=== PATIENT | female | born 1980 | race Caucasian/White ===

== ENCOUNTER → 2017-01-01 | Emergency (ER) | payer MEDICAID ==
[~2017-01-01] VITALS: Ht 172.7 cm; Wt 114.8 kg
[~2017-01-01] MED LIST: AC325T PO; AGM875T PO; ALBU8.5H2 IH; AMOX500C2 PO; AMOX875T2; AZIT250T PO; AZTH250C PO; BENZ100C18 PO; BENZ200C25 PO; CEFD300C3 PO; CEPH500C PO; CETI10TA76 PO; CIPR-225 PO; CIPR500T78 PO; CLON0.123; CLON0.5T3; CLON0.5T60 PO; CLON1TAB36 PO; CLON2TAB3 PO; CPR500T PO; CTLP20T PO; CYCL10TA9 PO; CYMBALTA; DCS100C PO; DICL75TA2; DICY20TA57 PO; DIVA125T2; DOXY100C2 PO; DOXY100T61 PO; DULO60CA6; DULO60CA6 PO; ERYT1OIN6 OP; ESZO3TAB30 PO; FAMO-119 PO; FAMO40TA6 PO; FANAPT; FLT05NA16 NSEACH; GABA300C; GABA300C PO; GBPN300C PO; GENT3.5O18 OS; GFCD10B PO; GUAI1TAB PO; HC A30CR RC; HYDR-1231 PO; HYDR-2856 PO; HYDR-34 PO; HYDR-3729 PO; HYDR-3812 PO; HYDR-3816 PO; HYDR1TAB PO; HYDR473S17 PO; HYOS0.1283 SL; HYOSCYAMINE 0.125 MG (LEVSIN) TAB SL ONE; IBP200T PO; IBUP-15 PO; IBUP-30 PO; ILOP6TAB PO; ILOP6TAB2 PO; IOHEXOL 350 MG/ML 100 ML (OMNIPAQUE 350) VIAL IV ONE; LACT1CAP62 PO; LACTATED RINGERS 1,000 ML IV ONE; LEVO500T69 PO; LORA1TAB; LORA1TAB PO; LOXA10CA; LOXA10CA PO; LURA120T PO; MECL-124 PO; MECL25TA3 PO; MECL25TA56 PO; METH-53 PO; METOCLOPRAMIDE INJ 10 MG/2 ML (REGLAN) IVP ONE; METR500T PO; NAPR-243 PO; NAPR-684 PO; NAPR250T34 PO; NF-OLOP5ML OP; NITR-65 PO; NITR100C3 PO; NS 100 ML (IVPB) BAG IV ONE; ONDA-42 SL; ONDA4TAB11 PO; ONDA4TAB8 PO; ONDA8TAB13 PO; ONDANSETRON 4 MG/2 ML (SDV) Z0FRAN IVP ONE; ONDANSETRON 4 MG/2 ML (SDV) Z0FRAN ONE; ONDN4T PO; PENI250T4 PO; PRD20T PO; PRD50T PO; PRM25T PO; PROMETHAZINE; PROP40TA5; PROP40TA5 PO; RANITIDINE; RIZA5TAB13 PO; SUCR1ORA PO; TRAM-21 PO; TRAM100T PO; TRAM50TA2 PO; TRAZ150T42; TRM50T PO; TRZ100T; TRZ100T PO; VORT10TA PO; ZIPR60CA6; ZLP10T; ZPR80C; diphenhydrAMINE 50 MG/ML INJ (BENADRYL) IVP ONE
[2017-01-01] MEDS: LACTATED RINGERS 1,000 ML IV ONE ×2 (05:40→05:42)
[2017-01-01 05:44] LABS: BASOPHILS % (AUTO) 0 % (0-10); EOSINOPHILS # (AUTO) 0.6 10^3/uL (0.0-0.3); EOSINOPHILS % (AUTO) 7 % (0-10); LYMPHOCYTES # (AUTO) 2.6 X 10^3 (1.0-4.0); LYMPHOCYTES % (AUTO) 28 % (12-44); MEAN CORPUSCULAR HEMOGLOBIN 28 PG (25-34); MEAN CORPUSCULAR HGB CONC 34 G/DL (32-36); MEAN CORPUSCULAR VOLUME 82 FL (80-99); MEAN PLATELET VOLUME 9.9 FL (7.4-10.4); MONOCYTES # (AUTO) 0.8 X 10^3 (0.0-1.0); MONOCYTES % (AUTO) 9 % (0-12); NEUTROPHILS % (AUTO) 56 % (42-75); PLATELET COUNT 245 10^3/uL (130-400); RED BLOOD COUNT 4.99 10^6/uL (4.35-5.85); RED CELL DISTRIBUTION WIDTH 13.8 % (10.0-14.5); WHITE BLOOD COUNT 9.1 10^3/uL (4.3-11.0)
--- NOTE | 2017-01-01 05:55 | ED GI ---
General Chief Complaint: Abdominal/GI Problems Stated Complaint: VOMITING,DIARRHEA Nursing Triage Note: PT CO OF N/V/DIARRHEA SINCE FRIDAY, PT WAS SEEN AT [facility] YESTERDAY AND HAS GOTTEN A SCRIPT FOR ZOFRAN. CONT TO HAVE CRAMPING Sepsis Screen: No Definite Risk Source of Information: Patient (GLENDA JIMENEZ DO) History of Present Illness Time Seen By Provider: 05:35 Initial Comments C/O NAUSEA/VOMITING/DIARRHEA AND ABDOMINAL CRAMPING SINCE Friday12/29/16 HAS VOMITED X 3, PLUS DRY HEAVES SINCE MIDNIGHT HAS HAD DIARRHEA X 4-5 SINCE MIDNIGHT--STOOL IS WATERY, NO BLACK /BLOODY/TARRY STOOLS ABDOMINAL CRAMPING IS IN EPIGASTRIC AREA AND COMES AND GOES NO FEVER, BUT HAS HAD SWEATS AND CHILLS VOIDED AT 1999 LAST PM DRANK GATORADE AT 2029 LAST PM NO KNOWN SICK CONTACTS OR SUSPICIOUS FOODS PT HAS HAD NON-SPECIFIC "GI ISSUES" IN PAST, WITHOUT DEFINITE DX--HAS HAD MULTIPLE EGD'S AND COLONOSCOPIES WENT TO [facility] YESTERDAY AND WAS DX WITH "STOMACH FLU" PER PT, AND GIVEN RX FOR ZOFRAN 4 MG--NO IMPROVEMENT, CAN'T KEEP IT DOWN. PCP: DR. JENNIFER CASTILLO (GLENDA JIMENEZ DO) Allergies and Home Medications Allergies Coded Allergies: metformin (Verified Allergy, Intermediate, N/V, 11/21/15) strawberry (Verified Allergy, Mild, 11/28/15) codeine (Verified Allergy, Unknown, 12/24/05) morphine (Verified Allergy, Unknown, 01/12/14) ketorolac tromethamine (Verified Adverse Reaction, Unknown, VOMITING, 01/12) Home Medications Cetirizine HCl 10 Mg Tab.chew, 10 MG PO DAILY, (Reported) Hyoscyamine Sulfate 0.125 Mg Tab.subl, 0.125 MG SL Q4H PRN for ABDOMINAL PAIN, # 10 Prescribed by: REILLY PORTER on 01/01/17 0736 Ibuprofen 200 Mg Tablet, 800 MG PO BID, (Reported) Lactobacillus Acidophilus 1 Each Capsule, 1 EACH PO TID, #30 With meals Prescribed by: MADELINE OAKES on 04/01/16 1735 Lorazepam 1 Mg Tablet, 2 MG PO TID, (Reported) LAST FILLED #90 08-03-15 Loxapine Succinate 10 Mg Capsule, 10 MG PO DAILY, (Reported) Ondansetron HCl 4 Mg Tab, 4 MG PO TID PRN for NAUSEA/VOMITING-1ST LINE, ( Reported) [Fanapt] , (Reported) Review of Systems Constitutional: see HPI, chills, diaphoresis EENTM: No Symptoms Reported Respiratory: No Symptoms Reported Cardiovascular: No Symptoms Reported Gastrointestinal: See HPI, Abdominal Pain, Diarrhea, Nausea, Poor Appetite, Poor Fluid Intake, Vomiting Genitourinary: No Symptoms Reported Musculoskeletal: no symptoms reported Skin: no symptoms reported Psychiatric/Neurological: No Symptoms Reported Endocrine: No Symptoms Reported Hematologic/Lymphatic: No Symptoms Reported (GLENDA JIMENEZ DO) Past Twkjjdg-Syvful-Iabaty Hx Patient Social History Alcohol Use: Denies Use Recreational Drug Use: No Smoking Status: Current Everyday Smoker (1 PPD) Type Used: Cigarettes Recent Foreign Travel: No Contact w/Someone Who Travel: No Recent Infectious Disease Expo: No Recent Hopitalizations: No (GLENDA JIMENEZ DO) Immunizations Up To Date Tetanus Booster (TDap): Less than 5yrs Date of Pneumonia Vaccine: May 16, 2011 Date of Influenza Vaccine: Jun 27, 2015 (GLENDA JIMENEZ DO) Seasonal Allergies Seasonal Allergies: Yes (GLENDA JIMENEZ DO) Surgeries HX Surgeries: Yes (DENTAL , RT CARPAL TUNNEL, 3 D&C, R KNEE SCOPE; HYST/BSO; MULTIPLE EGD'S AND COLONOSCOPIES) Surgeries: Adenoidectomy, Appendectomy, Gallbladder, Hysterectomy, Oophorectomy , Orthopedic, Tonsillectomy, Tubal Ligation (DAVON JIMENEZA Fausto WINTER) Respiratory Hx Respiratory Disorders: Yes Respiratory Disorders: Chronic Bronchitis (DAVON IJMENEZA Fausto WINTER) Cardiovascular Hx Cardiac Disorders: No (DAVON JIMENEZA Fausto WINTER) Neurological Hx Neurological Disorders: Yes Neurological Disorders: Headaches /Migraines, Neuropathy (DAVON JIMENEZA Fausto WINTER) Reproductive System Sexually Transmitted Disease: No HIV/AIDS: No 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 (GLENDA JIMENEZ DO) Genitourinary Hx Genitourinary Disorders: Yes Genitourinary Disorders: UTI-Chronic (DAVON JIMENEZA Fausto DO) Gastrointestinal Hx Gastrointestinal Disorders: Yes Gastrointestinal Disorders: Gastroesophageal Reflux, Chronic Diarrhea, Gall Bladder Disease, Irritable Bowel (BARBARA,GLENDA K DO) Musculoskeletal Hx Musculoskeletal Disorders: Yes (OSTEOARTHRITIS, INFLAMATORY JOINT DISEASE, FIBROMYALGIA) Musculoskeletal Disorders: Arthritis, Fibromyalgia, Chronic Back Pain (BARBARA,GLENDA K DO) Endocrine Hx Endocrine Disorders: No (PT WAS DX WITH "INSULIN RESISTANCE" AND POSSIBLE NIDDM BY THE [facility], BUT PT DENIES THAT SHE HAS EITHER OF THESE PROBLEMS AND REPORTS THAT SHE HAS NOT BEEN DX WITH THESE PROBLEMS BY HER CURRENT DR. --DR. JENNIFER CASTILLO. ) (BARBARAGLENDA K DO) HEENT HX ENT Disorders: No Loss of Vision: Denies Hearing Impairment: Denies (BARBARA,GLENDA K DO) Cancer Hx Cancer: No (BARBARA,GLENDA K DO) Psychosocial Hx Psychiatric Problems: Yes (BORDERLINE PERSONALITY D/O,RAPID CYCLING MANIC DEPRESSIVE,OD'S,MOOD D/O--EXTENSIVE PSYCH ISSUES) Behavioral Health Disorders: Sleep Difficulties, Anxiety, PTSD, Bipolar, Personality Disorder, Depression (BARBARA,GLENDA K DO) Integumentary HX Skin/Integumentary Disorder: No (bumps on both arms) (BARBARAGLENDA K DO) Blood Transfusions Hx Blood Disorders: No Adverse Reaction to a Blood Tr: No (BARBARA,GLENDA K DO) Family Medical History Significant Family History: GI Disease Family Medial History: Alcoholism 19 FATHER Arthritis 19 FATHER 19 MOTHER Cardiovascular disease grandmother Cataracts G8 BROTHER grandmother Completed stroke grandmother Congenital disease Congenital heart disease grandmother Deafness or hearing loss 19 MOTHER G8 BROTHER Diabetes mellitus 19 MOTHER Gastroenteritis grandmother Glaucoma grandmother Headache disorder 19 MOTHER grandmother Hypercholesterolemia 19 MOTHER grandmother Hypertension 19 MOTHER grandmother Myocardial infarction 19 MOTHER Parkinson's disease grandmother Respiratory disorder 19 FATHER (BARBARA,GLENDA K DO) Family Medial History: Alcoholism 19 FATHER Arthritis 19 FATHER 19 MOTHER Cardiovascular disease grandmother Cataracts G8 BROTHER grandmother Completed stroke grandmother Congenital disease Congenital heart disease grandmother Deafness or hearing loss 19 MOTHER G8 BROTHER Diabetes mellitus 19 MOTHER Gastroenteritis grandmother Glaucoma grandmother Headache disorder 19 MOTHER grandmother Hypercholesterolemia 19 MOTHER grandmother Hypertension 19 MOTHER grandmother Myocardial infarction 19 MOTHER Parkinson's disease grandmother Respiratory disorder 19 FATHER (REILLY PORTER MD) Physical Exam Vital Signs VS - Last 72 Hours, by Label 01/01/17 01/01/17 05:05 08:18 Temp 97.9 97.9 Pulse 82 80 Resp 18 18 B/P (MAP) 114/72 Pulse Ox 98 (REILLY PORTER MD) Vital Signs Capillary Refill : Less Than 3 Seconds (GLENDA JIMENEZ DO) General Appearance: WD/WN, no apparent distress, obese, other (MALODOROUS, DIRTY; SITTING BHUTANESE-STYLE, ROCKING BACK AND FORTH) HEENT: PERRL/EOMI Neck: normal inspection Respiratory: normal breath sounds, no respiratory distress, no accessory muscle use Cardiovascular: regular rate, rhythm, no murmur Gastrointestinal: normal bowel sounds, soft, no organomegaly, no pulsatile mass , No distended, No guarding, No rebound, tenderness (LLQ MILD TENDERNESS. ), No hernia, No mass Extremities: normal inspection Back: no CVA tenderness Neurologic/Psychiatric: clinical educator II-XII nml as tested, no motor/sensory deficits, alert, oriented x 3 Skin: normal color, warm/dry, tattoos/piercings (MULTIPLE TATTOOS) (GLENDA JIMENEZ DO) Progress/Results/Core Measures Results/Orders Lab Results Laboratory Tests Test 01/01/17 05:15 01/01/17 06:38 Range/Units White Blood Count 9.1 4.3-11.0 10^3/uL Red Blood Count 4.99 4.35-5.85 10^6/uL Hemoglobin 13.7 11.5-16.0 G/DL Hematocrit 41 35-52 % Mean Corpuscular Volume 82 80-99 FL Mean Corpuscular Hemoglobin 28 25-34 PG Mean Corpuscular Hemoglobin Concent 34 32-36 G/DL Red Cell Distribution Width 13.8 10.0-14.5 % Platelet Count 245 130-400 10^3/uL Mean Platelet Volume 9.9 7.4-10.4 FL Neutrophils (%) (Auto) 56 42-75 % Lymphocytes (%) (Auto) 28 12-44 % Monocytes (%) (Auto) 9 0-12 % Eosinophils (%) (Auto) 7 0-10 % Basophils (%) (Auto) 0 0-10 % Neutrophils # (Auto) 5.0 1.8-7.8 X 10^3 Lymphocytes # (Auto) 2.6 1.0-4.0 X 10^3 Monocytes # (Auto) 0.8 0.0-1.0 X 10^3 Eosinophils # (Auto) 0.6 H 0.0-0.3 10^3/uL Basophils # (Auto) 0.0 0.0-0.1 10^3/uL Sodium Level 139 135-145 MMOL/L Potassium Level 4.4 3.6-5.0 MMOL/L Chloride Level 107 98-107 MMOL/L Carbon Dioxide Level 21 21-32 MMOL/L Anion Gap 11 5-14 MMOL/L Blood Urea Nitrogen 9 7-18 MG/DL Creatinine 0.79 0.60-1.30 MG/DL Estimat Glomerular Filtration Rate > 60 BUN/Creatinine Ratio 11 Glucose Level 106 H 70-105 MG/DL Calcium Level 9.2 8.5-10.1 MG/DL Total Bilirubin 0.4 0.1-1.0 MG/DL Aspartate Amino Transf (AST/SGOT) 21 5-34 U/L Alanine Aminotransferase (ALT/SGPT) 23 0-55 U/L Alkaline Phosphatase 69 40-136 U/L Total Protein 6.9 6.4-8.2 G/DL Albumin 4.1 3.2-4.5 G/DL Amylase Level 26 25-125 U/L Lipase 13 8-78 U/L Urine Color YELLOW Urine Clarity CLEAR Urine pH 7 5-9 Urine Specific [place] 1.010 L 1.016-1.022 Urine Protein NEGATIVE NEGATIVE Urine Glucose (UA) NEGATIVE NEGATIVE Urine Ketones NEGATIVE NEGATIVE Urine Nitrite NEGATIVE NEGATIVE Urine Bilirubin NEGATIVE NEGATIVE Urine Urobilinogen NORMAL NORMAL MG/DL Urine Leukocyte Esterase 1+ H NEGATIVE Urine RBC (Auto) 1+ H NEGATIVE Urine RBC RARE /HPF Urine WBC 0-2 /HPF Urine Squamous Epithelial Cells 5-10 /HPF Urine Crystals NONE /LPF Urine Bacteria TRACE /HPF Urine Casts NONE /LPF Urine Mucus SMALL H /LPF Urine Culture Indicated NO Urine Opiates Screen NEGATIVE NEGATIVE Urine Oxycodone Screen NEGATIVE NEGATIVE Urine Methadone Screen NEGATIVE NEGATIVE Urine Propoxyphene Screen NEGATIVE NEGATIVE Urine Barbiturates Screen NEGATIVE NEGATIVE Ur Tricyclic Antidepressants Screen NEGATIVE NEGATIVE Urine Phencyclidine Screen NEGATIVE NEGATIVE Urine Amphetamines Screen NEGATIVE NEGATIVE Urine Methamphetamines Screen NEGATIVE NEGATIVE Urine Benzodiazepines Screen POSITIVE H NEGATIVE Urine Cocaine Screen NEGATIVE NEGATIVE Urine Cannabinoids Screen NEGATIVE NEGATIVE (REILLY PORTER MD) My Orders Orders - REILLY PORTER MD Hyoscyamine Sl Tablet (Levsin Sl Tablet) (01/01/17 07:15) (REILLY PORTER MD) Medications Given in ED (REILLY PORTER MD) Vital Signs/I&O Vital Sign - Last 12Hours 01/01/17 01/01/17 05:05 08:18 Temp 97.9 97.9 Pulse 82 80 Resp 18 18 B/P (MAP) 114/72 Pulse Ox 98 (REILLY PORTER MD) Blood Pressure Mean: 86 Progress Note : Progress Note 0600--CARE TURNED OVER TO DR. PORTRE, ALL STUDIES PENDING (GLENDA JIMENEZ DO) Progress Note : Progress Note 0645: CT results noted with no acute abnormality. IV fluids infusing. 0700: Patient requested and was given ice chips. She is tolerating that but she is complaining of some abdominal cramping. Less than 0.125 mg by mouth given. Anticipate discharge home when fluids complete. Repeat exam unchanged from previous documented. Improved after fluids and Levsin. Discharged home with return precautions. Patient verbalized understanding of instructions and agreement with plan. (REILLY PORTER MD) Departure Impression Impression: Primary Impression: Upper abdominal pain Additional Impression: Nausea and vomiting Qualified Codes: R11.14 - Bilious vomiting Disposition: 01 HOME, SELF-CARE Condition: Stable Departure-Patient Inst. Referrals: JENNIFER CASTILLO MD (PCP/Family) Primary Care Physician Patient Instructions: Acute Abdomen (Belly Pain), Adult (DC), Nausea and Vomiting, Adult (DC) Add. Discharge Instructions: All discharge instructions reviewed with patient and/or family. Voiced understanding. Clear liquid diet for 24 hours and then advance as tolerated. Follow-up with your DrAlyce in one to 2 days for recheck. Return for worse pain, fever, vomiting, weakness, breathing problems or other concerns as needed. Scripts Hyoscyamine Sulfate (Levsin-Sl) 0.125 Mg Tab.subl 0.125 MG SL Q4H Y for ABDOMINAL PAIN, #10 TAB Prov: REILLY PORTER MD 01/01/17 GLENDA JIMENEZ DO Jan 01, 2017 05:55 REILLY PORTER MD Jan 01, 2017 07:05
[2017-01-01 05:59] LABS: ALBUMIN 4.1 G/DL (3.2-4.5); AMYLASE 26 U/L (25-125); ANION GAP 11 MMOL/L (5-14); BILIRUBIN,TOTAL 0.4 MG/DL (0.1-1.0); BLOOD UREA NITROGEN 9 MG/DL (7-18); CALCIUM 9.2 MG/DL (8.5-10.1); CARBON DIOXIDE 21 MMOL/L (21-32); CHLORIDE 107 MMOL/L (98-107); GLUCOSE 106 MG/DL (70-105); LIPASE 13 U/L (8-78); POTASSIUM 4.4 MMOL/L (3.6-5.0); SODIUM 139 MMOL/L (135-145); TOTAL PROTEIN 6.9 G/DL (6.4-8.2)
[2017-01-01 06:17] LABS: ALANINE AMINOTRANSFERASE 23 U/L (0-55); ASPARTATE AMINO TRANSFERASE 21 U/L (5-34); BUN/CREATININE RATIO 11; CREATININE SERUM 0.79 MG/DL (0.60-1.30); GFR ESTIMATED > 60
[2017-01-01 06:46] LABS: BILIRUBIN,URINE NEGATIVE (NEGATIVE); KETONES,URINE NEGATIVE (NEGATIVE); LEUKOCYTE ESTERASE ,URINE 1+ (NEGATIVE); NITRITE,URINE NEGATIVE (NEGATIVE); PH,URINE 7 (5-9); PROTEIN,URINE NEGATIVE (NEGATIVE); UROBILINOGEN,URINE NORMAL (NORMAL)
[2017-01-01 06:52] LABS: WBC,URINE 0-2 /HPF
[2017-01-01 08:18] VITALS: BP 110/67
--- NOTE | 2017-01-01 08:34 | Diagnostic Imaging Report ---
PROCEDURE: CT abdomen and pelvis with contrast. TECHNIQUE: Multiple contiguous axial images were obtained through the abdomen and pelvis after administration of intravenous contrast. INDICATION: Nausea and vomiting. CONTRAST: 100 mL of Omnipaque 350 was administered intravenously. FINDINGS: The lung bases appear clear. The liver, spleen, pancreas, and adrenal glands appear unremarkable. Cholecystectomy clips are seen. The kidneys have symmetric enhancement and contrast excretion. There is no hydronephrosis. The abdominal aorta is normal in caliber. No periaortic significantly enlarged lymph nodes are seen. There is a tiny fat-containing umbilical hernia. There is no bowel obstruction. No pneumoperitoneum. No free fluid or fluid collection in the abdomen or pelvis. There is suggestion of prior hysterectomy. The osseous structures appear grossly unremarkable. IMPRESSION: Tiny fat-containing umbilical hernia. No acute process. Dictated by: Dictated on workstation # [id number]
== END | disposition home or self-care (01) ==
LOC: EDUNIT# 04:58 → ER 05:01
DX: R10.10 Upper abdominal pain, unspecified (principal); R11.2 Nausea with vomiting, unspecified; F17.210 Nicotine dependence, cigarettes, uncomplicated
CPT/HCPCS: 36415; 74177; 80053; 80306; 81000; 82150; 83690; 85025; 96361; 96374; 96375

== ENCOUNTER → 2017-02-05 | Outpatient (CLI) | payer MEDICAID ==
[~2017-02-05] MED LIST changes: -HYOSCYAMINE 0.125 MG (LEVSIN) TAB SL ONE; -IOHEXOL 350 MG/ML 100 ML (OMNIPAQUE 350) VIAL IV ONE; -LACTATED RINGERS 1,000 ML IV ONE; -METOCLOPRAMIDE INJ 10 MG/2 ML (REGLAN) IVP ONE; -NS 100 ML (IVPB) BAG IV ONE; -ONDANSETRON 4 MG/2 ML (SDV) Z0FRAN IVP ONE; -ONDANSETRON 4 MG/2 ML (SDV) Z0FRAN ONE; -diphenhydrAMINE 50 MG/ML INJ (BENADRYL) IVP ONE
--- NOTE | 2017-02-05 18:17 | Diagnostic Imaging Report ---
EXAMINATION: Bilateral breast digital diagnostic mammogram with CAD. The current study was also evaluated with a Computer Aided Detection (CAD) system. INDICATION: Right breast pain. COMPARISON: No prior studies are available for comparison. FINDINGS: Scattered fibroglandular densities are seen with no suspicious mass, architectural distortion or calcifications. Minimally prominent lymph nodes in the axilla are seen in a symmetric fashion. IMPRESSION: No mammographic evidence of malignancy. Ultrasound evaluation pending. ACR BI-RADS Category 0: Incomplete. (Needs additional imaging evaluation). Result letter will be mailed to the patient. Note: At least 10% of breast cancer is not imaged by mammography. Dictated by: Dictated on workstation # [id number]
--- NOTE | 2017-02-05 18:19 | Diagnostic Imaging Report ---
Right breast ultrasound. INDICATION: Right breast pain. FINDINGS: Area of pain in the upper-outer aspect was scanned. At the 8 o'clock zone, 12 cm from the nipple there is a nodule measuring 0.7 x 0.8 x 0.7 cm with suggestion of a central hyperechoic fatty hilum. It is most likely an intramammary lymph node. The rounded rather than typical oval or kidney shape is somewhat atypical although otherwise circumscribed margins with uniform thickness of the cortex seen in favor of benign etiology. IMPRESSION: Likely benign intramammary lymph node measuring 0.8 cm at the 8 o'clock zone 12 cm from the nipple is seen. Breast ultrasound follow-up in six months is recommended to ensure stability or resolution. ACR BI-RADS Category 3: Probably benign findings. Dictated by: Dictated on workstation # [id number]
== END ==
LOC: RAD 14:08
PROVIDERS: ATTEND Nurse Practitioner Family
DX: N64.4 Mastodynia (principal)
CPT/HCPCS: 77066

== ENCOUNTER → 2017-05-09 | Outpatient (CLI) | payer MEDICAID ==
[~2017-05-09] MED LIST changes: +PANT40TA2 PO; +SUCR1ORA5 PO
== END ==
LOC: PREOP 05:50
PROVIDERS: ATTEND Surgery
DX: Z01.818 Encounter for other preprocedural examination (principal); R11.2 Nausea with vomiting, unspecified; R07.9 Chest pain, unspecified

== ENCOUNTER 2017-05-13 09:36 | Day surgery (SDC) | payer MEDICAID ==
[~2017-05-13 09:36] MED LIST changes: -PANT40TA2 PO; -SUCR1ORA5 PO
--- OUTSIDE RECORDS SUMMARY | 2017-05-13 09:41 | XMS REPORT ---
Author Author DERREK JACE Organization [facility] Address [address] [place] [address] Care Team Providers Care Mechanist Name Role Phone ANGLINJACE Ingram Unavailable PROBLEMS Type Condition ICD9-CM Code QPE12-XL Code Onset Dates Condition Status SNOMED Code Problem BMI 34.0-34.9,adult Z68.34 Active 434760420 Problem Fibrocystic breast, left N60.12 Active 00712945 Problem History of migraine Z86.69 Active 823766399 Problem Schizoaffective disorder, bipolar type F25.0 Active 93851759 Problem Irritable bowel syndrome with diarrhea K58.0 Active 057483507 Problem Vaginal lesion N89.8 Active 824970582 Problem Fibrocystic breast, right N60.11 Active 29662396 Problem Other fatigue R53.83 Active 97698484 Problem Hypercholesteremia E78.0 Active 30904239 Problem Joint pain M25.50 Active 19580728 Problem Anxiety associated with depression F41.8 Active 951520794 Problem Hip pain M25.559 Active 26215849 Problem Hot flashes N95.1 Active 263590716 Problem Chronic pain G89.29 Active 21483334 Problem Vaginal dryness N89.8 Active 54469777 ALLERGIES Unknown Allergies SOCIAL HISTORY No smoking Hx information available PLAN OF CARE VITAL SIGNS MEDICATIONS Unknown Medications RESULTS No Results PROCEDURES No Known procedures IMMUNIZATIONS No Known Immunizations
[2017-05-13] MEDS ORDERED: LACTATED RINGERS 1,000 ML IV ONE (09:44)
[2017-05-13 09:45] VITALS: BP 115/88
[2017-05-13] MEDS ORDERED: LACTATED RINGERS 1,000 ML IV SCH (10:00)
[2017-05-13] MEDS ORDERED: HURRICAINE EXT TUBE (BENZOCAINE) XX ONE (10:00)
[2017-05-13] MEDS ORDERED: PROPOFOL INJECTION 50 ML IV ONE (10:06)
[2017-05-13] MEDS ORDERED: MIDAZOLAM 2 MG/2 ML (VERSED) VIAL ONE (10:06)
--- NOTE | 2017-05-13 10:14 | Progress Note-Pre Operative ---
Pre-Operative Progress Note H&P Reviewed The H&P was reviewed, patient examined and no changes noted. Date Seen by Provider: May 13, 2017 Time Seen by Provider: 10:14 Date H&P Reviewed: May 13, 2017 Time H&P Reviewed: 10:14 Pre-Operative Diagnosis: epigastric abdominal pain, n/v OLIMPIA GREGORY DO May 13, 2017 10:14
[2017-05-13] MEDS ORDERED: HURRICAINE EXT TUBE (BENZOCAINE) ONE (10:16)
[2017-05-13] MEDS ORDERED: SUCR1ORA5 PO (10:30)
[2017-05-13] MEDS ORDERED: PANT40TA2 PO (10:30)
--- NOTE | 2017-05-13 10:32 | Discharge Inst-Simple/Standard ---
Discharge Inst-Standard Discharge Medications New, Converted or Re-Newed RX: RX on Chart Patient Instructions/Follow Up Plan of Care/Instructions/FU: 3 weeks Anna Activity as Tolerated: Yes Discharge Diet: Regular Diet OLIMPIA GREGORY DO May 13, 2017 10:32
--- NOTE | 2017-05-13 10:33 | Progress Note-Post Operative ---
Post-Operative Progess Note Surgeon (s)/Director Biostatistics (s) Surgeon OLIMPIA GREGORY DO Director Biostatistics: na Pre-Operative Diagnosis epigastric abdominal pain, n/v Post-Operative Diagnosis slight gastritis, reflux esophagitis Procedure & Operative Findings Date of Procedure 05/13/17 Procedure Performed/Findings egd c biopsies Anesthesia Type per district engineer Estimated Blood Loss Estimated blood loss (mL): scant Specimens/Packing Specimens Removed antrum ge junction OLIMPIA GREGORY DO May 13, 2017 10:33
[2017-05-13 10:50] VITALS: BP 118/71
[2017-05-13 11:20] VITALS: BP 112/71
[2017-05-13 11:30] VITALS: BP 112/71
--- NOTE | 2017-05-13 12:35 | OPERATIVE REPORT ---
DATE OF SERVICE: 05/13/2017 PREOPERATIVE DIAGNOSIS: Epigastric abdominal pain, nausea and vomiting. POSTOPERATIVE DIAGNOSIS: Slight gastritis, reflux esophagitis. PROCEDURE: EGD with biopsies. ANESTHESIA: Per ASSISTANT SOFTBALL COACH. ESTIMATED BLOOD LOSS: Scant. SURGEON: Olimpia Castillo DO. INDICATIONS: The patient is a 36-year-old female who has been having epigastric abdominal pain, nausea and vomiting for quite some time. She had not had any relief. She was recommended to have EGD for further evaluation. She understands risks and benefits of procedure and wished to proceed with procedure. Consent was signed in the chart. PROCEDURE: The patient was taken to the endoscopy suite, placed in left lateral recumbent position. Timeout was performed. Scope was inserted in mouth, down the esophagus, stomach and into the duodenum without difficulty. There were some polyps, mass or ulcerations within the duodenum. The scope was then slowly retracted back into the stomach where some slight areas of inflammation and some small punctate possibly erosions were present. Biopsy of the antrum was obtained. The scope was retroflexed noting no other pathology. Scope was returned to its normal position, slowly withdrawn to the distal esophagus. Some slight erythematous changes consistent with some reflux esophagitis present. Biopsy of the GE junction was obtained. Scope was slowly retracted back noting no other pathology until completely removed. The patient tolerated the procedure well without any complications. She was taken to the recovery room in stable condition. RECOMMENDATIONS: The patient will be started on Protonix 40 mg daily and Carafate 1 gram four times a day. We will have her follow up in three weeks to discuss pathology results and see how her symptoms are doing at this time. Would also avoid any nonsteroidal inflammatory drugs or any other drugs that would irritate the stomach. Job ID: [id number] DocumentID: [id number] Dictated Date: 05/13/2017 10:36:33 Cottonseed Meat Presser Date: 05/13/2017 12:34:29 Dictated By: OLIMPIA CASTILLO DO
== END 2017-05-13 11:30 | disposition home or self-care (01) ==
LOC: ENDO 09:36
PROVIDERS: ATTEND Surgery
DX: K21.0 Gastro-esophageal reflux disease with esophagitis (principal); K29.70 Gastritis, unspecified, without bleeding; F41.9 Anxiety disorder, unspecified; F31.9 Bipolar disorder, unspecified; K58.9 Irritable bowel syndrome, unspecified; F17.210 Nicotine dependence, cigarettes, uncomplicated; Z79.899 Other long term (current) drug therapy

== ENCOUNTER → 2017-08-06 | Outpatient (CLI) | payer MEDICAID ==
[~2017-08-06] MED LIST changes: +BARIUM SUSPENSION 105% (LIQUID POLIBAR PLUS) 240 ML/DOSE PO ONE; +BARIUM SUSPENSION 60% (LIQUID EZ PAQUE) 240 ML DOSE PO ONE; +PANT40TA2 PO; +SUCR1ORA5 PO
--- NOTE | 2017-08-06 11:56 | Diagnostic Imaging Report ---
EXAMINATION: Upper GI study, double contrast. Sales And Service Officer image of the abdomen was performed. After the oral administration of gas forming granules, the patient drank thick and thin barium with visualization under fluoroscopy, with spot images taken over the esophagus, stomach and duodenum and followed by overhead images in the chest and abdomen. INDICATION: Nausea and vomiting. FLUOROSCOPY TIME: One minutes and 37 seconds. FINDINGS: Sales And Service Officer image demonstrate no significant abnormality. The esophagus demonstrates normal caliber with no strictures. The mucosal pattern demonstrates no filling defects, diverticulum or ulceration. There is normal relaxation of the distal sphincter. There is no hiatal hernia. The stomach demonstrates normal distensibility with normal appearance of the mucosal folds. There are no ulcers or evidence of mass. The duodenal bulb and sweep appear normal. IMPRESSION: Unremarkable double-contrast upper GI study. Dictated by: Dictated on workstation # [id number]
== END ==
LOC: RAD 07:54
PROVIDERS: ATTEND Surgery
DX: R11.2 Nausea with vomiting, unspecified (principal)
CPT/HCPCS: 74241

== ENCOUNTER 2018-07-11 15:09 | Emergency (ER) | payer SELFPAY ==
[~2018-07-11] VITALS: Ht 172.7 cm; Wt 117.9 kg
[~2018-07-11 15:09] MED LIST changes: +ACHD5005 PO; -BARIUM SUSPENSION 105% (LIQUID POLIBAR PLUS) 240 ML/DOSE PO ONE; -BARIUM SUSPENSION 60% (LIQUID EZ PAQUE) 240 ML DOSE PO ONE; -HYDR-3812 PO; -IBUP-15 PO; +IBUP-16 PO
--- OUTSIDE RECORDS SUMMARY | 2018-07-11 15:15 | XMS REPORT ---
Author Author MICHAEL IZAGUIRRE Organization [facility] Address [address] [place] [address] Care Team Providers Care Print Operator Name Role Phone MICHAEL IZAGUIRRE Unavailable PROBLEMS Type Condition ICD9-CM Code ZAP84-DW Code Onset Dates Condition Status SNOMED Code Problem Joint pain M25.50 Active 43883007 Problem Fibrocystic breast, left N60.12 Active 05714467 Problem History of migraine Z86.69 Active 797812871 Problem Anxiety associated with depression F41.8 Active 922208159 Problem Chronic pain G89.29 Active 51354432 Problem Obesity (BMI 30-39.9) E66.9 Active 965235847 Problem Hyperinsulinemia E16.1 Active 77469133 Problem Hypercholesteremia E78.0 Active 70423439 Problem Fibrocystic breast, right N60.11 Active 72944430 Problem Schizoaffective disorder, bipolar type F25.0 Active 59971587 Problem Irritable bowel syndrome with diarrhea K58.0 Active 579719542 ALLERGIES Substance Reaction Event Type Date Status MetFORMIN HCl ER nausea Drug Allergy Jun, Active Ketorolac Tromethamine nausea Drug Allergy Jun, Active Codeine Sulfate swelling, localized Drug Allergy Jun, Active Morphine rash Drug Allergy Jun, Active Viibryd 10 Mg Tablet "don't remember" Non Drug Allergy Jun, Active Strawberries Unknown Non Drug Allergy Jun, Active ENCOUNTERS Encounter Location Date Diagnosis [facility] [address] [facility] [id number] [address] Jun, Viral upper respiratory tract infection J06.9 ; Diarrhea, unspecified R19.7 ; Vomiting, unspecified R11.10 and Fever, unspecified fever cause R50.9 [facility] [address] [facility] [id number], [place] [address] May, Dizziness R42 and Stomach cramps, generalized R10.84 [facility] [address] [address] Mar, BMI 40.0-44.9, adult Z68.41 and Left wrist pain M25.532 [facility] [address] [address] January, Strain of neck muscle, initial encounter S16.1XXA and BMI 40.0-44.9, adult Z68.41 [facility] [address] [address] Nov, Acute otitis externa of left ear, unspecified type H60.502 [facility] [place] [address] [address] Oct, Intolerance of drug Z78.9 [facility] [address] [address] Oct, Acute non-recurrent maxillary sinusitis J01.00 [facility] [place] [address] [address] Jul, Bronchitis J40 [place] [address] [address] Jul, [facility] [place] [address] [address] Jul, Bronchitis J40 [place] [address] [address] Jun, Fibrocystic breast, right N60.11 [place] [address] [address] Jun, [place] [address] [address] Jun, Hyperinsulinemia E16.1 ; Obesity (BMI 30-39.9) E66.9 and Hypercholesteremia E78.0 [place] [id number] [place] [address] 02 Jun, 2017 Hyperinsulinemia E16.1 ; Visit for TB skin test Z11.1 ; Obesity (BMI 30-39.9) E66.9 ; Hypercholesteremia E78.0 ; Anxiety associated with depression F41.8 and Encounter for PPD test Z11.[address] [address] 18 Mar, 2017 Fibrocystic breast, right N60.11 [facility] [address] [address] Mar, Right hip pain M25.551 and Strain of muscle of right hip, initial encounter S76.011A [facility] [address] [address] Feb, Allergic contact dermatitis due to plants, except food L23.[address] [address] January, Breast pain in female N64.4 [facility] [address] [address] January, Breast pain in female N64.4 [facility] [place] [id number] [place] [address] Nov, Acute bacterial conjunctivitis of left eye H10.[address] [address] Oct, Joint pain M25.[address] [address] 16 Oct, 2016 Joint pain M25.50 and Chronic pain G89.29 [place] [id number] [place] [address]- [address] 02 Oct, 2016 Encounter for well woman exam with routine gynecological exam Z01.419 ; Encounter for screening breast examination Z12.39 and Screen for STD (sexually transmitted disease) Z11.3 [place] [address] [place] [id number] [place] [address] 2973 Sep, [place] [address] [address] Aug, Chronic pain G89.29 and Joint pain M25.50 [facility] [place] [address] [address] 09 May, 2016 Acute maxillary sinusitis, recurrence not specified J01.00 [place] [address] [address] 06 May, 2016 Schizoaffective disorder, bipolar type F25.0 and Generalized anxiety disorder F41.1 [place] [address] [address] Apr, Schizoaffective disorder F25.9 ; Bipolar 1 disorder F31.9 and Anxiety associated with depression F41.8 [place] [address] [address] Apr, Arthralgia of left temporomandibular joint M26.62 [place] [address] [place] [id number] [place] [address]67[address] 78[address] Apr, Chronic pain G89.29 [facility] [place] [address] [address] [place] [id number] [place] [address] Apr, Left-sided face pain R51 and Acute non-recurrent sinusitis , unspecified location J01.90 [place] [address] [place] [id number] [place] [address] Mar, Epigastric pain R10.13 ; Nausea R11.0 and Diarrhea, unspecified type R19.7 [place] [address] [place] [id number] [place] [address] 30321- 8066 20 Feb, 2016 Bipolar 1 disorder F31.9 [facility] [place] [address] [address] 14 Feb, 2016 Insect bite, initial encounter W57.XXXA and Encounter for immunization Z23 [facility] [address] [address] 13 Feb, 2016 Schizoaffective disorder F25.9 [place] [address] [address] Feb, Schizoaffective disorder F25.9 [facility] [address] [address] January, Viral syndrome B34.9 ; Diarrhea, unspecified R19.7 and Vomiting, unspecified R11.10 [facility] [address] [address] Dec, Left otitis media H66.92 and TMJ (temporomandibular joint disorder) M26.60 [facility] [address] [id number] Dec, Dental examination Z01.20 [place] [address] [address] Nov, Acute sinusitis J01.90 [facility] [address] [place] [id number] [place] [address] Nov, Environmental allergies Z91.09 [place] [address] [place] [id number] [place] [address]- 0984 Nov, [place] [address] [address] Nov, HSV (herpes simplex virus) infection B00.9 [place] [address] [address] Oct, Schizoaffective disorder, unspecified F25.9 [place] [address] [place] [id number] [place] [address] Oct, [place] [address] [place] [address] Oct, Insulin resistance E88.81 [place] [address] [place] [id number] [place] [address] 0[address]31- 0177 Oct, [place] [address] [place] [id number] [place] [address] 05947- 3976 Oct, Vaginal lesion N89.8 [place] [address] [place] [id number] [place] [address]- 5070 Oct, Vaginal lesion N89.8 [place] [address] [place] [id number] [place] [address] 28243- 2166 Oct, Well woman exam Z01.419 ; History of hysterectomy Z90.710 ; Hot flashes N95.1 ; Vaginal lesion N89.8 ; Hypercholesteremia E78.0 ; History of abnormal cervical Pap smear Z87.898 ; Papanicolaou smear Z12.4 ; History of endometriosis Z87.42 ; Family history of diabetes mellitus Z83.3 ; Other fatigue R53.83 ; Vaginal dryness N89.8 ; History of migraine Z86.69 ; Anxiety F41.9 ; Depression, unspecified depression type F32.9 ; Family history of breast cancer Z80.3 ; BMI 34.0-34.9,adult Z68.34 ; Routine screening for STI ( sexually transmitted infection) Z11.3 ; Fibrocystic breast, right N60.11 ; Fibrocystic breast, left N60.12 and Irritable bowel syndrome with constipation and diarrhea K58.0 [place] [address] [place] [address] 00[address] Oct, [place] [address] [place] [address]35- 7[address] Oct, General medical exam Z00.00 ; Joint pain M25.50 ; Family history of breast cancer Z80.3 ; Family history of heart disease Z82.49 and STD exposure Z20.2 [place] [address] [place] [id number] [place] [address] 57407[address] 8952 Oct, General medical exam Z00.00 ; Joint pain M25.50 ; Bipolar 1 disorder F31.9 ; Schizoaffective disorder F25.9 ; Chronic pain G89.29 ; Hip pain M25.559 ; Anxiety associated with depression F41.8 ; Family history of breast cancer Z80.3 ; Family history of heart disease Z82.49 ; Family history of diabetes mellitus Z83.3 and STD exposure Z20.2 [place] [address] [address] Oct, [place] [address] 00532- 1083 Sep, Schizoaffective disorder, unspecified type F25.9 [place] [address] [address]- 5[address] Aug, Schizoaffective disorder, unspecified F25.9 [place] [address] [address] 1048 Jul, Schizoaffective disorder, unspecified F25.9 [place] [address] [address]- 74[address] Jul, [place] [address] 01888- 0449 Jul, Routine adult health maintenance Z00.00 ; Hip pain M25.559 and Right knee pain M25.561 [place] [address] [address]- 2[address] Jul, Encounter for immunization Z23 [facility] [address] [id number] Jun, Visit for dental examination Z01.20 [place] [address] 78087- 6[address] 16 Jun, 2015 Bipolar disorder, unspecified F31.9 [place] [address] [address]646- 6324 24 May, 2015 Schizo-affective psychosis 295.70 [facility] [address] [address] 14 May, 2015 Schizo-affective psychosis 295.70 ; Bipolar I disorder, most recent episode (or current) manic, moderate 296.42 and Generalized anxiety disorder 300.02 [facility] [address] [place] [id number] [place] [address] 54680- 7604 May, Generalized anxiety disorder 300.02 [facility] [address] [place] [id number] [place] [address] 19461- 1933 Apr, Schizo-affective psychosis 295.70 [facility] [address] [place] [id number] [place] [address] 72026- 8593 Apr, Bipolar affective disorder 296.80 and Posttraumatic stress disorder 309.81 [place] [address] [place] [id number] [place] [address] 52747- 6027 Mar, [facility] [address] [place] [id number] [place] [address] 04912- 3997 Feb, Bipolar affective disorder 296.80 [facility] [address] [place] [id number] [place] [address] 43130- 4479 Feb, [place] [address] [place] [id number] [place] [address] 50594- 4405 Feb, [facility] [address] [place] [id number] [place] [address] 85169- 5422 Feb, Arthralgia 719.40 ; Elevated C-reactive protein (CRP) 790.95 ; Polydipsia 783.5 and Fatigue 780.79 [facility] [address] [place] [id number] [place] [address] 20889- 8804 January, [place] [address] 6[address]- 6858 January, Abnormal C-reactive protein 790.99 [facility] [address] [place] [id number] [place] [address] 35779- 9912 January, Abnormal C-reactive protein 790.99 [facility] [address] [place] [id number] [place] [address] 66318- 8493 January, Schizoaffective disorder, unspecified 295.70 [facility] [address] [place] [id number] [place] [address] 60032- 2714 January, Hip dysplasia 755.63 [facility] [address] [place] [id number] [place] [address] 97498- 7497 Dec, [facility] [address] [place] [id number] [place] [address] 59774- 7413 Dec, [facility] [address] [place] [id number] [place] [address] 96963- 6460 Nov, [facility] [address] [place] [id number] [place] [address] 86221- 3943 Nov, [facility] [address] [place] [id number] [place] [address] 94285- 3297 Oct, [facility] [address] [place] [id number] [place] [address] 02435- 1371 Oct, [facility] [address] [place] [id number] [place] [address] 61956- 0029 Oct, [facility] [address] [place] [id number] [place] [address] 27830- 4187 Oct, [facility] [address] [place] [id number] [place] [address] 27937- 1887 Oct, [facility] [address] [place] [id number] [place] [address] 97988- 2007 Oct, [facility] [address] [place] [id number] [place] [address] 27722- 7468 Oct, [facility] [address] [place] [id number] [place] [address] 08797- 6236 Oct, [facility] [address] [place] [id number] [place] [address] 35082- 6193 Sep, [facility] [place] [facility] [address] [id number] [place] [address]- 6308 Sep, [facility] [place] [facility] [address] [id number] [place] [address]- 0298 Sep, [facility] [place] [facility] [address] [id number] [place] [address]- 5029 Sep, [facility] [place] [facility] [address] [id number] [place] [address]- 9499 Sep, [facility] [place] [facility] [address] [id number] [place] [address]- 7526 Aug, [facility] [place] [facility] [address] [id number] [place] [address]- 3184 Aug, [facility] [place] [facility] [address] [id number] [place] [address]- 0217 Aug, [facility] [place] [facility] [address] [id number] [place] [address]- 2802 Aug, [facility] [place] [facility] [address] [id number] [place] [address]- 4330 Aug, [facility] [place] [facility] [address] [id number] [place] [address]- 3492 Aug, [facility] [place] [facility] [address] [id number] [place] [address]- 8626 Aug, [facility] [place] [facility] [address] [id number] [place] [address]- 5053 Aug, [facility] [place] [facility] [address] [id number] [place] [address]- 7958 Aug, [facility] [place] [facility] [address] [id number] [place] [address]- 3558 Aug, [facility] [place] [facility] [address] [id number] [place] [address]- 8703 Jul, [facility] [place] [facility] [address] [id number] [place] [address]- 4189 Jul, [facility] [place] [facility] [address] [id number] [place] [address]- 9659 Jul, [facility] [place] [facility] [address] [id number] [place] [address]- 8679 Jul, [facility] [place] [facility] [address] [id number] [place] [address]- 6609 Jul, [facility] [place] [facility] [address] [id number] [place] [address]- 0492 Jul, [facility] [place] [facility] [address] [id number] [place] [address]- 6123 Jul, [facility] [place] [facility] [address] [id number] [place] [address]- 3438 Jul, [facility] [place] [facility] [address] [id number] [place] [address]- 2684 Jul, [facility] [place] [facility] [address] [id number] [place] [address]- 3140 Jul, [facility] [place] [facility] [address] [id number] [place] [address]- 5798 Jul, [facility] [place] [facility] [address] [id number] [place] [address]- 3372 Jul, [facility] [place] [facility] [address] [id number] [place] [address]- 3273 Jul, [facility] [place] [facility] [address] [id number] [place] [address]- 2477 Jul, [facility] [place] [facility] [address] [id number] [place] [address]- 8781 Jul, [facility] [place] [facility] [address] [id number] [place] [address]- 6750 Jul, [facility] [place] [facility] [address] [id number] [place] [address]- 1007 Jul, [facility] [place] [facility] [address] [id number] [place] [address]- 4023 Jul, [facility] [place] [facility] [address] [id number] [place] [address]- 8993 Jul, [facility] [place] [facility] [address] [id number] [place] [address]- 3407 Jul, [facility] [place] [facility] [address] [id number] [place] [address]- 1108 Jul, [facility] [place] [facility] [address] [id number] [place] [address]- 9281 Jul, [facility] [place] [facility] [address] [id number] [place] [address]- 0157 Jun, [facility] [place] [facility] [address] [id number] [place] [address]- 8018 Jun, [facility] [place] [facility] [address] [id number] [place] [address]- 3428 18 May, 2014 [facility] [place] [facility] [address] [id number] [place] [address]- 3026 18 May, 2014 [facility] [place] [facility] [address] [id number] [place] [address]- 8066 18 May, 2014 [facility] [place] [facility] [address] [id number], [place] [address]- 4635 18 May, 2014 [facility] [place] [facility] [address] [id number], [place] [address]- 6939 17 May, 2014 [facility] [place] [facility] [address] [id number] [place] [address]- 7620 17 May, 2014 [facility] [place] [facility] [address] [id number] [place] [address]- 9943 09 May, 2013 [facility] [place] [facility] [address] [id number], [place] [address]- 6326 09 May, 2013 [facility] [place] [facility] [address] [id number], [place] [address]- 4800 05 May, 2013 [facility] [place] [facility] [address] [id number] [place] [address]- 0917 May, 2013 [facility] [place] [facility] [address] [id number] [place] [address]- 2285 May, [facility] [place] [facility] [address] [id number] [place] [address]- 9931 May, [facility] [place] [facility] [address] [id number] [place] [address]- 3841 May, [facility] [place] [facility] [address] [id number] [place] [address]- 1117 Apr, [facility] [place] [facility] [address] [id number] [place] [address]- 3297 Apr, [facility] [place] [facility] [address] [id number] [place] [address]- 2277 Apr, [facility] [place] [facility] [address] [id number] [place] [address]- 8974 Apr, [facility] [place] [facility] [address] [id number] [place] [address]- 8687 Apr, [facility] [place] [facility] [address] [id number] [place] [address]- 9232 Apr, [facility] [place] [facility] [address] [id number] [place] [address]- 8854 Mar, [facility] [place] [facility] [address] [id number], [place] [address]- 8494 Feb, [facility] [place] [facility] [address] [id number] [place] [address]- 8179 Feb, [facility] [place] [facility] [address] [id number] [place] [address]- 6809 January, [facility] [place] [facility] [address] [id number] [place] [address]- 6397 January, [facility] [place] [facility] [address] [id number] [place] [address]- 1415 January, [facility] [place] [facility] [address] [id number] [place] [address]- 7107 January, [facility] [place] [facility] [address] [id number] [place] [address]- 4064 Dec, [facility] [place] [facility] [address] [id number] [place] [address]- 9820 Dec, [facility] [place] [facility] [address] [id number] [place] [address]- 7619 Nov, [facility] [place] [facility] [address] [id number] [place] [address]- 9628 Nov, [facility] [place] [facility] [address] [id number] [place] [address]- 1686 Nov, [facility] [place] [facility] [address] [id number] [place] [address]- 2042 Nov, [facility] [place] [facility] [address] [id number] [place] [address]- 5538 Nov, [facility] [place] [facility] [address] [id number] [place] [address] Nov, [facility] [place] [facility] [address] [id number] [place] [address] Oct, [facility] [place] [facility] [address] [id number] [place] [address] Oct, [facility] [place] [facility] [address] [id number] [place] [address] Oct, [facility] [place] [facility] [address] [id number] [place] [address] Oct, [facility] [place] [facility] [address] [id number] [place] [address] 03 Oct, 2013 [facility] [place] [facility] [address] [id number] [place] [address] Sep, [facility] [place] [facility] [address] [id number] [place] [address] Sep, [facility] [place] [facility] [address] [id number] [place] [address] Sep, [facility] [place] [facility] [address] [id number] [place] [address] Sep, [facility] [place] [facility] [address] [id number] [place] [address] Sep, [facility] [place] [facility] [address] [id number] [place] [address] Sep, [facility] [place] [facility] [address] [id number] [place] [address] Sep, [facility] [place] [facility] [address] [id number] [place] [address] Aug, [facility] [place] [facility] [address] [id number] [place] [address] Aug, [facility] [place] [facility] [address] [id number] [place] [address] Aug, [facility] [place] [facility] [address] [id number] [place] [address] Aug, [facility] [place] [facility] [address] [id number], [place] [address] Jul, [facility] [place] [facility] [address] [id number] [place] [address] Jul, [facility] [place] [facility] [address] [id number] [place] [address] Jul, [facility] [place] [facility] [address] [id number] [place] [address] Jul, [facility] [place] [facility] [address] [id number] [place] [address] Jul, [facility] [place] [facility] [address] [id number] [place] [address] Jul, [facility] [address] [id number] [place] [address] Jun, [facility] [place] [facility] [address] [id number] [place] [address] Jun, [facility] [address] [id number] [place] [address] Jun, [facility] [place] [facility] [address] [id number] [place] [address] Jun, [facility] [address] [id number] [place] [address] Jun, [facility] [place] [facility] [address] [id number] [place] [address] Jun, [facility] [place] [facility] [address] [id number] [place] [address] Jun, [facility] [address] [id number] [place] [address] May, [facility] [place] [facility] [address] [id number] [place] [address] May, [facility] [address] [id number] [place] [address] May, [facility] [place] [facility] [address] [id number] [place] [address] May, [facility] [place] [facility] [address] [id number] [place] [address] Apr, [facility] [place] [facility] [address] [id number] [place] [address] Apr, [facility] [place] [facility] [address] [id number] [place] [address] Feb, [facility] [place] [facility] [address] [id number] [place] [address] January, [facility] [address] [id number] [place] [address] January, [facility] [address] [address] [id number] [place] [address] January, [facility] [address] [id number] [place] [address] January, [facility] [address] [id number] [place] [address] January, [facility] [address] [id number] [place] [address] January, [facility] [address] [id number] [place] [address] Dec, [facility] [address] [id number] [place] [address] Dec, [facility] [address] [id number] [place] [address] Dec, [facility] [address] [id number] [place] [address] Nov, [facility] [address] [id number] [place] [address] Nov, [facility] [address] [id number] [place] [address] Oct, [facility] [place] [facility] [address] [id number] [place] [address] Sep, [facility] [place] [facility] [address] [id number] [place] [address] Sep, [facility] [place] [facility] [address] [id number] [place] [address] Sep, [facility] [place] [facility] [address] [id number] [place] [address] Sep, [facility] [place] [facility] [address] [id number] [place] [address] 30 Jul, 2012 [facility] [place] [facility] [address] [id number] [place] [address] 30 Jul, 2012 [facility] [place] [facility] [address] [id number] [place] [address] 20 Jul, 2012 [facility] [place] [facility] [address] [id number] [place] [address] 20 Jul, 2012 [facility] [place] [facility] [address] [id number] [place] [address] 16 Jul, 2012 [facility] [place] [facility] [address] [id number] [place] [address] 16 Jul, 2012 [facility] [place] [facility] [address] [id number] [place] [address] 16 Jul, 2012 [facility] [place] [facility] [address] [id number] [place] [address] 16 Jul, 2012 [facility] [place] [facility] [address] [id number] [place] [address] Jul, [facility] [place] [facility] [address] [id number] [place] [address] Jul, [facility] [place] [facility] [address] [facility] [id number] [place] [address] 25 Feb, 2012 [facility] [place] [facility] [address] [id number] [place] [address] 19 Nov, 2011 [facility] [place] [facility] [address] [id number] [place] [address] 13 Nov, 2011 [facility] [place] [facility] [address] [id number] [place] [address] 12 Nov, 2011 [facility] [place] [facility] [address] [id number] [place] [address] 08 Nov, 2011 [facility] [place] [facility] [address] [id number] [place] [address] 07 Nov, 2011 [facility] [place] [facility] [address] [place] [address] Nov, [facility] [address] [place] [address] Nov, [facility] [address], [place] [address] Apr, [facility] [id number] [place] [address] Jul, [facility] [address], [place] [address] Jul, [facility] [id number] [place] [address] Jul, [facility] [address], [place] [address] Jun, [facility] [id number] [address] May, [facility] [address], [place] [address] Feb, [facility] [address], [place] [address] Jun, IMMUNIZATIONS Vaccine Route Administration Date Status PHENERGAN 50MG/ML IM Intramuscular Jul 05, 2018 Administered SOCIAL HISTORY Never Assessed REASON FOR VISIT cough/congestion and fevers highest of 103.9 started Thurs JStrasserRN PLAN OF CARE Activity Details Follow Up as needed or reg fu with pcp Reason: VITAL SIGNS Height 69 in 2018-07-05 Weight 268.8 lbs 2018-07-05 Temperature 97.6 degrees Fahrenheit 2018-07-05 Heart Rate 82 bpm 2018-07-05 Respiratory Rate 22 2018-07-05 Oximetry 98 % 2018-07-05 BMI 39.69 kg/m2 2018-07-05 Blood pressure systolic 104 mmHg 2018-07-05 Blood pressure diastolic 62 mmHg 2018-07-05 MEDICATIONS Medication Instructions Dosage Frequency Start Date End Date Duration Status Promethazine HCl 25 MG Orally 4 times a day 1 tablet as needed 6h Jun, Jun, 5 days Active Emilia-Lena Plus Cold/Cough Active RESULTS Name Result Date Reference Range INFLUENZA A & B (IN HOUSE) 2018-07-05 INFLUENZA A negative INFLUENZA B negative Control + Lot # [id number] Exp date 2020-09-28 PROCEDURES Procedure Date Ordered Result Body Site INFLUENZA ASSAY W/OPTIC Jul 05, 2018 PHENERGAN 50MG/ML Jul 05, 2018 THER/PROPH/DIAG INJ, SC/IM Jul 05, 2018 INSTRUCTIONS MEDICATIONS ADMINISTERED No Known Medications MEDICAL (GENERAL) HISTORY Type Description Date Medical History post cholecystectomy Medical History depression Medical History PTSD Medical History Schizoaffective disorder, unspecified Medical History Bipolar I disorder, most recent episode (or current) depressed , moderate Medical History Family history of malignant neoplasm of breast Medical History Nondependent tobacco use disorder Medical History Sacroiliitis, not elsewhere classified Medical History Sciatica Medical History Generalized anxiety disorder Surgical History tonsilectomy and adenoids Surgical History appendectomy Surgical History dilation and curettage Surgical History hysterectomy -partial 2003 and then a year later removed ovaries 2006 Surgical History oophorectomy Surgical History neuroplasty with transposition of median nerve at carpal tunnel 2005 Surgical History EGD and biposy - normal 2016 Hospitalization History viral meningitis days 09/2015
--- OUTSIDE RECORDS SUMMARY | 2018-07-11 15:15 | XMS REPORT ---
Author Author FARZAD RIVAS [facility] Address [address] [place] [address] Phone Unavailable Care Team Providers Care Institutional Cook Name Role Phone FARZAD RIVAS Unavailable Unavailable PROBLEMS Type Condition ICD9-CM Code [id number] Code Onset Dates Condition Status SNOMED Code Problem Joint pain M25.50 Active 17854054 Problem Fibrocystic breast, left N60.12 Active 11352032 Problem History of migraine Z86.69 Active 093949686 Problem Anxiety associated with depression F41.8 Active 488979316 Problem Chronic pain G89.29 Active 29898239 Problem Obesity (BMI 30-39.9) E66.9 Active 386725369 Problem Hyperinsulinemia E16.1 Active 67398753 Problem Hypercholesteremia E78.0 Active 12561672 Problem Fibrocystic breast, right N60.11 Active 26254669 Problem Schizoaffective disorder, bipolar type F25.0 Active 65194050 Problem Irritable bowel syndrome with diarrhea K58.0 Active 233477119 ALLERGIES Substance Reaction Event Type Date Status MetFORMIN HCl ER nausea Drug Allergy May, Active Ketorolac Tromethamine nausea Drug Allergy May, Active Codeine Sulfate swelling, localized Drug Allergy May, Active Morphine rash Drug Allergy May, Active Strawberries Unknown Non Drug Allergy May, Active Viibryd 10 Mg Tablet "don't remember" Non Drug Allergy May, Active ENCOUNTERS Encounter Location Date Diagnosis [facility] [address] [id number], [place] [address] May, Dizziness R42 and Stomach cramps, generalized R10.84 [facility] [address] [id number], [place] [address] Mar, BMI 40.0-44.9, adult Z68.41 and Left wrist pain M25.532 [facility] [id number] [place] [address] January, Strain of neck muscle, initial encounter S16.1XXA and BMI 40.0-44.9, adult Z68.41 [facility] [address] [address] Nov, Acute otitis externa of left ear, unspecified type H60.502 [facility] [place] [address] [address] Oct, Intolerance of drug Z78.9 [facility] [address] [address] Oct, Acute non-recurrent maxillary sinusitis J01.00 [facility] [place] [address] [address] Jul, Bronchitis J40 [place] [address] [address] Jul, [facility] [place] [address] [address] Jul, Bronchitis J40 [place] [address] [address] Jun, Fibrocystic breast, right N60.11 [place] [address] [address] Jun, [place] [address] [address] Jun, Hyperinsulinemia E16.1 ; Obesity (BMI 30-39.9) E66.9 and Hypercholesteremia E78.0 [place] [address] [address] 02 Jun, 2017 Hyperinsulinemia E16.1 ; Visit for TB skin test Z11.1 ; Obesity (BMI 30-39.9) E66.9 ; Hypercholesteremia E78.0 ; Anxiety associated with depression F41.8 and Encounter for PPD test Z11.1 [place] [id number] [place] [address] 68616- 3895 18 Mar, 2017 Fibrocystic breast, right N60.11 [facility] [place] [id number] [place] [address] Mar, Right hip pain M25.551 and Strain of muscle of right hip, initial encounter S76.011A [facility] [place] [address] [address] Feb, Allergic contact dermatitis due to plants, except food L23.7 [place] [address] [address] January, Breast pain in female N64.4 [facility] [place] [id number] [place] [address] January, Breast pain in female N64.4 [facility] [place] [id number] [place] [address] Nov, Acute bacterial conjunctivitis of left eye H10.32 [place] [id number] [place] [address] 22504- 4035 Oct, Joint pain M25.50 [place] [id number] [place] [address] 27576- 4048 Oct, Joint pain M25.50 and Chronic pain G89.29 [place] [id number] [place] [address]191- 2057 02 Oct, 2016 Encounter for well woman exam with routine gynecological exam Z01.419 ; Encounter for screening breast examination Z12.39 and Screen for STD (sexually transmitted disease) Z11.3 [place] [id number] [place] [address] 9[address]64- 2731 Sep, [place] [id number] [place] [address] 63569- 8908 Aug, Chronic pain G89.29 and Joint pain M25.50 [facility] [id number] [place] [address] 09 May, 2016 Acute maxillary sinusitis, recurrence not specified J01.00 [place] [address] 6[address]25- [address] 06 May, 2016 Schizoaffective disorder, bipolar type F25.0 and Generalized anxiety disorder F41.1 [place] [address] 9[address]31- [address] Apr, Schizoaffective disorder F25.9 ; Bipolar 1 disorder F31.9 and Anxiety associated with depression F41.8 [place] [address] 9[address]84- 0999 Apr, Arthralgia of left temporomandibular joint M26.62 [place] [address] 7[address]30- [address] Apr, Chronic pain G89.29 [facility] [place] [address] [address] Apr, Left-sided face pain R51 and Acute non-recurrent sinusitis , unspecified location J01.90 [place] [address] 08992- 8220 Mar, Epigastric pain R10.13 ; Nausea R11.0 and Diarrhea, unspecified type R19.7 [place] [id number] [place] [address] 75977- 5795 Feb, Bipolar 1 disorder F31.9 [facility] [address] [address] 14 Feb, 2016 Insect bite, initial encounter W57.XXXA and Encounter for immunization Z23 [place] [id number] [place] [address] 91544- 9843 13 Feb, 2016 Schizoaffective disorder F25.9 [place] [address] [place] [address] Feb, Schizoaffective disorder F25.9 [facility] [address] [address] January, Viral syndrome B34.9 ; Diarrhea, unspecified R19.7 and Vomiting, unspecified R11.10 [facility] [address] [address] Dec, Left otitis media H66.92 and TMJ (temporomandibular joint disorder) M26.60 [facility] [address] [id number] Dec, Dental examination Z01.20 [facility] [address] [address] Nov, Acute sinusitis J01.90 [facility] [address] [address] Nov, Environmental allergies Z91.09 [facility] [address] 89742- [address] Nov, [facility] [address] 93140- [address] Nov, HSV (herpes simplex virus) infection B00.9 [facility] [id number] [place] [address] 62101- 3746 Oct, Schizoaffective disorder, unspecified F25.9 [facility] [address] 9[address]59- 50[address] Oct, [facility] [address] 71982- 8669 Oct, Insulin resistance E88.81 [facility] [address] 31452- 7894 Oct, [facility] [address] 97[address] 49[address] Oct, Vaginal lesion N89.8 [place] [address] [place] [address] 94770- 5608 Oct, Vaginal lesion N89.8 [place] [address] [id number] [place] [address] 95409- 9435 Oct, Well woman exam Z01.419 ; History [...] bowel syndrome with constipation and diarrhea K58.0 [place] [id number] [place] [address] 14617- 7142 Oct, [place] [id number] [place] [address] 4[address] 9615 Oct, General medical exam Z00.00 ; Joint pain M25.50 ; Family history of breast cancer Z80.3 ; Family history of heart disease Z82.49 and STD exposure Z20.2 [place] [id number] [place] [address] 65290- 4553 02 Oct, 2015 General medical exam Z00.00 ; Joint pain M25.50 ; Bipolar 1 disorder F31.9 ; Schizoaffective disorder F25.9 ; Chronic pain G89.29 ; Hip pain M25.559 ; Anxiety associated with depression F41.8 ; Family history of breast cancer Z80.3 ; Family history of heart disease Z82.49 ; Family history of diabetes mellitus Z83.3 and STD exposure Z20.2 [place] [id number] [place] [address] 60642- 8601 Oct, [place] [id number] [place] [address] 94660- 3017 Sep, Schizoaffective disorder, unspecified type F25.9 [place] [address] 136209- 6742 Aug, Schizoaffective disorder, unspecified F25.9 [place] [id number] [place] [address] 91304- 6127 Jul, Schizoaffective disorder, unspecified F25.9 [place] [id number] [place] [address] 19480- 2356 Jul, [place] [address] 18827- 44[address] Jul, Routine adult health maintenance Z00.00 ; Hip pain M25.559 and Right knee pain M25.561 [place] [id number] [place] [address] 69614- 0975 Jul, Encounter for immunization Z23 [facility] [id number] [place] [id number] 21 Jun, 2015 Visit for dental examination Z01.20 [place] [id number] [place] [address] 46902- 6979 16 Jun, 2015 Bipolar disorder, unspecified F31.9 [place] [id number] [place] [address] 88350- 8602 24 May, 2015 Schizo-affective psychosis 295.70 [place] [id number] [place] [address] 97121- 6250 14 May, 2015 Schizo-affective psychosis 295.70 ; Bipolar I disorder, most recent episode (or current) manic, moderate 296.42 and Generalized anxiety disorder 300.02 [place] [address] [id number] [address] May, Generalized anxiety disorder 300.02 [facility] [id number] [place] [address] 793974- 5064 Apr, Schizo-affective psychosis 295.70 [facility] [address] [place] [address] 10672- 3250 Apr, Bipolar affective disorder 296.80 and Posttraumatic stress disorder 309.81 [place] [id number] [place] [address] 19325- 4837 Mar, [place] [id number] [place] [address] 04560- 9072 Feb, Bipolar affective disorder 296.80 [place] [id number] [place] [address] 26853- 7385 Feb, [place] [id number] [place] [address] 22995- 0573 Feb, [place] [id number] [place] [address] 60328- 7346 Feb, Arthralgia 719.40 ; Elevated C-reactive protein (CRP) 790.95 ; Polydipsia 783.5 and Fatigue 780.79 [place] [address] [place] [address] 76678- 9767 January, [place] [address] [place] [address] 96598- 6778 January, Abnormal C-reactive protein 790.99 [place] [address] [place] [address] 38114- 0265 January, Abnormal C-reactive protein 790.99 [place] [address] [place] [address] 77532- 8654 January, Schizoaffective disorder, unspecified 295.70 [place] [address] [place] [address] 70058- 3443 January, Hip dysplasia 755.63 [facility] [place] [facility] [address] [id number] [place] [address] 4142 Dec, [facility] [place] [facility] [address] [id number] [place] [address]- 2016 Dec, [facility] [place] [facility] [address] [id number] [place] [address]- 2805 Nov, [facility] [place] [facility] [address] [id number] [place] [address]- 4870 Nov, [facility] [place] [facility] [address] [id number] [place] [address]- 0232 Oct, [facility] [place] [facility] [address] [id number] [place] [address]- 5905 Oct, [facility] [place] [facility] [address] [id number] [place] [address]- 9908 Oct, [facility] [place] [facility] [address] [id number] [place] [address]- 7273 Oct, [facility] [place] [facility] [address] [id number] [place] [address]- 2979 Oct, [facility] [place] [facility] [address] [id number] [place] [address]- 4525 Oct, [facility] [place] [facility] [address] [facility] [id number] [place] [address]- 8245 Oct, [facility] [place] [facility] [address] [facility] [id number] [place] [address]- 4752 Oct, [facility] [place] [facility] [address] [id number] [place] [address]- 9289 Sep, [facility] [place] [facility] [address] [facility] [id number] [place] [address]- 1703 Sep, [facility] [place] [facility] [address] [facility] [id number] [place] [address]- 6761 Sep, [facility] [place] [facility] [address] [id number] [place] [address]- 4164 Sep, [facility] [place] [facility] [address] [id number] [place] [address]- 5367 Sep, [facility] [place] [facility] [address] [id number] [place] [address]- 0132 Aug, [facility] [place] [facility] [address] [id number] [place] [address] Aug, [facility] [place] [facility] [address] [id number] [place] [address]- 9037 Aug, [facility] [place] [facility] [address] [id number] [place] [address]- 8983 Aug, [facility] [place] [facility] [address] [id number] [place] [address]- 3103 Aug, [facility] [place] [facility] [address] [id number] [place] [address]- 5505 Aug, [facility] [place] [facility] [address] [id number] [place] [address]- 2482 Aug, [facility] [place] [facility] [address] [id number] [place] [address]- 1772 Aug, [facility] [place] [facility] [address] [id number] [place] [address]- 4066 Aug, [facility] [place] [facility] [address] [id number] [place] [address]- 3175 Aug, [facility] [place] [facility] [address] [id number] [place] [address]- 6446 Jul, [facility] [place] [facility] [address] [id number] [place] [address]- 3940 Jul, [facility] [place] [facility] [address] [id number] [place] [address]- 8178 Jul, [facility] [place] [facility] [address] [id number] [place] [address]- 7237 Jul, [facility] [place] [facility] [address] [id number] [place] [address]- 2481 Jul, [facility] [place] [facility] [address] [id number] [place] [address]- 9591 Jul, [facility] [place] [facility] [address] [id number] [place] [address]- 1755 Jul, [facility] [place] [facility] [address] [id number] [place] [address]- 1914 Jul, [facility] [place] [facility] [address] [id number] [place] [address]- 2677 Jul, [facility] [place] [facility] [address] [id number] [place] [address]- 8123 Jul, [facility] [place] [facility] [address] [id number] [place] [address]- 8034 Jul, [facility] [place] [facility] [address] [id number] [place] [address]- 9014 Jul, [facility] [place] [facility] [address] [id number] [place] [address]- 3500 Jul, [facility] [place] [facility] [address] [id number] [place] [address]- 4296 Jul, [facility] [place] [facility] [address] [id number] [address]- 6849 Jul, [facility] [place] [facility] [address] [id number] [address]- 6228 Jul, [facility] [place] [facility] [address] [id number] [place] [address]- 5600 Jul, [facility] [place] [facility] [address] [id number] [address]- 4999 Jul, [facility] [place] [facility] [address] [id number] [place] [address]- 1685 Jul, [facility] [place] [facility] [address] [id number] [place] [address]- 9689 06 Jul, 2013 [facility] [place] [facility] [address] [id number] [place] [address]- 0690 05 Jul, 2014 [facility] [place] [facility] [address] [id number] [place] [address]- 1957 05 Jul, 2013 [facility] [place] [facility] [address] [id number] [place] [address]- 6559 17 Jun, 2014 [facility] [place] [facility] [address] [id number] [place] [address]- 3054 17 Jun, 2014 [facility] [place] [facility] [address] [id number] [place] [address]- 9900 18 Sep, 2013 [facility] [place] [facility] [address] [id number] [place] [address]- 7233 18 Sep, 2013 [facility] [place] [facility] [address] [id number] [place] [address]- 6001 18 May, 2013 [facility] [place] [facility] [address] [id number] [place] [address]- 3054 18 Sep, 2013 [facility] [place] [facility] [address] [id number] [place] [address]- 4401 17 May, 2013 [facility] [place] [facility] [address] [id number] [place] [address]- 6392 17 Sep, 2013 [facility] [place] [facility] [address] [id number] [place] [address]- 6217 09 Sep, 2013 [facility] [place] [facility] [address] [id number] [place] [address]- 2549 09 Sep, 2013 [facility] [place] [facility] [address] [id number] [place] [address]- 4061 05 Sep, 2013 [facility] [place] [facility] [address] [id number] [place] [address]- 3282 04 Sep, 2013 [facility] [place] [facility] [address] [id number], [place] [address]- 2077 04 May, 2014 [facility] [place] [facility] [address] [id number] [place] [address]- 8261 May, [facility] [place] [facility] [address] [id number] [place] [address]- 8154 May, [facility] [place] [facility] [address] [id number] [place] [address]- 9340 Apr, [facility] [place] [facility] [address] [id number] [place] [address]- 8478 Apr, [facility] [place] [facility] [address] [id number] [place] [address]- 4544 Apr, [facility] [place] [facility] [address] [id number] [place] [address]- 3752 Apr, [facility] [place] [facility] [address] [id number] [place] [address]- 7681 Apr, [facility] [place] [facility] [address] [id number] [place] [address]- 7758 Apr, [facility] [place] [facility] [address] [id number] [place] [address]- 4295 Mar, [facility] [place] [facility] [address] [id number] [place] [address]- 6820 Feb, [facility] [place] [facility] [address] [id number] [place] [address]- 4831 Feb, [facility] [place] [facility] [address] [id number] [place] [address]- 3334 January, [facility] [place] [facility] [address] [id number] [place] [address]- 1228 January, [facility] [place] [facility] [address] [id number] [place] [address]- 4841 January, [facility] [place] [facility] [address] [id number] [place] [address]- 7098 January, [facility] [place] [facility] [address] [id number] [place] [address]- 4076 Dec, [facility] [place] [facility] [address] [id number] [place] [address]- 1532 Dec, [facility] [place] [facility] [address] [id number] [place] [address]- 9110 Nov, [facility] [place] [facility] [address] [id number] [place] [address]- 9552 Nov, [facility] [place] [facility] [address] [id number] [place] [address]- 2641 Nov, [facility] [place] [facility] [address] [id number] [place] [address]- 6666 Nov, [facility] [place] [facility] [address] [id number] [place] [address]- 7208 Nov, [facility] [place] [facility] [address] [id number] [place] [address]- 1644 Nov, [facility] [place] [facility] [address] [id number] [place] [address]- 4292 Oct, [facility] [place] [facility] [address] [id number] [place] [address]- 5819 Oct, [facility] [place] [facility] [address] [id number] [place] [address]- 9707 Oct, [facility] [place] [facility] [address] [id number] [place] [address]- 7486 Oct, [facility] [place] [facility] [address] [id number] [place] [address]- 0780 Oct, [facility] [place] [facility] [address] [id number] [place] [address]- 4033 Sep, [facility] [place] [facility] [address] [id number] [place] [address]- 4902 Sep, [facility] [place] [facility] [address] [id number] [place] [address]- 7485 Sep, [facility] [place] [facility] [address] [id number] [place] [address] 28 Sep, 2013 [facility] [place] [facility] [address] [id number] [place] [address] 17 Sep, 2013 [facility] [place] [facility] [address] [id number] [place] [address] Sep, [facility] [place] [facility] [address] [id number] [place] [address] Sep, [facility] [place] [facility] [address] [id number] [place] [address] Aug, [facility] [place] [facility] [address] [id number] [place] [address] Aug, [facility] [place] [facility] [address] [id number] [place] [address] Aug, [facility] [place] [facility] [address] [id number] [place] [address] Aug, [facility] [place] [facility] [address] [id number] [place] [address] Jul, [facility] [place] [facility] [address] [id number] [place] [address] Jul, [facility] [place] [facility] [address] [id number] [place] [address] Jul, [facility] [place] [facility] [address] [id number] [place] [address] Jul, [facility] [place] [facility] [address] [id number] [place] [address] Jul, [facility] [place] [facility] [address] [id number] [place] [address] 07 Jul, 2013 [facility] [place] [facility] [address] [id number] [place] [address] 17 Jun, 2013 [facility] [place] [facility] [address] [id number] [place] [address] Jun, [facility] [address] [id number] [place] [address] Jun, [facility] [place] [facility] [address] [id number] [place] [address] Jun, [facility] [place] [facility] [address] [id number] [place] [address] Jun, [facility] [place] [facility] [address] [id number] [place] [address] Jun, [facility] [place] [facility] [address] [id number] [place] [address] Jun, [facility] [place] [facility] [address] [id number] [place] [address] May, [facility] [place] [facility] [address] [id number] [place] [address] May, [facility] [place] [facility] [address] [id number] [place] [address] May, [facility] [place] [facility] [address] [id number] [place] [address] May, [facility] [place] [facility] [address] [id number] [place] [address] Apr, [facility] [place] [facility] [address] [id number], [place] [address] Apr, [facility] [place] [facility] [address] [id number], [place] [address] Feb, [facility] [place] [facility] [address] [id number] [place] [address] January, [facility] [place] [facility] [address] [id number], [place] [address] January, [facility] [place] [facility] [address] [id number] [place] [address] January, [facility] [place] [facility] [address] [id number] [place] [address] January, [facility] [address] [id number] [place] [address] January, [facility] [address] [id number] [place] [address] January, [facility] [address] [id number] [place] [address] Dec, [facility] [address] [id number] [place] [address] Dec, [facility] [address] [id number] [place] [address] Dec, [facility] [address] [id number] [place] [address] Nov, [facility] [address] [id number] [place] [address] Nov, [facility] [address] [id number] [place] [address] Oct, [facility] [address] [id number] [place] [address] Sep, [facility] [address] [id number] [place] [address] Sep, [facility] [address] [id number] [place] [address]- [address] Sep, [facility] [address] [id number] [place] [address] Sep, [facility] [place] [facility] [address] [id number] [place] [address] Jul, [facility] [place] [facility] [address] [id number] [place] [address] Jul, [facility] [address] [id number] [place] [address] Jul, [facility] [place] [facility] [address] [id number] [place] [address] Jul, [facility] [place] [facility] [address] [id number] [place] [address] 16 Jul, 2012 [facility] [place] [facility] [address] [id number] [place] [address] 16 Jul, 2012 [facility] [place] [facility] [address] [id number] [place] [address] Jul, [facility] [place] [facility] [address] [id number] [place] [address] 16 Jul, 2012 [facility] [place] [facility] [address] [id number] [place] [address] Jul, [facility] [place] [facility] [address] [id number] [place] [address] Jul, [facility] [place] [facility] [address] [id number] [place] [address] Feb, [facility] [place] [facility] [address] [id number] [place] [address] Nov, [facility] [place] [facility] [address] [id number] [place] [address] Nov, [facility] [place] [facility] [address] [id number] [place] [address] Nov, [facility] [place] [facility] [address] [id number] [place] [address] 08 Nov, 2011 [facility] [place] [facility] [address] [id number] [place] [address] 07 Nov, 2011 [facility] [place] [facility] [address] [id number] [place] [address] 02 Nov, 2011 [facility] [place] [facility] [address] [id number] [place] [address] Nov, [facility] [place] [facility] [address] [id number] [address] Apr, [facility] [address] [id number] [address] Jul, [facility] [id number] [address] Jul, [facility] [address] [id number] [address] Jul, [facility] [address] [id number] [address] Jun, [facility] [address] [id number] [address] May, [facility] [id number] [address] Feb, [facility] [address] [id number] [address] Jun, IMMUNIZATIONS No Known Immunizations SOCIAL HISTORY Never Assessed REASON FOR VISIT congestion, chills, nausea/vomiting and dizziness [facility] around 0930 [facility] CARE Activity Details Follow Up prn Reason: VITAL SIGNS Height 69 in 2018-05-19 Weight 270.6 lbs 2018-05-19 Temperature 97.4 degrees Fahrenheit 2018-05-19 Heart Rate 80 bpm 2018-05-19 Respiratory Rate 20 2018-05-19 BMI 39.96 kg/m2 2018-05-19 Blood pressure systolic 100 mmHg 2018-05-19 Blood pressure diastolic 70 mmHg 2018-05-19 MEDICATIONS Medication Instructions Dosage Frequency Start Date End Date Duration Status Acyclovir 400 MG Orally Twice a day 1 tablet 12h Not-Taking Albuterol Sulfate (2.5 MG/3ML) 0.083% Inhalation every 6 hrs as directed 6h Jul, Not-Taking Ibuprofen 800 MG Orally Three times a day 1 tablet with food or milk as needed 8h Not-Taking Meclizine HCl 25 MG Orally bid prn 1 tablet as needed May, 30 day(s) Active Ativan Not-Taking Celecoxib 200 mg Orally Once a day 1 capsule with food 24h Oct, 30 day(s) Not-Taking Tylenol Oral Once a day 1 tab 24h Not-Taking Pantoprazole Sodium 40 MG Orally Once a day 1 tablet 24h Not- Taking RESULTS No Results PROCEDURES No Known procedures INSTRUCTIONS MEDICATIONS ADMINISTERED No Known Medications MEDICAL [...]
--- OUTSIDE RECORDS SUMMARY | 2018-07-11 15:16 | XMS REPORT ---
Author Author JESSICA [facility]GRCIA [facility] Address [address] [place] [address] Care Team Providers Care Translator Deaf Name Role Phone JESSICA GARCIA Unavailable PROBLEMS Type Condition ICD9-CM Code JUH37-NW Code Onset Dates Condition Status SNOMED Code Problem Joint pain M25.50 Active 53390717 Problem Fibrocystic breast, left N60.12 Active 69051773 Problem History of migraine Z86.69 Active 712111451 Problem Anxiety associated with depression F41.8 Active 575185748 Problem Chronic pain G89.29 Active 80080126 Problem Obesity (BMI 30-39.9) E66.9 Active 659452513 Problem Hyperinsulinemia E16.1 Active 12498512 Problem Hypercholesteremia E78.0 Active 74663785 Problem Fibrocystic breast, right N60.11 Active 25115730 Problem Schizoaffective disorder, bipolar type F25.0 Active 00982194 Problem Irritable bowel syndrome with diarrhea K58.0 Active 513968582 ALLERGIES Substance Reaction Event Type Date Status MetFORMIN HCl ER nausea Drug Allergy Mar, Active Ketorolac Tromethamine nausea Drug Allergy Mar, Active Codeine Sulfate swelling, localized Drug Allergy Mar, Active Morphine rash Drug Allergy Mar, Active Strawberries Unknown Non Drug Allergy Mar, Active Viibryd 10 Mg Tablet "don't remember" Non Drug Allergy Mar, Active ENCOUNTERS Encounter Location Date Diagnosis [facility] [address] [facility] [id number] [address] Mar, BMI 40.0-44.9, adult Z68.41 and Left wrist pain M25.532 [facility] [address] [id number] [address] January, Strain of neck muscle, initial encounter S16.1XXA and BMI 40.0-44.9, adult Z68.41 [facility] [address] [address] Nov, Acute otitis externa of left ear, unspecified type H60.502 [facility] WALK IN [place] [address] [address] Oct, Intolerance of drug Z78.9 [facility] WALK IN [place] [address] [address] Oct, Acute non-recurrent maxillary sinusitis J01.00 [facility] WALK IN [place] [address] [address] Jul, Bronchitis J40 [place] [address] [address] Jul, [facility] W[facility] IN [place] [address] [address] Jul, Bronchitis J40 [place] [address] [address] Jun, Fibrocystic breast, right N60.11 [place] [address] [address] Jun, [place] [address] [address] Jun, Hyperinsulinemia E16.1 ; Obesity (BMI 30-39.9) E66.9 and Hypercholesteremia E78.0 [place] [address] [address] Jun, Hyperinsulinemia E16.1 ; Visit for TB skin test Z11.1 ; Obesity (BMI 30-39.9) E66.9 ; Hypercholesteremia E78.0 ; Anxiety associated with depression F41.8 and Encounter for PPD test Z11.1 [place] [address] [address] Mar, Fibrocystic breast, right N60.11 [facility] [address] [place] [id number] [place] [address] Mar, Right hip pain M25.551 and Strain of muscle of right hip, initial encounter S76.011A [facility] [place] [address] [address] [place] [id number] [place] [address] 15 Feb, 2017 Allergic contact dermatitis due to plants, except food L23.7 [place] [address] [address] [place] [id number] [place] [address] 76[address]- 9992 January, Breast pain in female N64.4 [facility] WALK IN [place] [id number] [place] [address] January, Breast pain in female N64.4 [facility]ALK IN [place] [id number] [place] [address] Nov, Acute bacterial conjunctivitis of left eye H10.32 [place] [address] [address] [place] [id number] [place] [address] 77861- 7338 27 Oct, 2016 Joint pain M25.[address] [address] 16 Oct, 2016 Joint pain M25.50 and Chronic pain G89.29 [place] [id number] [place] [address] 25648- 1656 02 Oct, 2016 Encounter for well woman exam with routine gynecological exam Z01.419 ; Encounter for screening breast examination Z12.39 and Screen for STD (sexually transmitted disease) Z11.3 [place] [address] [address] [place] [id number] [place] [address] 93625- 6584 Sep, [place] [address] [place] [id number] [place] [address] 14485- 7516 Aug, Chronic pain G89.29 and Joint pain M25.50 [facility] WALK IN [place] [id number] [place] [address] May, Acute maxillary sinusitis, recurrence not specified J01.00 [place] [address] [place] [id number] [place] [address] 93860- 5544 May, Schizoaffective disorder, bipolar type F25.0 and Generalized anxiety disorder F41.1 [place] [address] [place] [id number] [place] [address] 88751- 2037 Apr, Schizoaffective disorder F25.9 ; Bipolar 1 disorder F31.9 and Anxiety associated with depression F41.8 [place] [address] [address]245- 0149 Apr, Arthralgia of left temporomandibular joint M26.62 [place] [address] [address]- [address]77 Apr, Chronic pain G89.29 [facility] [address] [address] Apr, Left-sided face pain R51 and Acute non-recurrent sinusitis , unspecified location J01.90 [place] [address] [address]44- [address] Mar, Epigastric pain R10.13 ; Nausea R11.0 and Diarrhea, unspecified type R19.7 [place] [address] [place] [id number] [place] [address] 16457- 3434 Feb, Bipolar 1 disorder F31.9 [facility] [address] [address] 14 Feb, 2016 Insect bite, initial encounter W57.XXXA and Encounter for immunization Z23 [place] [address] 16433- 7049 13 Feb, 2016 Schizoaffective disorder F25.9 [place] [address] [place] [id number] [place] [address] 71985- 6693 06 Feb, 2016 Schizoaffective disorder F25.9 [facility] [address] [place] [id number] [place] [address]60 [address] January, Viral syndrome B34.9 ; Diarrhea, unspecified R19.7 and Vomiting, unspecified R11.10 [facility] IN [facility] [address] [place] [id number] [place] [address] Dec, Left otitis media H66.92 and TMJ (temporomandibular joint disorder) M26.60 [facility] [address] [place] [id number] [place] [address] [id number] Dec, Dental examination Z01.20 [facility] [address] [address] Nov, Acute sinusitis J01.90 [facility] [address] [address] Nov, Environmental allergies Z91.09 [place] [address] 01564- 4361 Nov, [facility] [address] 81877- 1628 Nov, HSV (herpes simplex virus) infection B00.9 [place] [address] 16993- 5512 Oct, Schizoaffective disorder, unspecified F25.9 [place] [address] 83954- 8671 Oct, [facility] [address] 31743- 7437 Oct, Insulin resistance E88.81 [facility] [address] 88596- 2548 Oct, [facility] [address] 41926- 4521 Oct, Vaginal lesion N89.8 [facility] [address] 94543- 5616 Oct, Vaginal lesion N89.8 [address] [place] [address] 13259- 1031 08 Oct, 2015 Well woman exam Z01.419 ; History of [...] bowel syndrome with constipation and diarrhea K58.0 [address] [place] [address] 06751- 1559 08 Oct, 2015 [place] [id number] [place] [address] 88921- 8025 03 Oct, 2015 General medical exam Z00.00 ; Joint pain M25.50 ; Family history of breast cancer Z80.3 ; Family history of heart disease Z82.49 and STD exposure Z20.2 [place] [id number] [place] [address] 42724- 9167 02 Oct, 2015 General medical exam Z00.00 ; Joint pain M25.50 ; Bipolar 1 disorder F31.9 ; Schizoaffective disorder F25.9 ; Chronic pain G89.29 ; Hip pain M25.559 ; Anxiety associated with depression F41.8 ; Family history of breast cancer Z80.3 ; Family history of heart disease Z82.49 ; Family history of diabetes mellitus Z83.3 and STD exposure Z20.2 [place] [id number] [place] [address] 73733- 5976 Oct, [facility] [address] [place] [address] 68515- 5045 Sep, Schizoaffective disorder, unspecified type F25.9 [facility] [address] [place] [id number] [place] [address] 21479- 8592 Aug, Schizoaffective disorder, unspecified F25.9 [place] [address] [place] [id number] [place] [address] 41405- 3131 Jul, Schizoaffective disorder, unspecified F25.9 [place] [address] [place] [id number] [place] [address] 68209- 3885 Jul, [place] [address] [place] [id number] [place] [address] 05605- 8065 Jul, Routine adult health maintenance Z00.00 ; Hip pain M25.559 and Right knee pain M25.561 [place] [address] [place] [id number] [place] [address] 54367- 2646 13 Jul, 2015 Encounter for immunization Z23 [facility] [address] [id number] 21 Jun, 2015 Visit for dental examination Z01.20 [place] [address] [place] [id number] [place] [address] 14609- 3218 16 Jun, 2015 Bipolar disorder, unspecified F31.9 [place] [address] [place] [id number] [place] [address] 03571- 0318 24 May, 2015 Schizo-affective psychosis 295.70 [place] [address] [place] [id number] [place] [address] 41134- 5556 14 May, 2015 Schizo-affective psychosis 295.70 ; Bipolar I disorder, most recent episode (or current) manic, moderate 296.42 and Generalized anxiety disorder 300.02 [place] [address] [place] [id number] [place] [address] 99219- 4154 14 May, 2015 Generalized anxiety disorder 300.02 [place] [address] [place] [id number] [place] [address] 35376- 5303 Apr, Schizo-affective psychosis 295.70 [facility] [address] [place] [id number] [place] [address] 06486- 0452 Apr, Bipolar affective disorder 296.80 and Posttraumatic stress disorder 309.81 [facility] [address] [place] [id number] [place] [address] 13213- 0228 Mar, [facility] [address] [place] [id number] [place] [address] 42734- 7044 Feb, Bipolar affective disorder 296.80 [facility] [address] [place] [id number] [place] [address] 20555- 1903 Feb, [facility] [address] [place] [id number] [place] [address] 52684- 6672 Feb, [facility] [address] [place] [id number] [place] [address] 08978- 3747 Feb, Arthralgia 719.40 ; Elevated C-reactive protein (CRP) 790.95 ; Polydipsia 783.5 and Fatigue 780.79 [place] [address] [place] [id number] [place] [address] 32045- 8413 January, [facility] [address] [place] [id number] [place] [address] 47352- 8269 January, Abnormal C-reactive protein 790.99 [facility] [address] [place] [id number] [place] [address] 43591- 9250 January, Abnormal C-reactive protein 790.99 [facility] [address] [place] [id number] [place] [address] 48818- 3436 January, Schizoaffective disorder, unspecified 295.70 [facility] [address] [place] [id number] [place] [address] 58464- 0626 January, Hip dysplasia 755.63 [facility] [address] [place] [id number] [place] [address] 29428- 5883 Dec, [facility] [place] [facility] [address] [id number] [place] [address]- 7906 Dec, [facility] [place] [facility] [address] [id number] [place] [address]- 7071 Nov, [facility] [place] [facility] [address] [id number] [place] [address]- 8721 Nov, [facility] [place] [facility] [address] [id number] [place] [address]- 0841 Oct, [facility] [place] [facility] [address] [id number] [place] [address]- 3662 Oct, [facility] [place] [facility] [address] [id number] [place] [address]- 0219 Oct, [facility] [place] [facility] [address] [id number] [place] [address]- 4015 Oct, [facility] [place] [facility] [address] [id number] [place] [address]- 8835 Oct, [facility] [place] [facility] [address] [id number] [place] [address]- 5493 Oct, [facility] [place] [facility] [address] [id number] [place] [address]- 0157 Oct, [facility] [place] [facility] [address] [id number] [place] [address]- 5856 Oct, [facility] [place] [facility] [address] [id number] [place] [address]- 5182 Sep, [facility] [place] [facility] [address] [id number] [place] [address]- 7428 Sep, [facility] [place] [facility] [address] [id number] [place] [address]- 3780 Sep, [facility] [place] [facility] [address] [id number] [place] [address]- 8965 Sep, [facility] [place] [facility] [address] [id number] [place] [address]- 2081 Sep, [facility] [address] [id number] [place] [address]- 0424 Aug, [facility] [place] [facility] [address] [id number] [place] 9623 Aug, [facility] [address] [id number] [place] [address]- 9254 Aug, [facility] [place] [facility] [address] [id number] [place] [address]- 7604 Aug, [facility] [address] [id number] [place] [address]990 Aug, [facility] [place] [facility] [address] [id number] [place] [address]- 0623 Aug, [facility] [place] [facility] [address] [id number] [place] [address]- 4689 Aug, [facility] [address] [id number] [place] [address]- 2822 Aug, [facility] [place] [facility] [address] [id number] [place] [address]- 1876 Aug, [facility] [address] [id number] [place] [address]- 6027 Aug, [facility] [place] [facility] [address] [id number] [place] [address]- 7798 Jul, [facility] [place] [facility] [address] [id number] [place] [address]- 5172 Jul, [facility] [place] [facility] [address] [id number] [place] [address]- 2496 Jul, [facility] [place] [facility] [address] [id number] [place] [address]- 8389 Jul, [facility] [place] [facility] [address] [id number] [place] [address]- 3514 Jul, [facility] [place] [facility] [address] [id number] [place] [address]- 7132 Jul, [facility] [place] [facility] [address] [id number] [place] [address]- 7339 Jul, [facility] [place] [facility] [address] [id number] [place] [address]- 6107 Jul, [facility] [place] [facility] [address] [id number] [place] [address]- 4694 Jul, [facility] [place] [facility] [address] [id number] [place] [address]- 5586 Jul, [facility] [place] [facility] [address] [id number] [place] [address]- 2463 Jul, [facility] [place] [facility] [address] [id number] [place] [address]- 6354 Jul, [facility] [place] [facility] [address] [id number] [place] [address]- 8185 Jul, [facility] [place] [facility] [address] [id number] [place] [address]- 7143 Jul, [facility] [place] [facility] [address] [id number] [place] [address]- 1745 Jul, [facility] [place] [facility] [address] [id number] [place] [address]- 5657 Jul, [facility] [place] [facility] [address] [id number] [address]- [address] Jul, [facility] [place] [facility] [address] [id number] [place] [address]- 1395 Jul, [facility] [place] [facility] [address] [id number] [place] [address]- 3926 Jul, [facility] [place] [facility] [address] [id number] [place] [address]- 2508 Jul, [facility] [place] [facility] [address] [id number] [place] [address]- 1168 05 Jul, 2013 [facility] [place] [facility] [address] [id number] [place] [address]- 2911 05 Nov, 2013 [facility] [place] [facility] [address] [id number] [place] [address]- 1250 17 Jun, 2013 [facility] [place] [facility] [address] [id number] [place] [address]- 8758 17 Oct, 2013 [facility] [place] [facility] [address] [id number] [place] [address]- 1482 18 Sep, 2013 [facility] [place] [facility] [address] [id number] [place] [address]- 0921 18 Sep, 2013 [facility] [place] [facility] [address] [id number] [place] [address]- 7931 18 Sep, 2013 [facility] [place] [facility] [address] [id number] [place] [address]- 4328 18 Sep, 2013 [facility] [place] [facility] [address] [id number] [place] [address]- 3629 17 Sep, 2013 [facility] [place] [facility] [address] [id number] [place] [address]- 7344 17 Sep, 2013 [facility] [place] [facility] [address] [id number] [place] [address]- 4211 09 Sep, 2013 [facility] [place] [facility] [address] [id number] [place] [address]- 5888 09 Sep, 2013 [facility] [place] [facility] [address] [id number] [place] [address]- 3385 05 Sep, 2013 [facility] [place] [facility] [address] [id number] [place] [address]- 8348 04 Sep, 2013 [facility] [place] [facility] [address] [id number] [place] [address]- 1523 04 Sep, 2013 [facility] [place] [facility] [address] [id number] [place] [address]- 4564 04 Sep, 2013 [facility] [place] [facility] [address] [id number] [place] [address]- 9073 May, [facility] [place] [facility] [address] [id number] [place] [address]- 0049 Apr, [facility] [place] [facility] [address] [id number] [place] [address]- 9253 Apr, [facility] [place] [facility] [address] [id number] [place] [address]- 0862 Apr, [facility] [place] [facility] [address] [id number] [place] [address]- 3557 Apr, [facility] [place] [facility] [address] [id number] [place] [address]- 6475 Apr, [facility] [place] [facility] [address] [id number] [place] [address]- 3781 Apr, [facility] [place] [facility] [address] [id number] [place] [address]- 4220 Mar, [facility] [place] [facility] [address] [id number] [place] [address]- 0556 Feb, [facility] [place] [facility] [address] [id number] [place] [address]- 4124 Feb, [facility] [place] [facility] [address] [id number] [place] [address]- 5641 January, [facility] [place] [facility] [address] [id number] [place] [address]- 7342 January, [facility] [place] [facility] [address] [id number] [place] [address]- 7127 January, [facility] [place] [facility] [address] [id number] [place] [address]- 9086 January, [facility] [place] [facility] [address] [id number] [place] [address]- 4575 Dec, [facility] [place] [facility] [address] [id number] [place] [address]- 2878 Dec, [facility] [place] [facility] [address] [id number] [place] [address]- 4976 Nov, [facility] [place] [facility] [address] [id number] [place] 8993 Nov, [facility] [place] [facility] [address] [id number] [place] [address]- 1829 Nov, [facility] [place] [facility] [address] [id number] [place] [address]- 3853 Nov, [facility] [place] [facility] [address] [id number] [place] [address]- 4897 Nov, [facility] [place] [facility] [address] [id number] [place] [address]- 7040 Nov, [facility] [place] [facility] [address] [id number] [place] [address]- 7463 Oct, [facility] [place] [facility] [address] [id number] [place] [address]- 3485 Oct, [facility] [place] [facility] [address] [id number] [place] [address]- 0770 Oct, [facility] [place] [facility] [address] [id number] [place] [address]- 7334 Oct, [facility] [place] [facility] [address] [id number] [place] [address]- 7105 Oct, [facility] [place] [facility] [address] [id number] [place] [address]- 7705 Sep, [facility] [place] [facility] [address] [id number] [place] [address]- 5981 Sep, [facility] [place] [facility] [address] [id number] [place] [address] Sep, [facility] [place] [facility] [address] [id number] [place] [address] Sep, [facility] [place] [facility] [address] [id number] [place] [address] 17 Sep, 2013 [facility] [address] [id number] [place] [address] Sep, [facility] [place] [facility] [address] [id number] [place] [address] Sep, [facility] [address] [id number] [place] [address] Aug, [facility] [place] [facility] [address] [id number] [place] [address] Aug, [facility] [address] [id number] [place] [address] Aug, [facility] [address] [id number] [place] [address] Aug, [facility] [address] [id number] [place] [address] Jul, [facility] [address] [id number] [place] [address] Jul, [facility] [address] [id number] [place] [address] Jul, [facility] [address] [id number] [place] [address] Jul, [facility] [place] [facility] [address] [id number] [place] [address] Jul, [facility] [place] [facility] [address] [id number] [place] [address] 07 Jul, 2013 [facility] [place] [facility] [address] [id number] [place] [address] Jun, [facility] [place] [facility] [address] [id number] [place] [address] Jun, [facility] [place] [facility] [address] [id number] [place] [address] Jun, [facility] [address] [id number] [place] [address] Jun, [facility] [place] [facility] [address] [id number] [place] [address] Jun, [facility] [place] [facility] [address] [id number] [place] [address] Jun, [facility] [place] [facility] [address] [id number] [place] [address] Jun, [facility] [place] [facility] [address] [id number] [place] [address] May, [facility] [place] [facility] [address] [id number] [place] [address] May, [facility] [place] [facility] [address] [id number] [place] [address] May, [facility] [place] [facility] [address] [id number] [place] [address] May, [facility] [place] [facility] [address] [id number] [place] [address]- [address] Apr, [facility] [place] [facility] [address] [id number] [place] [address] Apr, [facility] [place] [facility] [address] [id number] [place] [address] Feb, [facility] [place] [facility] [address] [id number] [address] January, [facility] [place] [facility] [address] [id number] [place] [address] January, [facility] [place] [facility] [address] [id number] [place] [address] January, [facility] [place] [facility] [address] [id number] [place] [address] January, [facility] [place] [facility] [address] [id number] [place] [address] January, [facility] [address] [id number] [place] [address] January, [facility] [address] [id number] [place] [address] Dec, [facility] [address] [id number] [place] [address] Dec, [facility] [place] [facility] [address] [id number] [place] [address] Dec, [facility] [address] [id number] [place] [address] Nov, [facility] [address] [id number] [place] [address] Nov, [facility] [address] [id number] [place] [address] Oct, [facility] [address] [id number] [place] [address] Sep, [facility] [address] [id number] [place] [address] Sep, [facility] [address] [id number] [place] [address] Sep, [facility] [address] [id number] [place] [address] Sep, [facility] [address] [id number] [place] [address] Jul, [facility] [place] [facility] [address] [id number] [place] [address] Jul, [facility] [place] [facility] [address] [id number] [place] [address] Jul, [facility] [address] [id number] [place] [address] Jul, [facility] [place] [facility] [address] [id number] [place] [address] 16 Jul, 2012 [facility] [place] [facility] [address] [id number] [place] [address] 16 Jul, 2012 [facility] [place] [facility] [address] [id number] [place] [address] 16 Jul, 2012 [facility] [place] [facility] [address] [id number] [place] [address] 16 Jul, 2012 [facility] [place] [facility] [address] [id number] [place] [address] Jul, [facility] [place] [facility] [address] [id number] [place] [address] Jul, [facility] [place] [facility] [address] [id number] [place] [address] Feb, [facility] [place] [facility] [address] [id number] [place] [address] Nov, [facility] [place] [facility] [address] [id number] [place] [address] Nov, [facility] [place] [facility] [address] [id number] [place] [address] Nov, [facility] [place] [facility] [address] [id number] [place] [address] 08 Nov, 2011 [facility] [place] [facility] [address] [id number] [place] [address] 07 Nov, 2011 [facility] [place] [facility] [address] [id number] [place] [address] Nov, [facility] [place] [facility] [address] [id number] [place] [address] 02 Nov, 2011 [facility] [place] [facility] [address] [id number] [place] [address] 15 Apr, 2011 [facility] [place] [facility] [address] [id number] [address] Jul, [facility] [address] [facility] [id number] [address] Jul, [facility] [address] [id number] [address] Jul, [facility] [address] [id number] [address] Jun, [facility] [id number] [address] May, [facility] [address] [id number] [address] Feb, [facility] [address] [id number] [address] [address] Jun, IMMUNIZATIONS No Known Immunizations SOCIAL HISTORY Never Assessed REASON FOR VISIT rt wrist and hand pain x 3 days/nki--MARYSOL Bailey PLAN OF CARE Activity Details Follow Up prn Reason: VITAL SIGNS Height 69 in 2018-03-20 Weight 275 lbs 2018-03-20 Temperature 97.2 degrees Fahrenheit 2018-03-20 Heart Rate 76 bpm 2018-03-20 Respiratory Rate 18 2018-03-20 BMI 40.61 kg/m2 2018-03-20 Blood pressure systolic 116 mmHg 2018-03-20 Blood pressure diastolic 74 mmHg 2018-03-20 MEDICATIONS Medication Instructions Dosage Frequency Start Date End Date Duration Status Tylenol Oral Once a day 1 tab 24h Not-Taking Celecoxib 200 mg Orally Once a day 1 capsule with food 24h Oct, 30 day(s) Not-Taking Albuterol Sulfate (2.5 MG/3ML) 0.083% Inhalation every 6 hrs as directed 6h Jul, Not-Taking Ibuprofen 800 MG Orally Three times a day 1 tablet with food or milk as needed 8h Active Pantoprazole Sodium 40 MG Orally Once a day 1 tablet 24h Not- Taking Ativan Not-Taking Acyclovir 400 MG Orally Twice a day 1 tablet 12h Not-Taking RESULTS Name Result Date Reference Range Xray : Wrist, Left 3 views (IN HOUSE) 2018-03-20 PROCEDURES Procedure Date Ordered Result Body Site X-RAY EXAM OF WRIST March 20, 2018 INSTRUCTIONS MEDICATIONS ADMINISTERED No Known Medications [...]
--- OUTSIDE RECORDS SUMMARY | 2018-07-11 15:16 | XMS REPORT ---
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 Three times a day 1 tablet as needed 8h January, January, 5 days Active Sucralfate 1 GM/10ML Orally Twice a day 10 ml 12h Not-Taking Tessalon Perles 100 mg Orally Three times a day 1 capsule as needed 8h Jul, Not-Taking Ibuprofen 800 MG Orally Three [...]
--- OUTSIDE RECORDS SUMMARY | 2018-07-11 15:17 | XMS REPORT ---
Author Author PINA NAZARIO Organization [facility] Address [address] [place] [address] Care Team Providers Care Hatchery Helper Name Role Phone ARAVINDEYALPINA Unavailable PROBLEMS Type Condition ICD9-CM Code UBK57-IG Code Onset Dates Condition Status SNOMED Code Problem Joint pain M25.50 Active 23607494 Problem Fibrocystic breast, left N60.12 Active 47039525 Problem History of migraine Z86.69 Active 269874524 Problem Anxiety associated with depression F41.8 Active 613683032 Problem Chronic pain G89.29 Active 53781712 Problem Obesity (BMI 30-39.9) E66.9 Active 466609849 Problem Hyperinsulinemia E16.1 Active 07120483 Problem Hypercholesteremia E78.0 Active 90796818 Problem Fibrocystic breast, right N60.11 Active 26560498 Problem Schizoaffective disorder, bipolar type F25.0 Active 23334982 Problem Irritable bowel syndrome with diarrhea K58.0 Active 586878889 ALLERGIES Substance Reaction Event Type Date Status MetFORMIN HCl ER nausea Drug Allergy Nov, Active Ketorolac Tromethamine nausea Drug Allergy Nov, Active Codeine Sulfate swelling, localized Drug Allergy Nov, Active Morphine rash Drug Allergy Nov, Active Strawberries Unknown Non Drug Allergy Nov, Active Viibryd 10 Mg Tablet "don't remember" Non Drug Allergy Nov, Active ENCOUNTERS Encounter Location Date Diagnosis [facility] [address] [facility] [id number] [address] Mar, BMI 40.0-44.9, adult Z68.41 and Left wrist pain M25.532 [facility] [address] [facility] [id number] [address] January, Strain of neck muscle, initial encounter S16.1XXA and BMI 40.0-44.9, adult Z68.41 [facility] [address] [place] [id number] [place] [address] Nov, Acute otitis externa of left ear, unspecified type H60.502 [facility] [place] [id number] [address] Oct, Intolerance of drug Z78.9 [facility] [place] [address] [address] Oct, Acute non-recurrent maxillary sinusitis J01.00 [facility] [place] [address] [address] Jul, Bronchitis J40 [place] [address] [address] Jul, [facility] [place] [address] [address] Jul, Bronchitis J40 [place] [address] [address] Jun, Fibrocystic breast, right N60.11 [place] [address] [address] Jun, [place] [address] [address] Jun, Hyperinsulinemia E16.1 ; Obesity (BMI 30-39.9) E66.9 and Hypercholesteremia E78.0 [place] [address] [address] Jun, Hyperinsulinemia E16.1 ; Visit for TB skin test Z11.1 ; Obesity (BMI 30-39.9) E66.9 ; Hypercholesteremia E78.0 ; Anxiety associated with depression F41.8 and Encounter for PPD test Z11.1 [place] [address] [address] 18 Harvey, 2017 Fibrocystic breast, right N60.11 [facility] N [id number] [place] [address] 11 Mar, 2017 Right hip pain M25.551 and Strain of muscle of right hip, initial encounter S76.011A [facility] [place] [address] [place] [id number] [place] [address]224[address] 15 Feb, 2017 Allergic contact dermatitis due to plants, except food L23.7 [place] [address] [place] [id number] [place] [address]- 9[address] January, Breast pain in female N64.4 [facility] [place] [address] [address] January, Breast pain in female N64.4 [facility] [place] [address] [place] [id number] [place] [address] Nov, Acute bacterial conjunctivitis of left eye H10.32 [place] [address] [place] [id number] [place] [address] 58782- 5412 27 Oct, 2016 Joint pain M25.50 [place] [address] [place] [id number] [place] [address]60- 7539 16 Oct, 2016 Joint pain M25.50 and Chronic pain G89.29 [place] [address] [place] [id number] [place] [address] 02199- 6346 02 Oct, 2016 Encounter for well woman exam with routine gynecological exam Z01.419 ; Encounter for screening breast examination Z12.39 and Screen for STD (sexually transmitted disease) Z11.3 [place] [address] [place] [id number] [place] [address] 83605- 8290 Sep, [place] [address] [place] [id number] [place] [address] 40030- 3200 Aug, Chronic pain G89.29 and Joint pain M25.50 [facility] [place] [address] [place] [id number] [place] [address] 7[address]26 [address]1344 09 May, 2016 Acute maxillary sinusitis, recurrence not specified J01.00 [place] [address] [place] [id number] [place] [address] 14445- 7206 May, Schizoaffective disorder, bipolar type F25.0 and Generalized anxiety disorder F41.1 [place] [address] [place] [id number] [place] [address] 89988- 9254 Apr, Schizoaffective disorder F25.9 ; Bipolar 1 disorder F31.9 and Anxiety associated with depression F41.8 [place] [address] [address]- [address] Apr, Arthralgia of left temporomandibular joint M26.62 [place] [address] 40851[address] 5156 Apr, Chronic pain G89.29 [facility] [place] [address] [address] Apr, Left-sided face pain R51 and Acute non-recurrent sinusitis , unspecified location J01.90 [place] [address] 6[address]- 18[address] Mar, Epigastric pain R10.13 ; Nausea R11.0 and Diarrhea, unspecified type R19.7 [place] [address] 76736- 8642 Feb, Bipolar 1 disorder F31.9 [facility] [address] [address] 14 Feb, 2016 Insect bite, initial encounter W57.XXXA and Encounter for immunization Z23 [place] [address] 58114- 9053 13 Feb, 2016 Schizoaffective disorder F25.9 [place] [address] 08344- 0248 06 Feb, 2016 Schizoaffective disorder F25.9 [facility] [address] [place] [address] January, Viral syndrome B34.9 ; Diarrhea, unspecified R19.7 and Vomiting, unspecified R11.10 [facility] [address] [place] [id number] [place] [address] Dec, Left otitis media H66.92 and TMJ (temporomandibular joint disorder) M26.60 [facility] [address] [id number] Dec, Dental examination Z01.20 [facility] [address] [address] Nov, Acute sinusitis J01.90 [facility] [address] [address] Nov, Environmental allergies Z91.09 [place] [address] 91928- 0169 Nov, [facility] [address] 25742- 2372 Nov, HSV (herpes simplex virus) infection B00.9 [place] [address] 01862- 7867 Oct, Schizoaffective disorder, unspecified F25.9 [place] [address] 81286- 4195 Oct, [facility] [address] 79630- 6104 Oct, Insulin resistance E88.81 [place] [address] 62667- 4066 Oct, [facility] [address] 19828- 2740 Oct, Vaginal lesion N89.8 [facility] [address] 89625- 5755 Oct, 2015 Vaginal lesion N89.[address] [place] [address] 10265- 7878 08 Oct, 2015 Well woman exam Z01.419 [...] bowel syndrome with constipation and diarrhea K58.0 [address] [place] [address] 15613- 9012 08 Oct, 2015 [place] [id number] [place] [address] 14177- 2775 03 Oct, 2015 General medical exam Z00.00 ; Joint pain M25.50 ; Family history of breast cancer Z80.3 ; Family history of heart disease Z82.49 and STD exposure Z20.2 [address] [place] [address] 94484- 8628 02 Oct, 2015 General medical exam Z00.00 ; Joint pain M25.50 ; Bipolar 1 disorder F31.9 ; Schizoaffective disorder F25.9 ; Chronic pain G89.29 ; Hip pain M25.559 ; Anxiety associated with depression F41.8 ; Family history of breast cancer Z80.3 ; Family history of heart disease Z82.49 ; Family history of diabetes mellitus Z83.3 and STD exposure Z20.2 [place] [id number] [place] [address] Oct, [facility] [address] [address] Sep, Schizoaffective disorder, unspecified type F25.9 [facility] [address] [place] [id number] [place] [address] 360394- 4513 Aug, Schizoaffective disorder, unspecified F25.9 [place] [address] [place] [id number] [place] [address] 68033- 3919 Jul, Schizoaffective disorder, unspecified F25.9 [place] [address] [place] [id number] [place] [address] 44489- 0308 Jul, [place] [address] [place] [id number] [place] [address] 34683- 0205 Jul, Routine adult health maintenance Z00.00 ; Hip pain M25.559 and Right knee pain M25.561 [place] [address] [place] [id number] [place] [address] 05603- 1309 Jul, Encounter for immunization Z23 [facility] [address] [place] [id number] [place] [id number] 21 Jun, 2015 Visit for dental examination Z01.20 [place] [address] [place] [id number] [place] [address] 24849- 5469 16 Jun, 2015 Bipolar disorder, unspecified F31.9 [place] [address] [place] [address] 66825- 8433 24 May, 2015 Schizo-affective psychosis 295.70 [place] [address] [place] [id number] [place] [address] 15738- 2985 14 May, 2015 Schizo-affective psychosis 295.70 ; Bipolar I disorder, most recent episode (or current) manic, moderate 296.42 and Generalized anxiety disorder 300.02 [place] [address] [place] [address] 37517- 4389 14 May, 2015 Generalized anxiety disorder 300.02 [place] [address] [place] [address]- 2098 Apr, Schizo-affective psychosis 295.70 [facility] [address] [place] [id number] [place] [address] 58292- 7554 Apr, Bipolar affective disorder 296.80 and Posttraumatic stress disorder 309.81 [facility] [address] [place] [id number] [place] [address] 79272- 3460 Mar, [facility] [address] [place] [id number] [place] [address] 38302- 7008 Feb, Bipolar affective disorder 296.80 [facility] [address] [place] [id number] [place] [address] 06725- 6348 Feb, [facility] [address] [place] [id number] [place] [address] 25985- 3805 Feb, [facility] [address] [place] [id number] [place] [address] 83450- 3231 Feb, Arthralgia 719.40 ; Elevated C-reactive protein (CRP) 790.95 ; Polydipsia 783.5 and Fatigue 780.79 [facility] [address] [place] [id number] [place] [address] 87688- 0739 January, [facility] [address] [place] [id number] [place] [address] 66890- 1148 January, Abnormal C-reactive protein 790.99 [facility] [address] [place] [id number] [place] [address] 65715- 5490 January, Abnormal C-reactive protein 790.99 [facility] [address] [place] [address] 18156- 9804 January, Schizoaffective disorder, unspecified 295.70 [facility] [address] [place] [id number] [place] [address] 36666- 4267 January, Hip dysplasia 755.63 [facility] [address] [place] [id number] [place] [address] 29264- 3519 Dec, [facility] [place] [facility] [address] [id number] [place] [address]- 7805 Dec, [facility] [place] [facility] [address] [id number] [place] [address]- 9211 Nov, [facility] [place] [facility] [address] [id number] [place] [address]- 8701 Nov, [facility] [place] [facility] [address] [id number] [place] [address]- 1639 Oct, [facility] [place] [facility] [address] [id number] [place] [address]- 4407 Oct, [facility] [place] [facility] [address] [id number] [place] [address]- 9937 Oct, [facility] [place] [facility] [address] [id number] [place] [address]- 6383 Oct, [facility] [place] [facility] [address] [id number] [place] [address]- 8848 Oct, [facility] [place] [facility] [address] [id number] [place] [address]- 7691 Oct, [facility] [place] [facility] [address] [id number] [place] [address]- 4988 Oct, [facility] [place] [facility] [address] [id number] [place] [address]- 0634 Oct, [facility] [place] [facility] [address] [id number] [place] [address]- 6326 Sep, [facility] [place] [facility] [address] [id number] [place] [address]- 7599 Sep, [facility] [place] [facility] [address] [id number] [place] [address]- 7917 Sep, [facility] [place] [facility] [address] [id number] [place] [address]- 2112 Sep, [facility] [place] [facility] [address] [id number] [place] [address]- 1179 Sep, [facility] [place] [facility] [address] [id number] [place] [address]- 6142 Aug, [facility] [place] [facility] [address] [id number] [place] [address]- 1030 Aug, [facility] [place] [facility] [address] [id number] [place] [address]- 7532 Aug, [facility] [place] [facility] [address] [id number] [place] [address]- 1050 Aug, [facility] [place] [facility] [address] [id number] [place] [address]- 2672 Aug, [facility] [place] [facility] [address] [id number] [place] [address]- 8880 Aug, [facility] [place] [facility] [address] [id number] [place] [address]- 4075 Aug, [facility] [place] [facility] [address] [id number] [place] [address]- 3222 Aug, [facility] [place] [facility] [address] [id number] [place] [address]- 1219 Aug, [facility] [place] [facility] [address] [id number] [place] [address]- 5345 Aug, [facility] [place] [facility] [address] [id number] [place] [address]- 3473 Jul, [facility] [place] [facility] [address] [id number] [place] [address]- 5958 Jul, [facility] [place] [facility] [address] [id number] [place] [address]- 3110 Jul, [facility] [place] [facility] [address] [id number] [place] [address]- 3996 Jul, [facility] [place] [facility] [address] [id number] [place] [address]- 1912 Jul, [facility] [place] [facility] [address] [id number] [place] [address]- 7450 Jul, [facility] [place] [facility] [address] [id number] [place] [address]- 6004 Jul, [facility] [place] [facility] [address] [id number] [place] [address]- 5423 Jul, [facility] [place] [facility] [address] [id number] [place] [address]- 0156 Jul, [facility] [place] [facility] [address] [id number] [place] [address]- 0284 Jul, [facility] [place] [facility] [address] [id number] [place] [address]- 8787 Jul, [facility] [place] [facility] [address] [id number] [place] [address]- 1693 Jul, [facility] [place] [facility] [address] [id number] [place] [address]- 2598 Jul, [facility] [place] [facility] [address] [id number] [place] [address]- 0314 Jul, [facility] [place] [facility] [address] [id number] [place] [address]- 4157 Jul, [facility] [place] [facility] [address] [id number] [place] [address]- 1792 Jul, [facility] [place] [facility] [address] [id number] [place] [address]- 8350 Jul, [facility] [place] [facility] [address] [id number] [place] [address]- 0330 Jul, [facility] [place] [facility] [address] [id number] [place] [address]- 5229 Jul, [facility] [place] [facility] [address] [id number] [place] [address]- 5510 Jul, [facility] [place] [facility] [address] [id number] [place] [address]- 2010 05 Jul, 2014 [facility] [place] [facility] [address] [id number] [place] [address]- 9878 05 Jul, 2013 [facility] [place] [facility] [address] [id number] [place] [address]- 4353 17 Jun, 2014 [facility] [place] [facility] [address] [id number] [place] [address]- 9693 17 Jun, 2013 [facility] [place] [facility] [address] [id number] [place] [address]- 9270 18 Sep, 2013 [facility] [place] [facility] [address] [id number] [place] [address]- 0911 18 Sep, 2013 [facility] [place] [facility] [address] [id number] [place] [address]- 0080 18 Sep, 2013 [facility] [place] [facility] [address] [id number] [place] [address]- 3711 18 May, 2013 [facility] [place] [facility] [address] [id number] [place] [address]- 5030 17 May, 2013 [facility] [place] [facility] [address] [id number] [place] [address]- 4505 17 Sep, 2013 [facility] [place] [facility] [address] [id number] [place] [address]- 8154 09 Sep, 2013 [facility] [place] [facility] [address] [id number] [address]- 0554 09 Sep, 2013 [facility] [place] [facility] [address] [id number] [place] [address]- 9188 05 Sep, 2013 [facility] [place] [facility] [address] [id number] [place] [address]- 7827 04 Sep, 2013 [facility] [place] [facility] [address] [id number] [place] [address]- 8594 04 Sep, 2013 [facility] [place] [facility] [address] [id number] [address]- 6710 04 Sep, 2013 [facility] [place] [facility] [address] [id number] [place] [address]- 3561 May, [facility] [place] [facility] [address] [id number] [place] [address]- 9043 Apr, [facility] [place] [facility] [address] [id number] [place] [address]- 4238 Apr, [facility] [place] [facility] [address] [id number] [place] [address]- 7237 Apr, [facility] [place] [facility] [address] [id number] [place] [address]- 8205 Apr, [facility] [place] [facility] [address] [id number] [place] [address]- 3438 Apr, [facility] [place] [facility] [address] [id number] [place] [address]- 5576 Apr, [facility] [place] [facility] [address] [id number] [place] [address]- 9958 Mar, [facility] [place] [facility] [address] [id number] [place] [address]- 0602 Feb, [facility] [place] [facility] [address] [id number] [place] [address]- 9480 Feb, [facility] [place] [facility] [address] [id number] [place] [address]- 1421 January, [facility] [place] [facility] [address] [id number] [place] [address]- 3482 January, [facility] [place] [facility] [address] [id number] [place] [address]- 2351 January, [facility] [place] [facility] [address] [id number] [place] [address] January, [facility] [place] [facility] [address] [id number] [place] [address]- 7676 Dec, [facility] [place] [facility] [address] [id number] [place] [address]- 4676 Dec, [facility] [place] [facility] [address] [id number] [place] [address]- 1725 Nov, [facility] [place] [facility] [address] [id number] [place] [address]- 7089 Nov, [facility] [place] [facility] [address] [id number] [place] [address]- 4923 Nov, [facility] [place] [facility] [address] [id number] [place] [address]- 1687 Nov, [facility] [place] [facility] [address] [id number] [place] [address]- 9755 Nov, [facility] [place] [facility] [address] [id number] [place] [address]- 9645 Nov, [facility] [place] [facility] [address] [id number] [place] [address]- 6135 Oct, [facility] [place] [facility] [address] [id number] [place] [address]- 4284 Oct, [facility] [place] [facility] [address] [id number] [place] [address] Oct, [facility] [place] [facility] [address] [id number] [place] [address] Oct, [facility] [place] [facility] [address] [id number] [place] [address] Oct, [facility] [place] [facility] [address] [id number] [place] [address] Sep, [facility] [place] [facility] [address] [id number] [place] [address] Sep, [facility] [place] [facility] [address] [id number] [place] [address] Sep, [facility] [place] [facility] [address] [id number] [place] [address] Sep, [facility] [place] [facility] [address] [id number] [place] [address] 17 Sep, 2013 [facility] [address] [id number] [place] [address] Sep, [facility] [place] [facility] [address] [id number] [place] [address] Sep, [facility] [address] [id number] [place] [address] Aug, [facility] [place] [facility] [address] [id number] [place] [address] Aug, [facility] [address] [id number] [place] [address] Aug, [facility] [place] [facility] [address] [id number] [place] [address] Aug, [facility] [address] [facility] [id number] [place] [address] Jul, [facility] [place] [facility] [address] [id number] [place] [address] Jul, [facility] [place] [facility] [address] [id number] [place] [address] Jul, [facility] [place] [facility] [address] [facility] [id number] [place] [address] Jul, [facility] [place] [facility] [address] [id number] [place] [address] 07 Jul, 2013 [facility] [place] [facility] [address] [id number] [address] 07 Jul, 2013 [facility] [place] [facility] [address] [id number] [place] [address] 17 Jun, 2013 [facility] [place] [facility] [address] [id number] [place] [address] 17 Jun, 2013 [facility] [place] [facility] [address] [id number] [address] Jun, [facility] [place] [facility] [address] [id number] [place] [address] Jun, [facility] [address] [id number] [place] [address] Jun, [facility] [address] [id number] [place] [address] Jun, [facility] [address] [id number] [place] [address] Jun, [facility] [address] [id number] [place] [address] May, [facility] [address] [id number] [place] [address] May, [facility] [address] [id number] [place] [address] May, [facility] [address] [id number] [place] [address] May, [facility] [address] [id number] [place] [address] Apr, [facility] [address] [id number] [place] [address] Apr, [facility] [address] [id number] [place] [address] Feb, [facility] [place] [facility] [address] [id number] [place] [address] January, [facility] [place] [facility] [address] [id number] [place] [address] January, [facility] [place] [facility] [address] [id number] [place] [address] January, [facility] [place] [facility] [address] [id number] [place] [address] January, [facility] [place] [facility] [address] [id number] [place] [address] January, [facility] [address] [id number] [place] [address] January, [facility] [address] [id number] [place] [address] Dec, [facility] [address] [id number] [place] [address] Dec, [facility] [place] [facility] [address] [id number] [place] [address] Dec, [facility] [address] [id number] [place] [address] Nov, [facility] [place] [facility] [address] [id number] [place] [address] Nov, [facility] [address] [id number] [place] [address] Oct, [facility] [place] [facility] [address] [id number] [place] [address] Sep, [facility] [address] [id number] [place] [address] Sep, [facility] [place] [facility] [address] [id number] [place] [address] Sep, [facility] [address] [id number] [place] [address] Sep, [facility] [place] [facility] [address] [id number] [place] [address] Jul, [facility] [place] [facility] [address] [id number] [place] [address] Jul, [facility] [place] [facility] [address] [id number] [place] [address] Jul, [facility] [place] [facility] [address] [id number] [place] [address] Jul, [facility] [place] [facility] [address] [id number] [place] [address] 16 Jul, 2012 [facility] [address] [id number] [place] [address] 16 Jul, 2012 [facility] [place] [facility] [address] [id number] [place] [address] 16 Jul, 2012 [facility] [address] [id number] [place] [address] 16 Jul, 2012 [facility] [place] [facility] [address] [id number] [place] [address] 12 Jul, 2012 [facility] [address] [id number] [place] [address] Jul, [facility] [place] [facility] [address] [id number] [place] [address] Feb, [facility] [address] [id number] [place] [address] 19 Nov, 2011 [facility] [address] [id number] [place] [address] 13 Nov, 2011 [facility] [place] [facility] [address] [id number] [place] [address] Nov, [facility] [address] [id number] [place] [address] 08 Nov, 2011 [facility] [place] [facility] [address] [id number] [place] [address] 07 Nov, 2011 [facility] [place] [facility] [address] [id number] [place] [address] Nov, [facility] [place] [facility] [address] [id number] [place] [address] 02 Nov, 2011 [facility] [place] [facility] [address] [id number] [place] [address] 15 Apr, 2011 [facility] [place] [facility] [address] [id number] [place] [address] Jul, [facility] [address] [facility] [id number] [address] Jul, [facility] [id number] [address] Jul, [facility] [address] [id number] [address] Jun, [facility] [id number] [address] May, [facility] [address] [id number] [address] Feb, [facility] [id number] [address] Jun, IMMUNIZATIONS No Known Immunizations SOCIAL HISTORY Never Assessed REASON FOR VISIT left ear started draining brown liquid- started hurting yesterday and has been using a heating pad Tara PLAN OF CARE Activity Details Follow Up prn Reason: VITAL SIGNS Height 69 in 2017-11-22 Weight 269.0 lbs 2017-11-22 Temperature 97.5 degrees Fahrenheit 2017-11-22 Heart Rate 78 bpm 2017-11-22 Respiratory Rate 20 2017-11-22 BMI 39.72 kg/m2 2017-11-22 Blood pressure systolic 110 mmHg 2017-11-22 Blood pressure diastolic 72 mmHg 2017-11-22 MEDICATIONS Medication Instructions Dosage Frequency Start Date End Date Duration Status Celecoxib 200 mg Orally Once a day 1 capsule with food 24h Oct, 30 day(s) Not-Taking Ativan Not-Taking Tylenol Oral Once a day 1 tab 24h Not-Taking Ofloxacin 0.3 % Otic Once a day 10 drops into affected ear 24h Nov, Nov, 7 day(s) Active Pantoprazole Sodium 40 MG Orally Once a day 1 tablet 24h Not- Taking Sucralfate 1 GM/10ML Orally Twice a day 10 ml 12h Not-Taking Albuterol Sulfate (2.5 MG/3ML) 0.083% Inhalation every 6 hrs as directed 6h Jul, Not-Taking Ibuprofen 800 MG Orally Three times a day 1 tablet with food or milk as needed 8h Active Tessalon Perles 100 mg Orally Three times a day 1 capsule as needed 8h Jul, Not-Taking Tessalon Perles 100 mg Orally Three times a day 1 capsule as needed 8h Jul, Not-Taking Acyclovir 400 MG Orally Twice a day 1 tablet 12h Not-Taking RESULTS No Results PROCEDURES No Known procedures [...]
--- OUTSIDE RECORDS SUMMARY | 2018-07-11 15:18 | XMS REPORT ---
Author Author ROD ORONA Organization [facility] Address [address] [place] [address] Care Team Providers Care Helpdesk Manager Name Role Phone ROD ORONA Unavailable PROBLEMS Type Condition ICD9-CM Code ZLR27-SW Code Onset Dates Condition Status SNOMED Code Problem Joint pain M25.50 Active 36251754 Problem Fibrocystic breast, left N60.12 Active 10567504 Problem History of migraine Z86.69 Active 328310201 Problem Anxiety associated with depression F41.8 Active 687480660 Problem Chronic pain G89.29 Active 00668325 Problem Obesity (BMI 30-39.9) E66.9 Active 101482986 Problem Hyperinsulinemia E16.1 Active 10967118 Problem Hypercholesteremia E78.0 Active 49099230 Problem Fibrocystic breast, right N60.11 Active 89088052 Problem Schizoaffective disorder, bipolar type F25.0 Active 40934256 Problem Irritable bowel syndrome with diarrhea K58.0 Active 028912426 ALLERGIES Substance Reaction Event Type Date Status MetFORMIN HCl ER nausea Drug Allergy Jul, Active Ketorolac Tromethamine nausea Drug Allergy Jul, Active Codeine Sulfate swelling, localized Drug Allergy Jul, Active Morphine rash Drug Allergy Jul, Active Strawberries Unknown Non Drug Allergy Jul, Active Viibryd 10 Mg Tablet "don't remember" Non Drug Allergy Jul, Active ENCOUNTERS Encounter Location Date Diagnosis [facility] [address] [id number], [place] [address] January, Strain of neck muscle, initial encounter S16.1XXA and BMI 40.0-44.9, adult Z68.41 [facility] [address] [id number], [place] [address] Nov, Acute otitis externa of left ear, unspecified type H60.502 [facility] [address], [place] [address] Oct, Intolerance of drug Z78.9 [facility] [place] [address] [place] [id number] [place] [address]86 [address]97 Oct, Acute non-recurrent maxillary sinusitis J01.00 [facility] [place] [address] [place] [address] [id number] [place] [address]20 [address]4505 Jul, Bronchitis J40 [place] [address] [address] Jul, [facility] [place] [address] [address] Jul, Bronchitis J40 [place] [address] [place] [id number] [place] [address] 00442- 5747 Jun, Fibrocystic breast, right N60.11 [place] [address] [address] Jun, [place] [address] [place] [id number] [place] [address] 70483- 1231 Jun, Hyperinsulinemia E16.1 ; Obesity (BMI 30-39.9) E66.9 and Hypercholesteremia E78.0 [place] [address] [place] [id number] [place] [address] 79403- 0858 Jun, Hyperinsulinemia E16.1 ; Visit for TB skin test Z11.1 ; Obesity (BMI 30-39.9) E66.9 ; Hypercholesteremia E78.0 ; Anxiety associated with depression F41.8 and Encounter for PPD test Z11.1 [place] [address] [place] [id number] [place] [address] 60507- 5339 Mar, Fibrocystic breast, right N60.11 [facility] [place] [address] [place] [address] [id number] [place] [address] 16885 -9044 Mar, Right hip pain M25.551 and Strain of muscle of right hip, initial encounter S76.011A [facility] [address] [place] [id number] [place] [address] 18817 -9339 15 Feb, 2017 Allergic contact dermatitis due to plants, except food L23.7 [place] [address] [place] [id number] [place] [address] 39961- 1209 January, Breast pain in female N64.4 [facility] [place] [address] [place] [address] [id number] [place] [address] 84277 -6759 January, Breast pain in female N64.4 [facility] [place] [address] [place] [address] [id number] [place] [address] 50110 [address] Nov, Acute bacterial conjunctivitis of left eye H10.32 [place] [address] 22988- 1065 27 Oct, 2016 Joint pain M25.50 [place] [address] 29784- 4397 16 Oct, 2016 Joint pain M25.50 and Chronic pain G89.29 [place] [address] 87556- 7294 02 Oct, 2016 Encounter for well woman exam with routine gynecological exam Z01.419 ; Encounter for screening breast examination Z12.39 and Screen for STD (sexually transmitted disease) Z11.3 [place] [address] [place] [id number] [place] [address] 19315- 4333 Sep, [place] [address] [place] [id number] [place] [address] 07213- 6815 Aug, Chronic pain G89.29 and Joint pain M25.50 [facility] [address] [address] 09 May, 2016 Acute maxillary sinusitis, recurrence not specified J01.00 [place] [address] [place] [address] [id number] [place] [address] 53713- 2401 06 May, 2016 Schizoaffective disorder, bipolar type F25.0 and Generalized anxiety disorder F41.1 [place] [address] [place] [id number] [place] [address] 22037- 0547 Apr, Schizoaffective disorder F25.9 ; Bipolar 1 disorder F31.9 and Anxiety associated with depression F41.8 [place] [id number] [place] [address] 57561- 2220 Apr, Arthralgia of left temporomandibular joint M26.[address] [address]- 1054 Apr, Chronic pain G89.29 [facility] [address] [address] Apr, Left-sided face pain R51 and Acute non-recurrent sinusitis , unspecified location J01.[address] 64376- 6915 Mar, Epigastric pain R10.13 ; Nausea R11.0 and Diarrhea, unspecified type R19.[address] 75589- 1775 Feb, Bipolar 1 disorder F31.9 [facility] [address] [address]33 [address] 14 Feb, 2016 Insect bite, initial encounter W57.XXXA and Encounter for immunization Z23 [place] [id number] [place] [address] 37878- 7284 Feb, Schizoaffective disorder F25.9 [place] [id number] [place] [address] 43527- 0047 Feb, Schizoaffective disorder F25.9 [facility] [address] [place] [address]72 [address] January, Viral syndrome B34.9 ; Diarrhea, unspecified R19.7 and Vomiting, unspecified R11.10 [facility] [address] [place] [address] 80307 [address] Dec, Left otitis media H66.92 and TMJ (temporomandibular joint disorder) M26.60 [facility] [address] [place] [address] [id number] Dec, Dental examination Z01.20 [facility] [address] [place] [id number] [place] [address] 92550- 1777 Nov, Acute sinusitis J01.90 [facility] [address] [place] [id number] [place] [address] 15161 -1468 Nov, Environmental allergies Z91.09 [facility] [address] 95106- 0893 Nov, [facility] [address] [place] [id number] [place] [address] 59772- 0587 Nov, HSV (herpes simplex virus) infection B00.9 [facility] [address] [place] [id number] [place] [address] 50606- 6319 Oct, Schizoaffective disorder, unspecified F25.9 [facility] [address] [place] [id number] [place] [address] 72253- 6746 Oct, [facility] [address] [place] [id number] [place] [address] 02789- 8176 Oct, Insulin resistance E88.81 [facility] [address] [place] [id number] [place] [address] 93961- 3687 Oct, [facility] [address] [place] [id number] [place] [address] 73983- 5281 Oct, Vaginal lesion N89.8 [facility] [address] [place] [id number] [place] [address] 03494- 0384 Oct, Vaginal lesion N89.8 [facility] [address] [place] [id number] [place] [address] 13301- 1014 08 Oct, 2015 Well woman exam Z01.419 [...] bowel syndrome with constipation and diarrhea K58.0 [place] [id number]- [address] Oct, [place]50- 1129 Oct, General medical exam Z00.00 ; Joint pain M25.50 ; Family history of breast cancer Z80.3 ; Family history of heart disease Z82.49 and STD exposure Z20.2 [place] [id number] [place] [address] 94246- 0622 Oct, General medical exam Z00.00 ; Joint pain M25.50 ; Bipolar 1 disorder F31.9 ; Schizoaffective disorder F25.9 ; Chronic pain G89.29 ; Hip pain M25.559 ; Anxiety associated with depression F41.8 ; Family history of breast cancer Z80.3 ; Family history of heart disease Z82.49 ; Family history of diabetes mellitus Z83.3 and STD exposure Z20.2 [place] [id number]- 1620 Oct, [place] [id number] [place] [address] Sep, Schizoaffective disorder, unspecified type F25.9 [place] [id number] [place] [address] 59172- 1818 Aug, Schizoaffective disorder, unspecified F25.9 [place] [address] [place] [id number] [place] [address] 14210- 1855 Jul, Schizoaffective disorder, unspecified F25.9 [place] [address] [place] [id number] [place] [address] 87248- 1875 Jul, [place] [address] 11433- 7844 Jul, Routine adult health maintenance Z00.00 ; Hip pain M25.559 and Right knee pain M25.561 [place] [address] [place] [id number] [place] [address] 64481- 4139 Jul, Encounter for immunization Z23 [facility] [address] [id number] Jun, Visit for dental examination Z01.20 [place] [address] [place] [id number] [place] [address] 06200- 6055 Jun, Bipolar disorder, unspecified F31.9 [place] [address] [place] [id number] [place] [address] 55412- 5774 24 May, 2015 Schizo-affective psychosis 295.70 [place] [address] [place] [id number] [place] [address] 26918- 2051 14 May, 2015 Schizo-affective psychosis 295.70 ; Bipolar I disorder, most recent episode (or current) manic, moderate 296.42 and Generalized anxiety disorder 300.02 [place] [address] [place] [id number] [place] [address] 47689- 0419 14 May, 2015 Generalized anxiety disorder 300.02 [place] [address] [place] [id number] [place] [address] 84939- 2882 Apr, Schizo-affective psychosis 295.70 [place] [address] [place] [id number] [place] [address] 95120- 7603 Apr, Bipolar affective disorder 296.80 and Posttraumatic stress disorder 309.81 [facility] [address] [address] Mar, [facility] [address] [place] [id number] [place] [address] 199365- 0856 Feb, Bipolar affective disorder 296.80 [facility] [address] [place] [id number] [place] [address] 57304- 8105 Feb, [facility] [address] [place] [id number] [place] [address] 03351- 6837 Feb, [facility] [address] [place] [id number] [place] [address] 51407- 6964 Feb, Arthralgia 719.40 ; Elevated C-reactive protein (CRP) 790.95 ; Polydipsia 783.5 and Fatigue 780.79 [facility] [address] [place] [id number] [place] [address] 62448- 3797 January, [facility] [address] [place] [id number] [place] [address] 20024- 9031 January, Abnormal C-reactive protein 790.99 [facility] [address] [place] [id number] [place] [address] 42834- 6514 January, Abnormal C-reactive protein 790.99 [facility] [address] [place] [address] 52611- 8359 January, Schizoaffective disorder, unspecified 295.70 [facility] [address] [place] [address] 40325- 0375 January, Hip dysplasia 755.63 [facility] [address] [place] [id number] [place] [address] 39474- 6991 Dec, [facility] [address] [place] [id number] [place] [address] 79836- 7331 Dec, [facility] [address] [place] [id number] [place] [address] 73208- 2690 Nov, [facility] [place] [facility] [address] [id number] [place] [address]- 9888 Nov, [facility] [place] [facility] [address] [id number] [place] [address]- 2826 Oct, [facility] [place] [facility] [address] [id number] [place] [address]- 3782 Oct, [facility] [place] [facility] [address] [id number] [place] [address]- 7261 Oct, [facility] [place] [facility] [address] [id number] [place] [address]- 9684 Oct, [facility] [place] [facility] [address] [id number] [place] [address]- 6090 Oct, [facility] [place] [facility] [address] [id number] [place] [address]- 4578 Oct, [facility] [place] [facility] [address] [id number] [place] [address]- 2568 Oct, [facility] [place] [facility] [address] [id number] [place] [address]- 3780 Oct, [facility] [place] [facility] [address] [id number] [place] [address]- 1323 Sep, [facility] [place] [facility] [address] [id number] [place] [address]- 4680 Sep, [facility] [place] [facility] [address] [id number] [place] [address]- 3401 Sep, [facility] [place] [facility] [address] [id number] [place] [address]- 3755 Sep, [facility] [place] [facility] [address] [id number] [place] [address]- 5337 Sep, [facility] [place] [facility] [address] [facility] [id number] [place] [address]- 6091 Aug, [facility] [place] [facility] [address] [id number] [place] [address]- 5871 Aug, [facility] [address] [id number] [place] [address]- 5407 Aug, [facility] [place] [facility] [address] [id number] [place] [address]- 6778 Aug, [facility] [place] [facility] [address] [id number] [place] [address]- 3127 Aug, [facility] [place] [facility] [address] [id number] [place] [address]- 9662 Aug, [facility] [place] [facility] [address] [id number] [place] [address]- 7555 Aug, [facility] [place] [facility] [address] [id number] [place] [address]- 2985 Aug, [facility] [place] [facility] [address] [id number] [place] [address]- 2518 Aug, [facility] [place] [facility] [address] [id number] [place] [address]- 7895 Aug, [facility] [place] [facility] [address] [id number] [place] [address]- 0981 Jul, [facility] [place] [facility] [address] [id number] [place] [address]- 4374 Jul, [facility] [place] [facility] [address] [id number] [place] [address]- 8939 Jul, [facility] [place] [facility] [address] [id number] [place] [address]- 5970 Jul, [facility] [place] [facility] [address] [id number] [place] [address]- 0051 Jul, [facility] [place] [facility] [address] [id number] [place] [address]- 7575 Jul, [facility] [place] [facility] [address] [id number] [place] [address]- 3719 Jul, [facility] [place] [facility] [address] [id number] [place] [address]- 0354 Jul, [facility] [place] [facility] [address] [id number] [place] [address]- 5470 Jul, [facility] [place] [facility] [address] [id number] [place] [address]- 0203 Jul, [facility] [place] [facility] [address] [id number] [place] [address]- 1063 Jul, [facility] [place] [facility] [address] [id number] [place] [address]- 8104 Jul, [facility] [place] [facility] [address] [id number] [place] [address]- 5665 Jul, [facility] [place] [facility] [address] [id number] [place] [address]- 7996 Jul, [facility] [place] [facility] [address] [id number] [place] [address]- 4672 Jul, [facility] [place] [facility] [address] [id number] [place] [address]- 5024 Jul, [facility] [place] [facility] [address] [id number] [place] [address]- 1817 Jul, [facility] [place] [facility] [address] [id number] [place] [address]- 1707 Jul, [facility] [place] [facility] [address] [id number], [place] [address]- 6802 Jul, [facility] [place] [facility] [address] [id number] [place] [address]- 0211 Jul, [facility] [place] [facility] [address] [id number] [place] [address]- 2114 Jul, [facility] [place] [facility] [address] [id number], [place] [address]- 8539 Jul, [facility] [place] [facility] [address] [id number], [place] [address]- 9336 17 Jun, 2014 [facility] [place] [facility] [address] [id number] [place] [address]- 3460 17 Jun, 2014 [facility] [place] [facility] [address] [id number] [place] [address]- 9009 18 May, 2013 [facility] [place] [facility] [address] [id number] [place] [address]- 4753 18 May, 2013 [facility] [place] [facility] [address] [id number] [place] [address]- 7071 18 May, 2013 [facility] [place] [facility] [address] [id number] [place] [address]- 6697 18 May, 2013 [facility] [place] [facility] [address] [id number] [place] [address]- 7297 17 May, 2013 [facility] [place] [facility] [address] [id number] [place] [address]- 7868 17 May, 2013 [facility] [place] [facility] [address] [id number] [place] [address]- 3921 09 May, 2013 [facility] [place] [facility] [address] [id number] [place] [address]- 6809 09 May, 2013 [facility] [place] [facility] [address] [id number] [place] [address]- 2011 05 May, 2013 [facility] [place] [facility] [address] [id number], [place] [address]- 7472 May, 2013 [facility] [place] [facility] [address] [id number], [place] [address]- 0758 04 May, 2013 [facility] [place] [facility] [address] [id number], [place] [address]- 8306 04 May, 2013 [facility] [place] [facility] [address] [id number] [place] [address]- 0942 May, 2013 [facility] [place] [facility] [address] [id number] [place] [address]- 0264 Apr, [facility] [place] [facility] [address] [id number] [place] [address]- 1094 Apr, [facility] [place] [facility] [address] [id number] [place] [address]- 8897 Apr, [facility] [place] [facility] [address] [id number] [place] [address]- 1982 Apr, [facility] [place] [facility] [address] [id number] [place] [address]- 2161 Apr, [facility] [place] [facility] [address] [id number] [place] [address]- 7345 Apr, [facility] [place] [facility] [address] [id number] [place] [address]- 8738 Mar, [facility] [place] [facility] [address] [id number] [place] [address]- 2676 Feb, [facility] [place] [facility] [address] [id number] [place] [address]- 6461 Feb, [facility] [place] [facility] [address] [id number] [place] [address]- 1542 January, [facility] [place] [facility] [address] [id number] [place] [address]- 1154 January, [facility] [place] [facility] [address] [id number] [place] [address]- 8687 January, [facility] [place] [facility] [address] [id number] [place] [address]- 7282 January, [facility] [place] [facility] [address] [id number] [place] [address]- 5350 Dec, [facility] [place] [facility] [address] [id number] [place] [address]- 4245 Dec, [facility] [place] [facility] [address] [id number] [place] [address]- 6431 Nov, [facility] [place] [facility] [address] [id number] [place] [address]- 9629 Nov, [facility] [place] [facility] [address] [id number] [place] [address]- 7647 Nov, [facility] [place] [facility] [address] [id number] [place] [address]- 6916 Nov, [facility] [place] [facility] [address] [id number] [place] [address]- 2655 Nov, [facility] [place] [facility] [address] [id number] [place] [address] Nov, [facility] [place] [facility] [address] [id number] [place] [address] Oct, [facility] [place] [facility] [address] [id number] [place] [address] Oct, [facility] [place] [facility] [address] [id number] [place] [address] Oct, [facility] [place] [facility] [address] [id number] [place] [address] Oct, [facility] [place] [facility] [address] [id number] [place] [address] Oct, [facility] [place] [facility] [address] [id number] [place] [address] Sep, [facility] [place] [facility] [address] [id number] [place] [address] Sep, [facility] [place] [facility] [address] [id number] [place] [address] Sep, [facility] [place] [facility] [address] [id number] [place] [address] Sep, [facility] [place] [facility] [address] [id number] [place] [address] Sep, [facility] [place] [facility] [address] [id number] [place] [address] Sep, [facility] [place] [facility] [address] [id number] [place] [address] 16 Sep, 2013 [facility] [address] [id number] [place] [address] Aug, [facility] [address] [id number] [place] [address] Aug, [facility] [address] [id number] [place] [address] Aug, [facility] [address] [id number] [place] [address] Aug, [facility] [address] [id number] [place] Jul, [facility] [address] [id number] [place] [address] Jul, [facility] [address] [id number] [place] [address] Jul, [facility] [address] [id number] [place] [address] Jul, [facility] [address] [facility] [id number] [place] [address] 07 Jul, 2013 [facility] [address] [facility] [id number] [place] [address] 07 Jul, 2013 [facility] [place] [facility] [address] [id number] [place] [address] 17 Jun, 2013 [facility] [address] [id number] [place] [address] 17 Jun, 2013 [facility] [place] [facility] [address] [id number] [place] [address] 16 Jun, 2013 [facility] [place] [facility] [address] [id number] [place] [address] 16 Jun, 2013 [facility] [place] [facility] [address] [facility] [id number] [place] [address] Jun, [facility] [address] [id number] [place] [address] Jun, [facility] [place] [facility] [address] [id number] [place] [address] Jun, [facility] [place] [facility] [address] [id number] [place] [address] May, [facility] [place] [facility] [address] [id number] [place] [address] May, [facility] [address] [id number] [place] [address] May, [facility] [place] [facility] [address] [id number] [place] [address] May, [facility] [address] [id number] [place] [address] Apr, [facility] [place] [facility] [address] [id number] [place] [address] Apr, [facility] [place] [facility] [address] [id number] [place] [address] Feb, [facility] [place] [facility] [address] [id number] [place] [address] January, [facility] [place] [facility] [address] [id number] [place] [address] January, [facility] [place] [facility] [address] [id number], [place] [address] January, [facility] [place] [facility] [address] [id number] [place] [address] January, [facility] [place] [facility] [address] [id number] [place] [address] January, [facility] [place] [facility] [address] [id number] [place] [address] January, [facility] [place] [facility] [address] [id number], [place] [address] 29 Dec, 2012 [facility] [address] [id number] [place] [address] Dec, [facility] [place] [facility] [address] [id number] [place] [address] Dec, [facility] [address] [id number] [place] [address] Nov, [facility] [place] [facility] [address] [id number] [place] [address] Nov, [facility] [address] [id number] [place] [address] Oct, [facility] [place] [facility] [address] [id number] [place] [address] Sep, [facility] [address] [id number] [place] [address] Sep, [facility] [address] [id number] [place] [address] Sep, [facility] [address] [facility] [id number] [place] [address] Sep, [facility] [address] [facility] [id number] [place] [address] Jul, [facility] [address] [id number] [place] [address] 30 Jul, 2012 [facility] [place] [facility] [address] [id number], [place] [address] Jul, [facility] [place] [facility] [address] [id number] [place] [address] Jul, [facility] [place] [facility] [address] [id number] [place] [address] 16 Jul, 2012 [facility] [place] [facility] [address] [facility] [id number] [place] [address] 16 Jul, 2012 [facility] [place] [facility] [address] [id number] [place] [address] 16 Jul, 2012 [facility] [place] [facility] [address] [id number] [place] [address] 16 Jul, 2012 [facility] [place] [facility] [address] [id number] [place] [address] Jul, [facility] [place] [facility] [address] [id number] [place] [address] Jul, [facility] [place] [facility] [address] [id number] [place] [address] Feb, [facility] [place] [facility] [address] [id number] [place] [address] Nov, [facility] [place] [facility] [address] [id number] [place] [address] 13 Nov, 2011 [facility] [place] [facility] [address] [id number] [place] [address] Nov, [facility] [place] [facility] [address] [id number] [place] [address] 08 Nov, 2011 [facility] [place] [facility] [address] [id number] [place] [address] 07 Nov, 2011 [facility] [place] [facility] [address] [id number] [place] [address] Nov, [facility] [place] [facility] [address] [id number] [place] [address] Nov, [facility] [place] [facility] [address] [id number] [place] [address] Apr, [facility] [place] [facility] [address] [id number] [place] [address] Jul, [facility] [place] [facility] [address] [id number] [place] [address] Jul, [facility] [place] [facility] [address] [id number] [place] [address] Jul, [facility] [address] [facility] [id number], [place] [address] Jun, [facility] [address] [facility] [id number], [place] [address] May, [facility] [address] [facility] [id number], [place] [address] Feb, [facility] [address] [facility] [id number], [place] [address] Jun, IMMUNIZATIONS No Known Immunizations SOCIAL HISTORY Never Assessed REASON FOR VISIT sore throat/cough/congestion, ears itching, and rattle in chest for about 1 week JStrasserRJose David PLAN OF CARE VITAL SIGNS Height 69 in 2017-07-16 Weight 259.6 lbs 2017-07-16 Temperature 98.2 degrees Fahrenheit 2017-07-16 Heart Rate 88 bpm 2017-07-16 Respiratory Rate 20 2017-07-16 BMI 38.33 kg/m2 2017-07-16 Blood pressure systolic 108 mmHg 2017-07-16 Blood pressure diastolic 72 mmHg 2017-07-16 MEDICATIONS Medication Instructions Dosage Frequency Start Date End Date Duration Status Albuterol Sulfate (2.5 MG/3ML) 0.083% Inhalation every 6 hrs as directed 6h Jul, Active Doxycycline Hyclate 100 mg Orally every 12 hrs 1 capsule 12h Jul, Jul, 10 days Active PredniSONE 20 mg Orally Once a day 2 tablets 24h Jul, Jul, 05 days Active Tessalon Perles 100 mg Orally Three times a day 1 capsule as needed 8h Jul, Active RESULTS No Results PROCEDURES No Known procedures [...] and then a year later removed ovaries 2007 Surgical History oophorectomy Surgical History neuroplasty with transposition of median nerve at carpal tunnel 2006 Surgical History EGD and biposy - normal 2017 Hospitalization History viral meningitis days 09/2015
--- OUTSIDE RECORDS SUMMARY | 2018-07-11 15:18 | XMS REPORT ---
Author Author PINA NAZARIO Organization [facility] Address [address] [place] [address] Care Team Providers Care Engineer Rf Deployment Name Role Phone PINA NAZARIO Unavailable PROBLEMS Type Condition ICD9-CM Code UTH28-FW Code Onset Dates Condition Status SNOMED Code Problem Joint pain M25.50 Active 71270877 Problem Fibrocystic breast, left N60.12 Active 51623071 Problem History of migraine Z86.69 Active 307405826 Problem Anxiety associated with depression F41.8 Active 636259724 Problem Chronic pain G89.29 Active 83268452 Problem Obesity (BMI 30-39.9) E66.9 Active 150157083 Problem Hyperinsulinemia E16.1 Active 23767952 Problem Hypercholesteremia E78.0 Active 56032868 Problem Fibrocystic breast, right N60.11 Active 60084851 Problem Schizoaffective disorder, bipolar type F25.0 Active 34040981 Problem Irritable bowel syndrome with diarrhea K58.0 Active 059026541 ALLERGIES Substance Reaction Event Type Date Status MetFORMIN HCl ER nausea Drug Allergy Nov, Active Ketorolac Tromethamine nausea Drug Allergy Nov, Active Codeine Sulfate swelling, localized Drug Allergy Nov, Active Morphine rash Drug Allergy Nov, Active Strawberries Unknown Non Drug Allergy Nov, Active Viibryd 10 Mg Tablet "don't remember" Non Drug Allergy Nov, Active SOCIAL HISTORY Never Assessed PLAN OF CARE Activity Details Follow Up prn Reason: VITAL SIGNS Height 69 in 2016-11-18 Weight 253.8 lbs 2016-11-18 Temperature 98.6 degrees Fahrenheit 2016-11-18 Heart Rate 76 bpm 2016-11-18 Respiratory Rate 20 2016-11-18 BMI 37.48 kg/m2 2016-11-18 Blood pressure systolic 116 mmHg 2016-11-18 Blood pressure diastolic 72 mmHg 2016-11-18 MEDICATIONS Medication Instructions Dosage Frequency Start Date End Date Duration Status Tobrex 0.3 % Ophthalmic every 4 hrs 1-2 drop into affected eye 4h Nov, Nov, 5 days Active Celecoxib 200 mg Orally Once a day 1 capsule with food 24h Oct, 30 day(s) Active Tylenol Oral Once a day 1 tab 24h Active Ativan Active RESULTS No Results PROCEDURES No Known procedures IMMUNIZATIONS No Known Immunizations MEDICAL (GENERAL) HISTORY Type Description Date Medical [...]
--- OUTSIDE RECORDS SUMMARY | 2018-07-11 15:18 | XMS REPORT ---
Author Author JACE ANGLIN Organization [facility] Address [address] [place] [address] Care Team Providers Care Advanced Registered Nurse Name Role Phone DERREK JACE Unavailable PROBLEMS Type Condition ICD9-CM Code IPS67-NP Code Onset Dates Condition Status SNOMED Code Problem BMI 34.0-34.9,adult Z68.34 Active 123903829 Problem Fibrocystic breast, left N60.12 Active 89725569 Problem History of migraine Z86.69 Active 202217355 Problem Schizoaffective disorder, bipolar type F25.0 Active 86894475 Problem Irritable bowel syndrome with diarrhea K58.0 Active 491430478 Problem Vaginal lesion N89.8 Active 894433646 Problem Fibrocystic breast, right N60.11 Active 02230941 Problem Other fatigue R53.83 Active 59154908 Problem Hypercholesteremia E78.0 Active 89621406 Problem Joint pain M25.50 Active 09498536 Problem Anxiety associated with depression F41.8 Active 026336077 Problem Hip pain M25.559 Active 51335182 Problem Hot flashes N95.1 Active 596652624 Problem Chronic pain G89.29 Active 44990092 Problem Vaginal dryness N89.8 Active 75503282 ALLERGIES Substance Reaction Event Type Date Status MetFORMIN HCl ER nausea Drug Allergy Oct, Active Ketorolac Tromethamine nausea Drug Allergy Oct, Active Codeine Sulfate swelling, localized Drug Allergy Oct, Active Morphine rash Drug Allergy Oct, Active Strawberries Unknown Non Drug Allergy Oct, Active Viibryd 10 Mg Tablet "don't remember" Non Drug Allergy Oct, Active SOCIAL HISTORY Never Assessed PLAN OF CARE Activity Details Follow Up 3 Months, prn Reason: VITAL SIGNS Height 69 in 2016-10-17 Weight 250.0 lbs 2016-10-17 Temperature 98.0 degrees Fahrenheit 2016-10-17 Heart Rate 80 bpm 2016-10-17 Respiratory Rate 20 2016-10-17 BMI 36.91 kg/m2 2016-10-17 Blood pressure systolic 120 mmHg 2016-10-17 Blood pressure diastolic 78 mmHg 2016-10-17 MEDICATIONS Medication Instructions Dosage Frequency Start Date End Date Duration Status Tylenol Oral Once a day 1 tab 24h Active Celebrex 200 mg Orally Once a day 1 capsule 24h Aug, Active RESULTS Name Result Date Reference Range TRICHOMONAS (IN HOUSE) 2016-10-17 TRICHOMONAS negative Control + Lot # [id number] Exp date 08/01 BACTERIAL VAGINOSIS (IN HOUSE) 2016-10-17 RESULTS negative Control + Lot # [id number] Exp date 05/01 CULTURE, GENITAL 2016-10-17 Genital Culture, Routine Final report Result 1 GC/CHLAM PROBE (STATE) 2016-10-17 CHLAMYDIA GC PROCEDURES Procedure Date Ordered Result Body Site PELVIC EXAMINATION 2016-10-17 N/A LAB NOT BILLED BY [employer] Oct 17, 2016 No Charge Oct 17, 2016 RAMOS VAG, DNA, DIR PROBE Oct 17, 2016 IMMUNIZATIONS No Known Immunizations MEDICAL (GENERAL) HISTORY [...] of median nerve at carpal tunnel 2005 Hospitalization History viral meningitis days 09/2015
--- OUTSIDE RECORDS SUMMARY | 2018-07-11 15:19 | XMS REPORT ---
Author Author DERREKJACE Organization [facility] Address [address] [place] [address] Care Team Providers Care Training Development Specialist Name Role Phone ANGLINJACE Ingram Unavailable PROBLEMS Type Condition ICD9-CM Code TUC97-SW Code Onset Dates Condition Status SNOMED Code Problem Joint pain M25.50 Active 44077919 Problem Fibrocystic breast, left N60.12 Active 72100789 Problem History of migraine Z86.69 Active 618673388 Problem Anxiety associated with depression F41.8 Active 865608154 Problem Chronic pain G89.29 Active 99983999 Problem Obesity (BMI 30-39.9) E66.9 Active 962622865 Problem Hyperinsulinemia E16.1 Active 57118121 Problem Hypercholesteremia E78.0 Active 84971323 Problem Fibrocystic breast, right N60.11 Active 08523643 Problem Schizoaffective disorder, bipolar type F25.0 Active 49252627 Problem Irritable bowel syndrome with diarrhea K58.0 Active 522633931 ALLERGIES No Information ENCOUNTERS Encounter Location Date Diagnosis [facility] [id number] [place] [address] 61218 -6138 Nov, Acute otitis externa of left ear, unspecified type H60.502 [facility] [id number] [place] [address] 38813 -5368 Oct, Intolerance of drug Z78.9 [facility] [address] 88904 -7043 03 Oct, 2017 Acute non-recurrent maxillary sinusitis J01.00 [facility] [id number] [place] [address] 32598 -0030 Jul, Bronchitis J40 [facility] [address] 85574- 4023 Jul, [facility] [place] [id number] [place] [address] 39477 -4386 Jul, Bronchitis J40 [place] [id number] [place] [address] 77147- 7637 Jun, Fibrocystic breast, right N60.11 [place] [id number] [place] [address] 71463- 9657 Jun, [place] [address] 64776- 3709 Jun, Hyperinsulinemia E16.1 ; Obesity (BMI 30-39.9) E66.9 and Hypercholesteremia E78.0 [place] [id number] [place] [address] 28575- 9934 Jun, Hyperinsulinemia E16.1 ; Visit for TB skin test Z11.1 ; Obesity (BMI 30-39.9) E66.9 ; Hypercholesteremia E78.0 ; Anxiety associated with depression F41.8 and Encounter for PPD test Z11.1 [place] [id number] [place] [address] 69408- 0755 Mar, Fibrocystic breast, right N60.11 [facility] [id number] [place] [address] 25946 -7359 Mar, Right hip pain M25.551 and Strain of muscle of right hip, initial encounter S76.011A [facility] [address] [place] [id number] [place] [address] 14362 -4647 Feb, Allergic contact dermatitis due to plants, except food L23.7 [place] [id number] [place] [address] 39115- 1645 January, Breast pain in female N64.4 [facility] [id number] [place] [address] 25804 -3450 January, Breast pain in female N64.4 [facility] [place] [id number] [place] [address] 62926 -4882 Nov, Acute bacterial conjunctivitis of left eye H10.32 [place] [address] 66260- 6098 27 Oct, 2016 Joint pain M25.50 [place] [id number] [place] [address] 54112- 7198 16 Oct, 2016 Joint pain M25.50 and Chronic pain G89.29 [place] [address] 93771- 4765 02 Oct, 2016 Encounter for well woman exam with routine gynecological exam Z01.419 ; Encounter for screening breast examination Z12.39 and Screen for STD (sexually transmitted disease) Z11.3 [place] [address] 73833- 9449 Sep, [place] [address] 92010- 3091 Aug, Chronic pain G89.29 and Joint pain M25.50 [facility] [id number] [place] [address] 64253 -9454 May, Acute maxillary sinusitis, recurrence not specified J01.00 [place] [id number] [place] [address] 32754- 0810 May, Schizoaffective disorder, bipolar type F25.0 and Generalized anxiety disorder F41.1 [place] [id number] [place] [address] 28143- 0653 Apr, Schizoaffective disorder F25.9 ; Bipolar 1 disorder F31.9 and Anxiety associated with depression F41.8 [place] [id number] [place] [address] 96862- 3243 Apr, Arthralgia of left temporomandibular joint M26.62 [place] [id number] [place] [address] 14568- 6735 Apr, Chronic pain G89.29 [facility] [id number] [place] [address] 35199 -9299 16 Apr, 2016 Left-sided face pain R51 and Acute non-recurrent sinusitis , unspecified location J01.90 [place] [id number] [place] [address] 07083- 6478 Mar, Epigastric pain R10.13 ; Nausea R11.0 and Diarrhea, unspecified type R19.7 [place] [address] 28318- 4906 Feb, Bipolar 1 disorder F31.9 [facility] [address] 33644 -8218 14 Feb, 2016 Insect bite, initial encounter W57.XXXA and Encounter for immunization Z23 [address] 83557- 5001 13 Feb, 2016 Schizoaffective disorder F25.9 [place] [address] 21695- 8268 Feb, Schizoaffective disorder F25.9 [facility] [address] 16332 -6121 January, Viral syndrome B34.9 ; Diarrhea, unspecified R19.7 and Vomiting, unspecified R11.10 [facility] [address] 49676 -6252 Dec, Left otitis media H66.92 and TMJ (temporomandibular joint disorder) M26.60 [facility] [place] [facility] [address] [id number] Dec, Dental examination Z01.20 [place] [address] 12311- 8137 24 Nov, 2015 Acute sinusitis J01.90 [facility] [address] 27405 -4283 Nov, Environmental allergies Z91.09 [place] [id number] [place] [address] 19543- 7329 Nov, [place] [id number] [place] [address] 6416 Nov, HSV (herpes simplex virus) infection B00.9 [place] [id number] [place] [address] 80575- 6639 Oct, Schizoaffective disorder, unspecified F25.9 [place] [id number] [place] [address] 26040- 7629 Oct, [place] [id number] [place] [address] 08249- 5764 Oct, Insulin resistance E88.81 [place] [id number] [place] [address] 45991- 1246 Oct, [place] [id number] [place] [address] 91263- 8426 Oct, Vaginal lesion N89.8 [place] [id number] [place] [address] 82617- 3742 Oct, Vaginal lesion N89.8 [place] [id number] [place] [address] 56908- 5806 Oct, Well woman exam Z01.419 ; History [...] bowel syndrome with constipation and diarrhea K58.0 [place] [id number] [place] [address] 96604- 0765 08 Oct, 2015 [place] [address] 69574- 9864 Oct, General medical exam Z00.00 ; Joint pain M25.50 ; Family history of breast cancer Z80.3 ; Family history of heart disease Z82.49 and STD exposure Z20.2 [place] [address] 32204- 8924 02 Oct, 2015 General medical exam Z00.00 ; Joint pain M25.50 ; Bipolar 1 disorder F31.9 ; Schizoaffective disorder F25.9 ; Chronic pain G89.29 ; Hip pain M25.559 ; Anxiety associated with depression F41.8 ; Family history of breast cancer Z80.3 ; Family history of heart disease Z82.49 ; Family history of diabetes mellitus Z83.3 and STD exposure Z20.2 [place] [address] 14888- 9864 Oct, [place] [address] 32728- 2257 Sep, Schizoaffective disorder, unspecified type F25.9 [place] [address] 50834- 2075 Aug, Schizoaffective disorder, unspecified F25.9 [place] [address] 96387- 6312 Jul, Schizoaffective disorder, unspecified F25.9 [place] [address] 22992- 6648 Jul, [place] [address] 00896- 0529 Jul, Routine adult health maintenance Z00.00 ; Hip pain M25.559 and Right knee pain M25.561 [facility] [id number] [place] [address] 24593- 8521 Jul, Encounter for immunization Z23 [facility] [place] [facility] [address] [id number] Jun, Visit for dental examination Z01.20 [facility] [id number] [place] [address] 74357- 2947 16 Jun, 2015 Bipolar disorder, unspecified F31.9 [facility] [id number] [place] [address] 34281- 2584 24 May, 2015 Schizo-affective psychosis 295.70 [facility] [id number] [place] [address] 02113- 7332 14 May, 2015 Schizo-affective psychosis 295.70 ; Bipolar I disorder, most recent episode (or current) manic, moderate 296.42 and Generalized anxiety disorder 300.02 [facility] [id number] [place] [address] 72888- 4337 14 May, 2015 Generalized anxiety disorder 300.02 [facility] [id number] [place] [address] 00713- 2052 Apr, Schizo-affective psychosis 295.70 [facility] [id number] [place] [address] 14404- 0984 Apr, Bipolar affective disorder 296.80 and Posttraumatic stress disorder 309.81 [facility] [id number] [place] [address] 72640- 4836 Mar, [facility] [id number] [place] [address] 15608- 5696 Feb, Bipolar affective disorder 296.80 [facility] [id number] [place] [address] 01981- 8616 Feb, [facility] [id number] [place] [address] 90087- 2076 Feb, [facility] [address] 1672 Feb, Arthralgia 719.40 ; Elevated C-reactive protein (CRP) 790.95 ; Polydipsia 783.5 and Fatigue 780.79 [facility] [address] [address]- 2091 January, [facility] [id number] [place] [address] 39649- 1926 January, Abnormal C-reactive protein 790.99 [facility] [id number] [place] [address] 37346- 1037 January, Abnormal C-reactive protein 790.99 [facility] [id number] [place] [address] 196684- 5490 January, Schizoaffective disorder, unspecified 295.70 [facility] [id number] [place] [address] 26512- 3271 January, Hip dysplasia 755.63 [facility] [id number] [place] [address] 337634- 1662 Dec, [facility] [id number] [place] [address] 18309- 9852 Dec, [facility] [address] [address]- 8184 Nov, [facility] [id number] [place] [address] 12001- 4486 Nov, [facility] [address], [place] [address]- 1276 Oct, [facility] [id number] [place] [address] 11994- 9906 Oct, [facility] [address] [address]- 8096 Oct, [facility] [facility] [id number] [place] [address]- 3180 Oct, 2014 [facility] [place] [facility] [address] [id number] [place] [address]- 0218 Oct, 2014 [facility] [place] [facility] [address] [id number] [place] [address]- 2941 Oct, 2014 [facility] [place] [facility] [address] [id number] [place] [address]- 5865 Oct, [facility] [place] [facility] [address] [id number] [place] [address]- 0228 Oct, [facility] [place] [facility] [address] [id number] [place] [address]- 4296 Sep, [facility] [place] [facility] [address] [id number] [place] [address]- 3478 Sep, [facility] [place] [facility] [address] [id number] [place] [address]- 9827 Sep, [facility] [place] [facility] [address] [id number] [place] [address]- 3469 Sep, [facility] [place] [facility] [address] [id number] [place] [address]- 1482 Sep, [facility] [place] [facility] [address] [id number] [place] [address]- 0191 Aug, [facility] [place] [facility] [address] [id number] [place] [address]- 6980 Aug, [facility] [place] [facility] [address] [id number] [place] [address]- 9639 Aug, [facility] [place] [facility] [address] [id number] [place] [address]- 8503 Aug, [facility] [place] [facility] [address] [id number] [place] [address]- 1862 Aug, [facility] [place] [facility] [address] [id number], [place] [address]- 2421 Aug, [facility] [place] [facility] [address] [id number] [place] [address]- 2512 Aug, [facility] [place] [facility] [address] [id number] [place] [address]- 1268 Aug, [facility] [place] [facility] [address] [facility] [id number] [place] [address]- 3757 Aug, [facility] [place] [facility] [address] [id number] [place] [address]- 6654 Aug, [facility] [place] [facility] [address] [id number] [place] [address]- 0132 Jul, [facility] [place] [facility] [address] [id number] [place] [address]- 2812 Jul, [facility] [place] [facility] [address] [id number] [place] [address]- 7327 Jul, [facility] [place] [facility] [address] [id number] [address]- 4522 Jul, [facility] [place] [facility] [address] [id number] [place] [address]- 2006 Jul, [facility] [place] [facility] [address] [id number] [place] [address]- 6577 Jul, [facility] [place] [facility] [address] [id number], [place] [address]- 4086 Jul, [facility] [place] [facility] [address] [id number], [place] [address]- 9432 Jul, [facility] [place] [facility] [address] [id number], [place] [address]- 9597 Jul, [facility] [place] [facility] [address] [id number], [place] [address]- 5797 Jul, [facility] [place] [facility] [address] [id number], [place] [address]- 6389 Jul, [facility] [place] [facility] [address] [id number] [place] [address]- 5375 Jul, [facility] [place] [facility] [address] [id number] [place] [address]- 4778 Jul, [facility] [place] [facility] [address] [id number] [place] [address]- 7740 Jul, [facility] [place] [facility] [address] [id number] [place] [address]- 6365 Jul, [facility] [place] [facility] [address] [id number] [place] [address]- 2259 Jul, [facility] [place] [facility] [address] [id number] [place] [address]- 0353 Jul, [facility] [place] [facility] [address] [id number] [place] [address]- 6672 Jul, [facility] [place] [facility] [address] [id number] [place] [address]- 5449 Jul, [facility] [place] [facility] [address] [id number] [place] [address]- 7464 Jul, [facility] [place] [facility] [address] [id number] [place] [address]- 1607 Jul, [facility] [place] [facility] [address] [facility] [id number] [place] [address]- 0697 Jul, [facility] [place] [facility] [address] [id number] [place] [address]- 0583 Jun, [facility] [place] [facility] [address] [id number] [place] [address]- 6743 Jun, [facility] [place] [facility] [address] [id number] [place] [address]- 8657 18 May, 2014 [facility] [place] [facility] [address] [id number] [place] [address]- 7474 18 May, 2014 [facility] [place] [facility] [address] [id number] [place] [address]- 0406 18 May, 2014 [facility] [place] [facility] [address] [id number] [place] [address]- 6805 18 May, 2013 [facility] [place] [facility] [address] [id number] [place] [address]- 0177 17 May, 2013 [facility] [place] [facility] [address] [id number] [place] [address]- 0524 17 May, 2013 [facility] [place] [facility] [address] [id number] [place] [address]- 3377 09 May, 2013 [facility] [place] [facility] [address] [id number] [place] [address]- 4562 09 May, 2013 [facility] [place] [facility] [address] [id number] [place] [address]- 7277 05 May, 2013 [facility] [place] [facility] [address] [id number] [place] [address]- 7516 04 May, 2013 [facility] [place] [facility] [address] [id number] [place] [address]- 3974 04 May, 2013 [facility] [place] [facility] [address] [id number] [place] [address]- 5264 May, 2013 [facility] [place] [facility] [address] [id number] [place] [address]- 1596 May, 2013 [facility] [place] [facility] [address] [id number] [place] [address]- 3253 Apr, [facility] [place] [facility] [address] [id number], [place] [address]- 1721 Apr, [facility] [place] [facility] [address] [id number] [place] [address]- 4182 Apr, [facility] [place] [facility] [address] [id number] [place] [address]- 2076 Apr, [facility] [place] [facility] [address] [id number] [place] [address]- 7084 Apr, [facility] [place] [facility] [address] [id number] [place] [address]- 1784 Apr, [facility] [place] [facility] [address] [id number] [place] [address]- 8402 Mar, [facility] [place] [facility] [address] [id number] [place] [address]- 6344 Feb, [facility] [place] [facility] [address] [id number] [place] [address]- 4184 Feb, [facility] [place] [facility] [address] [id number] [place] [address]- 4621 January, [facility] [place] [facility] [address] [id number] [place] [address]- 0797 January, [facility] [place] [facility] [address] [id number] [place] [address]- 9071 January, [facility] [place] [facility] [address] [id number] [place] [address]- 5456 January, [facility] [place] [facility] [address] [id number] [place] [address]- 1094 Dec, [facility] [place] [facility] [address] [id number] [place] [address]- 8187 Dec, [facility] [place] [facility] [address] [id number] [place] [address]- 0918 Nov, [facility] [place] [facility] [address] [id number] [place] [address]- 1231 Nov, [facility] [place] [facility] [address] [id number] [place] [address]- 4659 Nov, [facility] [place] [facility] [address] [id number] [place] [address]- 6459 Nov, [facility] [place] [facility] [address] [id number] [place] [address]- 6548 Nov, [facility] [place] [facility] [address] [id number] [place] [address]- 5800 Nov, [facility] [place] [facility] [address] [id number] [place] [address]- 5239 Oct, [facility] [place] [facility] [address] [id number] [place] [address]- 3299 Oct, [facility] [place] [facility] [address] [id number] [place] [address]- 8902 Oct, [facility] [place] [facility] [address] [id number] [place] [address]- 5361 Oct, [facility] [place] [facility] [address] [id number] [place] [address]- 2913 Oct, [facility] [place] [facility] [address] [id number] [place] [address]- 7358 Sep, [facility] [place] [facility] [address] [id number] [place] [address]- 9767 Sep, [facility] [place] [facility] [address] [id number] [place] [address]- 8877 Sep, [facility] [place] [facility] [address] [id number] [place] [address]- 3921 Sep, [facility] [place] [facility] [address] [id number] [place] [address]- 8241 Sep, [facility] [place] [facility] [address] [id number] [place] [address] Sep, [facility] [place] [facility] [address] [id number] [place] [address] Sep, [facility] [place] [facility] [address] [id number] [place] [address] Aug, [facility] [place] [facility] [address] [id number] [place] [address] Aug, [facility] [place] [facility] [address] [id number] [place] [address]48 Aug, [facility] [place] [facility] [address] [id number] [place] [address] Aug, [facility] [place] [facility] [address] [id number] [place] [address] Jul, [facility] [place] [facility] [address] [id number] [place] [address] Jul, [facility] [place] [facility] [address] [id number] [place] [address] Jul, [facility] [place] [facility] [address] [id number] [place] [address] Jul, [facility] [place] [facility] [address] [id number] [place] [address]35 Jul, [facility] [place] [facility] [address] [id number] [place] [address] Jul, [facility] [place] [facility] [address] [id number] [place] [address] Jun, [facility] [place] [facility] [address] [id number] [place] [address]- [address] Jun, [facility] [place] [facility] [address] [id number] [place] [address] Jun, [facility] [place] [facility] [address] [id number] [place] [address] Jun, [facility] [place] [facility] [address] [id number], [place] [address] Jun, [facility] [place] [facility] [address] [id number], [place] [address] Jun, [facility] [place] [facility] [address] [id number] [place] [address]- [address] Jun, [facility] [place] [facility] [address] [id number], [place] [address] 30 May, 2013 [facility] [place] [facility] [address] [id number] [place] [address] 254 May, [facility] [place] [facility] [address] [id number] [place] [address] May, [facility] [address] [id number] [place] [address] May, [facility] [address] [id number] [place] [address] Apr, [facility] [address] [id number] [place] [address] Apr, [facility] [address] [id number] [place] [address] Feb, [facility] [address] [id number] [place] [address] January, [facility] [address] [id number] [place] [address]- [address] January, [facility] [address] [id number] [place] [address]- [address] January, [facility] [place] [facility] [address] [id number] [place] [address] January, [facility] [address] [id number] [place] [address] January, [facility] [place] [facility] [address] [id number] [place] [address] January, [facility] [address] [id number] [place] [address]- 39[address] Dec, [facility] [address] [id number] [place] [address]- [address] Dec, [facility] [address] [id number] [place] [address]104 Dec, [facility] [address] [id number] [place] [address] Nov, [facility] [address] [id number] [place] [address] Nov, [facility] [place] [facility] [address] [id number] [place] [address]36 Oct, [facility] [place] [facility] [address] [id number] [place] [address]- [address] Sep, [facility] [place] [facility] [address] [id number] [place] [address]- 1639 Sep, [facility] [place] [facility] [address] [id number] [place] [address]- [address]267 Sep, [facility] [place] [facility] [address] [id number] [place] [address]- [address] Sep, [facility] [place] [facility] [address] [id number] [place] [address]- [address] Jul, [facility] [place] [facility] [address] [id number] [place] [address]- [address] Jul, [facility] [place] [facility] [address] [id number] [place] [address]- [address] Jul, [facility] [place] [facility] [address] [id number] [place] [address]- 9668 Jul, [facility] [place] [facility] [address] [id number] [place] [address]- [address] Jul, [facility] [place] [facility] [address] [address] [id number] [place] [address] Jul, [facility] [place] [facility] [address] [id number] [place] [address] 16 Jul, 2012 [facility] [place] [facility] [address] [id number] [place] [address] Jul, [facility] [place] [facility] [address] [id number] [place] [address] Jul, [facility] [place] [facility] [address] [id number] [place] [address] Jul, [facility] [place] [facility] [address] [id number], [place] [address] 25 Feb, 2012 [facility] [address] [facility] [id number], [place] [address] Nov, [facility] [address] [facility] [facility] [id number], [place] [address] 13 Nov, 2011 [facility] [place] [facility] [address] [facility] [id number], [place] [address] Nov, [facility] [address] [facility] [facility] [id number], [place] [address] 08 Nov, 2011 [facility] [place] [facility] [address] [facility] [facility] [id number] [place] [address] 07 Nov, 2011 [facility] [place] [facility] [address] [facility] [facility] [id number], [place] [address] Nov, [facility] [id number], [place] [address] Nov, [facility] [address] [facility] [facility] [id number], [place] [address] Apr, [facility] [id number], [place] [address] Jul, [facility] [address] [id number], [place] [address] Jul, [facility] [id number], [place] [address] Jul, [facility] [address] [facility] [facility] [id number], [place] [address] 29 Jun, 2010 [facility] [address] [facility] [facility] [id number], [place] [address] 13 May, 2010 [facility] [address] [facility] [facility] [id number], [place] [address] 14 Feb, 2010 [facility] [address] [id number], [place] [address] 17 Jun, 2009 IMMUNIZATIONS No Known Immunizations SOCIAL HISTORY Never Assessed REASON FOR VISIT US order PLAN OF CARE VITAL SIGNS MEDICATIONS No Known Medications RESULTS No Results PROCEDURES No Known [...]
--- OUTSIDE RECORDS SUMMARY | 2018-07-11 15:19 | XMS REPORT ---
Author Author ROD ORONA Organization [facility] Address [address] [place] [address] Care Team Providers Care Cook Roast Name Role Phone ROD ORONA Unavailable PROBLEMS Type Condition ICD9-CM Code GLK35-MU Code Onset Dates Condition Status SNOMED Code Problem Joint pain M25.50 Active 85616927 Problem Fibrocystic breast, left N60.12 Active 22395774 Problem History of migraine Z86.69 Active 542889753 Problem Anxiety associated with depression F41.8 Active 889919984 Problem Chronic pain G89.29 Active 30245595 Problem Obesity (BMI 30-39.9) E66.9 Active 163633346 Problem Hyperinsulinemia E16.1 Active 71305437 Problem Hypercholesteremia E78.0 Active 65428638 Problem Fibrocystic breast, right N60.11 Active 67999664 Problem Schizoaffective disorder, bipolar type F25.0 Active 12365700 Problem Irritable bowel syndrome with diarrhea K58.0 Active 240954151 ALLERGIES Substance Reaction Event Type Date Status MetFORMIN HCl ER nausea Drug Allergy Jul, Active Ketorolac Tromethamine nausea Drug Allergy Jul, Active Codeine Sulfate swelling, localized Drug Allergy Jul, Active Morphine rash Drug Allergy Jul, Active Strawberries Unknown Non Drug Allergy Jul, Active Viibryd 10 Mg Tablet "don't remember" Non Drug Allergy Jul, Active ENCOUNTERS Encounter Location Date Diagnosis [facility] [address] [facility] [address] [facility] [id number], [place] [address] January, Strain of neck muscle, initial encounter S16.1XXA and BMI 40.0-44.9, adult Z68.41 [facility] [address] [facility] [id number], [place] [address] Nov, Acute otitis externa of left ear, unspecified type H60.502 [facility] [address], [place] [address] Oct, Intolerance of drug Z78.9 [facility] [place] [address] [place] [id number] [place] [address] Oct, Acute non-recurrent maxillary sinusitis J01.00 [facility] [place] [address] [place] [id number] [place] [address] 43752 -8759 Jul, Bronchitis J40 [place] [address] [address]- [address] Jul, [facility] [place] [address] [address]27 [address] Jul, Bronchitis J40 [place] [address] [place] [id number] [place] [address] 39890- 8822 Jun, Fibrocystic breast, right N60.11 [place] [address] 16271- 1366 Jun, [place] [address] [place] [id number] [place] [address] 07503- 4852 Jun, Hyperinsulinemia E16.1 ; Obesity (BMI 30-39.9) E66.9 and Hypercholesteremia E78.0 [place] [address] [place] [id number] [place] [address] 77547- 0007 Jun, Hyperinsulinemia E16.1 ; Visit for TB skin test Z11.1 ; Obesity (BMI 30-39.9) E66.9 ; Hypercholesteremia E78.0 ; Anxiety associated with depression F41.8 and Encounter for PPD test Z11.1 [place] [address] [place] [id number] [place] [address] 72957- 8055 Mar, Fibrocystic breast, right N60.11 [facility] [place] [address] [place] [id number] [place] [address] 51539 -5806 Mar, Right hip pain M25.551 and Strain of muscle of right hip, initial encounter S76.011[facility] [address] [place] [id number] [place] [address] 95699 -8819 15 Feb, 2017 Allergic contact dermatitis due to plants, except food L23.7 [place] [address] [place] [id number] [place] [address] 82523- 5662 January, Breast pain in female N64.4 [facility] [place] [address] [place] [id number] [place] [address] 79525 -9703 January, Breast pain in female N64.4 [facility] [place] [address] [place] [id number] [place] [address] 90117 -2309 Nov, Acute bacterial conjunctivitis of left eye H10.32 [place] [address] 63473- 5764 27 Oct, 2016 Joint pain M25.50 [place] [address] 01286- 0841 16 Oct, 2016 Joint pain M25.50 and Chronic pain G89.29 [place] [address] 70643- 3085 02 Oct, 2016 Encounter for well woman exam with routine gynecological exam Z01.419 ; Encounter for screening breast examination Z12.39 and Screen for STD (sexually transmitted disease) Z11.3 [place] [address] [place] [id number] [place] [address] 88204- 5529 Sep, [place] [address] [place] [id number] [place] [address] 06000- 1026 Aug, Chronic pain G89.29 and Joint pain M25.50 [facility] [address] [address] 09 May, 2016 Acute maxillary sinusitis, recurrence not specified J01.00 [place] [address] [place] [id number] [place] [address] 74471- 8593 06 May, 2016 Schizoaffective disorder, bipolar type F25.0 and Generalized anxiety disorder F41.1 [place] [address] [place] [id number] [place] [address] 98287- 0305 Apr, Schizoaffective disorder F25.9 ; Bipolar 1 disorder F31.9 and Anxiety associated with depression F41.8 [place] [id number] [place] [address] 21204- 6448 Apr, Arthralgia of left temporomandibular joint M26.[address] 29413- 0165 Apr, Chronic pain G89.29 [facility] [address] 16135 -4981 Apr, Left-sided face pain R51 and Acute non-recurrent sinusitis , unspecified location J01.[address] 26525- 4100 Mar, Epigastric pain R10.13 ; Nausea R11.0 and Diarrhea, unspecified type R19.[address] 17950- 9152 Feb, Bipolar 1 disorder F31.9 [facility] [address] 90[address] -2028 14 Feb, 2016 Insect bite, initial encounter W57.XXXA and Encounter for immunization Z23 [place] [id number] [place] [address] 27425- 8653 Feb, Schizoaffective disorder F25.9 [place] [id number] [place] [address] 63015- 4939 Feb, Schizoaffective disorder F25.9 [facility] [address] [place] [address] 97465 -5[address] January, Viral syndrome B34.9 ; Diarrhea, unspecified R19.7 and Vomiting, unspecified R11.10 [facility] [address] [place] [address] 79385 -4090 Dec, Left otitis media H66.92 and TMJ (temporomandibular joint disorder) M26.60 [facility] [address] [place] [address] [id number] Dec, Dental examination Z01.20 [facility] [address] [place] [id number] [place] [address] 26033- 6615 Nov, Acute sinusitis J01.90 [facility] [address] [place] [id number] [place] [address] 40342 -3269 Nov, Environmental allergies Z91.09 [facility] [address] 51890- 4095 Nov, [facility] [address] [place] [id number] [place] [address] 77659- 3403 Nov, HSV (herpes simplex virus) infection B00.9 [facility] [address] [place] [id number] [place] [address] 99996- 3929 Oct, Schizoaffective disorder, unspecified F25.9 [facility] [address] [place] [id number] [place] [address] 22325- 8473 Oct, [facility] [address] [place] [id number] [place] [address] 39373- 6449 Oct, Insulin resistance E88.81 [facility] [address] [place] [id number] [place] [address] 81773- 1256 Oct, [facility] [address] [place] [id number] [place] [address] 94646- 7240 Oct, Vaginal lesion N89.8 [facility] [address] [place] [id number] [place] [address] 10843- 6570 Oct, Vaginal lesion N89.8 [facility] [address] [place] [id number] [place] [address] 44974- 3471 08 Oct, 2015 Well woman exam Z01.419 [...] bowel syndrome with constipation and diarrhea K58.0 [place] [address]- 8565 Oct, [place]- 7937 Oct, General medical exam Z00.00 ; Joint pain M25.50 ; Family history of breast cancer Z80.3 ; Family history of heart disease Z82.49 and STD exposure Z20.2 [place] [id number] [place] [address] 33630- 5380 Oct, General medical exam Z00.00 ; Joint pain M25.50 ; Bipolar 1 disorder F31.9 ; Schizoaffective disorder F25.9 ; Chronic pain G89.29 ; Hip pain M25.559 ; Anxiety associated with depression F41.8 ; Family history of breast cancer Z80.3 ; Family history of heart disease Z82.49 ; Family history of diabetes mellitus Z83.3 and STD exposure Z20.2 [place] [address]1409- 7203 Oct, [place] [id number] [place] [address] Sep, Schizoaffective disorder, unspecified type F25.9 [place] [id number] [place] [address] 59802- 7099 Aug, Schizoaffective disorder, unspecified F25.9 [place] [address] [place] [id number] [place] [address] 77552- 1270 Jul, Schizoaffective disorder, unspecified F25.9 [place] [address] [place] [id number] [place] [address] 40120- 9746 Jul, [place] [address] 02105- 5214 Jul, Routine adult health maintenance Z00.00 ; Hip pain M25.559 and Right knee pain M25.561 [place] [address] [place] [id number] [place] [address] 21782- 6319 Jul, Encounter for immunization Z23 [facility] [address] [id number] Jun, Visit for dental examination Z01.20 [place] [address] [place] [id number] [place] [address] 63128- 8653 Jun, Bipolar disorder, unspecified F31.9 [place] [address] [place] [id number] [place] [address] 86500- 1895 24 May, 2015 Schizo-affective psychosis 295.70 [place] [address] [place] [id number] [place] [address] 64347- 2723 14 May, 2015 Schizo-affective psychosis 295.70 ; Bipolar I disorder, most recent episode (or current) manic, moderate 296.42 and Generalized anxiety disorder 300.02 [place] [address] [place] [id number] [place] [address] 52219- 1839 14 May, 2015 Generalized anxiety disorder 300.02 [place] [address] [place] [id number] [place] [address] 72243- 4873 Apr, Schizo-affective psychosis 295.70 [place] [address] [place] [id number] [place] [address] 57057- 1527 Apr, Bipolar affective disorder 296.80 and Posttraumatic stress disorder 309.81 [facility] [address], [place] [address] 8[address] Mar, [facility] [address] [place] [id number] [place] [address] 159017- 3973 Feb, Bipolar affective disorder 296.80 [facility] [address] [place] [id number] [place] [address] 72104- 4077 Feb, [facility] [address] [place] [id number] [place] [address] 49333- 1422 Feb, [facility] [address] [place] [id number] [place] [address] 15506- 8723 Feb, Arthralgia 719.40 ; Elevated C-reactive protein (CRP) 790.95 ; Polydipsia 783.5 and Fatigue 780.79 [facility] [address] [place] [id number] [place] [address] 52048- 6897 January, [facility] [address] [place] [id number] [place] [address] 53726- 4337 January, Abnormal C-reactive protein 790.99 [facility] [address] [place] [id number] [place] [address] 90659- 1652 January, Abnormal C-reactive protein 790.99 [facility] [address] [place] [address] 89301- 8586 January, Schizoaffective disorder, unspecified 295.70 [facility] [address] [place] [address] 37965- 4770 January, Hip dysplasia 755.63 [facility] [address] [place] [id number] [place] [address] 56465- 4438 Dec, [facility] [address] [place] [id number] [place] [address] 74034- 2994 Dec, [facility] [address] [place] [id number] [place] [address] 37947- 9629 Nov, [facility] [place] [facility] [address] [id number] [place] [address]- 1759 Nov, [facility] [place] [facility] [address] [id number] [place] [address]- 9680 Oct, [facility] [place] [facility] [address] [id number] [place] [address]- 0887 Oct, [facility] [place] [facility] [address] [id number] [place] [address]- 1682 Oct, [facility] [place] [facility] [address] [id number] [place] [address]- 8306 Oct, [facility] [place] [facility] [address] [id number] [place] [address]- 1458 Oct, [facility] [place] [facility] [address] [id number] [place] [address]- 3180 Oct, [facility] [place] [facility] [address] [id number] [place] [address]- 0662 Oct, [facility] [place] [facility] [address] [id number] [place] [address]- 6359 Oct, [facility] [place] [facility] [address] [id number] [place] [address]- 2495 Sep, [facility] [place] [facility] [address] [id number] [place] [address]- 4872 Sep, [facility] [place] [facility] [address] [id number] [place] [address]- 8459 Sep, [facility] [place] [facility] [address] [id number] [place] [address]- 2366 Sep, [facility] [place] [facility] [address] [id number] [place] [address]- 8286 Sep, [facility] [place] [facility] [address] [facility] [id number] [place] [address]- 5743 Aug, [facility] [place] [facility] [address] [id number] [place] [address]- 9573 Aug, [facility] [address] [id number] [place] [address]- 3399 Aug, [facility] [place] [facility] [address] [id number] [place] [address]- 2167 Aug, [facility] [place] [facility] [address] [id number] [place] [address]- 3708 Aug, [facility] [place] [facility] [address] [id number] [place] [address]- 3774 Aug, [facility] [place] [facility] [address] [id number] [place] [address]- 8089 Aug, [facility] [place] [facility] [address] [id number] [place] [address]- 9201 Aug, [facility] [place] [facility] [address] [id number] [place] [address]- 6343 Aug, [facility] [place] [facility] [address] [id number] [place] [address]- 7842 Aug, [facility] [place] [facility] [address] [id number] [place] [address]- 2797 Jul, [facility] [place] [facility] [address] [id number] [place] [address]- 9449 Jul, [facility] [place] [facility] [address] [id number] [place] [address]- 5094 Jul, [facility] [place] [facility] [address] [id number] [place] [address]- 1890 Jul, [facility] [place] [facility] [address] [id number] [place] [address]- 7626 Jul, [facility] [place] [facility] [address] [id number] [place] [address]- 4857 Jul, [facility] [place] [facility] [address] [id number] [place] [address]- 5566 Jul, [facility] [place] [facility] [address] [id number] [place] [address]- 6204 Jul, [facility] [place] [facility] [address] [id number] [place] [address]- 7416 Jul, [facility] [place] [facility] [address] [id number] [place] [address]- 9304 Jul, [facility] [place] [facility] [address] [id number] [place] [address]- 8192 Jul, [facility] [place] [facility] [address] [id number] [place] [address]- 0352 Jul, [facility] [place] [facility] [address] [id number] [place] [address]- 1879 Jul, [facility] [place] [facility] [address] [id number] [place] [address]- 9692 Jul, [facility] [place] [facility] [address] [id number] [place] [address]- 8059 Jul, [facility] [place] [facility] [address] [id number] [place] [address]- 5253 Jul, [facility] [place] [facility] [address] [id number] [place] [address]- 3409 Jul, [facility] [place] [facility] [address] [id number] [place] [address]- 3907 Jul, [facility] [place] [facility] [address] [id number], [place] [address]- 9814 Jul, [facility] [place] [facility] [address] [id number] [place] [address]- 7051 Jul, [facility] [place] [facility] [address] [id number] [place] [address]- 0269 Jul, [facility] [place] [facility] [address] [id number], [place] [address]- 9773 Jul, [facility] [place] [facility] [address] [id number], [place] [address]- 8815 17 Jun, 2014 [facility] [place] [facility] [address] [id number] [place] [address]- 9908 17 Jun, 2014 [facility] [place] [facility] [address] [id number] [place] [address]- 0066 18 May, 2013 [facility] [place] [facility] [address] [id number] [place] [address]- 5971 18 May, 2013 [facility] [place] [facility] [address] [id number] [place] [address]- 6985 18 May, 2013 [facility] [place] [facility] [address] [id number] [place] [address]- 3579 18 May, 2013 [facility] [place] [facility] [address] [id number] [place] [address]- 1063 17 May, 2013 [facility] [place] [facility] [address] [id number] [place] [address]- 8767 17 May, 2013 [facility] [place] [facility] [address] [id number] [place] [address]- 3658 09 May, 2013 [facility] [place] [facility] [address] [id number] [place] [address]- 3511 09 May, 2013 [facility] [place] [facility] [address] [id number] [place] [address]- 8979 05 May, 2013 [facility] [place] [facility] [address] [id number], [place] [address]- 1292 May, 2013 [facility] [place] [facility] [address] [id number], [place] [address]- 3744 04 May, 2013 [facility] [place] [facility] [address] [id number], [place] [address]- 9478 04 May, 2013 [facility] [place] [facility] [address] [id number] [place] [address]- 8701 May, 2013 [facility] [place] [facility] [address] [id number] [place] [address]- 8899 Apr, [facility] [place] [facility] [address] [id number] [place] [address]- 3205 Apr, [facility] [place] [facility] [address] [id number] [place] [address]- 6875 Apr, [facility] [place] [facility] [address] [id number] [place] [address]- 8443 Apr, [facility] [place] [facility] [address] [id number] [place] [address]- 1772 Apr, [facility] [place] [facility] [address] [id number] [place] [address]- 0717 Apr, [facility] [place] [facility] [address] [id number] [place] [address]- 9915 Mar, [facility] [place] [facility] [address] [id number] [place] [address]- 6577 Feb, [facility] [place] [facility] [address] [id number] [place] [address]- 4010 Feb, [facility] [place] [facility] [address] [id number] [place] [address]- 7976 January, [facility] [place] [facility] [address] [id number] [place] [address]- 1218 January, [facility] [place] [facility] [address] [id number] [place] [address]- 3623 January, [facility] [place] [facility] [address] [id number] [place] [address]- 8980 January, [facility] [place] [facility] [address] [id number] [place] [address]- 1187 Dec, [facility] [place] [facility] [address] [id number] [place] [address]- 9551 Dec, [facility] [place] [facility] [address] [id number] [place] [address]- 8532 Nov, [facility] [place] [facility] [address] [id number] [place] [address]- 3821 Nov, [facility] [place] [facility] [address] [id number] [place] [address]- 6485 Nov, [facility] [place] [facility] [address] [id number] [place] [address]- 4416 Nov, [facility] [place] [facility] [address] [id number] [place] [address]- 6353 Nov, [facility] [place] [facility] [address] [id number] [place] [address]- 5797 Nov, [facility] [place] [facility] [address] [id number] [place] [address]- 3363 Oct, [facility] [place] [facility] [address] [id number] [place] [address]- 4197 Oct, [facility] [place] [facility] [address] [id number] [place] [address]- 8174 Oct, [facility] [place] [facility] [address] [id number] [place] [address]- 7254 Oct, [facility] [place] [facility] [address] [id number] [place] [address]- 7409 Oct, [facility] [place] [facility] [address] [id number] [place] [address]- 1585 Sep, [facility] [place] [facility] [address] [id number] [place] [address]- 7369 Sep, [facility] [place] [facility] [address] [id number] [place] [address] Sep, [facility] [place] [facility] [address] [id number] [place] [address] Sep, [facility] [place] [facility] [address] [id number] [place] [address] Sep, [facility] [place] [facility] [address] [id number] [place] [address] Sep, [facility] [place] [facility] [address] [id number] [place] [address] 16 Sep, 2013 [facility] [address] [id number] [place] [address] Aug, [facility] [address] [id number] [place] [address] Aug, [facility] [address] [id number] [place] [address] Aug, [facility] [address] [id number] [place] [address] Aug, [facility] [address] [id number] [place] [address] Jul, [facility] [address] [id number] [place] [address] Jul, [facility] [address] [id number] [place] [address] Jul, [facility] [address] [id number] [place] [address] Jul, [facility] [address] [facility] [id number] [place] [address] 07 Jul, 2013 [facility] [address] [facility] [id number] [place] [address] 07 Jul, 2013 [facility] [place] [facility] [address] [id number] [place] [address] 17 Jun, 2013 [facility] [address] [id number] [place] [address] 17 Jun, 2013 [facility] [place] [facility] [address] [id number] [place] [address] 16 Jun, 2013 [facility] [place] [facility] [address] [id number] [place] [address] 16 Jun, 2013 [facility] [place] [facility] [address] [facility] [id number] [place] [address] Jun, [facility] [address] [id number] [place] [address] Jun, [facility] [place] [facility] [address] [id number] [place] [address] Jun, [facility] [place] [facility] [address] [id number] [place] [address] May, [facility] [place] [facility] [address] [id number] [place] [address] May, [facility] [address] [id number] [place] [address] May, [facility] [place] [facility] [address] [id number] [place] [address] May, [facility] [address] [id number] [place] [address] Apr, [facility] [place] [facility] [address] [id number] [place] [address] Apr, [facility] [place] [facility] [address] [id number] [place] [address] Feb, [facility] [place] [facility] [address] [id number] [place] [address] January, [facility] [place] [facility] [address] [id number] [place] [address] January, [facility] [place] [facility] [address] [id number], [place] [address] January, [facility] [place] [facility] [address] [id number] [place] [address] January, [facility] [place] [facility] [address] [id number] [place] [address] January, [facility] [place] [facility] [address] [id number] [place] [address] January, [facility] [place] [facility] [address] [id number], [place] [address] 29 Dec, 2012 [facility] [address] [id number] [place] [address] Dec, [facility] [place] [facility] [address] [id number] [place] [address] Dec, [facility] [address] [id number] [place] [address] Nov, [facility] [place] [facility] [address] [id number] [place] [address] Nov, [facility] [address] [id number] [place] [address] Oct, [facility] [place] [facility] [address] [id number] [place] [address] Sep, [facility] [address] [id number] [place] [address] Sep, [facility] [address] [id number] [place] [address] Sep, [facility] [address] [facility] [id number] [place] [address] Sep, [facility] [address] [facility] [id number] [place] [address] Jul, [facility] [address] [id number] [place] [address] 30 Jul, 2012 [facility] [place] [facility] [address] [id number], [place] [address] Jul, [facility] [place] [facility] [address] [id number] [place] [address] Jul, [facility] [place] [facility] [address] [id number] [place] [address] 16 Jul, 2012 [facility] [place] [facility] [address] [facility] [id number] [place] [address] 16 Jul, 2012 [facility] [place] [facility] [address] [id number] [place] [address] 16 Jul, 2012 [facility] [place] [facility] [address] [id number] [place] [address] 16 Jul, 2012 [facility] [place] [facility] [address] [id number] [place] [address] Jul, [facility] [place] [facility] [address] [id number] [place] [address] Jul, [facility] [place] [facility] [address] [id number] [place] [address] Feb, [facility] [place] [facility] [address] [id number] [place] [address] Nov, [facility] [place] [facility] [address] [id number] [place] [address] 13 Nov, 2011 [facility] [place] [facility] [address] [id number] [place] [address] Nov, [facility] [place] [facility] [address] [id number] [place] [address] 08 Nov, 2011 [facility] [place] [facility] [address] [id number] [place] [address] 07 Nov, 2011 [facility] [place] [facility] [address] [id number] [place] [address] Nov, [facility] [place] [facility] [address] [id number] [place] [address] Nov, [facility] [place] [facility] [address] [id number] [place] [address] Apr, [facility] [place] [facility] [address] [id number] [place] [address] Jul, [facility] [place] [facility] [address] [id number] [place] [address] Jul, [facility] [place] [facility] [address] [id number] [place] [address] Jul, [facility] [address] [facility] [id number], [place] [address] Jun, [facility] [address] [facility] [id number], [place] [address] May, [facility] [address] [facility] [id number], [place] [address] Feb, [facility] [address] [facility] [id number], [place] [address] Jun, IMMUNIZATIONS No Known Immunizations SOCIAL HISTORY Never Assessed REASON FOR VISIT 99.8 fevers for a few days- woke up this AM with swollen and sore throat and post cough [facility] VITAL SIGNS Height 69 in 2017-08-13 Weight 261.6 lbs 2017-08-13 Temperature 97.7 degrees Fahrenheit 2017-08-13 Heart Rate 92 bpm 2017-08-13 Respiratory Rate 22 2017-08-13 BMI 38.63 kg/m2 2017-08-13 Blood pressure systolic 112 mmHg 2017-08-13 Blood pressure diastolic 80 mmHg 2017-08-13 MEDICATIONS Medication Instructions Dosage Frequency Start Date End Date Duration Status Celecoxib 200 mg Orally Once a day 1 capsule with food 24h Oct, 30 day(s) Not-Taking Zithromax Z-Valentin 250 MG Orally Once a day 2 tablets on the first day, then 1 tablet daily for 4 days 24h Jul, Aug, 5 day(s) Active Sucralfate 1 GM/10ML Orally Twice a day 10 ml 12h Not-Taking Tessalon Perles 100 mg Orally Three times a day 1 capsule as needed 8h Jul, Not-Taking Tylenol Oral Once a day 1 tab 24h Not-Taking Albuterol Sulfate (2.5 MG/3ML) 0.083% Inhalation every 6 hrs as directed 6h Jul, Not-Taking Ibuprofen 800 MG Orally Three times a day 1 tablet with food or milk as needed 8h Active Pantoprazole Sodium 40 MG Orally Once a day 1 tablet 24h Not- Taking Tessalon Perles 100 mg Orally Three times a day 1 capsule as needed 8h Jul, Active Ativan Not-Taking RESULTS No Results PROCEDURES No Known [...]
--- OUTSIDE RECORDS SUMMARY | 2018-07-11 15:19 | XMS REPORT ---
Author Author DERREKNINFAJACE Organization [facility] Address [address] [place] [address] Care Team Providers Care Geospatial Image Analyst Name Role Phone ANGLINJACE Ingram Unavailable PROBLEMS Type Condition ICD9-CM Code TVW83-MV Code Onset Dates Condition Status SNOMED Code Problem Joint pain M25.50 Active 23142559 Problem Fibrocystic breast, left N60.12 Active 25600019 Problem History of migraine Z86.69 Active 297851173 Problem Anxiety associated with depression F41.8 Active 418981097 Problem Chronic pain G89.29 Active 75038344 Problem Obesity (BMI 30-39.9) E66.9 Active 820657002 Problem Hyperinsulinemia E16.1 Active 59541597 Problem Hypercholesteremia E78.0 Active 86890125 Problem Fibrocystic breast, right N60.11 Active 67212126 Problem Schizoaffective disorder, bipolar type F25.0 Active 95866594 Problem Irritable bowel syndrome with diarrhea K58.0 Active 664494071 ALLERGIES Substance Reaction Event Type Date Status MetFORMIN HCl ER nausea Drug Allergy January, Active Ketorolac Tromethamine nausea Drug Allergy January, Active Codeine Sulfate swelling, localized Drug Allergy January, Active Morphine rash Drug Allergy January, Active Viibryd 10 Mg Tablet "don't remember" Non Drug Allergy January, Active Strawberries Unknown Non Drug Allergy January, Active SOCIAL HISTORY Never Assessed PLAN OF CARE Activity Details Follow Up prn Reason: VITAL SIGNS Height 69 in 2017-01-18 Weight 256.8 lbs 2017-01-18 Temperature 98.1 degrees Fahrenheit 2017-01-18 Heart Rate 80 bpm 2017-01-18 Respiratory Rate 18 2017-01-18 BMI 37.92 kg/m2 2017-01-18 Blood pressure systolic 110 mmHg 2017-01-18 Blood pressure diastolic 68 mmHg 2017-01-18 MEDICATIONS Medication Instructions Dosage Frequency Start Date End Date Duration Status Sucralfate 1 GM/10ML Orally Twice a day 10 ml 12h Active Pantoprazole Sodium 40 MG Orally Once a day 1 tablet 24h Active RESULTS No Results PROCEDURES No Known [...]
--- OUTSIDE RECORDS SUMMARY | 2018-07-11 15:20 | XMS REPORT ---
Author Author DERREKJACE Organization [facility] Address [address] [place] [address] Care Team Providers Care Sports Attorney Name Role Phone ANGLINJACE Ingram Unavailable PROBLEMS Type Condition ICD9-CM Code EAT68-XY Code Onset Dates Condition Status SNOMED Code Problem Joint pain M25.50 Active 71246083 Problem Fibrocystic breast, left N60.12 Active 29192199 Problem History of migraine Z86.69 Active 594455712 Problem Anxiety associated with depression F41.8 Active 560385484 Problem Chronic pain G89.29 Active 27118858 Problem Obesity (BMI 30-39.9) E66.9 Active 568184214 Problem Hyperinsulinemia E16.1 Active 87382593 Problem Hypercholesteremia E78.0 Active 07807778 Problem Fibrocystic breast, right N60.11 Active 13815571 Problem Schizoaffective disorder, bipolar type F25.0 Active 30241384 Problem Irritable bowel syndrome with diarrhea K58.0 Active 633365205 ALLERGIES No Information ENCOUNTERS Encounter Location Date Diagnosis [facility] [id number] [place] [address] 43608 -1743 Nov, Acute otitis externa of left ear, unspecified type H60.502 [facility] [id number] [place] [address] 65501 -8398 Oct, Intolerance of drug Z78.9 [facility] [address] 25536 -7012 03 Oct, 2017 Acute non-recurrent maxillary sinusitis J01.00 [facility] [id number] [place] [address] 44553 -2349 Jul, Bronchitis J40 [facility] [address] 60112- 4603 Jul, [facility] [place] [id number] [place] [address] 09152 -0665 Jul, Bronchitis J40 [place] [id number] [place] [address] 19541- 6348 Jun, Fibrocystic breast, right N60.11 [place] [id number] [place] [address] 34128- 2300 Jun, [place] [address] 57213- 2166 Jun, Hyperinsulinemia E16.1 ; Obesity (BMI 30-39.9) E66.9 and Hypercholesteremia E78.0 [place] [id number] [place] [address] 03057- 9058 Jun, Hyperinsulinemia E16.1 ; Visit for TB skin test Z11.1 ; Obesity (BMI 30-39.9) E66.9 ; Hypercholesteremia E78.0 ; Anxiety associated with depression F41.8 and Encounter for PPD test Z11.1 [place] [id number] [place] [address] 89855- 0701 Mar, Fibrocystic breast, right N60.11 [facility] [address] [place] [address] 76302 -8695 Mar, Right hip pain M25.551 and Strain of muscle of right hip, initial encounter S76.011A [facility] [address] [place] [id number] [place] [address] 48308 -6621 Feb, Allergic contact dermatitis due to plants, except food L23.7 [place] [id number] [place] [address] 95053- 5336 January, Breast pain in female N64.4 [facility] [address] [place] [address] 26972 -1294 January, Breast pain in female N64.4 [facility] [place] [id number] [place] [address] 29055 -0749 Nov, Acute bacterial conjunctivitis of left eye H10.32 [place] [address] 31171- 6894 27 Oct, 2016 Joint pain M25.50 [place] [id number] [place] [address] 23543- 3761 16 Oct, 2016 Joint pain M25.50 and Chronic pain G89.29 [place] [address] 95828- 9795 02 Oct, 2016 Encounter for well woman exam with routine gynecological exam Z01.419 ; Encounter for screening breast examination Z12.39 and Screen for STD (sexually transmitted disease) Z11.3 [place] [address] 48138- 7242 Sep, [place] [address] 09160- 2284 Aug, Chronic pain G89.29 and Joint pain M25.50 [facility] [id number] [place] [address] 14222 -1067 May, Acute maxillary sinusitis, recurrence not specified J01.00 [place] [id number] [place] [address] 27176- 5375 May, Schizoaffective disorder, bipolar type F25.0 and Generalized anxiety disorder F41.1 [place] [id number] [place] [address] 86353- 7783 Apr, Schizoaffective disorder F25.9 ; Bipolar 1 disorder F31.9 and Anxiety associated with depression F41.8 [place] [id number] [place] [address] 18331- 5148 Apr, Arthralgia of left temporomandibular joint M26.62 [place] [id number] [place] [address] 78142- 4104 Apr, Chronic pain G89.29 [facility] [id number] [place] [address] 47713 -5195 16 Apr, 2016 Left-sided face pain R51 and Acute non-recurrent sinusitis , unspecified location J01.90 [place] [id number] [place] [address] 70860- 5767 Mar, Epigastric pain R10.13 ; Nausea R11.0 and Diarrhea, unspecified type R19.7 [place] [address] 97790- 6487 Feb, Bipolar 1 disorder F31.9 [facility] [address] 95041 -5697 14 Feb, 2016 Insect bite, initial encounter W57.XXXA and Encounter for immunization Z23 [address] 28796- 0528 13 Feb, 2016 Schizoaffective disorder F25.9 [place] [address] 46096- 8112 Feb, Schizoaffective disorder F25.9 [facility] [address] 54190 -3677 January, Viral syndrome B34.9 ; Diarrhea, unspecified R19.7 and Vomiting, unspecified R11.10 [facility] [address] 97622 -0109 Dec, Left otitis media H66.92 and TMJ (temporomandibular joint disorder) M26.60 [facility] [address] [id number] Dec, Dental examination Z01.20 [place] [address] 10173- 4286 24 Nov, 2015 Acute sinusitis J01.90 [facility] [address] 68594 -0645 Nov, Environmental allergies Z91.09 [place] [address] [place] [address] 65563- 5104 Nov, [place] [id number] [place] [address] 0879 Nov, HSV (herpes simplex virus) infection B00.9 [place] [id number] [place] [address] 64867- 1005 Oct, Schizoaffective disorder, unspecified F25.9 [place] [id number] [place] [address] 21852- 2061 Oct, [place] [id number] [place] [address] 46550- 1209 Oct, Insulin resistance E88.81 [place] [id number] [place] [address] 50688- 9540 Oct, [place] [id number] [place] [address] 82579- 0001 Oct, Vaginal lesion N89.8 [place] [id number] [place] [address] 52693- 4253 Oct, Vaginal lesion N89.8 [place] [id number] [place] [address] 72726- 4375 Oct, Well woman exam Z01.419 ; History [...] bowel syndrome with constipation and diarrhea K58.0 [place] [id number] [place] [address] 35741- 0372 08 Oct, 2015 [place] [address] 81075- 3045 Oct, General medical exam Z00.00 ; Joint pain M25.50 ; Family history of breast cancer Z80.3 ; Family history of heart disease Z82.49 and STD exposure Z20.2 [place] [address] 92703- 8714 02 Oct, 2015 General medical exam Z00.00 ; Joint pain M25.50 ; Bipolar 1 disorder F31.9 ; Schizoaffective disorder F25.9 ; Chronic pain G89.29 ; Hip pain M25.559 ; Anxiety associated with depression F41.8 ; Family history of breast cancer Z80.3 ; Family history of heart disease Z82.49 ; Family history of diabetes mellitus Z83.3 and STD exposure Z20.2 [place] [address] 65928- 7218 Oct, [place] [address] 38470- 6523 Sep, Schizoaffective disorder, unspecified type F25.9 [place] [address] 87002- 1768 Aug, Schizoaffective disorder, unspecified F25.9 [place] [address] 17191- 0004 Jul, Schizoaffective disorder, unspecified F25.9 [place] [address] 76338- 9860 Jul, [place] [address] 60392- 1068 Jul, Routine adult health maintenance Z00.00 ; Hip pain M25.559 and Right knee pain M25.561 [facility] [address] [place] [address] 76097- 2258 Jul, Encounter for immunization Z23 [facility] [address] [address] Jun, Visit for dental examination Z01.20 [facility] [id number] [place] [address] 18594- 7046 16 Jun, 2015 Bipolar disorder, unspecified F31.9 [facility] [id number] [place] [address] 81075- 0611 24 May, 2015 Schizo-affective psychosis 295.70 [facility] [id number] [place] [address] 78407- 1312 14 May, 2015 Schizo-affective psychosis 295.70 ; Bipolar I disorder, most recent episode (or current) manic, moderate 296.42 and Generalized anxiety disorder 300.02 [facility] [id number] [place] [address] 06616- 8471 14 May, 2015 Generalized anxiety disorder 300.02 [facility] [id number] [place] [address] 18091- 2670 Apr, Schizo-affective psychosis 295.70 [facility] [id number] [place] [address] 83955- 3286 Apr, Bipolar affective disorder 296.80 and Posttraumatic stress disorder 309.81 [facility] [id number] [place] [address] 48322- 2713 Mar, [facility] [id number] [place] [address] 02073- 9792 Feb, Bipolar affective disorder 296.80 [facility] [id number] [place] [address] 97858- 8110 Feb, [facility] [id number] [place] [address] 49981- 7051 Feb, [facility] [address] 6487 Feb, Arthralgia 719.40 ; Elevated C-reactive protein (CRP) 790.95 ; Polydipsia 783.5 and Fatigue 780.79 [facility] [address] [address]- 9081 January, [facility] [id number] [place] [address] 74465- 8836 January, Abnormal C-reactive protein 790.99 [facility] [id number] [place] [address] 82958- 4218 January, Abnormal C-reactive protein 790.99 [facility] [id number] [place] [address] 999827- 7312 January, Schizoaffective disorder, unspecified 295.70 [facility] [id number] [place] [address] 98408- 4915 January, Hip dysplasia 755.63 [facility] [id number] [place] [address] 631013- 7229 Dec, [facility] [id number] [place] [address] 55589- 0630 Dec, [facility] [address] [address]- 7914 Nov, [facility] [id number] [place] [address] 72006- 5386 Nov, [facility] [address] [address]- 6926 Oct, [facility] [id number] [place] [address] 73141- 0516 Oct, [facility] [address] [address]- 4486 Oct, [facility] [address] [facility] [id number] [place] [address]- 3716 Oct, 2014 [facility] [place] [facility] [address] [id number] [place] [address]- 2116 Oct, 2014 [facility] [place] [facility] [address] [id number] [place] [address]- 9123 Oct, 2014 [facility] [place] [facility] [address] [id number] [place] [address]- 5548 Oct, [facility] [place] [facility] [address] [id number] [place] [address]- 3056 Oct, [facility] [place] [facility] [address] [id number] [place] [address]- 9170 Sep, [facility] [place] [facility] [address] [id number] [place] [address]- 8836 Sep, [facility] [place] [facility] [address] [id number] [place] [address]- 2730 Sep, [facility] [place] [facility] [address] [id number] [place] [address]- 9573 Sep, [facility] [place] [facility] [address] [id number] [place] [address]- 5393 Sep, [facility] [place] [facility] [address] [id number] [place] [address]- 7192 Aug, [facility] [place] [facility] [address] [id number] [place] [address]- 3883 Aug, [facility] [place] [facility] [address] [id number] [place] [address]- 6554 Aug, [facility] [place] [facility] [address] [id number] [place] [address]- 7282 Aug, [facility] [place] [facility] [address] [id number] [place] [address]- 6917 Aug, [facility] [place] [facility] [address] [id number] [address]- 0151 Aug, [facility] [place] [facility] [address] [id number] [place] [address]- 9517 Aug, [facility] [place] [facility] [address] [id number] [place] [address]- 3024 Aug, [facility] [place] [facility] [address] [facility] [id number] [place] [address]- 8466 Aug, [facility] [place] [facility] [address] [id number] [place] [address]- 8845 Aug, [facility] [place] [facility] [address] [id number] [place] [address]- 5098 Jul, [facility] [place] [facility] [address] [id number] [place] [address]- 7338 Jul, [facility] [place] [facility] [address] [id number] [place] [address]- 8141 Jul, [facility] [place] [facility] [address] [id number] [address]- 1743 Jul, [facility] [place] [facility] [address] [id number] [place] [address]- 2474 Jul, [facility] [place] [facility] [address] [id number] [place] [address]- 1116 Jul, [facility] [place] [facility] [address] [id number] [address]- 8143 Jul, [facility] [place] [facility] [address] [id number] [place] [address]- 8491 Jul, [facility] [place] [facility] [address] [id number] [place] [address]- 9738 Jul, [facility] [place] [facility] [address] [id number] [address]- 6184 Jul, [facility] [place] [facility] [address] [id number] [place] [address]- 3457 Jul, [facility] [place] [facility] [address] [id number] [place] [address]- 9168 Jul, [facility] [place] [facility] [address] [id number] [place] [address]- 1379 Jul, [facility] [place] [facility] [address] [id number] [place] [address]- 7016 Jul, [facility] [place] [facility] [address] [id number] [place] [address]- 6277 Jul, [facility] [place] [facility] [address] [id number] [place] [address]- 7751 Jul, [facility] [place] [facility] [address] [id number] [place] [address]- 1676 Jul, [facility] [place] [facility] [address] [id number] [place] [address]- 9746 Jul, [facility] [place] [facility] [address] [id number] [place] [address]- 6957 Jul, [facility] [place] [facility] [address] [id number] [place] [address]- 9967 Jul, [facility] [place] [facility] [address] [id number] [place] [address]- 1959 Jul, [facility] [place] [facility] [address] [facility] [id number] [place] [address]- 3978 Jul, [facility] [place] [facility] [address] [id number] [place] [address]- 1722 Jun, [facility] [place] [facility] [address] [id number] [place] [address]- 8093 Jun, [facility] [place] [facility] [address] [id number] [place] [address]- 1154 18 May, 2014 [facility] [place] [facility] [address] [id number] [place] [address]- 7314 18 May, 2014 [facility] [place] [facility] [address] [id number] [place] [address]- 2365 18 May, 2014 [facility] [place] [facility] [address] [id number] [place] [address]- 2175 18 May, 2013 [facility] [place] [facility] [address] [id number] [place] [address]- 7153 17 May, 2013 [facility] [place] [facility] [address] [id number] [place] [address]- 9189 17 May, 2013 [facility] [place] [facility] [address] [id number] [place] [address]- 5958 09 May, 2013 [facility] [place] [facility] [address] [id number] [place] [address]- 8485 09 May, 2013 [facility] [place] [facility] [address] [id number] [place] [address]- 7630 05 May, 2013 [facility] [place] [facility] [address] [id number] [place] [address]- 7376 04 May, 2013 [facility] [place] [facility] [address] [id number] [place] [address]- 5129 04 May, 2013 [facility] [place] [facility] [address] [id number] [place] [address]- 3002 May, 2013 [facility] [place] [facility] [address] [id number] [place] [address]- 4482 May, 2013 [facility] [place] [facility] [address] [id number] [place] [address]- 0169 Apr, [facility] [place] [facility] [address] [id number] [address]- 2880 Apr, [facility] [place] [facility] [address] [id number] [place] [address]- 2710 Apr, [facility] [place] [facility] [address] [id number] [place] [address]- 6725 Apr, [facility] [place] [facility] [address] [id number] [place] [address]- 8423 Apr, [facility] [place] [facility] [address] [id number] [place] [address]- 7645 Apr, [facility] [place] [facility] [address] [id number] [place] [address]- 5378 Mar, [facility] [place] [facility] [address] [id number] [place] [address]- 8940 Feb, [facility] [place] [facility] [address] [id number] [place] [address]- 1170 Feb, [facility] [place] [facility] [address] [id number] [place] [address]- 5348 January, [facility] [place] [facility] [address] [id number] [place] [address]- 0927 January, [facility] [place] [facility] [address] [id number] [place] [address]- 2920 January, [facility] [place] [facility] [address] [id number] [place] [address]- 1276 January, [facility] [place] [facility] [address] [id number] [place] [address]- 4722 Dec, [facility] [place] [facility] [address] [id number] [place] [address]- 3769 Dec, [facility] [place] [facility] [address] [id number] [place] [address]- 3002 Nov, [facility] [place] [facility] [address] [id number] [place] [address]- 7249 Nov, [facility] [place] [facility] [address] [id number] [place] [address]- 9460 Nov, [facility] [place] [facility] [address] [id number] [place] [address]- 7761 Nov, [facility] [place] [facility] [address] [id number] [place] [address]- 8688 Nov, [facility] [place] [facility] [address] [id number] [place] [address]- 5987 Nov, [facility] [place] [facility] [address] [id number] [place] [address]- 4469 Oct, [facility] [place] [facility] [address] [id number] [place] [address]- 2795 Oct, [facility] [place] [facility] [address] [id number] [place] [address]- 0556 Oct, [facility] [place] [facility] [address] [id number] [place] [address]- 1399 Oct, [facility] [place] [facility] [address] [id number] [place] [address] Oct, [facility] [place] [facility] [address] [id number] [place] [address] Sep, [facility] [place] [facility] [address] [id number] [place] [address] Sep, [facility] [place] [facility] [address] [id number] [place] [address] Sep, [facility] [place] [facility] [address] [id number] [place] [address] Sep, [facility] [place] [facility] [address] [id number] [place] [address] Sep, [facility] [place] [facility] [address] [id number] [place] [address] Sep, [facility] [place] [facility] [address] [id number] [place] [address] Sep, [facility] [place] [facility] [address] [id number] [place] [address] Aug, [facility] [place] [facility] [address] [id number] [place] [address] Aug, [facility] [place] [facility] [address] [id number] [place] [address] Aug, [facility] [place] [facility] [address] [id number] [place] [address] Aug, [facility] [place] [facility] [address] [id number] [place] [address] Jul, [facility] [place] [facility] [address] [id number] [place] [address]- [address] Jul, [facility] [place] [facility] [address] [id number] [place] [address] Jul, [facility] [place] [facility] [address] [id number] [place] [address]- [address] Jul, [facility] [place] [facility] [address] [id number] [place] [address] Jul, [facility] [place] [facility] [address] [id number] [place] Jul, [facility] [place] [facility] [address] [id number] [place] [address] Jun, [facility] [place] [facility] [address] [id number] [place] [address]- [address] Jun, [facility] [place] [facility] [address] [id number] [place] [address] Jun, [facility] [place] [facility] [address] [id number] [place] [address] Jun, [facility] [place] [facility] [address] [id number] [address] Jun, [facility] [place] [facility] [address] [id number] [place] [address] Jun, [facility] [place] [facility] [address] [id number] [place] [address] Jun, [facility] [place] [facility] [address] [id number] [place] [address] 30 May, 2013 [facility] [place] [facility] [address] [id number] [place] [address] May, [facility] [place] [facility] [address] [id number] [place] [address] May, [facility] [address] [id number] [place] [address] May, [facility] [address] [id number] [place] [address] Apr, [facility] [address] [id number] [place] [address] Apr, [facility] [address] [id number] [place] [address] Feb, [facility] [address] [id number] [place] [address] January, [facility] [address] [id number] [place] [address] January, [facility] [address] [id number] [place] [address] January, [facility] [address] [id number] [place] [address] January, [facility] [address] [id number] [place] [address] January, [facility] [address] [id number] [place] [address] January, [facility] [address] [id number] [place] [address] Dec, [facility] [address] [id number] [place] [address]- [address] Dec, [facility] [address] [id number] [place] [address] Dec, [facility] [address] [id number] [place] [address] Nov, [facility] [address] [id number] [place] [id number] Nov, [facility] [place] [facility] [address] [id number] [place] [address] Oct, [facility] [place] [facility] [address] [id number] [place] [address] Sep, [facility] [place] [facility] [address] [id number] [place] [address] Sep, [facility] [place] [facility] [address] [id number] [place] [address] Sep, [facility] [place] [facility] [address] [id number] [place] [address] Sep, [facility] [place] [facility] [address] [id number] [place] [address] Jul, [facility] [place] [facility] [address] [id number] [place] [address] Jul, [facility] [place] [facility] [address] [id number] [place] [address] Jul, [facility] [place] [facility] [address] [id number] [place] [address] Jul, [facility] [place] [facility] [address] [id number] [place] [address] Jul, [facility] [place] [facility] [address] [id number] [place] [address] Jul, [facility] [place] [facility] [address] [id number] [place] [address] 16 Jul, 2012 [facility] [place] [facility] [address] [id number] [place] [address] Jul, [facility] [place] [facility] [address] [id number] [place] [address] Jul, [facility] [place] [facility] [address] [id number] [place] [address] Jul, [facility] [place] [facility] [address] [id number] [address] 25 Feb, 2012 [facility] [address] [facility] [id number] [place] [address] Nov, [facility] [address] [facility] [id number] [place] [address] 13 Nov, 2011 [facility] [address] [facility] [id number] [address] Nov, [facility] [address] [facility] [id number] [place] [address] 08 Nov, 2011 [facility] [address] [facility] [id number] [place] [address] 07 Nov, 2011 [facility] [address] [facility] [id number] [place] [address] Nov, [facility] [id number] [address] Nov, [facility] [address] [facility] [id number] [place] [address] Apr, [facility] [id number] [address] Jul, [facility] [address] [id number] [address] Jul, [facility] [id number] [address] Jul, [facility] [address] [facility] [id number] [place] [address] 29 Jun, 2010 [facility] [address] [facility] [id number] [place] [address] 13 May, 2010 [facility] [address] [facility] [id number] [place] [address] 14 Feb, 2010 [facility] [address] [id number] [address] 17 Jun, 2009 IMMUNIZATIONS No Known Immunizations SOCIAL HISTORY Never Assessed REASON FOR VISIT Lab (walk-in) PLAN OF CARE VITAL SIGNS MEDICATIONS No Known Medications RESULTS Name Result Date Reference Range THYROID ANALYZER 2017-06-18 TSH 2.120 0.450-4.500 A1C 2017-06-18 Hemoglobin A1c 5.3 4.8-5.6 INSULIN LEVEL 2017-06-18 Insulin 17.5 2.6-24.9 CBC 2017-06-18 WBC 11.1 3.4-10.8 RBC 4.76 3.77-5.28 Hemoglobin 13.4 11.1-15.9 Hematocrit 39.4 34.0-46.6 MCV 83 79-97 MCH 28.2 26.6-33.0 MCHC 34.0 31.5-35.7 RDW 14.0 12.3-15.4 Platelets 291 150-379 Neutrophils 51 Not Estab. Lymphs 41 Not Estab. Monocytes 5 Not Estab. Eos 3 Not Estab. Basos 0 Not Estab. Neutrophils (Absolute) 5.6 1.4-7.0 Lymphs (Absolute) 4.5 0.7-3.1 Monocytes(Absolute) 0.6 0.1-0.9 Eos (Absolute) 0.3 0.0-0.4 Baso (Absolute) 0.0 0.0-0.2 Immature Granulocytes 0 Not Estab. Immature Grans (Abs) 0.0 0.0-0.1 LIPID PANEL 2017-06-18 Cholesterol, Total 221 100-199 Triglycerides 250 0-149 HDL Cholesterol 32 >39 VLDL Cholesterol Aleksandr 50 5-40 LDL Cholesterol Calc 139 0-99 CMP 2017-06-18 Glucose, Serum 82 65-99 BUN 13 6-20 Creatinine, Serum 0.77 0.57-1.00 eGFR If NonAfricn Am 101 >59 eGFR If Africn Am 117 >59 BUN/Creatinine Ratio 17 9-23 Sodium, Serum 139 134-144 Potassium, Serum 3.8 3.5-5.2 Chloride, Serum 97 96-106 Carbon Dioxide, Total 21 18-29 Calcium, Serum 10.1 8.7-10.2 Protein, Total, Serum 7.5 6.0-8.5 Albumin, Serum 4.6 3.5-5.5 Globulin, Total 2.9 1.5-4.5 A/G Ratio 1.6 1.2-2.2 Bilirubin, Total 0.3 0.0-1.2 Alkaline Phosphatase, S 89 39-117 AST (SGOT) 31 0-40 ALT (SGPT) 34 0-32 PROCEDURES Procedure Date Ordered Result Body Site LAB [facility] Jun 18, 2017 Hemoglobin Test Send Out 0 dollar Jun 18, 2017 VENIPUNCT, ROUTINE* Jun 18, 2017 INSTRUCTIONS MEDICATIONS ADMINISTERED No Known Medications MEDICAL [...]
--- OUTSIDE RECORDS SUMMARY | 2018-07-11 15:21 | XMS REPORT ---
Author Author ANGLINJACE Ingram Organization [facility] Address [address] [place] [address] Care Team Providers Care Apprenticeship Training Representative Name Role Phone ANGLINJACE Ingram Unavailable PROBLEMS Type Condition ICD9-CM Code ISG05-GC Code Onset Dates Condition Status SNOMED Code Problem Joint pain M25.50 Active 85287215 Problem Fibrocystic breast, left N60.12 Active 05857106 Problem History of migraine Z86.69 Active 668138606 Problem Anxiety associated with depression F41.8 Active 560835476 Problem Chronic pain G89.29 Active 22993779 Problem Obesity (BMI 30-39.9) E66.9 Active 737918500 Problem Hyperinsulinemia E16.1 Active 24063987 Problem Hypercholesteremia E78.0 Active 08796764 Problem Fibrocystic breast, right N60.11 Active 89587778 Problem Schizoaffective disorder, bipolar type F25.0 Active 33175998 Problem Irritable bowel syndrome with diarrhea K58.0 Active 673537472 ALLERGIES Substance Reaction Event Type Date Status MetFORMIN HCl ER nausea Drug Allergy Jun, Active Ketorolac Tromethamine nausea Drug Allergy Jun, Active Codeine Sulfate swelling, localized Drug Allergy Jun, Active Morphine rash Drug Allergy Jun, Active Strawberries Unknown Non Drug Allergy Jun, Active Viibryd 10 Mg Tablet "don't remember" Non Drug Allergy Jun, Active ENCOUNTERS Encounter Location Date Diagnosis [facility] [address] [id number] [address] Nov, Acute otitis externa of left ear, unspecified type H60.502 [facility] [address] [id number] [address] Oct, Intolerance of drug Z78.9 [facility] [id number] [place] [address]28 [address] Oct, Acute non-recurrent maxillary sinusitis J01.00 [facility] [place] [id number] [place] [address]76 -[address]51 Jul, Bronchitis J40 [place] [id number] [place] [address] 54863- 7394 Jul, [facility] [place] [address] [address] Jul, Bronchitis J40 [place] [address] 7[address]36- 7473 Jun, Fibrocystic breast, right N60.11 [place] [address] 17990- 2601 Jun, [place] [id number] [place] [address] 52308- 6176 Jun, Hyperinsulinemia E16.1 ; Obesity (BMI 30-39.9) E66.9 and Hypercholesteremia E78.0 [place] [id number] [place] [address] 06445- 4336 Jun, Hyperinsulinemia E16.1 ; Visit for TB skin test Z11.1 ; Obesity (BMI 30-39.9) E66.9 ; Hypercholesteremia E78.0 ; Anxiety associated with depression F41.8 and Encounter for PPD test Z11.1 [place] [id number] [place] [address] 49056- 4789 Mar, Fibrocystic breast, right N60.11 [facility] [place] [id number] [place] [address] 79407 -1422 Mar, Right hip pain M25.551 and Strain of muscle of right hip, initial encounter S76.011A [facility] [place] [id number] [place] [address] 87165 -4785 15 Feb, 2017 Allergic contact dermatitis due to plants, except food L23.7 [place] [id number] [place] [address] 10239- 5001 January, Breast pain in female N64.4 [facility] [place] [id number] [place] [address] 05408 -2377 January, Breast pain in female N64.4 [facility] [place] [id number] [place] [address] 08856 -6293 Nov, Acute bacterial conjunctivitis of left eye H10.32 [place] [id number] [place] [address] 30688- 2386 Oct, Joint pain M25.50 [place] [id number] [place] [address] 85612- 4868 16 Oct, 2016 Joint pain M25.50 and Chronic pain G89.29 [place] [id number] [place] [address] 90431- 0264 02 Oct, 2016 Encounter for well woman exam with routine gynecological exam Z01.419 ; Encounter for screening breast examination Z12.39 and Screen for STD (sexually transmitted disease) Z11.3 [place] [id number] [place] [address] 70609- 3955 Sep, [place] [id number] [place] [address] 77110- 0078 Aug, Chronic pain G89.29 and Joint pain M25.50 [facility] [address] [id number] [place] [address] 20244 [address]61 May, Acute maxillary sinusitis, recurrence not specified J01.00 [place] [id number] [place] [address] 59647- 1910 May, Schizoaffective disorder, bipolar type F25.0 and Generalized anxiety disorder F41.1 [place] [id number] [place] [address] 53559- 2632 Apr, Schizoaffective disorder F25.9 ; Bipolar 1 disorder F31.9 and Anxiety associated with depression F41.8 [place] [id number] [place] [address] 37471- 8178 25 Apr, 2016 Arthralgia of left temporomandibular joint M26.62 [place] [address] 40210- 4141 19 Apr, 2016 Chronic pain G89.29 [facility] W[facility] IN [address] [address] Apr, Left-sided face pain R51 and Acute non-recurrent sinusitis , unspecified location J01.[address] 53709- 9306 Mar, Epigastric pain R10.13 ; Nausea R11.0 and Diarrhea, unspecified type R19.[address] 00704- 2466 Feb, Bipolar 1 disorder F31.9 [facility] WALK IN [address] 09[address] 14 Feb, 2016 Insect bite, initial encounter W57.XXXA and Encounter for immunization Z23 [address] 80785- 7795 13 Feb, 2016 Schizoaffective disorder F25.[address] 66980- 0373 Feb, Schizoaffective disorder F25.9 [facility] WALK IN [address] 74[address] January, Viral syndrome B34.9 ; Diarrhea, unspecified R19.7 and Vomiting, unspecified R11.10 [facility] WALK IN [facility] [address] [place] [address]33 [address] Dec, Left otitis media H66.92 and TMJ (temporomandibular joint disorder) M26.60 [facility] [address] [id number] Dec, Dental examination Z01.20 [facility] [address] [place] [address] 55366- 2491 24 Nov, [address] [facility] [id number] [place] [address] 81439 -7930 Nov, Environmental allergies Z91.09 [facility] [id number] [place] [address] 00230- 8405 Nov, [place] [id number] [place] [address] 36308- 8072 Nov, HSV (herpes simplex virus) infection B00.9 [place] [id number] [place] [address] 36772- 7206 Oct, Schizoaffective disorder, unspecified F25.9 [place] [id number] [place] [address] 04494- 3228 Oct, [place] [id number] [place] [address] 81225- 2127 Oct, Insulin resistance E88.81 [place] [id number] [place] [address] 44543- 3999 Oct, [place] [id number] [place] [address] 61627- 7899 Oct, Vaginal lesion N89.8 [place] [address] [place] [address] 12519- 1134 Oct, Vaginal lesion N89.8 [place] [id number] [place] [address] 08781- 4657 08 Oct, 2015 Well woman exam Z01.419 [...] bowel syndrome with constipation and diarrhea K58.0 [place] [id number] [place] [address] 51932- 6074 Oct, [address] 87922- 5465 03 Oct, 2015 General medical exam Z00.00 ; Joint pain M25.50 ; Family history of breast cancer Z80.3 ; Family history of heart disease Z82.49 and STD exposure Z20.2 [place] [id number] [place] [address] 81515- 3725 02 Oct, 2015 General medical exam Z00.00 ; Joint pain M25.50 ; Bipolar 1 disorder F31.9 ; Schizoaffective disorder F25.9 ; Chronic pain G89.29 ; Hip pain M25.559 ; Anxiety associated with depression F41.8 ; Family history of breast cancer Z80.3 ; Family history of heart disease Z82.49 ; Family history of diabetes mellitus Z83.3 and STD exposure Z20.2 [place] [id number] [place] [address] 84126- 4116 Oct, [place] [id number] [place] [address] 65631- 6427 Sep, Schizoaffective disorder, unspecified type F25.9 [place] [id number] [place] [address] 19021- 6155 Aug, Schizoaffective disorder, unspecified F25.[address] 94014- 1197 Jul, Schizoaffective disorder, unspecified F25.9 [facility] [address] [place] [address] 17300- 2674 Jul, [facility] [id number] [place] [address] 38423- 5299 Jul, Routine adult health maintenance Z00.00 ; Hip pain M25.559 and Right knee pain M25.561 [facility] [id number] [place] [address] 74877- 7222 Jul, Encounter for immunization Z23 [facility] [address] [id number] Jun, Visit for dental examination Z01.20 [facility] [id number] [place] [address] 34825- 3698 16 Jun, 2015 Bipolar disorder, unspecified F31.9 [facility] [id number] [place] [address] 63234- 8327 May, Schizo-affective psychosis 295.70 [facility] [id number] [place] [address] 97861- 3931 14 May, 2015 Schizo-affective psychosis 295.70 ; Bipolar I disorder, most recent episode (or current) manic, moderate 296.42 and Generalized anxiety disorder 300.02 [facility] [id number] [place] [address] 85757- 2060 May, Generalized anxiety disorder 300.02 [facility] [id number] [place] [address] 24200- 2710 Apr, Schizo-affective psychosis 295.70 [facility] [id number] [place] [address] 83435- 8925 Apr, Bipolar affective disorder 296.80 and Posttraumatic stress disorder 309.81 [facility] [id number] [place] [address] 31630- 0568 Mar, [facility] [address] [place] [address]- 5535 Feb, Bipolar affective disorder 296.80 [facility] [id number] [place] [address] 78513- 4234 Feb, [facility] [id number] [place] [address] 54286- 5296 Feb, [facility] [address] 17188- 3760 Feb, Arthralgia 719.40 ; Elevated C-reactive protein (CRP) 790.95 ; Polydipsia 783.[address] [facility] [address] 98016- 3407 January, [facility] [id number] [place] [address] 30355- 4608 January, Abnormal C-reactive protein 790.99 [facility] [address] 61620- 1414 January, Abnormal C-reactive protein 790.99 [facility] [id number] [place] [address] 14399- 6681 January, Schizoaffective disorder, unspecified 295.70 [facility] [id number] [place] [address] 29141- 5910 January, Hip dysplasia 755.63 [facility] [id number] [place] [address] 33281- 7483 Dec, [facility] [id number] [place] [address] 17924- 6649 Dec, [facility] [id number] [place] [address] [id number]- 3737 Nov, [facility] [id number] [place] [address] 10358- 5065 Nov, [facility] [id number] [place] [address] 79152- 4188 Oct, 2014 [facility] [place] [facility] [address] [id number] [place] [address]- 4427 Oct, [facility] [place] [facility] [address] [id number] [place] Oct, 2014 [facility] [place] [facility] [address] [facility] [id number] [place] [address]- 6942 Oct, 2014 [facility] [place] [facility] [address] [id number] [place] [address]- 0967 Oct, 2014 [facility] [place] [facility] [address] [id number] [place] [address]- 7132 Oct, [facility] [place] [facility] [address] [facility] [id number] [place] [address]- 1433 Oct, [facility] [place] [facility] [address] [facility] [id number] [place] [address]- 6667 Oct, [facility] [place] [facility] [address] [facility] [id number] [place] [address]- 0314 Sep, [facility] [place] [facility] [address] [facility] [id number] [place] [address]- 8653 Sep, [facility] [place] [facility] [address] [facility] [id number] [place] [address]- 2675 Sep, [facility] [place] [facility] [address] [facility] [id number] [place] [address]- 1497 Sep, [facility] [place] [facility] [address] [facility] [id number] [address]- 7360 Sep, [facility] [place] [facility] [address] [id number] [place] [address]- 1243 Aug, [facility] [place] [facility] [address] [facility] [id number] [place] [address]- 0137 Aug, [facility] [place] [facility] [address] [facility] [id number] [address]- 0998 Aug, [facility] [place] [facility] [address] [id number] [place] [address]- 3229 Aug, [facility] [place] [facility] [address] [id number] [place] [address]- 9835 Aug, [facility] [place] [facility] [address] [id number] [place] 7853 Aug, [facility] [place] [facility] [address] [id number] [place] [address]- 2233 Aug, [facility] [place] [facility] [address] [id number] [place] [address]- 3180 Aug, [facility] [place] [facility] [address] [id number] [place] [address]- 6088 Aug, [facility] [place] [facility] [address] [id number] [place] [address]- 0225 Aug, [facility] [place] [facility] [address] [id number] [place] [address]- 1238 Jul, [facility] [place] [facility] [address] [id number] [place] [address]- 8685 Jul, [facility] [place] [facility] [address] [id number] [place] [address]- 5387 Jul, [facility] [place] [facility] [address] [id number] [place] [address]- 9924 Jul, [facility] [place] [facility] [address] [id number] [place] [address]- 2802 Jul, [facility] [place] [facility] [address] [id number] [place] [address]- 4949 Jul, [facility] [place] [facility] [address] [id number] [place] [address]- 6756 Jul, [facility] [place] [facility] [address] [id number] [place] [address]- 5902 Jul, [facility] [place] [facility] [address] [id number] [place] [address]- 6361 13 Jul, 2014 [facility] [place] [facility] [address] [id number] [place] [address]- 2684 Jul, [facility] [place] [facility] [address] [id number] [place] [address]- 6245 Jul, [facility] [place] [facility] [address] [id number] [place] [address]- 0281 Jul, [facility] [place] [facility] [address] [id number] [place] [address]- 3143 Jul, [facility] [place] [facility] [address] [id number] [place] [address]- 7867 Jul, [facility] [place] [facility] [address] [id number] [place] [address]- 0134 Jul, [facility] [place] [facility] [address] [id number] [place] [address]- 2883 Jul, [facility] [place] [facility] [address] [id number] [address]- 1683 Jul, [facility] [place] [facility] [address] [id number] [place] [address]- 5926 Jul, [facility] [place] [facility] [address] [id number] [place] [address]- 2651 Jul, [facility] [place] [facility] [address] [id number], [place] [address]- 9806 Jul, [facility] [place] [facility] [address] [id number], [place] [address]- 5790 Jul, [facility] [place] [facility] [address] [id number] [place] [address]- 4457 Jul, [facility] [place] [facility] [address] [id number], [place] [address]- 8324 Jun, [facility] [place] [facility] [address] [id number] [place] [address]- 9177 Jun, [facility] [place] [facility] [address] [id number] [place] [address]- 8938 18 Sep, 2013 [facility] [place] [facility] [address] [id number] [place] [address] 2549 18 Sep, 2013 [facility] [place] [facility] [address] [id number] [place] [address]- 2548 18 May, 2013 [facility] [place] [facility] [address] [id number] [place] [address]- 2574 18 May, 2013 [facility] [place] [facility] [address] [id number] [place] [address]- 9636 17 Sep, 2013 [facility] [place] [facility] [address] [id number] [place] [address]- 8741 17 May, 2013 [facility] [place] [facility] [address] [id number] [place] [address]- 7014 09 May, 2013 [facility] [place] [facility] [address] [id number] [place] [address]- 6920 09 May, 2013 [facility] [place] [facility] [address] [id number] [place] [address]- 3319 05 Sep, 2013 [facility] [place] [facility] [address] [id number] [place] [address]- 9482 04 May, 2013 [facility] [place] [facility] [address] [id number] [place] [address]- 7947 04 May, 2013 [facility] [place] [facility] [address] [id number] [place] [address]- 254 04 May, 2013 [facility] [place] [facility] [address] [id number] [place] [address]- 7763 04 May, 2013 [facility] [place] [facility] [address] [id number] [place] [address]- 9202 Apr, [facility] [place] [facility] [address] [id number] [place] [address]- 5372 Apr, [facility] [place] [facility] [address] [id number] [place] [address]- 0036 Apr, [facility] [place] [facility] [address] [id number] [place] [address]- 5705 Apr, [facility] [place] [facility] [address] [id number] [place] 1040 Apr, [facility] [place] [facility] [address] [id number] [place] [address]- 2244 Apr, [facility] [place] [facility] [address] [id number] [place] [address]- 6588 Mar, [facility] [place] [facility] [address] [id number] [place] [address]- 4175 Feb, [facility] [place] [facility] [address] [id number] [place] [address]- 8943 Feb, [facility] [place] [facility] [address] [id number] [place] [address]- 6045 January, [facility] [place] [facility] [address] [id number] [place] [address]- 6806 January, [facility] [place] [facility] [address] [id number] [place] [address]- 5559 January, [facility] [place] [facility] [address] [id number] [place] [address]- 4820 January, [facility] [place] [facility] [address] [id number] [place] [address]- 3512 Dec, [facility] [place] [facility] [address] [id number] [place] [address]- 4231 Dec, [facility] [place] [facility] [address] [id number] [place] [address]- 3094 Nov, [facility] [place] [facility] [address] [id number] [place] 8559 Nov, [facility] [place] [facility] [address] [id number] [place] [address]- 9543 Nov, [facility] [place] [facility] [address] [id number] [place] [address]- 4291 Nov, [facility] [place] [facility] [address] [id number] [place] [address]- 3776 Nov, [facility] [place] [facility] [address] [id number] [place] [address]- 0469 Nov, [facility] [place] [facility] [address] [id number] [place] [address]- 6436 Oct, [facility] [place] [facility] [address] [id number] [place] [address]- 8731 Oct, [facility] [place] [facility] [address] [id number] [place] [address]- 2372 Oct, [facility] [place] [facility] [address] [id number] [place] [address]- 4775 Oct, [facility] [place] [facility] [address] [id number] [place] [address]- 1494 Oct, [facility] [place] [facility] [address] [id number] [place] [address]- 2999 Sep, [facility] [place] [facility] [address] [id number] [place] [address]- 7525 Sep, [facility] [place] [facility] [address] [id number] [place] [address]- 8080 Sep, [facility] [place] [facility] [address] [id number] [place] [address]- 7705 Sep, [facility] [place] [facility] [address] [id number] [place] [address]- 5697 Sep, [facility] [place] [facility] [address] [id number] [place] [address]- 8027 Sep, [facility] [place] [facility] [address] [id number] [place] [address]- 6702 Sep, [facility] [place] [facility] [address] [id number] [place] [address] Aug, [facility] [place] [facility] [address] [id number] [place] [address] 18 Aug, 2013 [facility] [place] [facility] [address] [id number] [place] [address] Aug, [facility] [place] [facility] [address] [id number] [place] [address] Aug, [facility] [place] [facility] [address] [id number] [place] [address] Jul, [facility] [place] [facility] [address] [id number] [place] [address] Jul, [facility] [place] [facility] [address] [id number] [place] [address] Jul, [facility] [place] [facility] [address] [id number] [place] [address] Jul, [facility] [place] [facility] [address] [id number] [place] [address] Jul, [facility] [place] [facility] [address] [id number] [place] [address] Jul, [facility] [place] [facility] [address] [id number] [place] [address] 1986 Jun, [facility] [place] [facility] [address] [id number] [place] [address] Jun, [facility] [place] [facility] [address] [id number], [place] [address] Jun, [facility] [place] [facility] [address] [id number] [place] [address] Jun, [facility] [place] [facility] [address] [id number] [place] [address] Jun, [facility] [place] [facility] [address] [id number] [place] [address] Jun, [facility] [place] [facility] [address] [id number], [place] [address] Jun, [facility] [address] [id number] [place] [address] May, [facility] [address] [id number] [place] [address] May, [facility] [address] [id number] [place] [address] May, [facility] [place] [facility] [address] [id number] [place] [address] May, [facility] [address] [id number] [place] [address] Apr, [facility] [address] [id number] [place] [address]- [address] Apr, [facility] [address] [id number] [place] [address] Feb, [facility] [place] [facility] [address] [id number] [place] [address] January, [facility] [address] [id number] [place] [address] January, [facility] [address] [id number] [place] [address] January, [facility] [address] [id number] [place] [address] January, [facility] [place] [facility] [address] [id number] [place] [address] January, [facility] [facility] [address] [id number] [place] [address] January, [facility] [place] [facility] [address] [id number] [place] [address] Dec, [facility] [place] [facility] [address] [id number] [place] [address] Dec, [facility] [place] [facility] [address] [id number] [place] [address] 05 Dec, 2012 [facility] [address] [id number] [place] [address] Nov, [facility] [address] [id number] [place] [address] Nov, [facility] [address] [id number] [place] [address] Oct, [facility] [address] [id number] [place] [address] Sep, [facility] [address] [id number] [place] [address] Sep, [facility] [address] [id number] [place] [address] Sep, [facility] [address] [id number] [place] [address] Sep, [facility] [address] [id number] [place] [address] 30 Jul, 2012 [facility] [address] [id number] [place] [address] 30 Jul, 2012 [facility] [facility] [address] [id number] [place] [address] Jul, [facility] [address] [id number] [place] [address] 20 Jul, 2012 [facility] [address] [id number] [place] [address] 16 Jul, 2012 [facility] [place] [facility] [address] [id number] [place] [address] 16 Jul, 2012 [facility] [address] [id number] [place] [address] 16 Jul, 2012 [facility] [address] [id number] [place] [address] 16 Jul, 2012 [facility] [place] [facility] [address] [id number] [place] [address] Jul, [facility] [place] [facility] [address] [id number] [place] [address] Jul, [facility] [place] [facility] [address] [id number] [place] [address] Feb, [facility] [place] [facility] [address] [id number] [place] [address] Nov, [facility] [place] [facility] [address] [id number] [place] [address] 13 Nov, 2011 [facility] [place] [facility] [address] [id number] [place] [address] Nov, [facility] [place] [facility] [address] [id number] [place] [address] 08 Nov, 2011 [facility] [place] [facility] [address] [id number], [place] [address] Nov, [facility] [place] [facility] [address] [id number] [place] [address] Nov, [facility] [place] [facility] [address] [facility] [id number], [place] [address] Nov, [facility] [place] [facility] [address] [id number], [place] [address] Apr, [facility] [place] [facility] [address] [id number], [place] [address] Jul, [facility] [place] [facility] [address] [id number] [place] [address] Jul, [facility] [place] [facility] [address] [id number], [place] [address] Jul, [facility] [place] [facility] [address] [id number], [place] [address] 29 Jun, 2010 [facility] [place] [facility] [address] [id number], [place] [address] 13 May, 2010 [facility] [address] [facility] [id number] [place] [address] [address], [address] [facility] [address] [facility] [id number], [place] [address] 17 Jun, 2009 IMMUNIZATIONS No Known Immunizations SOCIAL HISTORY Never Assessed REASON FOR VISIT weight concern, Pt states she has been doing a new work out and diet plan x30 days. It is called [employer] and it is a 1200 calorie/day diet. States she did lose a few lbs initially and then stopped-[place] [employer] PLAN OF CARE Activity Details Follow Up 3 Months. (48-72 hours-TB read/labs) Reason:chm VITAL SIGNS Height 69 in 2017-06-16 Weight 261 lbs 2017-06-16 Temperature 98.2 degrees Fahrenheit 2017-06-16 Heart Rate 84 bpm 2017-06-16 Respiratory Rate 18 2017-06-16 BMI 38.54 kg/m2 2017-06-16 Blood pressure systolic 120 mmHg 2017-06-16 Blood pressure diastolic 80 mmHg 2017-06-16 MEDICATIONS No Known Medications RESULTS No Results PROCEDURES Procedure Date Ordered Result Body Site TB INTRADERMAL 2017-06-16 N/A LAB NOT BILLED BY [facility] Jun 16, 2017 TB INTRADERMAL TEST Jun 16, 2017 INSTRUCTIONS MEDICATIONS ADMINISTERED No Known Medications [...]
--- OUTSIDE RECORDS SUMMARY | 2018-07-11 15:22 | XMS REPORT ---
Author Author DERREK JACE Organization [facility] Address [address] [place] [address] Care Team Providers Care Core Composer Feeder Name Role Phone ANGLINJACE Ingram Unavailable PROBLEMS Type Condition ICD9-CM Code NTW32-XA Code Onset Dates Condition Status SNOMED Code Problem BMI 34.0-34.9,adult Z68.34 Active 353890264 Problem Fibrocystic breast, left N60.12 Active 19274037 Problem History of migraine Z86.69 Active 703516012 Problem Schizoaffective disorder, bipolar type F25.0 Active 26280319 Problem Irritable bowel syndrome with diarrhea K58.0 Active 673079641 Problem Vaginal lesion N89.8 Active 953573831 Problem Fibrocystic breast, right N60.11 Active 85252694 Problem Other fatigue R53.83 Active 37204136 Problem Hypercholesteremia E78.0 Active 73735184 Problem Joint pain M25.50 Active 70875186 Problem Anxiety associated with depression F41.8 Active 753881966 Problem Hip pain M25.559 Active 14160545 Problem Hot flashes N95.1 Active 363061496 Problem Chronic pain G89.29 Active 69561918 Problem Vaginal dryness N89.8 Active 37204887 ALLERGIES No Information SOCIAL HISTORY Never Assessed PLAN OF CARE VITAL SIGNS MEDICATIONS Medication Instructions Dosage Frequency Start Date End Date Duration Status Celecoxib 200 mg Orally Once a day 1 capsule with food 24h Oct, 30 day(s) Active RESULTS No Results PROCEDURES No Known [...]
--- OUTSIDE RECORDS SUMMARY | 2018-07-11 15:22 | XMS REPORT ---
Author Author JACE ANGLIN Organization [facility] Address [address] [place] [address] Care Team Providers Care Vinyl Welder And Fabricator Name Role Phone ANGLINNINFA IngramELE Unavailable PROBLEMS Type Condition ICD9-CM Code VHL43-TD Code Onset Dates Condition Status SNOMED Code Problem BMI 34.0-34.9,adult Z68.34 Active 067305250 Problem Fibrocystic breast, left N60.12 Active 08378270 Problem History of migraine Z86.69 Active 948761073 Problem Schizoaffective disorder, bipolar type F25.0 Active 32447288 Problem Irritable bowel syndrome with diarrhea K58.0 Active 419609183 Problem Vaginal lesion N89.8 Active 095525312 Problem Fibrocystic breast, right N60.11 Active 16907013 Problem Other fatigue R53.83 Active 08772008 Problem Hypercholesteremia E78.0 Active 13928429 Problem Joint pain M25.50 Active 84626064 Problem Anxiety associated with depression F41.8 Active 300273754 Problem Hip pain M25.559 Active 16770751 Problem Hot flashes N95.1 Active 912095702 Problem Chronic pain G89.29 Active 24704150 Problem Vaginal dryness N89.8 Active 02039562 ALLERGIES Substance Reaction Event Type Date Status [...] OF CARE Activity Details Follow Up 3 Months Reason:CHM- joint pain VITAL SIGNS Height 69 in 2016-10-31 Weight 250.0 lbs 2016-10-31 Temperature 98.0 degrees Fahrenheit 2016-10-31 Heart Rate 78 bpm 2016-10-31 Respiratory Rate 22 2016-10-31 BMI 36.91 kg/m2 2016-10-31 MEDICATIONS Medication Instructions Dosage Frequency Start Date End Date Duration Status Tylenol Oral Once a day 1 tab 24h Active Meloxicam 15 MG Orally Once a day 1 tablet 24h Oct, Feb, 30 day(s) Active RESULTS No Results PROCEDURES [...]
--- OUTSIDE RECORDS SUMMARY | 2018-07-11 15:22 | XMS REPORT ---
Author Author ANGLINJACE Ingram Organization [facility] Address [address] [place] [address] Care Team Providers Care Sternman Name Role Phone JACE ANGLIN Unavailable PROBLEMS Type Condition ICD9-CM Code LJB75-LV Code Onset Dates Condition Status SNOMED Code Problem Joint pain M25.50 Active 58836345 Problem Fibrocystic breast, left N60.12 Active 59641055 Problem History of migraine Z86.69 Active 879722322 Problem Anxiety associated with depression F41.8 Active 841121144 Problem Chronic pain G89.29 Active 84352404 Problem Obesity (BMI 30-39.9) E66.9 Active 835644587 Problem Hyperinsulinemia E16.1 Active 36035116 Problem Hypercholesteremia E78.0 Active 81392709 Problem Fibrocystic breast, right N60.11 Active 01627214 Problem Schizoaffective disorder, bipolar type F25.0 Active 70513295 Problem Irritable bowel syndrome with diarrhea K58.0 Active 371197433 ALLERGIES No Information SOCIAL HISTORY Never Assessed PLAN OF CARE VITAL SIGNS MEDICATIONS No [...]
--- OUTSIDE RECORDS SUMMARY | 2018-07-11 15:22 | XMS REPORT ---
Author Author ANGLINJACE Ingram Organization [facility] Address [address] [place] [address] Care Team Providers Care Blocker Hand Name Role Phone ANGLINJACE Ingram Unavailable PROBLEMS Type Condition ICD9-CM Code SIC00-HY Code Onset Dates Condition Status SNOMED Code Problem Joint pain M25.50 Active 73414808 Problem Fibrocystic breast, left N60.12 Active 26651164 Problem History of migraine Z86.69 Active 062470626 Problem Anxiety associated with depression F41.8 Active 054834549 Problem Chronic pain G89.29 Active 74092477 Problem Obesity (BMI 30-39.9) E66.9 Active 653530234 Problem Hyperinsulinemia E16.1 Active 73345131 Problem Hypercholesteremia E78.0 Active 62503122 Problem Fibrocystic breast, right N60.11 Active 14356356 Problem Schizoaffective disorder, bipolar type F25.0 Active 19092104 Problem Irritable bowel syndrome with diarrhea K58.0 Active 236111618 ALLERGIES No Information ENCOUNTERS Encounter Location Date Diagnosis [facility] [id number] [place] [address] 73928 -2173 Nov, Acute otitis externa of left ear, unspecified type H60.502 [facility] [id number] [place] [address] 72814 -0225 Oct, Intolerance of drug Z78.9 [facility] [address] 17488 -9266 03 Oct, 2017 Acute non-recurrent maxillary sinusitis J01.00 [facility] [id number] [place] [address] 38356 -3759 Jul, Bronchitis J40 [facility] [address] 66827- 3887 Jul, [facility] [place] [id number] [place] [address] 74204 -1683 Jul, Bronchitis J40 [place] [id number] [place] [address] 46357- 0882 Jun, Fibrocystic breast, right N60.11 [place] [id number] [place] [address] 05921- 4619 Jun, [place] [address] 69373- 2310 Jun, Hyperinsulinemia E16.1 ; Obesity (BMI 30-39.9) E66.9 and Hypercholesteremia E78.0 [place] [id number] [place] [address] 53788- 9869 Jun, Hyperinsulinemia E16.1 ; Visit for TB skin test Z11.1 ; Obesity (BMI 30-39.9) E66.9 ; Hypercholesteremia E78.0 ; Anxiety associated with depression F41.8 and Encounter for PPD test Z11.1 [place] [id number] [place] [address] 07434- 9877 Mar, Fibrocystic breast, right N60.11 [facility] [id number] [place] [address] 86126 -5471 Mar, Right hip pain M25.551 and Strain of muscle of right hip, initial encounter S76.011A [facility] [address] [place] [id number] [place] [address] 99604 -1863 Feb, Allergic contact dermatitis due to plants, except food L23.7 [place] [id number] [place] [address] 27556- 2596 January, Breast pain in female N64.4 [facility] [id number] [place] [address] 68758 -0151 January, Breast pain in female N64.4 [facility] [place] [id number] [place] [address] 55124 -8440 Nov, Acute bacterial conjunctivitis of left eye H10.32 [place] [address] 92104- 5593 27 Oct, 2016 Joint pain M25.50 [place] [id number] [place] [address] 29147- 6429 16 Oct, 2016 Joint pain M25.50 and Chronic pain G89.29 [place] [address] 76248- 3897 02 Oct, 2016 Encounter for well woman exam with routine gynecological exam Z01.419 ; Encounter for screening breast examination Z12.39 and Screen for STD (sexually transmitted disease) Z11.3 [place] [address] 73951- 5493 Sep, [place] [address] 97807- 3545 Aug, Chronic pain G89.29 and Joint pain M25.50 [facility] [id number] [place] [address] 91567 -4781 May, Acute maxillary sinusitis, recurrence not specified J01.00 [place] [id number] [place] [address] 51231- 2525 May, Schizoaffective disorder, bipolar type F25.0 and Generalized anxiety disorder F41.1 [place] [id number] [place] [address] 24512- 2398 Apr, Schizoaffective disorder F25.9 ; Bipolar 1 disorder F31.9 and Anxiety associated with depression F41.8 [place] [id number] [place] [address] 38906- 5802 Apr, Arthralgia of left temporomandibular joint M26.62 [place] [id number] [place] [address] 63989- 1925 Apr, Chronic pain G89.29 [facility] [id number] [place] [address] 33300 -4164 16 Apr, 2016 Left-sided face pain R51 and Acute non-recurrent sinusitis , unspecified location J01.90 [place] [id number] [place] [address] 04007- 5537 Mar, Epigastric pain R10.13 ; Nausea R11.0 and Diarrhea, unspecified type R19.7 [place] [address] 45558- 0083 Feb, Bipolar 1 disorder F31.9 [facility] [address] 50219 -5334 14 Feb, 2016 Insect bite, initial encounter W57.XXXA and Encounter for immunization Z23 [address] 61004- 0455 13 Feb, 2016 Schizoaffective disorder F25.9 [place] [address] 58970- 9559 Feb, Schizoaffective disorder F25.9 [facility] [address] 04437 -8858 January, Viral syndrome B34.9 ; Diarrhea, unspecified R19.7 and Vomiting, unspecified R11.10 [facility] [address] 76461 -4535 Dec, Left otitis media H66.92 and TMJ (temporomandibular joint disorder) M26.60 [facility] [address] [id number] Dec, Dental examination Z01.20 [place] [address] 13452- 9445 24 Nov, 2015 Acute sinusitis J01.90 [facility] [address] 01711 -7230 Nov, Environmental allergies Z91.09 [place] [address] [place] [address] 47121- 9235 Nov, [place] [id number] [place] [address] Nov, HSV (herpes simplex virus) infection B00.9 [place] [id number] [place] [address] 15045- 1597 Oct, Schizoaffective disorder, unspecified F25.9 [place] [id number] [place] [address] 04381- 1809 Oct, [place] [id number] [place] [address] 16886- 1120 Oct, Insulin resistance E88.81 [place] [id number] [place] [address] 97800- 2922 Oct, [place] [id number] [place] [address] 51050- 5132 Oct, Vaginal lesion N89.8 [place] [id number] [place] [address] 39812- 2683 Oct, Vaginal lesion N89.8 [place] [id number] [place] [address] 97811- 8907 Oct, Well woman exam Z01.419 ; History [...] bowel syndrome with constipation and diarrhea K58.0 [place] [id number] [place] [address] 94412- 2945 08 Oct, 2015 [place] [address] 41172- 7861 Oct, General medical exam Z00.00 ; Joint pain M25.50 ; Family history of breast cancer Z80.3 ; Family history of heart disease Z82.49 and STD exposure Z20.2 [place] [address] 87814- 8706 02 Oct, 2015 General medical exam Z00.00 ; Joint pain M25.50 ; Bipolar 1 disorder F31.9 ; Schizoaffective disorder F25.9 ; Chronic pain G89.29 ; Hip pain M25.559 ; Anxiety associated with depression F41.8 ; Family history of breast cancer Z80.3 ; Family history of heart disease Z82.49 ; Family history of diabetes mellitus Z83.3 and STD exposure Z20.2 [place] [address] 66697- 9871 Oct, [place] [address] 19068- 0704 Sep, Schizoaffective disorder, unspecified type F25.9 [place] [address] 71107- 2271 Aug, Schizoaffective disorder, unspecified F25.9 [place] [address] 96176- 0622 Jul, Schizoaffective disorder, unspecified F25.9 [place] [address] 79368- 4182 Jul, [place] [address] 54786- 7327 Jul, Routine adult health maintenance Z00.00 ; Hip pain M25.559 and Right knee pain M25.561 [facility] [address] [place] [address] 89847- 1229 Jul, Encounter for immunization Z23 [facility] [address] [id number] Jun, Visit for dental examination Z01.20 [facility] [id number] [place] [address] 81183- 2659 16 Jun, 2015 Bipolar disorder, unspecified F31.9 [facility] [id number] [place] [address] 48137- 5320 24 May, 2015 Schizo-affective psychosis 295.70 [facility] [id number] [place] [address] 03706- 5285 14 May, 2015 Schizo-affective psychosis 295.70 ; Bipolar I disorder, most recent episode (or current) manic, moderate 296.42 and Generalized anxiety disorder 300.02 [facility] [id number] [place] [address] 28106- 1379 14 May, 2015 Generalized anxiety disorder 300.02 [facility] [id number] [place] [address] 68966- 5539 Apr, Schizo-affective psychosis 295.70 [facility] [id number] [place] [address] 80122- 0679 Apr, Bipolar affective disorder 296.80 and Posttraumatic stress disorder 309.81 [facility] [id number] [place] [address] 66756- 5033 Mar, [facility] [id number] [place] [address] 45735- 0916 Feb, Bipolar affective disorder 296.80 [facility] [id number] [place] [address] 21712- 4748 Feb, [facility] [id number] [place] [address] 14061- 7248 Feb, [facility] [address] [address] Feb, Arthralgia 719.40 ; Elevated C-reactive protein (CRP) 790.95 ; Polydipsia 783.5 and Fatigue 780.79 [facility] [address] [address]- 2489 January, [facility] [id number] [place] [address] 28182- 3296 January, Abnormal C-reactive protein 790.99 [facility] [id number] [place] [address] 22028- 0607 January, Abnormal C-reactive protein 790.99 [facility] [id number] [place] [address] 100112- 0936 January, Schizoaffective disorder, unspecified 295.70 [facility] [id number] [place] [address] 64168- 8725 January, Hip dysplasia 755.63 [facility] [id number] [place] [address] 761816- 8804 Dec, [facility] [id number] [place] [address] 45588- 9810 Dec, [facility] [address] [address]- 0545 Nov, [facility] [id number] [place] [address] 97372- 6236 Nov, [facility] [address] [address]- 8836 Oct, [facility] [id number] [place] [address] 21820- 6206 Oct, [facility] [address] [address]- 5106 Oct, [facility] [address] [facility] [id number] [place] [address]- 7944 Oct, 2014 [facility] [place] [facility] [address] [id number] [place] [address]- 3311 Oct, 2014 [facility] [place] [facility] [address] [id number] [place] [address]- 7675 Oct, 2014 [facility] [place] [facility] [address] [id number] [place] [address]- 8713 Oct, [facility] [place] [facility] [address] [id number] [place] [address]- 2866 Oct, [facility] [place] [facility] [address] [id number] [place] [address]- 6345 Sep, [facility] [place] [facility] [address] [id number] [place] [address]- 7768 Sep, [facility] [place] [facility] [address] [id number] [place] [address]- 0432 Sep, [facility] [place] [facility] [address] [id number] [place] [address]- 5766 Sep, [facility] [place] [facility] [address] [id number] [place] [address]- 7935 Sep, [facility] [place] [facility] [address] [id number] [place] [address]- 1876 Aug, [facility] [place] [facility] [address] [id number] [place] [address]- 4494 Aug, [facility] [place] [facility] [address] [id number] [place] [address]- 1436 Aug, [facility] [place] [facility] [address] [id number] [place] [address]- 6966 Aug, [facility] [place] [facility] [address] [id number] [place] [address]- 6974 Aug, [facility] [place] [facility] [address] [id number] [address]- 5665 Aug, [facility] [place] [facility] [address] [id number] [place] [address]- 5370 Aug, [facility] [place] [facility] [address] [id number] [place] [address]- 4939 Aug, [facility] [place] [facility] [address] [facility] [id number] [place] [address]- 8643 Aug, [facility] [place] [facility] [address] [id number] [place] [address]- 7609 Aug, [facility] [place] [facility] [address] [id number] [place] [address]- 0581 Jul, [facility] [place] [facility] [address] [id number] [place] [address]- 0762 Jul, [facility] [place] [facility] [address] [id number] [place] [address]- 4924 Jul, [facility] [place] [facility] [address] [id number] [address]- 8796 Jul, [facility] [place] [facility] [address] [id number] [place] [address]- 8695 Jul, [facility] [place] [facility] [address] [id number] [place] [address]- 5772 Jul, [facility] [place] [facility] [address] [id number] [address]- 1910 Jul, [facility] [place] [facility] [address] [id number] [address]- 3276 Jul, [facility] [place] [facility] [address] [id number], [place] [address]- 8632 Jul, [facility] [place] [facility] [address] [id number] [address]- 1454 Jul, [facility] [place] [facility] [address] [id number] [address]- 2943 Jul, [facility] [place] [facility] [address] [id number] [place] [address]- 3442 Jul, [facility] [place] [facility] [address] [id number] [place] [address]- 2585 Jul, [facility] [place] [facility] [address] [id number] [place] [address]- 8750 Jul, [facility] [place] [facility] [address] [id number] [place] [address]- 1155 Jul, [facility] [place] [facility] [address] [id number] [place] [address]- 0597 Jul, [facility] [place] [facility] [address] [id number] [place] [address]- 3686 Jul, [facility] [place] [facility] [address] [id number] [place] [address]- 9603 Jul, [facility] [place] [facility] [address] [id number] [place] [address]- 9702 Jul, [facility] [place] [facility] [address] [id number] [place] [address]- 7227 Jul, [facility] [place] [facility] [address] [id number] [place] [address]- 9792 Jul, [facility] [place] [facility] [address] [facility] [id number] [place] [address]- 4004 Jul, [facility] [place] [facility] [address] [id number] [place] [address]- 4529 Jun, [facility] [place] [facility] [address] [id number] [place] [address]- 8833 Jun, [facility] [place] [facility] [address] [id number] [place] [address]- 8793 18 May, 2014 [facility] [place] [facility] [address] [id number] [place] [address]- 4238 18 May, 2014 [facility] [place] [facility] [address] [id number] [place] [address]- 3963 18 May, 2014 [facility] [place] [facility] [address] [id number] [place] [address]- 7969 18 May, 2013 [facility] [place] [facility] [address] [id number] [place] [address]- 3503 17 May, 2013 [facility] [place] [facility] [address] [id number] [place] [address]- 7230 17 May, 2013 [facility] [place] [facility] [address] [id number] [place] [address]- 6134 09 May, 2013 [facility] [place] [facility] [address] [id number] [place] [address]- 3530 09 May, 2013 [facility] [place] [facility] [address] [id number] [place] [address]- 5162 05 May, 2013 [facility] [place] [facility] [address] [id number] [place] [address]- 5009 04 May, 2013 [facility] [place] [facility] [address] [id number] [place] [address]- 9668 04 May, 2013 [facility] [place] [facility] [address] [id number] [place] [address]- 5115 May, 2013 [facility] [place] [facility] [address] [id number] [place] [address]- 6057 May, 2013 [facility] [place] [facility] [address] [id number] [place] [address]- 0795 Apr, [facility] [place] [facility] [address] [id number], [place] [address]- 2528 Apr, [facility] [place] [facility] [address] [id number] [place] [address]- 6362 Apr, [facility] [place] [facility] [address] [id number] [place] [address]- 0607 Apr, [facility] [place] [facility] [address] [id number] [place] [address]- 6714 Apr, [facility] [place] [facility] [address] [id number] [place] [address]- 0562 Apr, [facility] [place] [facility] [address] [id number] [place] [address]- 6267 Mar, [facility] [place] [facility] [address] [id number] [place] [address]- 9901 Feb, [facility] [place] [facility] [address] [id number] [place] [address]- 1183 Feb, [facility] [place] [facility] [address] [id number] [place] [address]- 4839 January, [facility] [place] [facility] [address] [id number] [place] [address]- 4189 January, [facility] [place] [facility] [address] [id number] [place] [address]- 1268 January, [facility] [place] [facility] [address] [id number] [place] [address]- 4867 January, [facility] [place] [facility] [address] [id number] [place] [address]- 1580 Dec, [facility] [place] [facility] [address] [id number] [place] [address]- 8096 Dec, [facility] [place] [facility] [address] [id number] [place] [address]- 7931 Nov, [facility] [place] [facility] [address] [id number] [place] [address]- 7864 Nov, [facility] [place] [facility] [address] [id number] [place] [address]- 5402 Nov, [facility] [place] [facility] [address] [id number] [place] [address]- 5614 Nov, [facility] [place] [facility] [address] [id number] [place] [address]- 1621 Nov, [facility] [place] [facility] [address] [id number] [place] [address]- 7511 Nov, [facility] [place] [facility] [address] [id number] [place] [address]- 9311 Oct, [facility] [place] [facility] [address] [id number] [place] [address]- 5165 Oct, [facility] [place] [facility] [address] [id number] [place] [address]- 7784 Oct, [facility] [place] [facility] [address] [id number] [place] [address]- 4719 Oct, [facility] [place] [facility] [address] [id number] [place] [address]- 5429 Oct, [facility] [place] [facility] [address] [id number] [place] [address]- 6896 Sep, [facility] [place] [facility] [address] [id number] [place] [address]- 9211 Sep, [facility] [place] [facility] [address] [id number] [place] [address]- 6055 Sep, [facility] [place] [facility] [address] [id number] [place] [address]- 3789 Sep, [facility] [place] [facility] [address] [id number] [place] [address]- 0235 Sep, [facility] [place] [facility] [address] [id number] [place] [address]- 9140 Sep, [facility] [place] [facility] [address] [id number] [place] [address]- 2612 Sep, [facility] [place] [facility] [address] [id number] [place] [address]- 1605 Aug, [facility] [place] [facility] [address] [id number] [place] [address]- 8630 Aug, [facility] [place] [facility] [address] [id number] [place] [address]- 9673 Aug, [facility] [place] [facility] [address] [id number] [place] [address]- 2546 Aug, [facility] [place] [facility] [address] [id number] [place] 0294 Jul, [facility] [place] [facility] [address] [id number] [place] [address]- 9138 Jul, [facility] [place] [facility] [address] [id number] [place] [address]- 2912 Jul, [facility] [place] [facility] [address] [id number] [place] [address]- 3594 Jul, [facility] [place] [facility] [address] [id number] [place] [address]- 8749 Jul, [facility] [place] [facility] [address] [id number] [place] [address] Jul, [facility] [place] [facility] [address] [id number] [place] [address] Jun, [facility] [place] [facility] [address] [id number] [place] [address] Jun, [facility] [place] [facility] [address] [id number] [place] [address] Jun, [facility] [place] [facility] [address] [id number] [place] [address] Jun, [facility] [place] [facility] [address] [id number], [place] [address] Jun, [facility] [place] [facility] [address] [id number], [place] [address] Jun, [facility] [place] [facility] [address] [id number] [place] [address] Jun, [facility] [place] [facility] [address] [id number], [place] [address] 30 May, 2013 [facility] [place] [facility] [address] [id number] [place] [address] May, [facility] [place] [facility] [address] [id number] [place] [address] May, [facility] [address] [id number] [place] [address] May, [facility] [address] [id number] [place] [address] Apr, [facility] [address] [id number] [place] [address] Apr, [facility] [address] [id number] [place] [address] Feb, [facility] [address] [id number] [place] [address] January, [facility] [address] [id number] [place] [address] January, [facility] [address] [id number] [place] [address] January, [facility] [address] [id number] [place] [address] January, [facility] [address] [id number] [place] [address] January, [facility] [address] [id number] [place] [address] January, [facility] [address] [id number] [place] [address] Dec, [facility] [address] [id number] [place] [address] Dec, [facility] [address] [id number] [place] [address] Dec, [facility] [address] [id number] [place] [address] Nov, [facility] [address] [id number] [place] [address] Nov, [facility] [place] [facility] [address] [id number] [place] [address] Oct, [facility] [place] [facility] [address] [id number] [place] [address] Sep, [facility] [place] [facility] [address] [id number] [place] [address] Sep, [facility] [place] [facility] [address] [id number] [place] [address] Sep, [facility] [place] [facility] [address] [id number] [place] [address] Sep, [facility] [place] [facility] [address] [id number] [place] [address] Jul, [facility] [place] [facility] [address] [id number] [place] [address] Jul, [facility] [place] [facility] [address] [id number] [place] [address] Jul, [facility] [place] [facility] [address] [id number] [place] [address] Jul, [facility] [place] [facility] [address] [id number] [place] [address] Jul, [facility] [place] [facility] [address] [id number] [place] [address] Jul, [facility] [place] [facility] [address] [id number] [place] [address] 16 Jul, 2012 [facility] [place] [facility] [address] [id number] [place] [address] Jul, [facility] [place] [facility] [address] [id number] [place] [address] Jul, [facility] [place] [facility] [address] [id number] [place] [address] Jul, [facility] [place] [facility] [address] [id number], [place] [address] 25 Feb, 2012 [facility] [address] [facility] [id number], [place] [address] Nov, [facility] [address] [facility] [id number] [address] 13 Nov, 2011 [facility] [address] [facility] [id number], [place] [address] Nov, [facility] [address] [facility] [id number], [place] [address] 08 Nov, 2011 [facility] [address] [facility] [id number] [place] [address] 07 Nov, 2011 [facility] [address] [facility] [id number], [place] [address] Nov, [facility] [id number], [place] [address] Nov, [facility] [address] [facility] [id number], [place] [address] Apr, [facility] [id number], [place] [address] Jul, [facility] [address] [id number], [place] [address] Jul, [facility] [id number], [place] [address] Jul, [facility] [address] [facility] [id number][place] [address] 29 Jun, 2010 [facility] [address] [facility] [id number], [place] [address] 13 May, 2010 [facility] [address] [facility] [id number], [place] [address] 14 Feb, 2010 [facility] [address] [id number], [place] [address] 17 Jun, 2009 IMMUNIZATIONS No Known Immunizations SOCIAL HISTORY Never Assessed REASON FOR VISIT Lab results PLAN OF CARE VITAL SIGNS MEDICATIONS No [...]
--- NOTE | 2018-07-11 15:24 | ED Neurological Problem ---
General Stated Complaint: DIZZY Source: patient Exam Limitations: no limitations History of Present Illness Date Seen by Provider: Jul 11, 2018 Time Seen by Provider: 15:21 Initial Comments To ER with reports of dizziness. This is been intermittent. She was seen at [facility], her primary care provider's clinic on Friday of this past week for what was diagnosed as viral illness. She's had runny nose, cough, nasal congestion. She had a negative influenza swab. No medications other than wknr-nfu-biwipuz NyQuil. She coughed quite a bit overnight to the point that she vomited. She presents at this time with reports of dizziness quite severe by her reports despite taking her "dizzy pill" given to her by [facility]. She does not know the name of that medication. No fevers or chills. No headache. Severity: moderate Allergies and Home Medications Allergies Coded Allergies: metformin (Verified Allergy, Intermediate, N/V, 11/21/15) strawberry (Verified Allergy, Mild, 11/28/15) codeine (Verified Allergy, Unknown, 12/24/05) morphine (Verified Allergy, Unknown, 01/12/14) ketorolac tromethamine (Verified Adverse Reaction, Unknown, VOMITING, 01/12) Patient Home Medication List Home Medication List Reviewed: Yes Review of Systems Review of Systems Constitutional: see HPI; No chills, No fever Eyes: No Symptoms Reported Ears, Nose, Mouth, Throat: no symptoms reported Respiratory: see HPI, cough Cardiovascular: no symptoms reported Genitourinary: no symptoms reported Musculoskeletal: no symptoms reported Skin: no symptoms reported Psychiatric/Neurological: No Symptoms Reported Endocrine: No Symptoms Reported Hematologic/Lymphatic: No Symptoms Reported Past Dwtrayu-Afxdiw-Coimtk Hx Patient Social History Type Used: Cigarettes Recent Foreign Travel: No Contact w/Someone Who Travel: No Recent Hopitalizations: No Immunizations Up To Date Tetanus Booster (TDap): Less than 5yrs Date of Pneumonia Vaccine: May 16, 2011 Date of Influenza Vaccine: Jun 27, 2015 Seasonal Allergies Seasonal Allergies: Yes Past Medical History Adenoidectomy, Appendectomy, Gallbladder, Hysterectomy, Oophorectomy, Orthopedic , Tonsillectomy, Tubal Ligation Chronic Bronchitis Currently Using CPAP: No Currently Using BIPAP: No Headaches /Migraines, Neuropathy Reproductive Disorders: No 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 Sexually Transmitted Disease: No HIV/AIDS: No UTI-Chronic Gastroesophageal Reflux, Chronic Diarrhea, Gall Bladder Disease, Irritable Bowel Arthritis, Fibromyalgia, Chronic Back Pain Loss of Vision: Denies Hearing Impairment: Denies Sleep Difficulties, Anxiety, PTSD, Bipolar, Personality Disorder, Depression Adverse Reaction/Blood Tranf: No Family Medical History Alcoholism 19 FATHER Arthritis 19 FATHER 19 MOTHER Cardiovascular disease grandmother Cataracts G8 BROTHER grandmother Completed stroke grandmother Congenital disease Congenital heart disease grandmother Deafness or hearing loss 19 MOTHER G8 BROTHER Diabetes mellitus 19 MOTHER Gastroenteritis grandmother Glaucoma grandmother Headache disorder 19 MOTHER grandmother Hypercholesterolemia 19 MOTHER grandmother Hypertension 19 MOTHER grandmother Myocardial infarction 19 MOTHER Parkinson's disease grandmother Respiratory disorder 19 FATHER GI Disease Physical Exam Vital Signs Vital Signs - First Documented 07/11/18 15:09 Temp 98.0 Pulse 70 Resp 18 B/P (MAP) 133/80 (97) Pulse Ox 100 O2 Delivery Room Air Capillary Refill : Height, Weight, BMI Height: 5'8.00" Weight: 253lbs. 0.0oz. 114.706173tc; 35.27 BMI Method:Stated General Appearance: WD/WN, no apparent distress HEENT: PERRL/EOMI, normal ENT inspection, TMs normal, pharynx normal, other ( there is worse, nystagmus with fast phase to the right) Neck: non-tender, full range of motion Respiratory: no respiratory distress, no accessory muscle use Gastrointestinal: normal bowel sounds, non tender Extremities: normal range of motion, non-tender Neurologic/Psychiatric: alert, normal mood/affect, oriented x 3 Crainal Nerves: normal hearing, normal speech Motor/Sensory: no motor deficit, no sensory deficit Skin: normal color, warm/dry Ambulatory to room 6 but does require assistance holding onto her significant other while walking. She has a history of Caron Danlos syndrome so I'll obtain a CT angiogram of the head and neck to evaluate posterior circulation Progress/Results/Core Measures Results/Orders Lab Results Laboratory Tests Test 07/11/18 15:39 07/11/18 16:25 Range/Units White Blood Count 10.1 4.3-11.0 10^3/uL Red Blood Count 4.71 4.35-5.85 10^6/uL Hemoglobin 13.4 11.5-16.0 G/DL Hematocrit 39 35-52 % Mean Corpuscular Volume 82 80-99 FL Mean Corpuscular Hemoglobin 29 25-34 PG Mean Corpuscular Hemoglobin Concent 35 32-36 G/DL Red Cell Distribution Width 13.5 10.0-14.5 % Platelet Count 230 130-400 10^3/uL Mean Platelet Volume 10.2 7.4-10.4 FL Neutrophils (%) (Auto) 46 42-75 % Lymphocytes (%) (Auto) 45 H 12-44 % Monocytes (%) (Auto) 5 0-12 % Eosinophils (%) (Auto) 3 0-10 % Basophils (%) (Auto) 0 0-10 % Neutrophils # (Auto) 4.7 1.8-7.8 X 10^3 Lymphocytes # (Auto) 4.6 H 1.0-4.0 X 10^3 Monocytes # (Auto) 0.5 0.0-1.0 X 10^3 Eosinophils # (Auto) 0.3 0.0-0.3 10^3/uL Basophils # (Auto) 0.0 0.0-0.1 10^3/uL Sodium Level 140 135-145 MMOL/L Potassium Level 4.0 3.6-5.0 MMOL/L Chloride Level 105 98-107 MMOL/L Carbon Dioxide Level 24 21-32 MMOL/L Anion Gap 11 5-14 MMOL/L Blood Urea Nitrogen 11 7-18 MG/DL Creatinine 0.55 L 0.60-1.30 MG/DL Estimat Glomerular Filtration Rate > 60 BUN/Creatinine Ratio 20 Glucose Level 102 70-105 MG/DL Calcium Level 9.3 8.5-10.1 MG/DL Corrected Calcium 9.3 8.5-10.1 MG/DL Total Bilirubin 0.3 0.1-1.0 MG/DL Aspartate Amino Transf (AST/SGOT) 53 H 5-34 U/L Alanine Aminotransferase (ALT/SGPT) 58 H 0-55 U/L Alkaline Phosphatase 71 40-136 U/L Total Protein 7.1 6.4-8.2 GM/DL Albumin 4.0 3.2-4.5 GM/DL Urine Color YELLOW Urine Clarity CLEAR Urine pH 8 5-9 Urine Specific [place] 1.010 L 1.016-1.022 Urine Protein 1+ H NEGATIVE Urine Glucose (UA) NEGATIVE NEGATIVE Urine Ketones NEGATIVE NEGATIVE Urine Nitrite NEGATIVE NEGATIVE Urine Bilirubin NEGATIVE NEGATIVE Urine Urobilinogen NORMAL NORMAL MG/DL Urine Leukocyte Esterase NEGATIVE NEGATIVE Urine RBC (Auto) NEGATIVE NEGATIVE Urine RBC NONE /HPF Urine WBC 0-2 /HPF Urine Squamous Epithelial Cells 2-5 /HPF Urine Crystals PRESENT H /LPF Urine Amorphous Sediment LARGE YVETTE PHOSPHATE H /LPF Urine Bacteria NEGATIVE /HPF Urine Casts NONE /LPF Urine Mucus NEGATIVE /LPF Urine Culture Indicated NO My Orders Orders - ABDULLAHI RECIO APRN Ct Angio Head/Neck (07/11/18 15:25) Cbc With Automated Diff (07/11/18 15:25) Comprehensive Metabolic Panel (07/11/18 15:25) Iv Heplock-Insert (Order) (07/11/18 15:25) Ua Culture If Indicated (07/11/18 15:25) Chest 1 View, Ap/Pa Only (07/11/18 15:25) Ns Iv 1000 Ml (Sodium Chloride 0.9%) (07/11/18 15:30) Meclizine Tablet (Antivert Tablet) (07/11/18 15:30) Dexamethasone Injection (Decadron Inject (07/11/18 15:30) Iohexol Injection (Omnipaque 350 Mg/Ml 1 (07/11/18 15:45) Sodium Chloride Flush (Catheter Flush Sy (07/11/18 15:45) Ns (Ivpb) (Sodium Chloride 0.9%) (07/11/18 15:45) Pharmacy Communication (Pharmacy Communi (07/11/18 15:31) Medications Given in ED Current Medications Medications Dose Ordered Sig/Nabil Route Start Time Stop Time Status Last Admin Dose Admin Dexamethasone Sodium Phosphate 10 mg ONCE ONCE IV 07/11/18 15:30 07/11/18 15:31 DC 07/11/18 16:22 10 MG Iohexol 100 ml ONCE ONCE IV 07/11/18 15:45 07/11/18 15:46 DC 07/11/18 16:18 75 ML Meclizine HCl 25 mg ONCE ONCE PO 07/11/18 15:30 07/11/18 15:31 DC 07/11/18 16:22 25 MG Sodium Chloride 10 ml NEEDED PRN IV 07/11/18 15:45 07/11/18 16:19 10 ML Sodium Chloride 250 ml ONCE ONCE IV 07/11/18 15:45 07/11/18 15:46 DC 07/11/18 16:18 80 ML Vital Signs/I&O 07/11/18 15:09 Temp 98.0 Pulse 70 Resp 18 B/P (MAP) 133/80 (97) Pulse Ox 100 O2 Delivery Room Air Diagnostic Imaging Diagonstic Imaging: CT Comments NAME: EBONI SCHM[facility]T [facility] REC#: [id number] PT STATUS: REG ER : 1980 PHYSICIAN: ABDULLAHI RECIO APRN ADMIT DATE: 07/11/18/ER Draft Date of Exam:07/11/18 CT ANGIO HEAD/NECK PROCEDURE: CT angiography of the head and CT angiography of the neck with and without contrast. TECHNIQUE: CT of the head was performed without intravenous contrast. Contiguous noncontrast images were obtained from the skull base through the vertex. After intravenous contrast administration, helical CT angiography of the neck was performed. Source data was reformatted into multiple 2D MIP projections. Delayed post contrast acquisition was also obtained. INDICATION: Dizziness and nausea. Coughing with posttussive emesis. COMPARISON: None. FINDINGS: CT HEAD: No parenchymal hemorrhage, midline shift, or mass effect. Collins-white matter differentiation is adequately preserved without evidence of acute infarct. No epidural or subdural collections. Ventricles, cisterns, and sulci are normal. No calvarial lesion or fracture. The visualized orbits and globes are normal. Extracranial soft tissues are unremarkable. An air-fluid level is demonstrated in the right maxillary sinus. The remaining visualized paranasal sinuses and mastoid air cells are otherwise clear. 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 CTA NECK: Aorta:Aortic arch is normal, with standard three vessel branching pattern. Anterior Circulation: The origin of the bilateral common carotid arteries are patent. No stenosis of the common carotid arteries in the neck. No significant stenosis of the internal carotid arteries per NASCET criteria. The cervical segments of the bilateral ICAs are patent. The proximal external carotid arteries are patent and without significant stenosis. Posterior Circulation: Origins of the bilateral vertebral arteries are partially obscured by streak artifact. The left vertebral artery is dominant. The proximal extraousseous, intrasosseous, and distal extraosseous segments of the vertebral arteries are patent without dissection or stenosis. Non-vascular: No cervical lymphadenopathy. The airway is patent. No evidence of mucosal-based mass lesion in the pharynx. Thyroid is normal. Salivary glands are normal. No concerning lesion in the cervical spine. CTA HEAD: Anterior Circulation: The distal internal carotid arteries are patent. The bilateral M1 and M2 segments of the middle cerebral arteries are patent and without stenosis. The bilateral M3 and M4 segments are symmetric in size and number. The anterior cerebral arteries are patent and without stenosis. Anterior communicating artery is patent. No saccular aneurysm in the anterior circulation. Posterior Circulation: The bilateral intracranial segments of the vertebral arteries are patent. The basilar artery is patent and without stenosis. The posterior cerebral arteries are patent. No saccular aneurysm in the posterior circulation. Post Contrast Head: No pathologic enhancement on delayed post-contrast enhancement. IMPRESSION: 1. No intra-cranial major arterial occlusion, significant stenosis or aneurysm. 2. No arterial occlusion or stenosis in the major neck arteries. The vertebral artery origins are partially obscured by streak artifact. 3. No acute intracranial pathology. Dictated on workstation # [id number] Dict: 07/11/18 1625 Trans: 07/11/18 1655 [facility] [id number] Interpreted by: CHELSEA STERLING DO Electronically signed by: Departure Impression Primary Impression: Vertigo Additional Impression: Upper respiratory infection Qualified Codes: J06.9 - Acute upper respiratory infection, unspecified Disposition: 01 HOME, SELF-CARE Condition: Stable Departure-Patient Inst. Decision time for Depature: 15:26 Referrals: [facility]/K (PCP/Family) Primary Care Physician Patient Instructions: Vertigo (a Type of Dizziness) Add. Discharge Instructions: 1. Follow-up with primary care next week 2. Return to ER for any concerns 3. Scripts Promethazine HCl (Promethazine Tablet) 25 Mg Tablet 25 MG PO Q8H PRN for NAUSEA/VOMITING, #14 TAB Prov: ABDULLAHI RECIO APRN 07/11/18 ABDULLAHI RECIO APRN Jul 11, 2018 15:24
--- OUTSIDE RECORDS SUMMARY | 2018-07-11 15:28 | XMS REPORT | Continuity of Care Document ---
Author Author [facility] Address Unknown Phone Unavailable Allergies Active Description Code Type Severity Reaction Onset Reported/Identified Relationship to Patient Clinical Status Yes codeine Drug N/A N /A Yes codeine Drug Anaphylaxis N/A Yes Demerol HCl Drug N/A N/A Yes morphine Drug N/A Hives Yes morphine Drug N/A N/A Yes CODEINE SULFATE SEVERE DERMATOLOGICAL - JACOB Yes DEMEROL SEVERE DERMATOLOGICAL - HIV Yes MORPHINE SEVERE DERMATOLOGICAL - HIV Yes NSAIDS (NON-STEROIDAL ANTI-INFLAMMATORY DRUG) MODERATE OTHER Yes codeine Drug Allergy N/A N/A 12/07/2008 Yes codeine Drug Allergy 12/07/2008 Yes ketorolac Drug Allergy 03/09/2012 Yes Hydrocodone Drug Allergy N/A N/A 10/02/2012 Yes hydrocodone Drug Allergy 10/02/2012 Yes ketorolac tromethamine [id number] Drug Allergy Unknown VOMITING 2013 Yes metformin [id number] Drug Allergy Moderate N/V 11/28/2015 Yes [place] [id number] Drug Allergy Mild N/A 11/28/2015 Yes codeine [id number] Drug Allergy Unknown N/A 11/28/2015 Yes morphine [id number] Drug Allergy Unknown N/A 11/28/2015 Medications Medication Packaging Start Date Stop Date Route Dosage Sig CYCLOBENZAPRINE TAB 10 MG (FLEXERIL) MG 03/30/2017 03/30/2017 PRN ONCE PREDNISONE TAB 20 MG (DELTASONE) MG 03/30/2017 03/30/2017 [id number] HYDROCODONE/APAP 5MG/325MG TAB 5 MG/325MG (AGNES-TAB 5/325) TAB 03/30/2017 03/30/2017 [id number] Problems Date Dx Coded Attending Type Code Diagnosis Diagnosed By 05/12/2008 BARBARA MC LCPC 296.60 BIPOLAR I DISORDER MOST RECENT EPISODE (OR CURRENT) MIXED UNSPECIFIED 05/12/2008 JESUSITA PARTICLEBOARD FACTORY WORKER, BARBARA B 300.01 AN PANIC DIS W/O AGORA 05/12/2008 JESUSITA BROCK, BARBARA B 300.15 DS DISSOCIATIVE DIS NOS 05/12/2008 JESUSITA PARTICLEBOARD FACTORY WORKER, BARBARA B 307.47 SI DYSSOMNIA NOS 05/12/2008 JESUSITA BROCK, BARBARA B 309.81 AN PTSD 05/12/2008 RONALD SOTO APRNNDA S 296.60 BIPOLAR I DISORDER MOST RECENT EPISODE (OR CURRENT) MIXED UNSPECIFIED 05/12/2008 RONALD SOTO APRNNDA S 300.01 AN PANIC DIS W/O AGORA 05/12/2008 RONALD SOTO APRNNDA S 300.15 DS DISSOCIATIVE DIS NOS 05/12/2008 RONALD SOTO APRNNDA S 307.47 SI DYSSOMNIA NOS 05/12/2008 RONALD SOTO APRNNDA S 309.81 AN PTSD 05/12/2008 RONALD SOTO APRNNDA S 296.60 BIPOLAR I DISORDER MOST RECENT EPISODE (OR CURRENT) MIXED UNSPECIFIED 05/12/2008 RONALD SOTO APRNNDA S 300.01 AN PANIC DIS W/O AGORA 05/12/2008 RONALD SOTO APRNNDA S 300.15 DS DISSOCIATIVE DIS NOS 05/12/2008 BRITTANY BELLAMY TEMO S 307.47 SI DYSSOMNIA NOS 05/12/2008 BRITTANY BELLAMY TEMO S 309.81 AN PTSD 05/12/2008 296.60 BIPOLAR I DISORDER MOST RECENT EPISODE (OR CURRENT) MIXED UNSPECIFIED 05/12/2008 300.01 AN PANIC DIS W/O AGORA 05/12/2008 300.15 DS DISSOCIATIVE DIS NOS 05/12/2008 307.47 SI DYSSOMNIA NOS 05/12/2008 309.81 AN PTSD 05/12/2008 296.60 BIPOLAR I DISORDER MOST RECENT EPISODE (OR CURRENT) MIXED UNSPECIFIED 05/12/2008 300.01 AN PANIC DIS W/O AGORA 05/12/2008 300.15 DS DISSOCIATIVE DIS NOS 05/12/2008 307.47 SI DYSSOMNIA NOS 05/12/2008 309.81 AN PTSD 05/12/2008 296.60 BIPOLAR I DISORDER MOST RECENT EPISODE (OR CURRENT) MIXED UNSPECIFIED 05/12/2008 300.01 AN PANIC DIS W/O AGORA 05/12/2008 300.15 DS DISSOCIATIVE DIS NOS 05/12/2008 307.47 SI DYSSOMNIA NOS 05/12/2008 309.81 AN PTSD 05/12/2008 296.60 BIPOLAR I DISORDER MOST RECENT EPISODE (OR CURRENT) MIXED UNSPECIFIED 05/12/2008 300.01 AN PANIC DIS W/O AGORA 05/12/2008 300.15 DS DISSOCIATIVE DIS NOS 05/12/2008 307.47 SI DYSSOMNIA NOS 05/12/2008 309.81 AN PTSD 05/12/2008 HOWARD DO JESIKA K 296.60 BIPOLAR I DISORDER MOST RECENT EPISODE (OR CURRENT) MIXED UNSPECIFIED 05/12/2008 HOWARD RHETT WINTERA K 300.01 AN PANIC DIS W/O AGORA 05/12/2008 HOWARD RHETT WINTERA K 300.15 DS DISSOCIATIVE DIS NOS 05/12/2008 HOWARD DO JESIKA K 307.47 SI DYSSOMNIA NOS 05/12/2008 RHETT HOWARD DOA K 309.81 AN PTSD 05/12/2008 [facility], ARGELIA R 296.60 BIPOLAR I DISORDER MOST RECENT EPISODE (OR CURRENT) MIXED UNSPECIFIED 05/12/2008 [facility], ARGELIA R 300.01 AN PANIC DIS W/O AGORA 05/12/2008 [facility], ARGELIA R 300.15 DS DISSOCIATIVE DIS NOS 05/12/2008 [facility], ARGLEIA R 307.47 SI DYSSOMNIA NOS 05/12/2008 [facility], ARGELIA R 309.81 AN PTSD 05/12/2008 [facility], ARGELIA R 296.60 BIPOLAR I DISORDER MOST RECENT EPISODE (OR CURRENT) MIXED UNSPECIFIED 05/12/2008 [facility], ARGELIA R 300.01 AN PANIC DIS W/O AGORA 05/12/2008 [facility], ARGELIA R 300.15 DS DISSOCIATIVE DIS NOS 05/12/2008 [facility], ARGELIA R 307.47 SI DYSSOMNIA NOS 05/12/2008 [facility], ARGELIA R 309.81 AN PTSD 05/12/2008 PILLO TEAGUE APRN 296.60 BIPOLAR I DISORDER MOST RECENT EPISODE (OR CURRENT) MIXED UNSPECIFIED 05/12/2008 PILLO TEAGUE APRN 300.01 AN PANIC DIS W/O AGORA 05/12/2008 TEAGUE PILLO BELLAMYH 300.15 DS DISSOCIATIVE DIS NOS 05/12/2008 TEAGUE PILLO BELLAMYH 307.47 SI DYSSOMNIA NOS 05/12/2008 TEAGUE PILLO BELLAMYH 309.81 AN PTSD 05/12/2008 KARIS CHANCE APRN N 296.60 BIPOLAR I DISORDER MOST RECENT EPISODE (OR CURRENT) MIXED UNSPECIFIED 05/12/2008 KARIS CHANCE APRN N 300.01 AN PANIC DIS W/O AGORA 05/12/2008 KARIS CHANCE APRN N 300.15 DS DISSOCIATIVE DIS NOS 05/12/2008 KARIS CHANCE APRN N 307.47 SI DYSSOMNIA NOS 05/12/2008 KARIS CHANCE APRN N 309.81 AN PTSD 05/12/2008 KARIS CHANCE APRN N 296.60 BIPOLAR I DISORDER MOST RECENT EPISODE (OR CURRENT) MIXED UNSPECIFIED 05/12/2008 KARIS CHANCE APRN N 300.01 AN PANIC DIS W/O AGORA 05/12/2008 KARIS CHANCE APRN N 300.15 DS DISSOCIATIVE DIS NOS 05/12/2008 KARIS CHANCE APRN N 307.47 SI DYSSOMNIA NOS 05/12/2008 KARIS CHANCE APRN N 309.81 AN PTSD 05/12/2008 PILLO TEAGUE APRN 296.60 BIPOLAR I DISORDER MOST RECENT EPISODE (OR CURRENT) MIXED UNSPECIFIED 05/12/2008 TEAGUEPILLO MERCADO APRN 300.01 AN PANIC DIS W/O AGORA 05/12/2008 TEAGUEPILLO MERCADO APRNH 300.15 DS DISSOCIATIVE DIS NOS 05/12/2008 TEAGUE PILLO BELLAMYH 307.47 SI DYSSOMNIA NOS 05/12/2008 TEAGUE PILLO BELLAMYH 309.81 AN PTSD 05/12/2008 TEAGUE PILLO BELLAMY 296.60 BIPOLAR I DISORDER MOST RECENT EPISODE (OR CURRENT) MIXED UNSPECIFIED 05/12/2008 PILLO TEAGUE APRN 300.01 AN PANIC DIS W/O AGORA 05/12/2008 PILLO TEAGUE APRN 300.15 DS DISSOCIATIVE DIS NOS 05/12/2008 PILLO TEAGUE APRN 307.47 SI DYSSOMNIA NOS 05/12/2008 PILLO TEAGUE APRN 309.81 AN PTSD 05/12/2008 ROD ORONA APRN T 296.60 BIPOLAR I DISORDER MOST RECENT EPISODE (OR CURRENT) MIXED UNSPECIFIED 05/12/2008 ROD ORONA APRN T 300.01 AN PANIC DIS W/O AGORA 05/12/2008 ROD ORONA APRN T 300.15 DS DISSOCIATIVE DIS NOS 05/12/2008 ROD ORONA APRN T 307.47 SI DYSSOMNIA NOS 05/12/2008 ROD ORONA APRN T 309.81 AN PTSD 05/12/2008 DAMION MANSFIELD APRN R 296.60 BIPOLAR I DISORDER MOST RECENT EPISODE (OR CURRENT) MIXED UNSPECIFIED 05/12/2008 ROSALIE MANSFIELD APRNRICIA R 300.01 AN PANIC DIS W/O AGORA 05/12/2008 ROSALIE MANSFIELD APRNRICIA R 300.15 DS DISSOCIATIVE DIS NOS 05/12/2008 ROSALIE MANSFIELD APRNRICIA R 307.47 SI DYSSOMNIA NOS 05/12/2008 ROSALIE MANSFIELD APRNRICIA R 309.81 AN PTSD 05/12/2008 STAN CHAN MD 296.60 BIPOLAR I DISORDER MOST RECENT EPISODE (OR CURRENT) MIXED UNSPECIFIED 05/12/2008 STAN CHAN MD 300.01 AN PANIC DIS W/O AGORA 05/12/2008 STAN CHAN MD 300.15 DS DISSOCIATIVE DIS NOS 05/12/2008 STAN CHAN MD 307.47 SI DYSSOMNIA NOS 05/12/2008 STAN CHAN MD 309.81 AN PTSD 05/12/2008 BRENDA TOVAR, PIETER E 296.60 BIPOLAR I DISORDER MOST RECENT EPISODE (OR CURRENT) MIXED UNSPECIFIED 05/12/2008 BRENDA TOVAR, PIETER E 300.01 AN PANIC DIS W/O AGORA 05/12/2008 BRENDA TOVAR, PIETER E 300.15 DS DISSOCIATIVE DIS NOS 05/12/2008 BRENDA TOVAR, PIETER E 307.47 SI DYSSOMNIA NOS 05/12/2008 PIETER GUTIERREZ RN E 309.81 AN PTSD 05/12/2008 PIETER GUTIERREZ RN E 296.60 BIPOLAR I DISORDER MOST RECENT EPISODE (OR CURRENT) MIXED UNSPECIFIED 05/12/2008 BRENDA TOVAR, PIETER E 300.01 AN PANIC DIS W/O AGORA 05/12/2008 BRENDA TOVAR, PIETER E 300.15 DS DISSOCIATIVE DIS NOS 05/12/2008 BRENDA TOVAR, PIETER E 307.47 SI DYSSOMNIA NOS 05/12/2008 BRENDA TOVAR, PIETER E 309.81 AN PTSD 05/12/2008 JESIKA HOWARD DO K 296.60 BIPOLAR I DISORDER MOST RECENT EPISODE (OR CURRENT) MIXED UNSPECIFIED 05/12/2008 RHETT HOWARD DOA K 300.01 AN PANIC DIS W/O AGORA 05/12/2008 LEE WINTER JESIKA K 300.15 DS DISSOCIATIVE DIS NOS 05/12/2008 RHETT HOWARD DOA K 307.47 SI DYSSOMNIA NOS 05/12/2008 RHETT HOWARD DOA K 309.81 AN PTSD 05/12/2008 RHETT HOWARD DOA K 296.60 BIPOLAR I DISORDER MOST RECENT EPISODE (OR CURRENT) MIXED UNSPECIFIED 05/12/2008 JESIKA HOWARD DO K 300.01 AN PANIC DIS W/O AGORA 05/12/2008 RHETT HOWARD DOA K 300.15 DS DISSOCIATIVE DIS NOS 05/12/2008 RHETT HOWARD DOA K 307.47 SI DYSSOMNIA NOS 05/12/2008 RHETT HOWARD DOA K 309.81 AN PTSD 05/12/2008 BRENDA TOVAR, PIETER E 296.60 BIPOLAR I DISORDER MOST RECENT EPISODE (OR CURRENT) MIXED UNSPECIFIED 05/12/2008 PIETER GUTIERREZ RN E 300.01 AN PANIC DIS W/O AGORA 05/12/2008 BRENDA TOVAR, PEITER E 300.15 DS DISSOCIATIVE DIS NOS 05/12/2008 BRENDA TOVAR, PIETER E 307.47 SI DYSSOMNIA NOS 05/12/2008 BRENDA TOVAR, PIETER E 309.81 AN PTSD 05/12/2008 RHETT HOWARD DOA K 296.60 BIPOLAR I DISORDER MOST RECENT EPISODE (OR CURRENT) MIXED UNSPECIFIED 05/12/2008 RHETT HOWARD DOA K 300.01 AN PANIC DIS W/O AGORA 05/12/2008 LEE WINTER JESIKA K 300.15 DS DISSOCIATIVE DIS NOS 05/12/2008 RHETT HOWARD DOA K 307.47 SI DYSSOMNIA NOS 05/12/2008 JESIKA HOWARD DO K 309.81 AN PTSD 05/12/2008 ERNESTINA SALVAGE INSPECTORPINA M 296.60 BIPOLAR I DISORDER MOST RECENT EPISODE (OR CURRENT) MIXED UNSPECIFIED 05/12/2008 ERNESTINA SALVAGE INSPECTORPINA M 300.01 AN PANIC DIS W/O AGORA 05/12/2008 ERNESTINA SALVAGE INSPECTORPINA M 300.15 DS DISSOCIATIVE DIS NOS 05/12/2008 ERNESTINA SALVAGE INSPECTORPINA M 307.47 SI DYSSOMNIA NOS 05/12/2008 ERNESTINA SALVAGE INSPECTORPINA M 309.81 AN PTSD 05/12/2008 RHETT HOWARD DOA K 296.60 BIPOLAR I DISORDER MOST RECENT EPISODE (OR CURRENT) MIXED UNSPECIFIED 05/12/2008 RHETT HOWARD DOA K 300.01 AN PANIC DIS W/O AGORA 05/12/2008 JESIKA HOWARD DO K 300.15 DS DISSOCIATIVE DIS NOS 05/12/2008 JESIKA HOWARD DO K 307.47 SI DYSSOMNIA NOS 05/12/2008 RHETT HOWARD DOA K 309.81 AN PTSD 05/12/2008 PIETER GUTIERREZ RN E 296.60 BIPOLAR I DISORDER MOST RECENT EPISODE (OR CURRENT) MIXED UNSPECIFIED 05/12/2008 BRENDA TOVAR, PIETER E 300.01 AN PANIC DIS W/O AGORA 05/12/2008 EYAL GUTIERREZ RNISTA E 300.15 DS DISSOCIATIVE DIS NOS 05/12/2008 BRENDA TOVAR, PIETER E 307.47 SI DYSSOMNIA NOS 05/12/2008 BRENDA TOVAR, PIETER E 309.81 AN PTSD 05/12/2008 BRENDA TOVAR, PIETER E 296.60 BIPOLAR I DISORDER MOST RECENT EPISODE (OR CURRENT) MIXED UNSPECIFIED 05/12/2008 BRENDA RN, PIETER E 300.01 AN PANIC DIS W/O AGORA 05/12/2008 BRENDA RN, PIETER E 300.15 DS DISSOCIATIVE DIS NOS 05/12/2008 BRENDA RN, PIETER E 307.47 SI DYSSOMNIA NOS 05/12/2008 BRENDA RN, PIETER E 309.81 AN PTSD 05/12/2008 PINA SMITH M 296.60 BIPOLAR I DISORDER MOST RECENT EPISODE (OR CURRENT) MIXED UNSPECIFIED 05/12/2008 PINA SMITH M 300.01 AN PANIC DIS W/O AGORA 05/12/2008 PINA SMITH M 300.15 DS DISSOCIATIVE DIS NOS 05/12/2008 ERNESTINA SALVAGE INSPECTOR, PINA M 307.47 SI DYSSOMNIA NOS 05/12/2008 ERNESTINA SALVAGE INSPECTOR, PINA M 309.81 AN PTSD 05/12/2008 PIETER GUTIERREZ RN E 296.60 BIPOLAR I DISORDER MOST RECENT EPISODE (OR CURRENT) MIXED UNSPECIFIED 05/12/2008 PIETER GUTIERREZ RN E 300.01 AN PANIC DIS W/O AGORA 05/12/2008 BRENDA TOVAR, PIETER E 300.15 DS DISSOCIATIVE DIS NOS 05/12/2008 PIETER GUTIERREZ RN E 307.47 SI DYSSOMNIA NOS 05/12/2008 BRENDA TOVAR, PIETER E 309.81 AN PTSD 05/12/2008 ERNESTINA SALVAGE INSPECTOR, PINA M 296.60 BIPOLAR I DISORDER MOST RECENT EPISODE (OR CURRENT) MIXED UNSPECIFIED 05/12/2008 ERNESTINA SALVAGE INSPECTOR, PINA M 300.01 AN PANIC DIS W/O AGORA 05/12/2008 ERNESTINA SALVAGE INSPECTOR, PINA M 300.15 DS DISSOCIATIVE DIS NOS 05/12/2008 ERNESTINA SALVAGE INSPECTOR, PINA M 307.47 SI DYSSOMNIA NOS 05/12/2008 ERNESTINA SALVAGE INSPECTOR, PINA M 309.81 AN PTSD 05/12/2008 ERNESTINA SALVAGE INSPECTOR, PINA M 296.60 BIPOLAR I DISORDER MOST RECENT EPISODE (OR CURRENT) MIXED UNSPECIFIED 05/12/2008 ERNESTINA SALVAGE INSPECTOR, PINA M 300.01 AN PANIC DIS W/O AGORA 05/12/2008 ERNESTINA SALVAGE INSPECTOR, PINA M 300.15 DS DISSOCIATIVE DIS NOS 05/12/2008 ERNESTINA SALVAGE INSPECTOR, PINA M 307.47 SI DYSSOMNIA NOS 05/12/2008 ERNESTINA SALVAGE INSPECTOR, PINA M 309.81 AN PTSD 05/19/2008 BARBARA MC LCPC 296.80 MO BIPOLAR NOS 05/19/2008 TEMO SOTO APRN S 296.80 MO BIPOLAR NOS 05/19/2008 TEMO SOTO APRN S 296.80 MO BIPOLAR NOS 05/19/2008 296.80 MO BIPOLAR NOS 05/19/2008 296.80 MO BIPOLAR NOS 05/19/2008 296.80 MO BIPOLAR NOS 05/19/2008 296.80 MO BIPOLAR NOS 05/19/2008 JESIKA HOWARD DO 296.80 MO BIPOLAR NOS 05/19/2008 ARGELIA DECKER 296.80 MO BIPOLAR NOS 05/19/2008 [facility], ARGELIA R 296.80 MO BIPOLAR NOS 05/19/2008 HO DIGITAL FORENSICS EXAMINER, PILLO NELSONH 296.80 MO BIPOLAR NOS 05/19/2008 LUDWIN RUDOLPH DIGITAL FORENSICS EXAMINER, KARIS N 296.80 MO BIPOLAR NOS 05/19/2008 LUDWIN RUDOLPH DIGITAL FORENSICS EXAMINER, KARIS N 296.80 MO BIPOLAR NOS 05/19/2008 HO DIGITAL FORENSICS EXAMINER, PILLO ZAPATA 296.80 MO BIPOLAR NOS 05/19/2008 HO DIGITAL FORENSICS EXAMINER, PILLO ZAPATA 296.80 MO BIPOLAR NOS 05/19/2008 YEYO DIGITAL FORENSICS EXAMINER, ROD Trena 296.80 MO BIPOLAR NOS 05/19/2008 DONAL DIGITAL FORENSICS EXAMINER, DAMION R 296.80 MO BIPOLAR NOS 05/19/2008 ROCIO YIN, STAN 296.80 MO BIPOLAR NOS 05/19/2008 BRENDA TOVAR, PIETER E 296.80 MO BIPOLAR NOS 05/19/2008 BRENDA TOVAR, PIETER E 296.80 MO BIPOLAR NOS 05/19/2008 HOWARD DO JESIKA K 296.80 MO BIPOLAR NOS 05/19/2008 HOWARD DO JESIKA K 296.80 MO BIPOLAR NOS 05/19/2008 BRENDA TOVAR, PIETER E 296.80 MO BIPOLAR NOS 05/19/2008 HOWARD DO, JESIKA K 296.80 MO BIPOLAR NOS 05/19/2008 PINA SMITH M 296.80 MO BIPOLAR NOS 05/19/2008 HOWARD DO JESIKA K 296.80 MO BIPOLAR NOS 05/19/2008 BRENDA TOVAR, PIETER E 296.80 MO BIPOLAR NOS 05/19/2008 BRENDA TOVAR, PIETER E 296.80 MO BIPOLAR NOS 05/19/2008 PINA SMITH M 296.80 MO BIPOLAR NOS 05/19/2008 BRENDA TOVAR, PIETER E 296.80 MO BIPOLAR NOS 05/19/2008 PINA SMITH M 296.80 MO BIPOLAR NOS 05/19/2008 PINA SMITH M 296.80 MO BIPOLAR NOS 06/17/2008 BARBARA MC LCPC 296.90 UNSPECIFIED EPISODIC MOOD DISORDER 06/17/2008 BARBARA MC LCPC 300.00 AN ANXIETY UNSPEC 06/17/2008 BARBARA MC LCPC 301.9 PD PERS DIS NOS 06/17/2008 TEMO SOTO APRN 296.90 UNSPECIFIED EPISODIC MOOD DISORDER 06/17/2008 BRITTANY DIGITAL FORENSICS EXAMINERRONALDTEMO S 300.00 AN ANXIETY UNSPEC 06/17/2008 BRITTANY DIGITAL FORENSICS EXAMINER, TEMO S 301.9 PD PERS DIS NOS 06/17/2008 BRITTANY DIGITAL FORENSICS EXAMINER, TEMO S 296.90 UNSPECIFIED EPISODIC MOOD DISORDER 06/17/2008 BRITTANY DIGITAL FORENSICS EXAMINERRONALDTEMO S 300.00 AN ANXIETY UNSPEC 06/17/2008 BRITTANY DIGITAL FORENSICS EXAMINER, TEMO S 301.9 PD PERS DIS NOS 06/17/2008 296.90 UNSPECIFIED EPISODIC MOOD DISORDER 06/17/2008 300.00 AN ANXIETY UNSPEC 06/17/2008 301.9 PD PERS DIS NOS 06/17/2008 296.90 UNSPECIFIED EPISODIC MOOD DISORDER 06/17/2008 300.00 AN ANXIETY UNSPEC 06/17/2008 301.9 PD PERS DIS NOS 06/17/2008 296.90 UNSPECIFIED EPISODIC MOOD DISORDER 06/17/2008 300.00 AN ANXIETY UNSPEC 06/17/2008 301.9 PD PERS DIS NOS 06/17/2008 296.90 UNSPECIFIED EPISODIC MOOD DISORDER 06/17/2008 300.00 AN ANXIETY UNSPEC 06/17/2008 301.9 PD PERS DIS NOS 06/17/2008 HOWARD DO, JESIKA K 296.90 UNSPECIFIED EPISODIC MOOD DISORDER 06/17/2008 HOWARD DO, JESIKA K 300.00 AN ANXIETY UNSPEC 06/17/2008 HOWARD DO, JESIKA K 301.9 PD PERS DIS NOS 06/17/2008 [facility], ARGELIA R 296.90 UNSPECIFIED EPISODIC MOOD DISORDER 06/17/2008 [facility], ARGELIA R 300.00 AN ANXIETY UNSPEC 06/17/2008 [facility], ARGELIA R 301.9 PD PERS DIS NOS 06/17/2008 [facility], ARGELIA R 296.90 UNSPECIFIED EPISODIC MOOD DISORDER 06/17/2008 [facility], ARGELIA R 300.00 AN ANXIETY UNSPEC 06/17/2008 [facility], ARGELIA R 301.9 PD PERS DIS NOS 06/17/2008 PILLO TEAGUE APRN 296.90 UNSPECIFIED EPISODIC MOOD DISORDER 06/17/2008 PILLO TEAGUE APRN 300.00 AN ANXIETY UNSPEC 06/17/2008 PILLO TEAGUE APRN 301.9 PD PERS DIS NOS 06/17/2008 MASCORRO CASHERO DIGITAL FORENSICS EXAMINER, KARIS N 296.90 UNSPECIFIED EPISODIC MOOD DISORDER 06/17/2008 KARIS CHANCE APRN N 300.00 AN ANXIETY UNSPEC 06/17/2008 KARIS CHANCE APRN N 301.9 PD PERS DIS NOS 06/17/2008 KARIS CHANCE APRN N 296.90 UNSPECIFIED EPISODIC MOOD DISORDER 06/17/2008 KARIS CHANCE APRN N 300.00 AN ANXIETY UNSPEC 06/17/2008 KARIS CHANCE APRN N 301.9 PD PERS DIS NOS 06/17/2008 PILLO TEAGUE APRN 296.90 UNSPECIFIED EPISODIC MOOD DISORDER 06/17/2008 PILLO TEAGUE APRN 300.00 AN ANXIETY UNSPEC 06/17/2008 PILLO TEAGUE APRN 301.9 PD PERS DIS NOS 06/17/2008 PILLO TEAGUE APRN 296.90 UNSPECIFIED EPISODIC MOOD DISORDER 06/17/2008 PILLO TEAGUE APRN 300.00 AN ANXIETY UNSPEC 06/17/2008 PILLO TEAGUE APRN 301.9 PD PERS DIS NOS 06/17/2008 YEYO DIGITAL FORENSICS EXAMINERROD Main T 296.90 UNSPECIFIED EPISODIC MOOD DISORDER 06/17/2008 YEYO DIGITAL FORENSICS EXAMINER, ROD T 300.00 AN ANXIETY UNSPEC 06/17/2008 YEYO DIGITAL FORENSICS EXAMINER, ROD T 301.9 PD PERS DIS NOS 06/17/2008 ROSALIE MANSFIELD APRNRICIA R 296.90 UNSPECIFIED EPISODIC MOOD DISORDER 06/17/2008 ROSALIE MANSFIELD APRNRICIA R 300.00 AN ANXIETY UNSPEC 06/17/2008 ROSALIE MANSFIELD APRNRICIA R 301.9 PD PERS DIS NOS 06/17/2008 STAN CHAN MD 296.90 UNSPECIFIED EPISODIC MOOD DISORDER 06/17/2008 STAN CHAN MD 300.00 AN ANXIETY UNSPEC 06/17/2008 STAN CHAN MD 301.9 PD PERS DIS NOS 06/17/2008 PIETER GUTIERREZ RN E 296.90 UNSPECIFIED EPISODIC MOOD DISORDER 06/17/2008 BRENDA TOVAR, PIETER E 300.00 AN ANXIETY UNSPEC 06/17/2008 BRENDA TOVAR, PIETER E 301.9 PD PERS DIS NOS 06/17/2008 PIETER GUTIERREZ RN E 296.90 UNSPECIFIED EPISODIC MOOD DISORDER 06/17/2008 PIETER GUTIERREZ RN E 300.00 AN ANXIETY UNSPEC 06/17/2008 PIETER GUTIERREZ RN E 301.9 PD PERS DIS NOS 06/17/2008 HOWARD DO, JESIKA K 296.90 UNSPECIFIED EPISODIC MOOD DISORDER 06/17/2008 HOWARD DO, JESIKA K 300.00 AN ANXIETY UNSPEC 06/17/2008 HOWARD DO, JESIKA K 301.9 PD PERS DIS NOS 06/17/2008 HOWARD DO, JESIKA K 296.90 UNSPECIFIED EPISODIC MOOD DISORDER 06/17/2008 HOWARD DO, JESIKA K 300.00 AN ANXIETY UNSPEC 06/17/2008 HOWARD DO, JESIKA K 301.9 PD PERS DIS NOS 06/17/2008 PIETER GUTIERREZ RN E 296.90 UNSPECIFIED EPISODIC MOOD DISORDER 06/17/2008 PIETER GUTIERREZ RN 300.00 AN ANXIETY UNSPEC 06/17/2008 PIETER GUTIERREZ RN E 301.9 PD PERS DIS NOS 06/17/2008 HOWARD DO, JESIKA K 296.90 UNSPECIFIED EPISODIC MOOD DISORDER 06/17/2008 HOWARD DO, JESIKA K 300.00 AN ANXIETY UNSPEC 06/17/2008 HOWARD DO, JESIKA K 301.9 PD PERS DIS NOS 06/17/2008 PINA SMITH M 296.90 UNSPECIFIED EPISODIC MOOD DISORDER 06/17/2008 PINA SMITH M 300.00 AN ANXIETY UNSPEC 06/17/2008 PINA SMITH M 301.9 PD PERS DIS NOS 06/17/2008 HOWARD DO, JESIKA K 296.90 UNSPECIFIED EPISODIC MOOD DISORDER 06/17/2008 HOWARD DO, JESIKA K 300.00 AN ANXIETY UNSPEC 06/17/2008 HOWARD DO, JESIKA K 301.9 PD PERS DIS NOS 06/17/2008 PIETER GUTIERREZ RN E 296.90 UNSPECIFIED EPISODIC MOOD DISORDER 06/17/2008 PIETER GUTIERREZ RN E 300.00 AN ANXIETY UNSPEC 06/17/2008 PIETER GUTIERREZ RN E 301.9 PD PERS DIS NOS 06/17/2008 PIETER GUTIERREZ RN E 296.90 UNSPECIFIED EPISODIC MOOD DISORDER 06/17/2008 PIETER GUTIERREZ RN E 300.00 AN ANXIETY UNSPEC 06/17/2008 PIETER GUTIERREZ RN E 301.9 PD PERS DIS NOS 06/17/2008 PINA SMITH M 296.90 UNSPECIFIED EPISODIC MOOD DISORDER 06/17/2008 PINA SMITH M 300.00 AN ANXIETY UNSPEC 06/17/2008 PINA SMITH M 301.9 PD PERS DIS NOS 06/17/2008 BRENDA TOVAR, PIETER E 296.90 UNSPECIFIED EPISODIC MOOD DISORDER 06/17/2008 BRENDA TOVAR, PIETER E 300.00 AN ANXIETY UNSPEC 06/17/2008 BRENDA RN, PIETER E 301.9 PD PERS DIS NOS 06/17/2008 ERNESTINA SALVAGE INSPECTOR, PINA M 296.90 UNSPECIFIED EPISODIC MOOD DISORDER 06/17/2008 ERNESTINA SALVAGE INSPECTOR, PINA M 300.00 AN ANXIETY UNSPEC 06/17/2008 ERNESTINA SALVAGE INSPECTOR, PINA M 301.9 PD PERS DIS NOS 06/17/2008 ERNESTINA SALVAGE INSPECTOR, PINA M 296.90 UNSPECIFIED EPISODIC MOOD DISORDER 06/17/2008 ERNESTINA SALVAGE INSPECTOR, PINA M 300.00 AN ANXIETY UNSPEC 06/17/2008 ERNESTINA SALVAGE INSPECTOR, PINA M 301.9 PD PERS DIS NOS 12/07/2008 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 611.72 BREAST [place]MP OR MASS 12/07/2008 TEMO SOTO APRN S 611.72 BREAST [place]MP OR MASS 12/07/2008 TEMO SOTO APRN S 611.72 BREAST [place]MP OR MASS 12/07/2008 611.72 BREAST LUMP OR MASS 12/07/2008 611.72 BREAST LUMP OR MASS 12/07/2008 611.72 BREAST LUMP OR MASS 12/07/2008 611.72 BREAST LUMP OR MASS 12/07/2008 JESIKA HOWARD DO 611.72 BREAST LUMP OR MASS 12/07/2008 [facility], ARGELIA R 611.72 BREAST LUMP OR MASS 12/07/2008 [facility], ARGELIA R 611.72 BREAST LUMP OR MASS 12/07/2008 PILLO TEAGUE APRN 611.72 BREAST LUMP OR MASS 12/07/2008 KARIS CHANCE APRN N 611.72 BREAST [place]MP OR MASS 12/07/2008 KARIS CHANCE APRN N 611.72 BREAST LUMP OR MASS 12/07/2008 PILLO TEAGUE APRN 611.72 BREAST LUMP OR MASS 12/07/2008 PILLO TEAGUE APRN 611.72 BREAST LUMP OR MASS 12/07/2008 ROD ORONA APRN 611.72 BREAST LUMP OR MASS 12/07/2008 DAMION MANSFIELD APRN 611.72 BREAST LUMP OR MASS 12/07/2008 STAN CHAN MD 611.72 BREAST LUMP OR MASS 12/07/2008 PIETER GUTIERREZ RN 611.72 BREAST LUMP OR MASS 12/07/2008 PIETER GUTIERREZ RN 611.72 BREAST LUMP OR MASS 12/07/2008 HOWARD DO, JESIKA K 611.72 BREAST LUMP OR MASS 12/07/2008 HOWARD DO, JESIKA K 611.72 BREAST LUMP OR MASS 12/07/2008 PIETER GUTIERREZ RN E 611.72 BREAST LUMP OR MASS 12/07/2008 HOWARD DO, JESIKA K 611.72 BREAST LUMP OR MASS 12/07/2008 PINA SMITH M 611.72 BREAST LUMP OR MASS 12/07/2008 HOWARD DO, JESIKA K 611.72 BREAST LUMP OR MASS 12/07/2008 PIETER GUTIERREZ RN 611.72 BREAST LUMP OR MASS 12/07/2008 PIETER GUTIERREZ RN 611.72 BREAST LUMP OR MASS 12/07/2008 PINA SMITH M 611.72 BREAST LUMP OR MASS 12/07/2008 PIETER GUTIERREZ RN E 611.72 BREAST LUMP OR MASS 12/07/2008 PINA SMITH M 611.72 BREAST LUMP OR MASS 12/07/2008 PINA SMITH M 611.72 BREAST LUMP OR MASS 02/26/2010 [facility] 840.6 SPRAINS AND STRAINS OF SHOULDER AND UPPER ARM, SUPRASPINATUS (MUSCLE) ( TENDON) 02/26/2010 [facility] E849.[address] OF OCCURRENCE 02/26/2010 [facility] E880.9 ACCIDENTAL FALL ON OR FROM OTHER STAIRS OR STEPS 02/26/2010 TEMO SOTO APRN 840.6 SPRAINS AND STRAINS OF SHOULDER AND UPPER ARM, SUPRASPINATUS (MUSCLE) ( TENDON) 02/26/2010 TEMO SOTO APRN E849.[address] OF OCCURRENCE 02/26/2010 TEMO SOTO APRN S E880.9 ACCIDENTAL FALL ON OR FROM OTHER STAIRS OR STEPS 02/26/2010 TEMO SOTO APRN S 840.6 SPRAINS AND STRAINS OF SHOULDER AND UPPER ARM, SUPRASPINATUS (MUSCLE) ( TENDON) 02/26/2010 TEMO SOTO APRN S E849.[address] OF OCCURRENCE 02/26/2010 TEMO SOTO APRN S E880.9 ACCIDENTAL FALL ON OR FROM OTHER STAIRS OR STEPS 02/26/2010 840.6 SPRAINS AND STRAINS OF SHOULDER AND UPPER ARM, SUPRASPINATUS (MUSCLE) (TENDON) 02/26/[address] OF OCCURRENCE 02/26/2010 E880.9 ACCIDENTAL FALL ON OR FROM OTHER STAIRS OR STEPS 02/26/2010 840.6 SPRAINS AND STRAINS OF SHOULDER AND UPPER ARM, SUPRASPINATUS (MUSCLE) (TENDON) 02/26/[address] OF OCCURRENCE 02/26/2010 E880.9 ACCIDENTAL FALL ON OR FROM OTHER STAIRS OR STEPS 02/26/2010 840.6 SPRAINS AND STRAINS OF SHOULDER AND UPPER ARM, SUPRASPINATUS (MUSCLE) (TENDON) 02/26/[address] OF OCCURRENCE 02/26/2010 E880.9 ACCIDENTAL FALL ON OR FROM OTHER STAIRS OR STEPS 02/26/2010 840.6 SPRAINS AND STRAINS OF SHOULDER AND UPPER ARM, SUPRASPINATUS (MUSCLE) (TENDON) 02/26/[address] OF OCCURRENCE 02/26/2010 E880.9 ACCIDENTAL FALL ON OR FROM OTHER STAIRS OR STEPS 02/26/2010 JESIKA HOWARD DO 840.6 SPRAINS AND STRAINS OF SHOULDER AND UPPER ARM, SUPRASPINATUS (MUSCLE) (TENDON ) 02/26/2010 JESIKA HOWARD DO E849.[address] OF OCCURRENCE 02/26/2010 JESIKA HOWARD DO E880.9 ACCIDENTAL FALL ON OR FROM OTHER STAIRS OR STEPS 02/26/2010 [facility] SPRAINS AND STRAINS OF SHOULDER AND UPPER ARM, SUPRASPINATUS (MUSCLE) ( TENDON) 02/26/2010 [facility] E[facility] OF OCCURRENCE 02/26/2010 [facility], [place] R E880.9 ACCIDENTAL FALL ON OR FROM OTHER STAIRS OR STEPS 02/26/2010 [facility], [place] R 840.6 SPRAINS AND STRAINS OF SHOULDER AND UPPER ARM, SUPRASPINATUS (MUSCLE) ( TENDON) 02/26/2010 [facility], [place] R E849.[address] OF OCCURRENCE 02/26/2010 [facility], ARGELIA R E880.9 ACCIDENTAL FALL ON OR FROM OTHER STAIRS OR STEPS 02/26/2010 HO LAYNEJose David PILLO NELSONH 840.6 SPRAINS AND STRAINS OF SHOULDER AND UPPER ARM, SUPRASPINATUS (MUSCLE) (TENDON) 02/26/2010 HO LAYNEJose David PILLO NELSONH E849.[address] OF OCCURRENCE 02/26/2010 HO LAYNENPILLOH E880.9 ACCIDENTAL FALL ON OR FROM OTHER STAIRS OR STEPS 02/26/2010 MASCORRO KOBESARTHAK BELLAMY KARIS N 840.6 SPRAINS AND STRAINS OF SHOULDER AND UPPER ARM, SUPRASPINATUS ( MUSCLE) (TENDON) 02/26/2010 LUDWIN RUDOLPH APRN KARIS N E849.[address] OF OCCURRENCE 02/26/2010 MASCORRO KOBESARTHAK DIGITAL FORENSICS EXAMINER, KARIS N E880.9 ACCIDENTAL FALL ON OR FROM OTHER STAIRS OR STEPS 02/26/2010 LUDWIN RUDOLPH APRN KARIS N 840.6 SPRAINS AND STRAINS OF SHOULDER AND UPPER ARM, SUPRASPINATUS ( MUSCLE) (TENDON) 02/26/2010 LUDWIN RUDOLPH APRN KARIS N E849.[address] OF OCCURRENCE 02/26/2010 LUDWIN RUDOLPH APRN KARIS N E880.9 ACCIDENTAL FALL ON OR FROM OTHER STAIRS OR STEPS 02/26/2010 HO LAYNEJose David PILLO NELSONH 840.6 SPRAINS AND STRAINS OF SHOULDER AND UPPER ARM, SUPRASPINATUS (MUSCLE) (TENDON) 02/26/2010 HO BELLAMY PILLO JODI E849.[address] OF OCCURRENCE 02/26/2010 HO LAYNEJose David PILLO NELSONH E880.9 ACCIDENTAL FALL ON OR FROM OTHER STAIRS OR STEPS 02/26/2010 HO BELLAMY PILLO JODI 840.6 SPRAINS AND STRAINS OF SHOULDER AND UPPER ARM, SUPRASPINATUS (MUSCLE) (TENDON) 02/26/2010 PILLO TEAGUE APRN E849.[address] OF OCCURRENCE 02/26/2010 PILLO TEAGUE APRN E880.9 ACCIDENTAL FALL ON OR FROM OTHER STAIRS OR STEPS 02/26/2010 ROD ORONA APRN 840.6 SPRAINS AND STRAINS OF SHOULDER AND UPPER ARM, SUPRASPINATUS (MUSCLE) ( TENDON) 02/26/2010 ROD ORONA APRN E849.[address] OF OCCURRENCE 02/26/2010 ROD ORONA APRN E880.9 ACCIDENTAL FALL ON OR FROM OTHER STAIRS OR STEPS 02/26/2010 DAMION MANSFIELD APRN R 840.6 SPRAINS AND STRAINS OF SHOULDER AND UPPER ARM, SUPRASPINATUS (MUSCLE ) (TENDON) 02/26/2010 DAMION MANSFIELD APRN R E849.[address] OF OCCURRENCE 02/26/2010 DAMION MANSFIELD APRN R E880.9 ACCIDENTAL FALL ON OR FROM OTHER STAIRS OR STEPS 02/26/2010 STAN CHAN MD 840.6 SPRAINS AND STRAINS OF SHOULDER AND UPPER ARM, SUPRASPINATUS (MUSCLE) (TENDON ) 02/26/2010 STAN CHAN MD E849.[address] OF OCCURRENCE 02/26/2010 STAN CHAN MD E880.9 ACCIDENTAL FALL ON OR FROM OTHER STAIRS OR STEPS 02/26/2010 PIETER GUTIERREZ RN 840.6 SPRAINS AND STRAINS OF SHOULDER AND UPPER ARM, SUPRASPINATUS (MUSCLE) ( TENDON) 02/26/2010 PIETER GUTIERREZ RN E849.[address] OF OCCURRENCE 02/26/2010 PIETER GUTIERREZ RN E880.9 ACCIDENTAL FALL ON OR FROM OTHER STAIRS OR STEPS 02/26/2010 PIETER GUTIERREZ RN 840.6 SPRAINS AND STRAINS OF SHOULDER AND UPPER ARM, SUPRASPINATUS (MUSCLE) ( TENDON) 02/26/2010 PIETER GUTIERREZ RN E849.[address] OF OCCURRENCE 02/26/2010 PIETER GUTIERREZ RN E880.9 ACCIDENTAL FALL ON OR FROM OTHER STAIRS OR STEPS 02/26/2010 JESIKA HOWARD DO 840.6 SPRAINS AND STRAINS OF SHOULDER AND UPPER ARM, SUPRASPINATUS (MUSCLE) (TENDON ) 02/26/2010 HOWARD DO, JESIKA K E849.[address] OF OCCURRENCE 02/26/2010 HOWARD DO, JESIKA K E880.9 ACCIDENTAL FALL ON OR FROM OTHER STAIRS OR STEPS 02/26/2010 HOWARD DO, JESIKA K 840.6 SPRAINS AND STRAINS OF SHOULDER AND UPPER ARM, SUPRASPINATUS (MUSCLE) (TENDON ) 02/26/2010 HOWARD DO, JESIKA K E849.[address] OF OCCURRENCE 02/26/2010 HOWARD DO, JESIKA K E880.9 ACCIDENTAL FALL ON OR FROM OTHER STAIRS OR STEPS 02/26/2010 PIETER GUTIERREZ RN 840.6 SPRAINS AND STRAINS OF SHOULDER AND UPPER ARM, SUPRASPINATUS (MUSCLE) ( TENDON) 02/26/2010 PIETER GUTIERREZ RN E849.[address] OF OCCURRENCE 02/26/2010 PIETER GUTIERREZ RN E880.9 ACCIDENTAL FALL ON OR FROM OTHER STAIRS OR STEPS 02/26/2010 HOWARD DO, JESIKA K 840.6 SPRAINS AND STRAINS OF SHOULDER AND UPPER ARM, SUPRASPINATUS (MUSCLE) (TENDON ) 02/26/2010 HOWARD DO, JESIKA K E849.[address] OF OCCURRENCE 02/26/2010 HOWARD DO, JESIKA K E880.9 ACCIDENTAL FALL ON OR FROM OTHER STAIRS OR STEPS 02/26/2010 PINA SMITH 840.6 SPRAINS AND STRAINS OF SHOULDER AND UPPER ARM, SUPRASPINATUS (MUSCLE) ( TENDON) 02/26/2010 PINA SMITH E849.[address] OF OCCURRENCE 02/26/2010 PINA SMITH E880.9 ACCIDENTAL FALL ON OR FROM OTHER STAIRS OR STEPS 02/26/2010 HOWARD DO, JESIKA K 840.6 SPRAINS AND STRAINS OF SHOULDER AND UPPER ARM, SUPRASPINATUS (MUSCLE) (TENDON ) 02/26/2010 HOWARD DO, JESIKA K E849.[address] OF OCCURRENCE 02/26/2010 HOWARD DO, JESIKA K E880.9 ACCIDENTAL FALL ON OR FROM OTHER STAIRS OR STEPS 02/26/2010 PIETER GUTIERREZ RN E 840.6 SPRAINS AND STRAINS OF SHOULDER AND UPPER ARM, SUPRASPINATUS (MUSCLE) ( TENDON) 02/26/2010 PIETER GUTIERREZ RN E849.[address] OF OCCURRENCE 02/26/2010 PIETER GUTIERREZ RN E E880.9 ACCIDENTAL FALL ON OR FROM OTHER STAIRS OR STEPS 02/26/2010 PIETER GUTIERREZ RN 840.6 SPRAINS AND STRAINS OF SHOULDER AND UPPER ARM, SUPRASPINATUS (MUSCLE) ( TENDON) 02/26/2010 PIETER GUTIERREZ RN E E849.[address] OF OCCURRENCE 02/26/2010 PIETER GUTIERREZ RN E880.9 ACCIDENTAL FALL ON OR FROM OTHER STAIRS OR STEPS 02/26/2010 PINA SMITH 840.6 SPRAINS AND STRAINS OF SHOULDER AND UPPER ARM, SUPRASPINATUS (MUSCLE) ( TENDON) 02/26/2010 PINA SMITH E849.[address] OF OCCURRENCE 02/26/2010 PINA SMITH E880.9 ACCIDENTAL FALL ON OR FROM OTHER STAIRS OR STEPS 02/26/2010 PIETER GUTIERREZ RN 840.6 SPRAINS AND STRAINS OF SHOULDER AND UPPER ARM, SUPRASPINATUS (MUSCLE) ( TENDON) 02/26/2010 PIETER GUTIERREZ RN E849.[address] OF OCCURRENCE 02/26/2010 PIETER GUTIERREZ RN E880.9 ACCIDENTAL FALL ON OR FROM OTHER STAIRS OR STEPS 02/26/2010 PINA SMITH 840.6 SPRAINS AND STRAINS OF SHOULDER AND UPPER ARM, SUPRASPINATUS (MUSCLE) ( TENDON) 02/26/2010 PINA SMITH E849.[address] OF OCCURRENCE 02/26/2010 PINA SMITH E880.9 ACCIDENTAL FALL ON OR FROM OTHER STAIRS OR STEPS 02/26/2010 PINA SMITH 840.6 SPRAINS AND STRAINS OF SHOULDER AND UPPER ARM, SUPRASPINATUS (MUSCLE) ( TENDON) 02/26/2010 PINA SMITH E849.[address] OF OCCURRENCE 02/26/2010 PINA SMITH E880.9 ACCIDENTAL FALL ON OR FROM OTHER STAIRS OR STEPS 02/26/2010 Ot 840.9 02/26/2010 Ot 959.2 02/26/2010 Ot E000.8 02/26/2010 Ot E030 02/26/2010 Ot E849.0 02/26/2010 Ot E888.9 04/09/2010 Ot 787.02 04/09/2010 Ot 789.00 04/10/2010 JESUSITA CARRILLOPC, BARBARA B 564.1 IRRITABLE BOWEL SYNDROME 04/10/2010 JESUSITA PARTICLEBOARD FACTORY WORKER, BARBARA B 782.0 DISTURBANCE OF SKIN SENSATION 04/10/2010 BRITTANY DIGITAL FORENSICS EXAMINER, TEMO S 564.1 IRRITABLE BOWEL SYNDROME 04/10/2010 BRITTANY DIGITAL FORENSICS EXAMINER, TEMO S 782.0 DISTURBANCE OF SKIN SENSATION 04/10/2010 BRITTANY DIGITAL FORENSICS EXAMINER, TEMO S 564.1 IRRITABLE BOWEL SYNDROME 04/10/2010 BRITTANY DIGITAL FORENSICS EXAMINER, TEMO S 782.0 DISTURBANCE OF SKIN SENSATION 04/10/2010 564.1 IRRITABLE BOWEL SYNDROME 04/10/2010 782.0 DISTURBANCE OF SKIN SENSATION 04/10/2010 564.1 IRRITABLE BOWEL SYNDROME 04/10/2010 782.0 DISTURBANCE OF SKIN SENSATION 04/10/2010 564.1 IRRITABLE BOWEL SYNDROME 04/10/2010 782.0 DISTURBANCE OF SKIN SENSATION 04/10/2010 564.1 IRRITABLE BOWEL SYNDROME 04/10/2010 782.0 DISTURBANCE OF SKIN SENSATION 04/10/2010 HOWARD DO, JESIKA K 564.1 IRRITABLE BOWEL SYNDROME 04/10/2010 HOWARD DO, JESIKA K 782.0 DISTURBANCE OF SKIN SENSATION 04/10/2010 [facility], [place] R 564.1 IRRITABLE BOWEL SYNDROME 04/10/2010 [facility], [place] R 782.0 DISTURBANCE OF SKIN SENSATION 04/10/2010 [facility], [place] R 564.1 IRRITABLE BOWEL SYNDROME 04/10/2010 [facility], [place] R 782.0 DISTURBANCE OF SKIN SENSATION 04/10/2010 PILLO TEAGUE APRN 564.1 IRRITABLE BOWEL SYNDROME 04/10/2010 PILLO TEAGUE APRN 782.0 DISTURBANCE OF SKIN SENSATION 04/10/2010 KARIS CHANCE APRN N 564.1 IRRITABLE BOWEL SYNDROME 04/10/2010 KARIS CHANCE APRN N 782.0 DISTURBANCE OF SKIN SENSATION 04/10/2010 KARIS CHANCE APRN N 564.1 IRRITABLE BOWEL SYNDROME 04/10/2010 MASCORRO KLAUDIA BELLAMY, KARIS N 782.0 DISTURBANCE OF SKIN SENSATION 04/10/2010 HO LAYNEN, PILLO ZAPATA 564.1 IRRITABLE BOWEL SYNDROME 04/10/2010 HO LAYNEN, PILLO ZAPATA 782.0 DISTURBANCE OF SKIN SENSATION 04/10/2010 HO LAYNEN, PILLO ZAPATA 564.1 IRRITABLE BOWEL SYNDROME 04/10/2010 HO LAYNEN, PILLO ZAPATA 782.0 DISTURBANCE OF SKIN SENSATION 04/10/2010 YEYO DIG[employer]ENS[employer] EXAMINER, ROD T 564.1 IRRITABLE BOWEL SYNDROME 04/10/2010 YEYO D[employer] FORENS[employer] EXAMINER, ROD T 782.0 DISTURBANCE OF SKIN SENSATION 04/10/2010 DONAL BELLAMY, DAMION R 564.1 IRRITABLE BOWEL SYNDROME 04/10/2010 DONAL DIGITAL FORENSICS EXAMINER DAMION R 782.0 DISTURBANCE OF SKIN SENSATION 04/10/2010 STAN CHAN MD 564.1 IRRITABLE BOWEL SYNDROME 04/10/2010 STAN CHAN MD 782.0 DISTURBANCE OF SKIN SENSATION 04/10/2010 PIETER GUTIERREZ RN 564.1 IRRITABLE BOWEL SYNDROME 04/10/2010 PIETER GUTIERREZ RN 782.0 DISTURBANCE OF SKIN SENSATION 04/10/2010 PIETER GUTIERREZ RN 564.1 IRRITABLE BOWEL SYNDROME 04/10/2010 PIETER GUTIERREZ RN 782.0 DISTURBANCE OF SKIN SENSATION 04/10/2010 RHETT HOWARD DOA K 564.1 IRRITABLE BOWEL SYNDROME 04/10/2010 HOWARD , JESIKA K 782.0 DISTURBANCE OF SKIN SENSATION 04/10/2010 LEE WINTER JESIKA K 564.1 IRRITABLE BOWEL SYNDROME 04/10/2010 HOWARD DO, JESIKA K 782.0 DISTURBANCE OF SKIN SENSATION 04/10/2010 PIETER GUTIERREZ RN E 564.1 IRRITABLE BOWEL SYNDROME 04/10/2010 PIETER GUTIERREZ RN 782.0 DISTURBANCE OF SKIN SENSATION 04/10/2010 HOWARD DO, JESIKA K 564.1 IRRITABLE BOWEL SYNDROME 04/10/2010 HOWARD DO, JESIKA K 782.0 DISTURBANCE OF SKIN SENSATION 04/10/2010 PINA SMITH 564.1 IRRITABLE BOWEL SYNDROME 04/10/2010 PINA SMITH 782.0 DISTURBANCE OF SKIN SENSATION 04/10/2010 HOWARD DO, JESIKA K 564.1 IRRITABLE BOWEL SYNDROME 04/10/2010 HOWARD DO, JESIKA K 782.0 DISTURBANCE OF SKIN SENSATION 04/10/2010 PIETER GUTIERREZ RN E 564.1 IRRITABLE BOWEL SYNDROME 04/10/2010 PIETER GUTIERREZ RN E 782.0 DISTURBANCE OF SKIN SENSATION 04/10/2010 PIETER GUTIERREZ RN E 564.1 IRRITABLE BOWEL SYNDROME 04/10/2010 PIETER GUTIERREZ RN E 782.0 DISTURBANCE OF SKIN SENSATION 04/10/2010 ERNESTINA SALVAGE INSPECTOR, PINA M 564.1 IRRITABLE BOWEL SYNDROME 04/10/2010 ERNESTINA SALVAGE INSPECTOR, PINA M 782.0 DISTURBANCE OF SKIN SENSATION 04/10/2010 PIETER GUTIERREZ RN 564.1 IRRITABLE BOWEL SYNDROME 04/10/2010 PIETER GUTIERREZ RN E 782.0 DISTURBANCE OF SKIN SENSATION 04/10/2010 ERNESTINA SALVAGE INSPECTOR, PINA M 564.1 IRRITABLE BOWEL SYNDROME 04/10/2010 ERNESTINA SALVAGE INSPECTOR, PINA M 782.0 DISTURBANCE OF SKIN SENSATION 04/10/2010 ERNESTINA SALVAGE INSPECTOR, PINA M 564.1 IRRITABLE BOWEL SYNDROME 04/10/2010 ERNESTINA SALVAGE INSPECTOR, PINA M 782.0 DISTURBANCE OF SKIN SENSATION 05/05/2010 JESUSITA [facility], BARBARA B 112.1 CANDIDIASIS VAGINAL 05/05/2010 TEMO SOTO APRN S 112.1 CANDIDIASIS VAGINAL 05/05/2010 TEMO SOTO APRN S 112.1 CANDIDIASIS VAGINAL 05/05/2010 112.1 CANDIDIASIS VAGINAL 05/05/2010 112.1 CANDIDIASIS VAGINAL 05/05/2010 112.1 CANDIDIASIS VAGINAL 05/05/2010 112.1 CANDIDIASIS VAGINAL 05/05/2010 LEE WINTER JESIKA K 112.1 CANDIDIASIS VAGINAL 05/05/2010 [facility], [place] R 112.1 CANDIDIASIS VAGINAL 05/05/2010 [facility], [place] R 112.1 CANDIDIASIS VAGINAL 05/05/2010 PILLO TEAGUE APRN 112.1 CANDIDIASIS VAGINAL 05/05/2010 KARIS CHANCE APRN N 112.1 CANDIDIASIS VAGINAL 05/05/2010 KARIS CHANCE APRN N 112.1 CANDIDIASIS VAGINAL 05/05/2010 PILLO TEAGUE APRN 112.1 CANDIDIASIS VAGINAL 05/05/2010 HO BELLAMY PILLO ZAPATA 112.1 CANDIDIASIS VAGINAL 05/05/2010 YEYO DIGITAL FORENSICS EXAMINER, ROD Albrecht 112.1 CANDIDIASIS VAGINAL 05/05/2010 DONAL LAYNEN, DAMION Mosher 112.1 CANDIDIASIS VAGINAL 05/05/2010 ROCIO YIN, STAN 112.1 CANDIDIASIS VAGINAL 05/05/2010 BRENDA TOVAR, PIETER E 112.1 CANDIDIASIS VAGINAL 05/05/2010 BRENDA TOVAR, PIETER E 112.1 CANDIDIASIS VAGINAL 05/05/2010 HOWARD DO JESIKA K 112.1 CANDIDIASIS VAGINAL 05/05/2010 HOWARD DO, JESIKA K 112.1 CANDIDIASIS VAGINAL 05/05/2010 BRENDA TOVAR, PIETER E 112.1 CANDIDIASIS VAGINAL 05/05/2010 HOWARD DO, JESIKA K 112.1 CANDIDIASIS VAGINAL 05/05/2010 PINA SMITH M 112.1 CANDIDIASIS VAGINAL 05/05/2010 HOWARD , JESIKA K 112.1 CANDIDIASIS VAGINAL 05/05/2010 BRENDA TOVAR, PIETER E 112.1 CANDIDIASIS VAGINAL 05/05/2010 BRENDA TOVAR, PIETER E 112.1 CANDIDIASIS VAGINAL 05/05/2010 PINA SMITH M 112.1 CANDIDIASIS VAGINAL 05/05/2010 BRENDA TOVAR, PIETER E 112.1 CANDIDIASIS VAGINAL 05/05/2010 PINA SMITH M 112.1 CANDIDIASIS VAGINAL 05/05/2010 PINA SMITH 112.1 CANDIDIASIS VAGINAL 05/19/2010 Ot 386.30 05/19/2010 Ot 780.4 05/19/2010 Ot 923.10 05/19/2010 Ot E000.8 05/19/2010 Ot E849.0 05/19/2010 Ot E888.9 05/27/2010 Ot 780.4 05/27/2010 Ot 845.00 05/27/2010 Ot E000.8 05/27/2010 Ot E849.0 05/27/2010 Ot E928.9 05/28/2010 BARBARA MC LCPC 386.2 VERTIGO OF CENTRAL ORIGIN 05/28/2010 TEMO SOTO APRN 386.2 VERTIGO OF CENTRAL ORIGIN 05/28/2010 TEMO SOTO APRN 386.2 VERTIGO OF CENTRAL ORIGIN 05/28/2010 386.2 VERTIGO OF CENTRAL ORIGIN 05/28/2010 386.2 VERTIGO OF CENTRAL ORIGIN 05/28/2010 386.2 VERTIGO OF CENTRAL ORIGIN 05/28/2010 386.2 VERTIGO OF CENTRAL ORIGIN 05/28/2010 HOWARD DO, JESIKA K 386.2 VERTIGO OF CENTRAL ORIGIN 05/28/2010 [facility], [place]ELIA R 386.2 VERTIGO OF CENTRAL ORIGIN 05/28/2010 [facility], [place] R 386.2 VERTIGO OF CENTRAL ORIGIN 05/28/2010 TEAGUE DIGITAL FORENSICS EXAMINER, PILLO JODI 386.2 VERTIGO OF CENTRAL ORIGIN 05/28/2010 MASCORRO CASHERO DIGITAL FORENSICS EXAMINER, KARIS N 386.2 VERTIGO OF CENTRAL ORIGIN 05/28/2010 MASCORRO CASHERO DIGITAL FORENSICS EXAMINER, KARIS N 386.2 VERTIGO OF CENTRAL ORIGIN 05/28/2010 TEAGUE DIGITAL FORENSICS EXAMINER, PILLO JODI 386.2 VERTIGO OF CENTRAL ORIGIN 05/28/2010 TEAGUE DIGITAL FORENSICS EXAMINER, PILLO JODI 386.2 VERTIGO OF CENTRAL ORIGIN 05/28/2010 YEYO DIGITAL FORENSICS EXAMINER, ROD Albrecht 386.2 VERTIGO OF CENTRAL ORIGIN 05/28/2010 DONAL DIGITAL FORENSICS EXAMINER, DAMION R 386.2 VERTIGO OF CENTRAL ORIGIN 05/28/2010 STAN CHAN MD 386.2 VERTIGO OF CENTRAL ORIGIN 05/28/2010 BRENDA TOVAR, PIETER E 386.2 VERTIGO OF CENTRAL ORIGIN 05/28/2010 BRENDA TOVAR, PIETER E 386.2 VERTIGO OF CENTRAL ORIGIN 05/28/2010 HOWARD DO, JESIKA K 386.2 VERTIGO OF CENTRAL ORIGIN 05/28/2010 HOWARD DO, JESIKA K 386.2 VERTIGO OF CENTRAL ORIGIN 05/28/2010 PIETER GUTIERREZ RN E 386.2 VERTIGO OF CENTRAL ORIGIN 05/28/2010 HOWARD DO, JESIKA K 386.2 VERTIGO OF CENTRAL ORIGIN 05/28/2010 PINA SMITH 386.2 VERTIGO OF CENTRAL ORIGIN 05/28/2010 HOWARD DO, JESIKA K 386.2 VERTIGO OF CENTRAL ORIGIN 05/28/2010 PIETER GUTIERREZ RN E 386.2 VERTIGO OF CENTRAL ORIGIN 05/28/2010 PIETER GUTIERREZ RN E 386.2 VERTIGO OF CENTRAL ORIGIN 05/28/2010 PINA SMITH M 386.2 VERTIGO OF CENTRAL ORIGIN 05/28/2010 PIETER GUTIERREZ RN E 386.2 VERTIGO OF CENTRAL ORIGIN 05/28/2010 PINA SMITH 386.2 VERTIGO OF CENTRAL ORIGIN 05/28/2010 PINA SMITH 386.2 VERTIGO OF CENTRAL ORIGIN 06/19/2010 JESUSITA BROCK, BARBARA B 784.0 HEADACHE 06/19/2010 BRITTANY DIGITAL FORENSICS EXAMINER, TEMO S 784.0 HEADACHE 06/19/2010 BRITTANY DIGITAL FORENSICS EXAMINER, TEMO S 784.0 HEADACHE 06/19/2010 784.0 HEADACHE 06/19/2010 784.0 HEADACHE 06/19/2010 784.0 HEADACHE 06/19/2010 784.0 HEADACHE 06/19/2010 HOWARD DO, JESIKA K 784.0 HEADACHE 06/19/2010 [facility], ARGELIA R 784.0 HEADACHE 06/19/2010 [facility], ARGELIA R 784.0 HEADACHE 06/19/2010 TEAGUE DIGITAL FORENSICS EXAMINER, PILLO NELSONH 784.0 HEADACHE 06/19/2010 MASCORRO CASHERO DIGITAL FORENSICS EXAMINER, KARIS N 784.0 HEADACHE 06/19/2010 MASCORRO CASHERO DIGITAL FORENSICS EXAMINER, KARIS N 784.0 HEADACHE 06/19/2010 TEAGUE DIGITAL FORENSICS EXAMINER, PILLO ZAPATA 784.0 HEADACHE 06/19/2010 TEAGUE DIGITAL FORENSICS EXAMINER, PILLO NELSONH 784.0 HEADACHE 06/19/2010 YEYO DIGITAL FORENSICS EXAMINER, ROD T 784.0 HEADACHE 06/19/2010 DONAL DIGITAL FORENSICS EXAMINER, DAMION R 784.0 HEADACHE 06/19/2010 STAN CHAN MD 784.0 HEADACHE 06/19/2010 BRENDA TOVAR, PIETER E 784.0 HEADACHE 06/19/2010 BRENDA TOVAR, PIETER E 784.0 HEADACHE 06/19/2010 HOWARD DO, JESIKA K 784.0 HEADACHE 06/19/2010 HOWARD DO, JESIKA K 784.0 HEADACHE 06/19/2010 BRENDA TOVAR, PIETER E 784.0 HEADACHE 06/19/2010 HOWARD DO, JESIKA K 784.0 HEADACHE 06/19/2010 PINA SMITH 784.0 HEADACHE 06/19/2010 HOWARD DO, JESIKA K 784.0 HEADACHE 06/19/2010 BRENDA TOVAR, PIETER E 784.0 HEADACHE 06/19/2010 BRENDA TOVAR, PIETER E 784.0 HEADACHE 06/19/2010 PINA SMITH 784.0 HEADACHE 06/19/2010 BRENDA TOVAR, PIETER E 784.0 HEADACHE 06/19/2010 ERNESTINA BANGURA, PINA M 784.0 HEADACHE 06/19/2010 ERNESTINA SALVAGE INSPECTOR, PINA M 784.0 HEADACHE 06/30/2010 Ot 784.0 06/30/2010 Ot 787.03 07/07/2010 Ot 780.4 07/07/2010 Ot 784.2 07/07/2010 Ot 786.09 07/07/2010 Ot 995.7 07/07/2010 Ot V15.05 08/03/2010 JESUSITA BROCK, BARBARA B 919.0 ABRASION UNSPECIFIED 08/03/2010 JESUSITA PARTICLEBOARD FACTORY WORKER, BARBARA B E928.9 UNSPECIFIED ACCIDENT 08/03/2010 BRITTANY DIGITAL FORENSICS EXAMINER, TEMO S 919.0 ABRASION UNSPECIFIED 08/03/2010 BRITTANY DIGITAL FORENSICS EXAMINER, TEMO S E928.9 UNSPECIFIED ACCIDENT 08/03/2010 BRITTANY DIGITAL FORENSICS EXAMINER, TEMO S 919.0 ABRASION UNSPECIFIED 08/03/2010 BRITTANY DIGITAL FORENSICS EXAMINER, TEMO S E928.9 UNSPECIFIED ACCIDENT 08/03/2010 919.0 ABRASION UNSPECIFIED 08/03/2010 E928.9 UNSPECIFIED ACCIDENT 08/03/2010 919.0 ABRASION UNSPECIFIED 08/03/2010 E928.9 UNSPECIFIED ACCIDENT 08/03/2010 919.0 ABRASION UNSPECIFIED 08/03/2010 E928.9 UNSPECIFIED ACCIDENT 08/03/2010 919.0 ABRASION UNSPECIFIED 08/03/2010 E928.9 UNSPECIFIED ACCIDENT 08/03/2010 HOWARD DO, JESIKA K 919.0 ABRASION UNSPECIFIED 08/03/2010 HOWARD DO, JESIKA K E928.9 UNSPECIFIED ACCIDENT 08/03/2010 [facility], [place] R 919.0 ABRASION UNSPECIFIED 08/03/2010 [facility], [place] R E928.9 UNSPECIFIED ACCIDENT 08/03/2010 [facility], [place] R 919.0 ABRASION UNSPECIFIED 08/03/2010 [facility], [place] R E928.9 UNSPECIFIED ACCIDENT 08/03/2010 PILLO TEAGUE APRN 919.0 ABRASION UNSPECIFIED 08/03/2010 PILLO TEAGUE APRN E928.9 UNSPECIFIED ACCIDENT 08/03/2010 MASCORRO CASHERO DIGITAL FORENSICS EXAMINER, KARIS N 919.0 ABRASION UNSPECIFIED 08/03/2010 LUDWIN BULLOCKERO DIGITAL FORENSICS EXAMINER, KARIS N E928.9 UNSPECIFIED ACCIDENT 08/03/2010 LUDWIN CASHERO DIGITAL FORENSICS EXAMINER, KARIS N 919.0 ABRASION UNSPECIFIED 08/03/2010 LUDWIN BULLOCKERO DIGITAL FORENSICS EXAMINER, KARIS N E928.9 UNSPECIFIED ACCIDENT 08/03/2010 TEAGUE DIGITAL FORENSICS EXAMINER, PILLO ZAPATA 919.0 ABRASION UNSPECIFIED 08/03/2010 TEAGUE DIGITAL FORENSICS EXAMINER, PILLO JODI E928.9 UNSPECIFIED ACCIDENT 08/03/2010 TEAGUE DIGITAL FORENSICS EXAMINER, PILLO ZAPATA 919.0 ABRASION UNSPECIFIED 08/03/2010 TEAGUE DIGITAL FORENSICS EXAMINER, PILLO ZAPATA E928.9 UNSPECIFIED ACCIDENT 08/03/2010 YEYO DIGITAL FORENSICS EXAMINER, ROD T 919.0 ABRASION UNSPECIFIED 08/03/2010 YEYO DIGITAL FORENSICS EXAMINER, ROD T E928.9 UNSPECIFIED ACCIDENT 08/03/2010 DONAL DIGITAL FORENSICS EXAMINER, DAMION R 919.0 ABRASION UNSPECIFIED 08/03/2010 DONAL DIGITAL FORENSICS EXAMINER, DAMION R E928.9 UNSPECIFIED ACCIDENT 08/03/2010 STAN CHAN MD 919.0 ABRASION UNSPECIFIED 08/03/2010 STAN CHAN MD E928.9 UNSPECIFIED ACCIDENT 08/03/2010 BRENDA TOVAR, PIETER E 919.0 ABRASION UNSPECIFIED 08/03/2010 BRENDA TOVAR, PIETER E E928.9 UNSPECIFIED ACCIDENT 08/03/2010 BRENDA TOVAR, PIETER E 919.0 ABRASION UNSPECIFIED 08/03/2010 BRENDA TOVAR, PIETER E E928.9 UNSPECIFIED ACCIDENT 08/03/2010 HOWARD DO, JESIKA K 919.0 ABRASION UNSPECIFIED 08/03/2010 HOWARD DO, JESIKA K E928.9 UNSPECIFIED ACCIDENT 08/03/2010 HOWARD DO, JESIKA K 919.0 ABRASION UNSPECIFIED 08/03/2010 HOWARD DO, JESIKA K E928.9 UNSPECIFIED ACCIDENT 08/03/2010 BRENDA TOVAR, PIETER E 919.0 ABRASION UNSPECIFIED 08/03/2010 BRENDA TOVAR, PIETER E E928.9 UNSPECIFIED ACCIDENT 08/03/2010 HOWARD DO, JESIKA K 919.0 ABRASION UNSPECIFIED 08/03/2010 HOWARD DO, JESIKA K E928.9 UNSPECIFIED ACCIDENT 08/03/2010 PINA SMITH M 919.0 ABRASION UNSPECIFIED 08/03/2010 ERNESTINA BANGURA, PINA M E928.9 UNSPECIFIED ACCIDENT 08/03/2010 HOWARD DO, JESIKA K 919.0 ABRASION UNSPECIFIED 08/03/2010 HOWARD DO, JESIKA K E928.9 UNSPECIFIED ACCIDENT 08/03/2010 BRENDA TOVAR, PIETER E 919.0 ABRASION UNSPECIFIED 08/03/2010 BRENDA TOVAR, PIETER E E928.9 UNSPECIFIED ACCIDENT 08/03/2010 BRENDA TOVAR, PIETER E 919.0 ABRASION UNSPECIFIED 08/03/2010 BRENDA TOVAR, PIETER E E928.9 UNSPECIFIED ACCIDENT 08/03/2010 ERNESTINA BANGURA, PINA M 919.0 ABRASION UNSPECIFIED 08/03/2010 ERNESTINA BANGURA, PINA M E928.9 UNSPECIFIED ACCIDENT 08/03/2010 BRENDA TOVAR, PIETER E 919.0 ABRASION UNSPECIFIED 08/03/2010 BRENDA TOVAR, PIETER E E928.9 UNSPECIFIED ACCIDENT 08/03/2010 ERNESTINA BANGURA, PINA M 919.0 ABRASION UNSPECIFIED 08/03/2010 ERNESTINA BANGURA, PINA M E928.9 UNSPECIFIED ACCIDENT 08/03/2010 ERNESTINA BANGURA, PINA M 919.0 ABRASION UNSPECIFIED 08/03/2010 ERNESTINA BANGURA, PINA M E928.9 UNSPECIFIED ACCIDENT 08/26/2010 Ot 490 08/26/2010 Ot 786.05 08/28/2010 Ot 379.93 08/28/2010 Ot 918.2 08/28/2010 Ot E000.8 08/28/2010 Ot E928.9 11/24/2010 Ot 462 11/24/2010 Ot 465.9 12/05/2010 Ot 401.9 12/05/2010 Ot 564.00 12/05/2010 Ot 599.0 12/05/2010 Ot 789.09 12/07/2010 BARBARA MC LCPC 789.02 ABDOMINAL PAIN LEFT UPPER QUADRANT 12/07/2010 TEMO SOTO APRN S 789.02 ABDOMINAL PAIN LEFT UPPER QUADRANT 12/07/2010 TEMO SOTO APRN S 789.02 ABDOMINAL PAIN LEFT UPPER QUADRANT 12/07/2010 789.02 ABDOMINAL PAIN LEFT UPPER QUADRANT 12/07/2010 789.02 ABDOMINAL PAIN LEFT UPPER QUADRANT 12/07/2010 789.02 ABDOMINAL PAIN LEFT UPPER QUADRANT 12/07/2010 789.02 ABDOMINAL PAIN LEFT UPPER QUADRANT 12/07/2010 HOWARD DO, JESIKA K 789.02 ABDOMINAL PAIN LEFT UPPER QUADRANT 12/07/2010 OSBALDO LS, ARGELIA R 789.02 ABDOMINAL PAIN LEFT UPPER QUADRANT 12/07/2010 OSBALDO LSCS, ARGELIA R 789.02 ABDOMINAL PAIN LEFT UPPER QUADRANT 12/07/2010 TEAGUE D[employer] FORENSICS EXAMINER, PILLO ZAPATA 789.02 ABDOMINAL PAIN LEFT UPPER QUADRANT 12/07/2010 LUDWIN RUDOLPH DIGITAL FORENSICS EXAMINER, KARIS N 789.02 ABDOMINAL PAIN LEFT UPPER QUADRANT 12/07/2010 LUDWIN RUDOLPH DIGITAL FORENSICS EXAMINER, KARIS N 789.02 ABDOMINAL PAIN LEFT UPPER QUADRANT 12/07/2010 TEAGUE APRN, PILLO ZAPATA 789.02 ABDOMINAL PAIN LEFT UPPER QUADRANT 12/07/2010 HO BELLAMY PILLO ZAPATA 789.02 ABDOMINAL PAIN LEFT UPPER QUADRANT 12/07/2010 ROD ORONA APRN T 789.02 ABDOMINAL PAIN LEFT UPPER QUADRANT 12/07/2010 DONAL BELLAMY, DAMION R 789.02 ABDOMINAL PAIN LEFT UPPER QUADRANT 12/07/2010 ROCIO YIN, STAN 789.02 ABDOMINAL PAIN LEFT UPPER QUADRANT 12/07/2010 BRENDA TOVAR, PIETER E 789.02 ABDOMINAL PAIN LEFT UPPER QUADRANT 12/07/2010 BRENDA TOVAR, PIETER E 789.02 ABDOMINAL PAIN LEFT UPPER QUADRANT 12/07/2010 HOWARD DO, JESIKA K 789.02 ABDOMINAL PAIN LEFT UPPER QUADRANT 12/07/2010 HOWARD DO, JESIKA K 789.02 ABDOMINAL PAIN LEFT UPPER QUADRANT 12/07/2010 BRENDA TOVAR, PIETER E 789.02 ABDOMINAL PAIN LEFT UPPER QUADRANT 12/07/2010 HOWARD DO, JESIKA K 789.02 ABDOMINAL PAIN LEFT UPPER QUADRANT 12/07/2010 PINA SMITH 789.02 ABDOMINAL PAIN LEFT UPPER QUADRANT 12/07/2010 HOWARD DO, JESIKA K 789.02 ABDOMINAL PAIN LEFT UPPER QUADRANT 12/07/2010 PIETER GUTIREREZ RN E 789.02 ABDOMINAL PAIN LEFT UPPER QUADRANT 12/07/2010 BRENDA TOVAR, PIETER E 789.02 ABDOMINAL PAIN LEFT UPPER QUADRANT 12/07/2010 PINA SMITH 789.02 ABDOMINAL PAIN LEFT UPPER QUADRANT 12/07/2010 BRENDA TOVAR, PIETER Nelson 789.02 ABDOMINAL PAIN LEFT UPPER QUADRANT 12/07/2010 PINA SMITH M 789.02 ABDOMINAL PAIN LEFT UPPER QUADRANT 12/07/2010 PINA SMITH M 789.02 ABDOMINAL PAIN LEFT UPPER QUADRANT 01/10/2011 JESUSITA BROCK, BARBARA Byrne 536.8 DYSPEPSIA AND OTHER SPECIFIED DISORDERS OF FUNCTION OF STOMACH 01/10/2011 BRITTANY DIGITAL FORENSICS EXAMINER, TEMO S 536.8 DYSPEPSIA AND OTHER SPECIFIED DISORDERS OF FUNCTION OF STOMACH 01/10/2011 BRITTANY DIGITAL FORENSICS EXAMINER, TEMO S 536.8 DYSPEPSIA AND OTHER SPECIFIED DISORDERS OF FUNCTION OF STOMACH 01/10/2011 536.8 DYSPEPSIA AND OTHER SPECIFIED DISORDERS OF FUNCTION OF STOMACH 01/10/2011 536.8 DYSPEPSIA AND OTHER SPECIFIED DISORDERS OF FUNCTION OF STOMACH 01/10/2011 536.8 DYSPEPSIA AND OTHER SPECIFIED DISORDERS OF FUNCTION OF STOMACH 01/10/2011 536.8 DYSPEPSIA AND OTHER SPECIFIED DISORDERS OF FUNCTION OF STOMACH 01/10/2011 JESIKA HOWARD DO 536.8 DYSPEPSIA AND OTHER SPECIFIED DISORDERS OF FUNCTION OF STOMACH 01/10/2011 [facility], [place] R 536.8 DYSPEPSIA AND OTHER SPECIFIED DISORDERS OF FUNCTION OF STOMACH 01/10/2011 [facility], [place] R 536.8 DYSPEPSIA AND OTHER SPECIFIED DISORDERS OF FUNCTION OF STOMACH 01/10/2011 PILLO TEAGUE APRN 536.8 DYSPEPSIA AND OTHER SPECIFIED DISORDERS OF FUNCTION OF STOMACH 01/10/2011 KARIS CHANCE APRN N 536.8 DYSPEPSIA AND OTHER SPECIFIED DISORDERS OF FUNCTION OF STOMACH 01/10/2011 LUDWIN RUDOLPH APRN, KARIS N 536.8 DYSPEPSIA AND OTHER SPECIFIED DISORDERS OF FUNCTION OF STOMACH 01/10/2011 PILLO TEAGUE APRN 536.8 DYSPEPSIA AND OTHER SPECIFIED DISORDERS OF FUNCTION OF STOMACH 01/10/2011 PILLO TEAGUE APRN 536.8 DYSPEPSIA AND OTHER SPECIFIED DISORDERS OF FUNCTION OF STOMACH 01/10/2011 ROD ORONA APRN 536.8 DYSPEPSIA AND OTHER SPECIFIED DISORDERS OF FUNCTION OF STOMACH 01/10/2011 DAMION MANSFIELD APRN 536.8 DYSPEPSIA AND OTHER SPECIFIED DISORDERS OF FUNCTION OF STOMACH 01/10/2011 STAN CHAN MD 536.8 DYSPEPSIA AND OTHER SPECIFIED DISORDERS OF FUNCTION OF STOMACH 01/10/2011 PIETER GUTIERREZ RN 536.8 DYSPEPSIA AND OTHER SPECIFIED DISORDERS OF FUNCTION OF STOMACH 01/10/2011 PIETER GUTIERREZ RN E 536.8 DYSPEPSIA AND OTHER SPECIFIED DISORDERS OF FUNCTION OF STOMACH 01/10/2011 HOWARD DO, JESIKA K 536.8 DYSPEPSIA AND OTHER SPECIFIED DISORDERS OF FUNCTION OF STOMACH 01/10/2011 HOWARD DO, JESIKA K 536.8 DYSPEPSIA AND OTHER SPECIFIED DISORDERS OF FUNCTION OF STOMACH 01/10/2011 PIETER GUTIERREZ RN E 536.8 DYSPEPSIA AND OTHER SPECIFIED DISORDERS OF FUNCTION OF STOMACH 01/10/2011 HOWARD DO, JESIKA K 536.8 DYSPEPSIA AND OTHER SPECIFIED DISORDERS OF FUNCTION OF STOMACH 01/10/2011 PINA SMITH 536.8 DYSPEPSIA AND OTHER SPECIFIED DISORDERS OF FUNCTION OF STOMACH 01/10/2011 HOWARD DO, JESIKA K 536.8 DYSPEPSIA AND OTHER SPECIFIED DISORDERS OF FUNCTION OF STOMACH 01/10/2011 PIETER GUTIERREZ RN E 536.8 DYSPEPSIA AND OTHER SPECIFIED DISORDERS OF FUNCTION OF STOMACH 01/10/2011 PIETER GUTIERREZ RN E 536.8 DYSPEPSIA AND OTHER SPECIFIED DISORDERS OF FUNCTION OF STOMACH 01/10/2011 PINA SMITH 536.8 DYSPEPSIA AND OTHER SPECIFIED DISORDERS OF FUNCTION OF STOMACH 01/10/2011 PIETER GUTIERREZ RN E 536.8 DYSPEPSIA AND OTHER SPECIFIED DISORDERS OF FUNCTION OF STOMACH 01/10/2011 PINA SMITH 536.8 DYSPEPSIA AND OTHER SPECIFIED DISORDERS OF FUNCTION OF STOMACH 01/10/2011 PINA SMITH 536.8 DYSPEPSIA AND OTHER SPECIFIED DISORDERS OF FUNCTION OF STOMACH 01/19/2011 [facility] LCPC 535.00 ACUTE GASTRITIS (WITHOUT HEMORRHAGE) 01/19/2011 BRITTANY BELLAMY TEMO S 535.00 ACUTE GASTRITIS (WITHOUT HEMORRHAGE) 01/19/2011 BRITTANY LAYNENRONALDTEMO S 535.00 ACUTE GASTRITIS (WITHOUT HEMORRHAGE) 01/19/2011 535.00 ACUTE GASTRITIS (WITHOUT HEMORRHAGE) 01/19/2011 535.00 ACUTE GASTRITIS (WITHOUT HEMORRHAGE) 01/19/2011 535.00 ACUTE GASTRITIS (WITHOUT HEMORRHAGE) 01/19/2011 535.00 ACUTE GASTRITIS (WITHOUT HEMORRHAGE) 01/19/2011 JESIKA HOWARD DO K 535.00 ACUTE GASTRITIS (WITHOUT HEMORRHAGE) 01/19/2011 [facility], [place] R 535.00 ACUTE GASTRITIS (WITHOUT HEMORRHAGE) 01/19/2011 [facility], [place] R 535.00 ACUTE GASTRITIS (WITHOUT HEMORRHAGE) 01/19/2011 TEAGUE [employer]ENS[employer] EXAMINER, PILLO NELSONH 535.00 ACUTE GASTRITIS (WITHOUT HEMORRHAGE) 01/19/2011 LUDWIN RUDOLPH DIGITAL FORENSICS EXAMINER, KARIS N 535.00 ACUTE GASTRITIS (WITHOUT HEMORRHAGE) 01/19/2011 LUDWIN BULLOCKERO DIGITAL FORENSICS EXAMINER, KARIS N 535.00 ACUTE GASTRITIS (WITHOUT HEMORRHAGE) 01/19/2011 TEAGUE D[employer] FORENS[employer] EXAMINER, PILLO ZAPATA 535.00 ACUTE GASTRITIS (WITHOUT HEMORRHAGE) 01/19/2011 HO DIGITAL FORENSICS EXAMINER, PILLO ZAPATA 535.00 ACUTE GASTRITIS (WITHOUT HEMORRHAGE) 01/19/2011 YEYO DIGITAL FORENSICS EXAMINER, ROD Albrecht 535.00 ACUTE GASTRITIS (WITHOUT HEMORRHAGE) 01/19/2011 DONAL DIGITAL FORENSICS EXAMINER, DAMION R 535.00 ACUTE GASTRITIS (WITHOUT HEMORRHAGE) 01/19/2011 STAN CHAN MD 535.00 ACUTE GASTRITIS (WITHOUT HEMORRHAGE) 01/19/2011 PIETER GUTIERREZ RN 535.00 ACUTE GASTRITIS (WITHOUT HEMORRHAGE) 01/19/2011 PIETER GUTIERREZ RN 535.00 ACUTE GASTRITIS (WITHOUT HEMORRHAGE) 01/19/2011 JESIKA HOWARD DO K 535.00 ACUTE GASTRITIS (WITHOUT HEMORRHAGE) 01/19/2011 JESIKA HOWARD DO K 535.00 ACUTE GASTRITIS (WITHOUT HEMORRHAGE) 01/19/2011 PIETER GUTIERREZ RN 535.00 ACUTE GASTRITIS (WITHOUT HEMORRHAGE) 01/19/2011 RHETT HOWARD DOA K 535.00 ACUTE GASTRITIS (WITHOUT HEMORRHAGE) 01/19/2011 PINA SMITH 535.00 ACUTE GASTRITIS (WITHOUT HEMORRHAGE) 01/19/2011 JESIKA HOWARD DO K 535.00 ACUTE GASTRITIS (WITHOUT HEMORRHAGE) 01/19/2011 PIETER GUTIERREZ RN 535.00 ACUTE GASTRITIS (WITHOUT HEMORRHAGE) 01/19/2011 PIETER GUTIERREZ RN 535.00 ACUTE GASTRITIS (WITHOUT HEMORRHAGE) 01/19/2011 PINA SMITH 535.00 ACUTE GASTRITIS (WITHOUT HEMORRHAGE) 01/19/2011 BRENDA TOVAR, PIETER Nelson 535.00 ACUTE GASTRITIS (WITHOUT HEMORRHAGE) 01/19/2011 PINA SMITH M 535.00 ACUTE GASTRITIS (WITHOUT HEMORRHAGE) 01/19/2011 ERNESTINA SALVAGE INSPECTORPINA Cassy 535.00 ACUTE GASTRITIS (WITHOUT HEMORRHAGE) 04/18/2011 Ot 599.0 04/18/2011 Ot 789.09 11/15/2011 [facility] B V65.45 STD COUNSELING 11/15/2011 [facility] B V72.31 DRILL PRESS OPERATOR EXAM, ROUTINE 11/15/2011 [facility] B V74.5 STD SCREEN 11/15/2011 RONALD SOTO APRNNDA S V65.45 STD COUNSELING 11/15/2011 RONALD SOTO APRNNDA S V72.31 DRILL PRESS OPERATOR EXAM, ROUTINE 11/15/2011 RONALD SOTO APRNNDA S V74.5 STD SCREEN 11/15/2011 RONALD SOTO APRNNDA S V65.45 STD COUNSELING 11/15/2011 RONALD SOTO APRNNDA S V72.31 DRILL PRESS OPERATOR EXAM, ROUTINE 11/15/2011 RONALD SOTO APRNNDA S V74.5 STD SCREEN 11/15/2011 V65.45 STD COUNSELING 11/15/2011 V72.31 DRILL PRESS OPERATOR EXAM, ROUTINE 11/15/2011 V74.5 STD SCREEN 11/15/2011 V65.45 STD COUNSELING 11/15/2011 V72.31 DRILL PRESS OPERATOR EXAM, ROUTINE 11/15/2011 V74.5 STD SCREEN 11/15/2011 V65.45 STD COUNSELING 11/15/2011 V72.31 DRILL PRESS OPERATOR EXAM, ROUTINE 11/15/2011 V74.5 STD SCREEN 11/15/2011 V65.45 STD COUNSELING 11/15/2011 V72.31 DRILL PRESS OPERATOR EXAM, ROUTINE 11/15/2011 V74.5 STD SCREEN 11/15/2011 JESIKA HOWARD DO V65.45 STD COUNSELING 11/15/2011 JESIKA HOWARD DO V72.31 DRILL PRESS OPERATOR EXAM, ROUTINE 11/15/2011 JESIKA HOWARD DO V74.5 STD SCREEN 11/15/2011 [facility] 11/15/2011 [facility], [place] R V72.31 DRILL PRESS OPERATOR EXAM, ROUTINE 11/15/2011 [facility], [place] R V74.5 STD SCREEN 11/15/2011 [facility], [place] R V65.45 STD COUNSELING 11/15/2011 [facility], [place] R V72.31 DRILL PRESS OPERATOR EXAM, ROUTINE 11/15/2011 [facility], [place] R V74.5 STD SCREEN 11/15/2011 HO BELLAMY PILLO NELSONH V65.45 STD COUNSELING 11/15/2011 HO BELLAMY, PILLO NELSONH V72.31 DRILL PRESS OPERATOR EXAM, ROUTINE 11/15/2011 HO BELLAMY PILLO NELSONH V74.5 STD SCREEN 11/15/2011 KARIS CHANCE APRN N V65.45 STD COUNSELING 11/15/2011 KARIS CHANCE APRN N V72.31 DRILL PRESS OPERATOR EXAM, ROUTINE 11/15/2011 KARIS CHANCE APRN N V74.5 STD SCREEN 11/15/2011 KARIS CHANCE APRN N V65.45 STD COUNSELING 11/15/2011 KARIS CHANCE APRN N V72.31 DRILL PRESS OPERATOR EXAM, ROUTINE 11/15/2011 KARIS CHANCE APRN N V74.5 STD SCREEN 11/15/2011 HO BELLAMY PILLO JODI V65.45 STD COUNSELING 11/15/2011 HO BELLAMY PILLO NELSONH V72.31 DRILL PRESS OPERATOR EXAM, ROUTINE 11/15/2011 HO BELLAMY PILLO NELSONH V74.5 STD SCREEN 11/15/2011 HO BELLAMY PILLO JODI V65.45 STD COUNSELING 11/15/2011 HO BELLAMY PILLO NELSONH V72.31 DRILL PRESS OPERATOR EXAM, ROUTINE 11/15/2011 HO BELLAMY PILLO JODI V74.5 STD SCREEN 11/15/2011 ROD ORONA APRN V65.45 STD COUNSELING 11/15/2011 ROD ORONA APRN V72.31 DRILL PRESS OPERATOR EXAM, ROUTINE 11/15/2011 ROD ORONA APRN V74.5 STD SCREEN 11/15/2011 DAMION MANSFIELD APRN V65.45 STD COUNSELING 11/15/2011 DAMION MANSFIELD APRN V72.31 DRILL PRESS OPERATOR EXAM, ROUTINE 11/15/2011 DAMION MANSFIELD APRN R V74.5 STD SCREEN 11/15/2011 ROCIO YIN, STAN V65.45 STD COUNSELING 11/15/2011 STAN CHAN MD V72.31 DRILL PRESS OPERATOR EXAM, ROUTINE 11/15/2011 STAN CHAN MD V74.5 STD SCREEN 11/15/2011 BRENDA TOVAR, PIETER Nelson V65.45 STD COUNSELING 11/15/2011 BRENDA TOVAR, PIETER Nelson V72.31 DRILL PRESS OPERATOR EXAM, ROUTINE 11/15/2011 BRENDA TOVAR, PIETER Nelson V74.5 STD SCREEN 11/15/2011 PIETER GUTIERREZ RN V65.45 STD COUNSELING 11/15/2011 PIETER GUTIERREZ RN V72.31 DRILL PRESS OPERATOR EXAM, ROUTINE 11/15/2011 BRENDA TOVAR, PIETER Nelson V74.5 STD SCREEN 11/15/2011 JESIKA HOWARD DO V65.45 STD COUNSELING 11/15/2011 JESIKA HOWARD DO V72.31 DRILL PRESS OPERATOR EXAM, ROUTINE 11/15/2011 JESIKA HOWARD DO V74.5 STD SCREEN 11/15/2011 JESIKA HOWARD DO V65.45 STD COUNSELING 11/15/2011 JESIKA HOWARD DO V72.31 DRILL PRESS OPERATOR EXAM, ROUTINE 11/15/2011 JESIKA HOWARD DO V74.5 STD SCREEN 11/15/2011 BRENDA TOVAR, PIETER Nelson V65.45 STD COUNSELING 11/15/2011 BRENDA TOVAR, PIETER Nelson V72.31 DRILL PRESS OPERATOR EXAM, ROUTINE 11/15/2011 PIETER GUTIERREZ RN V74.5 STD SCREEN 11/15/2011 JESIKA OHWARD DO V65.45 STD COUNSELING 11/15/2011 JESIKA HOWARD DO V72.31 DRILL PRESS OPERATOR EXAM, ROUTINE 11/15/2011 RHETT HOWARD DOA K V74.5 STD SCREEN 11/15/2011 PINA SMITH V65.45 STD COUNSELING 11/15/2011 PINA SMITH V72.31 DRILL PRESS OPERATOR EXAM, ROUTINE 11/15/2011 PINA SMITH V74.5 STD SCREEN 11/15/2011 JESIKA HOWARD DO V65.45 STD COUNSELING 11/15/2011 JESIKA HOWARD DO V72.31 DRILL PRESS OPERATOR EXAM, ROUTINE 11/15/2011 JESIKA HOWARD DO V74.5 STD SCREEN 11/15/2011 PIETER GUTIERREZ RN V65.45 STD COUNSELING 11/15/2011 BRENDA TOVAR, PIETER Nelson V72.31 DRILL PRESS OPERATOR EXAM, ROUTINE 11/15/2011 PIETER GUTIERREZ RN V74.5 STD SCREEN 11/15/2011 PIETER GUTIERREZ RN V65.45 STD COUNSELING 11/15/2011 PIETER GUTIERREZ RN V72.31 DRILL PRESS OPERATOR EXAM, ROUTINE 11/15/2011 PIETER GUTIERREZ RN V74.5 STD SCREEN 11/15/2011 PINA SMITH V65.45 STD COUNSELING 11/15/2011 PINA SMITH V72.31 DRILL PRESS OPERATOR EXAM, ROUTINE 11/15/2011 PINA SMITH V74.5 STD SCREEN 11/15/2011 PIETER GUTIERREZ RN V65.45 STD COUNSELING 11/15/2011 PIETER GUTIERREZ RN V72.31 DRILL PRESS OPERATOR EXAM, ROUTINE 11/15/2011 PIETER GUTIERREZ RN V74.5 STD SCREEN 11/15/2011 PINA SMITH V65.45 STD COUNSELING 11/15/2011 PINA SMITH M V72.31 DRILL PRESS OPERATOR EXAM, ROUTINE 11/15/2011 PINA SMITH M V74.5 STD SCREEN 11/15/2011 PINA SMITH V65.45 STD COUNSELING 11/15/2011 PINA SMITH M V72.31 DRILL PRESS OPERATOR EXAM, ROUTINE 11/15/2011 PINA SMITH M V74.5 STD SCREEN 02/21/2012 Ot 276.51 DEHYDRATION 02/21/2012 Ot 787.03 VOMITING ALONE 02/21/2012 Ot 787.91 DIARRHEA 03/09/2012 [facility] LCPC 842.00 SPRAIN/STRAIN WRIST 03/09/2012 TEMO SOTO APRN 842.00 SPRAIN/STRAIN WRIST 03/09/2012 TEMO SOTO APRN 842.00 SPRAIN/STRAIN WRIST 03/09/2012 842.00 SPRAIN/ STRAIN WRIST 03/09/2012 842.00 SPRAIN/ STRAIN WRIST 03/09/2012 842.00 SPRAIN/ STRAIN WRIST 03/09/2012 842.00 SPRAIN/ STRAIN WRIST 03/09/2012 JESIKA HOWARD DO 842.00 SPRAIN/STRAIN WRIST 03/09/2012 [facility], [place] R 842.00 SPRAIN/STRAIN WRIST 03/09/2012 [facility], [place] R 842.00 SPRAIN/STRAIN WRIST 03/09/2012 HO LAYNEN, PILLO ZAPATA 842.00 SPRAIN/STRAIN WRIST 03/09/2012 LUDWIN RUDOLPH APRN, KARIS N 842.00 SPRAIN/STRAIN WRIST 03/09/2012 LUDWIN RUDOLPH APRN, KARIS N 842.00 SPRAIN/STRAIN WRIST 03/09/2012 HO LAYNEN, PILLO ZAPATA 842.00 SPRAIN/STRAIN WRIST 03/09/2012 HO LAYNEN, PILLO ZAPATA 842.00 SPRAIN/STRAIN WRIST 03/09/2012 ROD ORONA APRN 842.00 SPRAIN/STRAIN WRIST 03/09/2012 DAMION MANSFIELD APRN R 842.00 SPRAIN/STRAIN WRIST 03/09/2012 ROCIO YIN, STAN 842.00 SPRAIN/STRAIN WRIST 03/09/2012 BRENDA TOVAR, PIETER E 842.00 SPRAIN/STRAIN WRIST 03/09/2012 BRENDA TOVAR, PIETER E 842.00 SPRAIN/STRAIN WRIST 03/09/2012 HOWARD DO, JESIKA K 842.00 SPRAIN/STRAIN WRIST 03/09/2012 HOWARD DO, JESIKA K 842.00 SPRAIN/STRAIN WRIST 03/09/2012 BRENDA TOVAR, PIETER E 842.00 SPRAIN/STRAIN WRIST 03/09/2012 HOWARD DO, JESIKA K 842.00 SPRAIN/STRAIN WRIST 03/09/2012 PINA SMITH 842.00 SPRAIN/STRAIN WRIST 03/09/2012 HOWARD DO JESIKA K 842.00 SPRAIN/STRAIN WRIST 03/09/2012 PIETER GUTIERREZ RN E 842.00 SPRAIN/STRAIN WRIST 03/09/2012 PIETER GUTIERREZ RN 842.00 SPRAIN/STRAIN WRIST 03/09/2012 PINA SMITH 842.00 SPRAIN/STRAIN WRIST 03/09/2012 PIETER GUTIERREZ RN E 842.00 SPRAIN/STRAIN WRIST 03/09/2012 PINA SMITH 842.00 SPRAIN/STRAIN WRIST 03/09/2012 PINA SMITH 842.00 SPRAIN/STRAIN WRIST 04/29/2012 Ot 923.20 CONTUSION OF HAND(S) 04/29/2012 Ot 959.4 HAND INJURY NOS 04/29/2012 Ot E000.8 OTHER EXTERNAL CAUSE STATUS 04/29/2012 Ot E849.0 ACCIDENT IN HOME 04/29/2012 Ot E918 CAUGHT BETWEEN OBJECTS 06/08/2012 Ot 564.00 UNSPEC CONSTIPATION 06/08/2012 Ot 789.00 ABDOMINAL PAIN, UNSPECIFIED SITE 07/27/2012 JESUSITA CARRILLOPC, BARBARA B 465.9 UPPER RESPIRATORY INFECTION 07/27/2012 TEMO SOTO APRN S 465.9 UPPER RESPIRATORY INFECTION 07/27/2012 TEMO SOTO APRN S 465.9 UPPER RESPIRATORY INFECTION 07/27/2012 465.9 UPPER RESPIRATORY INFECTION 07/27/2012 465.9 UPPER RESPIRATORY INFECTION 07/27/2012 465.9 UPPER RESPIRATORY INFECTION 07/27/2012 465.9 UPPER RESPIRATORY INFECTION 07/27/2012 JESIKA HOWARD DO K 465.9 UPPER RESPIRATORY INFECTION 07/27/2012 [facility], [place] R 465.9 UPPER RESPIRATORY INFECTION 07/27/2012 [facility], [place] R 465.9 UPPER RESPIRATORY INFECTION 07/27/2012 PILLO TEAGUE APRN 465.9 UPPER RESPIRATORY INFECTION 07/27/2012 KARIS CHANCE APRN N 465.9 UPPER RESPIRATORY INFECTION 07/27/2012 KARIS CHANCE APRN N 465.9 UPPER RESPIRATORY INFECTION 07/27/2012 HO BELLAMY PILLO JODI 465.9 UPPER RESPIRATORY INFECTION 07/27/2012 PILLO TEAGUE APRN 465.9 UPPER RESPIRATORY INFECTION 07/27/2012 ROD ORONA APRN 465.9 UPPER RESPIRATORY INFECTION 07/27/2012 DAMION MANSFIELD APRN R 465.9 UPPER RESPIRATORY INFECTION 07/27/2012 STAN CHAN MD 465.9 UPPER RESPIRATORY INFECTION 07/27/2012 PIETER GUTIERREZ RN 465.9 UPPER RESPIRATORY INFECTION 07/27/2012 PIETER GUTIERREZ RN 465.9 UPPER RESPIRATORY INFECTION 07/27/2012 JESIKA HOWARD DO K 465.9 UPPER RESPIRATORY INFECTION 07/27/2012 JESIKA HOWARD DO K 465.9 UPPER RESPIRATORY INFECTION 07/27/2012 PIETER GUTIERREZ RN 465.9 UPPER RESPIRATORY INFECTION 07/27/2012 LEE WINTER JESIKA K 465.9 UPPER RESPIRATORY INFECTION 07/27/2012 ERNESTINA SALVAGE INSPECTOR, PINA M 465.9 UPPER RESPIRATORY INFECTION 07/27/2012 LEE WINTERRHETTA K 465.9 UPPER RESPIRATORY INFECTION 07/27/2012 BRENDA TOVAR, PIETER E 465.9 UPPER RESPIRATORY INFECTION 07/27/2012 BRENDA TOVAR, PIETER E 465.9 UPPER RESPIRATORY INFECTION 07/27/2012 ERNESTINA BANGURA, PINA M 465.9 UPPER RESPIRATORY INFECTION 07/27/2012 BRENDA TOVAR, PIETER E 465.9 UPPER RESPIRATORY INFECTION 07/27/2012 ERNESTINA SALVAGE INSPECTOR, PINA M 465.9 UPPER RESPIRATORY INFECTION 07/27/2012 ERNESTINA SALVAGE INSPECTOR, PINA M 465.9 UPPER RESPIRATORY INFECTION 07/31/2012 JESUSITA [facility], BAR[facility]A Byrne 296.52 MO BIPOLAR I DEPRESSED MODERATE 07/31/2012 RAMYA SOTO APRNA S 296.52 MO BIPOLAR I DEPRESSED MODERATE 07/31/2012 RAMYA SOTO APRNA S 296.52 MO BIPOLAR I DEPRESSED MODERATE 07/31/2012 296.52 MO BIPOLAR I DEPRESSED MODERATE 07/31/2012 296.52 MO BIPOLAR I DEPRESSED MODERATE 07/31/2012 296.52 MO BIPOLAR I DEPRESSED MODERATE 07/31/2012 296.52 MO BIPOLAR I DEPRESSED MODERATE 07/31/2012 HOWARD RHETT WINTERA K 296.52 MO BIPOLAR I DEPRESSED MODERATE 07/31/2012 [facility], [place] R 296.52 MO BIPOLAR I DEPRESSED MODERATE 07/31/2012 [facility], [place] R 296.52 MO BIPOLAR I DEPRESSED MODERATE 07/31/2012 PILLO TEAGUE APRN 296.52 MO BIPOLAR I DEPRESSED MODERATE 07/31/2012 KARIS CHANCE APRN N 296.52 MO BIPOLAR I DEPRESSED MODERATE 07/31/2012 KARIS CHANCE APRN N 296.52 MO BIPOLAR I DEPRESSED MODERATE 07/31/2012 PILLO TEAGUE APRN 296.52 MO BIPOLAR I DEPRESSED MODERATE 07/31/2012 PILLO TEAGUE APRN 296.52 MO BIPOLAR I DEPRESSED MODERATE 07/31/2012 ROD ORONA APRN 296.52 MO BIPOLAR I DEPRESSED MODERATE 07/31/2012 DAMION MANSFIELD APRN 296.52 MO BIPOLAR I DEPRESSED MODERATE 07/31/2012 ROCIO YIN, STAN 296.52 MO BIPOLAR I DEPRESSED MODERATE 07/31/2012 BRENDA TOVAR, PIETER E 296.52 MO BIPOLAR I DEPRESSED MODERATE 07/31/2012 BRENDA TOVAR, PIETER E 296.52 MO BIPOLAR I DEPRESSED MODERATE 07/31/2012 HOWARD DO, JESIKA K 296.52 MO BIPOLAR I DEPRESSED MODERATE 07/31/2012 HOWARD DO, JESIKA K 296.52 MO BIPOLAR I DEPRESSED MODERATE 07/31/2012 PIETER GUTIERREZ RN E 296.52 MO BIPOLAR I DEPRESSED MODERATE 07/31/2012 HOWARD DO, JESIKA K 296.52 MO BIPOLAR I DEPRESSED MODERATE 07/31/2012 PINA SMITH M 296.52 MO BIPOLAR I DEPRESSED MODERATE 07/31/2012 HOWARD DO, JESIKA K 296.52 MO BIPOLAR I DEPRESSED MODERATE 07/31/2012 PIETER GUTIERREZ RN E 296.52 MO BIPOLAR I DEPRESSED MODERATE 07/31/2012 BRENDA TOVAR, PIETER E 296.52 MO BIPOLAR I DEPRESSED MODERATE 07/31/2012 PINA SMITH M 296.52 MO BIPOLAR I DEPRESSED MODERATE 07/31/2012 BRENDA TOVAR, PIETER E 296.52 MO BIPOLAR I DEPRESSED MODERATE 07/31/2012 PINA SMITH M 296.52 MO BIPOLAR I DEPRESSED MODERATE 07/31/2012 PINA SMITH M 296.52 MO BIPOLAR I DEPRESSED MODERATE 08/06/2012 Ot 466.0 ACUTE BRONCHITIS 08/06/2012 Ot 786.2 COUGH 10/05/2012 TEMO SOTO APRN S 729.5 PAIN IN LIMB 10/05/2012 TEMO SOTO APRN 729.5 PAIN IN LIMB 10/05/2012 729.5 PAIN IN LIMB 10/05/2012 729.5 PAIN IN LIMB 10/05/2012 729.5 PAIN IN LIMB 10/05/2012 729.5 PAIN IN LIMB 10/05/2012 JESIKA HOWARD DO K 729.5 PAIN IN LIMB 10/05/2012 [facility] IN LIMB 10/05[facility]2012 [facility] 729.[facility] PAIN IN LIMB 10/05/2012 PILLO TEAGUE APRN 729.5 PAIN IN LIMB 10/05/2012 KARIS CHANCE APRN N 729.5 PAIN IN LIMB 10/05/2012 KARIS CHANCE APRN 729.5 PAIN IN LIMB 10/05/2012 TEAGUE APRN, PILLO ZAPATA 729.5 PAIN IN LIMB 10/05/2012 TEAGUEROHAN BELLAMY, PILLO ZAPATA 729.5 PAIN IN LIMB 10/05/2012 ROD ORONA APRN 729.5 PAIN IN LIMB 10/05/2012 DAMION MANSFIELD APRN 729.5 PAIN IN LIMB 10/05/2012 STAN CHAN MD 729.5 PAIN IN LIMB 10/05/2012 PIETER GUTIERREZ RN 729.5 PAIN IN LIMB 10/05/2012 PIETER GUTIERREZ RN 729.5 PAIN IN LIMB 10/05/2012 HOWARD DO, JESIKA K 729.5 PAIN IN LIMB 10/05/2012 HOWARD DO, JESIKA K 729.5 PAIN IN LIMB 10/05/2012 PIETER GUTIERREZ RN 729.5 PAIN IN LIMB 10/05/2012 HOWARD DO, JESIKA K 729.5 PAIN IN LIMB 10/05/2012 PINA SMITH 729.5 PAIN IN LIMB 10/05/2012 HOWARD , JESIKA K 729.5 PAIN IN LIMB 10/05/2012 PIETER GUTIERREZ RN 729.5 PAIN IN LIMB 10/05/2012 PIETER GUTIERREZ RN 729.5 PAIN IN LIMB 10/05/2012 PINA SMITH 729.5 PAIN IN LIMB 10/05/2012 PIETER GUTIERREZ RN 729.5 PAIN IN LIMB 10/05/2012 PINA SMITH 729.5 PAIN IN LIMB 10/05/2012 PINA SMITH 729.5 PAIN IN LIMB 12/21/2012 Ot 924.11 CONTUSION OF KNEE 12/21/2012 Ot 959.7 LOWER LEG INJURY NOS 12/21/2012 Ot E000.8 OTHER EXTERNAL CAUSE STATUS 12/21/2012 Ot E849.0 ACCIDENT IN HOME 12/21/2012 Ot E917.9 STRUCK BY OBJ/PERSON NEC 02/03/2013 305.1 TOBACCO ABUSE 02/03/2013 V16.3 FAMILY HISTORY OF MALIGNANT NEOPLASM OF BREAST 02/03/2013 V73.81 HPV SCREENING 02/03/2013 V76.47 VAGINAL PAP SMEAR SCREENING 02/03/2013 305.1 TOBACCO ABUSE 02/03/2013 V16.3 FAMILY HISTORY OF MALIGNANT NEOPLASM OF BREAST 02/03/2013 V73.81 HPV SCREENING 02/03/2013 V76.47 VAGINAL PAP SMEAR SCREENING 02/03/2013 305.1 TOBACCO ABUSE 02/03/2013 V16.3 FAMILY HISTORY OF MALIGNANT NEOPLASM OF BREAST 02/03/2013 V73.81 HPV SCREENING 02/03/2013 V76.47 VAGINAL PAP SMEAR SCREENING 02/03/2013 JESIKA HOWARD DO K 305.1 TOBACCO ABUSE 02/03/2013 JESIKA HOWARD DO K V16.3 FAMILY HISTORY OF MALIGNANT NEOPLASM OF BREAST 02/03/2013 HOWARD , JESIKA K V73.81 HPV SCREENING 02/03/2013 HOWARD RHETT WINTERA K V76.47 VAGINAL PAP SMEAR SCREENING 02/03/2013 [facility], ARGELIA R 305.1 TOBACCO ABUSE 02/03/2013 [facility], ARGELIA R V16.3 FAMILY HISTORY OF MALIGNANT NEOPLASM OF BREAST 02/03/2013 [facility], ARGELIA R V73.81 HPV SCREENING 02/03/2013 [facility], ARGELIA R V76.47 VAGINAL PAP SMEAR SCREENING 02/03/2013 [facility], ARGELIA R 305.1 TOBACCO ABUSE 02/03/2013 [facility], ARGELIA R V16.3 FAMILY HISTORY OF MALIGNANT NEOPLASM OF BREAST 02/03/2013 [facility], ARGELIA R V73.81 HPV SCREENING 02/03/2013 [facility], ARGELIA R V76.47 VAGINAL PAP SMEAR SCREENING 02/03/2013 HO BELLAMY PILLO ZAPATA 305.1 TOBACCO ABUSE 02/03/2013 HO BELLAMY PILLO ZAPATA V16.3 FAMILY HISTORY OF MALIGNANT NEOPLASM OF BREAST 02/03/2013 HO BELLAMY PILLO ZAPATA V73.81 HPV SCREENING 02/03/2013 HO BELLAMY PILLO ZAPATA V76.47 VAGINAL PAP SMEAR SCREENING 02/03/2013 KARIS CHANCE APRN N 305.1 TOBACCO ABUSE 02/03/2013 KARIS CHANCE APRN N V16.3 FAMILY HISTORY OF MALIGNANT NEOPLASM OF BREAST 02/03/2013 KARIS CHANCE APRN N V73.81 HPV SCREENING 02/03/2013 KARIS CHANCE APRN N V76.47 VAGINAL PAP SMEAR SCREENING 02/03/2013 KARIS CHANCE APRN N 305.1 TOBACCO ABUSE 02/03/2013 LUDWIN RUDOLPH APRN, KARIS N V16.3 FAMILY HISTORY OF MALIGNANT NEOPLASM OF BREAST 02/03/2013 LUDWIN RUDOLPH APRN, KARIS N V73.81 HPV SCREENING 02/03/2013 LUDWIN RUDOLPH APRN, KARIS N V76.47 VAGINAL PAP SMEAR SCREENING 02/03/2013 PILLO TEAGUE APRN 305.1 TOBACCO ABUSE 02/03/2013 HO BELLAMY, PILLO ZAPATA V16.3 FAMILY HISTORY OF MALIGNANT NEOPLASM OF BREAST 02/03/2013 HO BELLAMY, PILLO ZAPATA V73.81 HPV SCREENING 02/03/2013 HO BELLAMY, PILLO ZAPATA V76.47 VAGINAL PAP SMEAR SCREENING 02/03/2013 PILLO TEAGUE APRN 305.1 TOBACCO ABUSE 02/03/2013 HO BELLAMY, PILLO ZAPATA V16.3 FAMILY HISTORY OF MALIGNANT NEOPLASM OF BREAST 02/03/2013 HO BELLAMY PILLO ZAPATA V73.81 HPV SCREENING 02/03/2013 HO BELLAMY, PILLO ZAPATA V76.47 VAGINAL PAP SMEAR SCREENING 02/03/2013 [facility] [address] T 305.1 TOBACCO ABUSE 02/03/2013 YEYO BELLAMY ROD T V16.3 FAMILY HISTORY OF MALIGNANT NEOPLASM OF BREAST 02/03/2013 [employer] EXAMINER, ROD T V73.81 HPV SCREENING 02/03/2013 [employer] D[employer] EXAMINER, ROD T V76.47 VAGINAL PAP SMEAR SCREENING 02/03/2013 ROSALIE MANSFIELD APRNRICIA R 305.1 TOBACCO ABUSE 02/03/2013 DONAL BELLAMY DAMION R V16.3 FAMILY HISTORY OF MALIGNANT NEOPLASM OF BREAST 02/03/2013 DONAL BELLAMY DAMION R V73.81 HPV SCREENING 02/03/2013 DONAL BELLAMY DAMION R V76.47 VAGINAL PAP SMEAR SCREENING 02/03/2013 STAN CHAN MD 305.1 TOBACCO ABUSE 02/03/2013 STAN CHAN MD V16.3 FAMILY HISTORY OF MALIGNANT NEOPLASM OF BREAST 02/03/2013 STAN CHAN MD V73.81 HPV SCREENING 02/03/2013 STAN CHAN MD V76.47 VAGINAL PAP SMEAR SCREENING 02/03/2013 BRENDA TOVAR, PIETER E 305.1 TOBACCO ABUSE 02/03/2013 PIETER GUTIERREZ RN V16.3 FAMILY HISTORY OF MALIGNANT NEOPLASM OF BREAST 02/03/2013 PIETER GUTIERREZ RN V73.81 HPV SCREENING 02/03/2013 PIETER GUTIERREZ RN V76.47 VAGINAL PAP SMEAR SCREENING 02/03/2013 PIETER GUTIERREZ RN 305.1 TOBACCO ABUSE 02/03/2013 PIETER GUTIERREZ RN V16.3 FAMILY HISTORY OF MALIGNANT NEOPLASM OF BREAST 02/03/2013 PIETER GUTIERREZ RN V73.81 HPV SCREENING 02/03/2013 PIETER GUTIERREZ RN V76.47 VAGINAL PAP SMEAR SCREENING 02/03/2013 JESIKA HOWARD DO 305.1 TOBACCO ABUSE 02/03/2013 RHETT HOWARD DOA K V16.3 FAMILY HISTORY OF MALIGNANT NEOPLASM OF BREAST 02/03/2013 RHETT HOWARD DOA K V73.81 HPV SCREENING 02/03/2013 RHETT HOWARD DOA K V76.47 VAGINAL PAP SMEAR SCREENING 02/03/2013 JESIKA HOWARD DO 305.1 TOBACCO ABUSE 02/03/2013 RHETT HOWARD DOA K V16.3 FAMILY HISTORY OF MALIGNANT NEOPLASM OF BREAST 02/03/2013 RHETT HOWARD DOA K V73.81 HPV SCREENING 02/03/2013 RHETT HOWARD DOA K V76.47 VAGINAL PAP SMEAR SCREENING 02/03/2013 PIETER GUTIERREZ RN 305.1 TOBACCO ABUSE 02/03/2013 PIETER GUTIERREZ RN V16.3 FAMILY HISTORY OF MALIGNANT NEOPLASM OF BREAST 02/03/2013 PIETER GUTIERREZ RN V73.81 HPV SCREENING 02/03/2013 PIETER GUTIERREZ RN V76.47 VAGINAL PAP SMEAR SCREENING 02/03/2013 JESIKA HOWARD DO 305.1 TOBACCO ABUSE 02/03/2013 RHETT HOWARD DOA K V16.3 FAMILY HISTORY OF MALIGNANT NEOPLASM OF BREAST 02/03/2013 RHETT HOWARD DOA K V73.81 HPV SCREENING 02/03/2013 RHETT OHWARD DOA K V76.47 VAGINAL PAP SMEAR SCREENING 02/03/2013 PINA SMITH 305.1 TOBACCO ABUSE 02/03/2013 PINA SMITH V16.3 FAMILY HISTORY OF MALIGNANT NEOPLASM OF BREAST 02/03/2013 PINA SMITH V73.81 HPV SCREENING 02/03/2013 PINA SMITH V76.47 VAGINAL PAP SMEAR SCREENING 02/03/2013 HOWARD DOJESIKA K 305.1 TOBACCO ABUSE 02/03/2013 LEE DO JESIKA K V16.3 FAMILY HISTORY OF MALIGNANT NEOPLASM OF BREAST 02/03/2013 HOWARD DO JESIKA K V73.81 HPV SCREENING 02/03/2013 HOWARD DOJESIKA K V76.47 VAGINAL PAP SMEAR SCREENING 02/03/2013 PIETER GUTIERREZ RN 305.1 TOBACCO ABUSE 02/03/2013 PIETER GUTIERREZ RN V16.3 FAMILY HISTORY OF MALIGNANT NEOPLASM OF BREAST 02/03/2013 PIETER GUTIERREZ RN V73.81 HPV SCREENING 02/03/2013 PIETER GUTIERREZ RN V76.47 VAGINAL PAP SMEAR SCREENING 02/03/2013 PIETER GUTIERREZ RN 305.1 TOBACCO ABUSE 02/03/2013 PIETER GUTIERREZ RN V16.3 FAMILY HISTORY OF MALIGNANT NEOPLASM OF BREAST 02/03/2013 PIETER GUTIERREZ RN V73.81 HPV SCREENING 02/03/2013 PIETER GUTIERREZ RN V76.47 VAGINAL PAP SMEAR SCREENING 02/03/2013 PINA SMITH 305.1 TOBACCO ABUSE 02/03/2013 PINA SMITH V16.3 FAMILY HISTORY OF MALIGNANT NEOPLASM OF BREAST 02/03/2013 PINA SMITH V73.81 HPV SCREENING 02/03/2013 PINA SMITH V76.47 VAGINAL PAP SMEAR SCREENING 02/03/2013 PIETER GUTIERERZ RN 305.1 TOBACCO ABUSE 02/03/2013 PIETER GUTIERREZ RN V16.3 FAMILY HISTORY OF MALIGNANT NEOPLASM OF BREAST 02/03/2013 PIETER GUTIERREZ RN V73.81 HPV SCREENING 02/03/2013 PIETER GUTIERREZ RN V76.47 VAGINAL PAP SMEAR SCREENING 02/03/2013 PINA SMITH 305.1 TOBACCO ABUSE 02/03/2013 PINA SMITH V16.3 FAMILY HISTORY OF MALIGNANT NEOPLASM OF BREAST 02/03/2013 PINA SMITH V73.81 HPV SCREENING 02/03/2013 PINA SMITH V76.47 VAGINAL PAP SMEAR SCREENING 02/03/2013 PINA SMITH 305.1 TOBACCO ABUSE 02/03/2013 PINA SMITH M V16.3 FAMILY HISTORY OF MALIGNANT NEOPLASM OF BREAST 02/03/2013 PINA SMITH V73.81 HPV SCREENING 02/03/2013 PINA SMITH V76.47 VAGINAL PAP SMEAR SCREENING 03/20/2013 FELICITY BLAKELY MD Ot 692.9 DERMATITIS NOS 03/20/2013 FELICITY BLAKELY MD Ot 782.1 NONSPECIF SKIN ERUPT NEC 03/24/2013 GLENDA JIMENEZ DO Ot 300.00 ANXIETY STATE NOS 03/24/2013 GLENDA JIMENEZ DO Fausto Ot 786.50 CHEST PAIN NOS 05/04/2013 ABDULLAHI 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 Ot 535.50 UNSP GASTRITIS GASTRODUODENITIS W/O ME 05/04/2013 ABDULLAHI 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 Ot 784.0 HEADACHE 05/04/2013 ABDULLAHI 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 Ot 787.01 NAUSEA WITH VOMITING 05/24/2013 RAMAKRISHNA DURAN Ot 525.9 DENTAL DISORDER NOS 05/24/2013 RAMAKRISHNA DURAN Ot V45.89 POSTSURGICAL STATES NEC 06/07/2013 JESIKA HOWARD DO 719.46 PAIN IN JOINT INVOLVING LOWER LEG 06/07/2013 JESIKA HOWARD DO V04.81 FLU SHOT 06/07/2013 [facility] 719[facility] PAIN IN JOINT INVOLVING LOWER LEG 06/07/2013 [facility] V04.81 FLU SHOT 06/07/2013 [facility] 719.46 PAIN IN JOINT INVOLVING LOWER LEG 06/07/2013 [facility] FLU SHOT 06/07/2013 PILLO TEAGUE APRN 719.46 PAIN IN JOINT INVOLVING LOWER LEG 06/07/2013 PILLO TEAGUE APRN V04.81 FLU SHOT 06/07/2013 KARIS CHANCE APRN N 719.46 PAIN IN JOINT INVOLVING LOWER LEG 06/07/2013 KARIS CHANCE APRN N V04.81 FLU SHOT 06/07/2013 KARIS CHANCE APRN 719.46 PAIN IN JOINT INVOLVING LOWER LEG 06/07/2013 KARIS CHANCE APRN V04.81 FLU SHOT 06/07/2013 PILLO TEAGUE APRN 719.46 PAIN IN JOINT INVOLVING LOWER LEG 06/07/2013 PILLO TEAGUE APRN V04.81 FLU SHOT 06/07/2013 PILLO TEAGUE APRN 719.46 PAIN IN JOINT INVOLVING LOWER LEG 06/07/2013 PILLO TEAGUE APRN V04.81 FLU SHOT 06/07/2013 YEYO ROD BELLAMY 719.46 PAIN IN JOINT INVOLVING LOWER LEG 06/07/2013 ROD ORONA APRN V04.81 FLU SHOT 06/07/2013 DAMION MANSFIELD APRN 719.46 PAIN IN JOINT INVOLVING LOWER LEG 06/07/2013 DAMION MANSFIELD APRN R V04.81 FLU SHOT 06/07/2013 STAN CHAN MD 719.46 PAIN IN JOINT INVOLVING LOWER LEG 06/07/2013 STAN CHAN MD V04.81 FLU SHOT 06/07/2013 PIETER GUTIERREZ RN 719.46 PAIN IN JOINT INVOLVING LOWER LEG 06/07/2013 PIETER GUTIERREZ RN V04.81 FLU SHOT 06/07/2013 PIETER GUTIERREZ RN 719.46 PAIN IN JOINT INVOLVING LOWER LEG 06/07/2013 PIETER GUTIERREZ RN V04.81 FLU SHOT 06/07/2013 HOWARD DO, JESIKA K 719.46 PAIN IN JOINT INVOLVING LOWER LEG 06/07/2013 HOWARD DO, JESIKA K V04.81 FLU SHOT 06/07/2013 HOWARD DO JESIKA K 719.46 PAIN IN JOINT INVOLVING LOWER LEG 06/07/2013 HOWARD DO, JESIKA K V04.81 FLU SHOT 06/07/2013 PIETER GUTIERREZ RN 719.46 PAIN IN JOINT INVOLVING LOWER LEG 06/07/2013 PIETER GUTIERREZ RN V04.81 FLU SHOT 06/07/2013 HOWARD DO, JESIKA K 719.46 PAIN IN JOINT INVOLVING LOWER LEG 06/07/2013 HOWARD DO, JESIKA K V04.81 FLU SHOT 06/07/2013 PINA SMITH 719.46 PAIN IN JOINT INVOLVING LOWER LEG 06/07/2013 PINA SMITH V04.81 FLU SHOT 06/07/2013 HOWARD DO JESIKA K 719.46 PAIN IN JOINT INVOLVING LOWER LEG 06/07/2013 HOWARD DO, JESIKA K V04.81 FLU SHOT 06/07/2013 GUTIERREZ RN, PIETER E 719.46 PAIN IN JOINT INVOLVING LOWER LEG 06/07/2013 BRENDA TOVAR, PIETER E V04.81 FLU SHOT 06/07/2013 PIETER GUTIERREZ RN 719.46 PAIN IN JOINT INVOLVING LOWER LEG 06/07/2013 BRENDA TOVAR, PIETER E V04.81 FLU SHOT 06/07/2013 PINA SMITH 719.46 PAIN IN JOINT INVOLVING LOWER LEG 06/07/2013 PINA SMITH V04.81 FLU SHOT 06/07/2013 PIETER GUTIERREZ RN 719.46 PAIN IN JOINT INVOLVING LOWER LEG 06/07/2013 BRENDA TOVAR, PIETER E V04.81 FLU SHOT 06/07/2013 PINA SMITH 719.46 PAIN IN JOINT INVOLVING LOWER LEG 06/07/2013 PINA SMITH V04.81 FLU SHOT 06/07/2013 PINA SMITH 719.46 PAIN IN JOINT INVOLVING LOWER LEG 06/07/2013 PINA SMITH V04.81 FLU SHOT 07/03/2013 JUSTYN YIN, SIA R Ot 338.18 OTHER ACUTE POSTOPERATIVE PAIN 07/03/2013 JUSTYN YIN, SIA R Ot 719.46 JOINT PAIN-L/LEG 07/03/2013 JUSTYN YIN, SIA R Ot 780.62 POSTPROCEDURAL FEVER 09/11/2013 ABDULLAHI RECIO APRN Ot 490 BRONCHITIS NOS 09/11/2013 ABDULLAHI RECIO APRN Ot 786.2 COUGH 09/16/2013 TRACY YIN, MADELINE Albrecht Ot 490 BRONCHITIS NOS 09/24/2013 ABDULLAHI RECIO APRN Ot 465.9 ACUTE URI NOS 09/24/2013 ABDULLAHI 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 Ot 786.2 COUGH 09/30/2013 MASCORRO CASHSARTHAK BELLAMY, KARIS N 466.0 ACUTE BRONCHITIS 09/30/2013 MASCORRO CASHERO JOSESITO, KARIS N 786.2 COUGH 09/30/2013 MASCORRO CASHERO DIGITAL FORENSICS EXAMINER, KARIS N 466.0 ACUTE BRONCHITIS 09/30/2013 MASCORRO CASHERO JOSESITO, KARIS N 786.2 COUGH 09/30/2013 PILLO TEAGUE APRN 466.0 ACUTE BRONCHITIS 09/30/2013 PILLO TEAGUE APRN 786.2 COUGH 09/30/2013 PILLO TEAGUE APRN 466.0 ACUTE BRONCHITIS 09/30/2013 HO DIGITAL FORENSICS EXAMINER, PILLO ZAPATA 786.2 COUGH 09/30/2013 YEYO DIGITAL FORENSICS EXAMINER, ROD T 466.0 ACUTE BRONCHITIS 09/30/2013 YEYO DIGITAL FORENSICS EXAMINER, ROD T 786.2 COUGH 09/30/2013 MANSFIELD DIGITAL FORENSICS EXAMINER, DAMION R 466.0 ACUTE BRONCHITIS 09/30/2013 DONAL DIGITAL FORENSICS EXAMINER, DAMION R 786.2 COUGH 09/30/2013 STAN CHAN MD 466.0 ACUTE BRONCHITIS 09/30/2013 STAN CHAN MD 786.2 COUGH 09/30/2013 BRENDA TOVAR, PIETER E 466.0 ACUTE BRONCHITIS 09/30/2013 BRENDA TOVAR, PIETER E 786.2 COUGH 09/30/2013 BRENDA TOVAR, PIETER E 466.0 ACUTE BRONCHITIS 09/30/2013 BRENDA TOVAR, PIETER E 786.2 COUGH 09/30/2013 HOWARD DO, JESIKA K 466.0 ACUTE BRONCHITIS 09/30/2013 HOWADR DO, JESIKA K 786.2 COUGH 09/30/2013 HOWARD DO, JESIKA K 466.0 ACUTE BRONCHITIS 09/30/2013 HOWARD DO, JESIKA K 786.2 COUGH 09/30/2013 BRENDA TOVAR, PIETER E 466.0 ACUTE BRONCHITIS 09/30/2013 BRENDA TOVAR, PIETER E 786.2 COUGH 09/30/2013 HOWARD DO, JESIKA K 466.0 ACUTE BRONCHITIS 09/30/2013 HOWARD DO, JESIKA K 786.2 COUGH 09/30/2013 PINA SMITH M 466.0 ACUTE BRONCHITIS 09/30/2013 PINA SMITH 786.2 COUGH 09/30/2013 HOWARD DO, JESIKA K 466.0 ACUTE BRONCHITIS 09/30/2013 HOWARD DO, JESIKA K 786.2 COUGH 09/30/2013 BRENDA TOVAR, PIETER E 466.0 ACUTE BRONCHITIS 09/30/2013 BRENDA TOVAR, PIETER E 786.2 COUGH 09/30/2013 BRENDA TOVAR, PIETER E 466.0 ACUTE BRONCHITIS 09/30/2013 BRENDA TOVAR, PIETER E 786.2 COUGH 09/30/2013 PINA SMITH M 466.0 ACUTE BRONCHITIS 09/30/2013 PINA SMITH M 786.2 COUGH 09/30/2013 BRENDA TOVAR, PIETER E 466.0 ACUTE BRONCHITIS 09/30/2013 BRENDA TOVAR, PIETER E 786.2 COUGH 09/30/2013 PINA SMITH M 466.0 ACUTE BRONCHITIS 09/30/2013 PINA SMITH M 786.2 COUGH 09/30/2013 PINA SMITH M 466.0 ACUTE BRONCHITIS 09/30/2013 ERNESTINA BANGURA, PINA M 786.2 COUGH 11/11/2013 HO BELLAMY PILLO JODI 296.42 MO BIPOLAR I MANIC MODERATE 11/11/2013 HO BELLAMY PILLO JODI 296.42 MO BIPOLAR I MANIC MODERATE 11/11/2013 ROD ORONA APRN 296.42 MO BIPOLAR I MANIC MODERATE 11/11/2013 DAMION MANSFIELD APRN 296.42 MO BIPOLAR I MANIC MODERATE 11/11/2013 STAN CHAN MD 296.42 MO BIPOLAR I MANIC MODERATE 11/11/2013 BRENDA TOVAR, PIETER E 296.42 MO BIPOLAR I MANIC MODERATE 11/11/2013 PIETER GUTIERREZ RN 296.42 MO BIPOLAR I MANIC MODERATE 11/11/2013 RHETT HOWARD DOA K 296.42 MO BIPOLAR I MANIC MODERATE 11/11/2013 RHETT HOWARD DOA K 296.42 MO BIPOLAR I MANIC MODERATE 11/11/2013 PIETER GUTIERREZ RN E 296.42 MO BIPOLAR I MANIC MODERATE 11/11/2013 RHETT HOWARD DOA K 296.42 MO BIPOLAR I MANIC MODERATE 11/11/2013 PINA SMITH M 296.42 MO BIPOLAR I MANIC MODERATE 11/11/2013 JESIKA HOWARD DO K 296.42 MO BIPOLAR I MANIC MODERATE 11/11/2013 PIETER GUTIERREZ RN E 296.42 MO BIPOLAR I MANIC MODERATE 11/11/2013 PIETER GUTIERREZ RN E 296.42 MO BIPOLAR I MANIC MODERATE 11/11/2013 PINA SMITH 296.42 MO BIPOLAR I MANIC MODERATE 11/11/2013 PIETER GUTIERREZ RN E 296.42 MO BIPOLAR I MANIC MODERATE 11/11/2013 PINA SMITH 296.42 MO BIPOLAR I MANIC MODERATE 11/11/2013 PINA SMITH 296.42 MO BIPOLAR I MANIC MODERATE 11/25/2013 HO BELLAMY PILLO JODI 295.70 P SCHIZO AFFECTIVE 11/25/2013 ROD ORONA APRN 295.70 P SCHIZO AFFECTIVE 11/25/2013 DONAL BELLAMY, DAMION R 295.70 P SCHIZO AFFECTIVE 11/25/2013 STAN CHAN MD 295.70 P SCHIZO AFFECTIVE 11/25/2013 BRENDA RN, PIETER E 295.70 P SCHIZO AFFECTIVE 11/25/2013 BRENDA RN, PIETER E 295.70 P SCHIZO AFFECTIVE 11/25/2013 HOWARD DO, JESIKA K 295.70 P SCHIZO AFFECTIVE 11/25/2013 HOWARD DO, JESIKA K 295.70 P SCHIZO AFFECTIVE 11/25/2013 BRENDA RN, PIETER E 295.70 P SCHIZO AFFECTIVE 11/25/2013 HOWARD DO, JESIKA K 295.70 P SCHIZO AFFECTIVE 11/25/2013 ERNESTINA SALVAGE INSPECTOR, PINA M 295.70 P SCHIZO AFFECTIVE 11/25/2013 HOWARD DO, JESIKA K 295.70 P SCHIZO AFFECTIVE 11/25/2013 BRENDA RN, PIETER E 295.70 P SCHIZO AFFECTIVE 11/25/2013 BRENDA TOVAR, PIETER E 295.70 P SCHIZO AFFECTIVE 11/25/2013 ERNESTINA SALVAGE INSPECTOR, PINA M 295.70 P SCHIZO AFFECTIVE 11/25/2013 BRENDA RN, PIETER E 295.70 P SCHIZO AFFECTIVE 11/25/2013 ERNESTINA SALVAGE INSPECTOR, PINA M 295.70 P SCHIZO AFFECTIVE 11/25/2013 ERNESTINA SALVAGE INSPECTOR, PINA M 295.70 SCHIZOAFFECTIVE DISORDER UNSPECIFIED STATE 12/07/2013 ROD ORONA APRN 702.8 OTHER SPECIFIED DERMATOSES 12/07/2013 DONAL BELLAMY, DAMION R 702.8 OTHER SPECIFIED DERMATOSES 12/07/2013 TSAN CHAN MD 702.8 OTHER SPECIFIED DERMATOSES 12/07/2013 PIETER GUTIERREZ RN E 702.8 OTHER SPECIFIED DERMATOSES 12/07/2013 PIETER GUTIERREZ RN E 702.8 OTHER SPECIFIED DERMATOSES 12/07/2013 RHETT HOWARD DOA K 702.8 OTHER SPECIFIED DERMATOSES 12/07/2013 RHETT HOWARD DOA K 702.8 OTHER SPECIFIED DERMATOSES 12/07/2013 PIETER GUTIERREZ RN E 702.8 OTHER SPECIFIED DERMATOSES 12/07/2013 HOWARD DO JESIKA K 702.8 OTHER SPECIFIED DERMATOSES 12/07/2013 PINA SMITH 702.8 OTHER SPECIFIED DERMATOSES 12/07/2013 HOWARD DO, JESIKA K 702.8 OTHER SPECIFIED DERMATOSES 12/07/2013 PIETER GUTIERREZ RN 702.8 OTHER SPECIFIED DERMATOSES 12/07/2013 PIETER GUTIERREZ RN 702.8 OTHER SPECIFIED DERMATOSES 12/07/2013 PINA SMITH 702.8 OTHER SPECIFIED DERMATOSES 12/07/2013 PIETER GUTIERREZ RN 702.8 OTHER SPECIFIED DERMATOSES 12/07/2013 PINA SMITH 702.8 OTHER SPECIFIED DERMATOSES 12/07/2013 PINA SMITH 702.8 OTHER SPECIFIED DERMATOSES 01/12/2014 TRACY YIN, MADELINE Albrecht Ot 388.70 OTALGIA NOS 01/12/2014 TRACY YIN, MADELINE T Ot 525.9 DENTAL DISORDER NOS 01/12/2014 TRACY YIN, MADELINE T Ot 784.0 HEADACHE 01/19/2014 RAMAKRISHNA DURAN Ot 780.79 OTH MALAISE FATIGUE 01/19/2014 RAMAKRISHNA DURAN Ot 787.01 NAUSEA WITH VOMITING 01/19/2014 RAMAKRISHNA DURAN Ot 787.91 DIARRHEA 01/19/2014 RAMAKRISHNA DURAN Ot 911.4 INSECT BITE TRUNK 01/19/2014 RAMAKRISHNA DURAN Ot 911.6 FOREIGN BODY TRUNK 01/19/2014 RAMAKRISHNA DURAN Ot E000.8 OTHER EXTERNAL CAUSE STATUS 01/19/2014 RAMAKRISHNA DURAN Ot E002.0 ACTIVITIES INVOLVING SWIMMING 01/19/2014 RAMAKRISHNA DURAN Ot E849.[address] NEC 01/19/2014 RAMAKRISHNA DURAN Ot E906.4 NONVENOM ARTHROPOD BITE 02/03/2014 GLENDA JIMENEZ DO Ot 300.00 ANXIETY STATE NOS 02/03/2014 GLENDA JIMENEZ DO Ot 305.90 DRUG ABUSE NEC-UNSPEC 02/03/2014 GLENDA JIMENEZ DO Ot 311 DEPRESSIVE DISORDER NEC 04/21/2014 RAMAKRISHNA DURAN Ot 300.00 ANXIETY STATE NOS 04/21/2014 RAMAKRISHNA DURAN Ot 311 DEPRESSIVE DISORDER NEC 04/21/2014 RAMAKRISHNA DURAN Ot 969.4 POIS-BENZODIAZEPINE VARGAS 04/21/2014 RAMAKRISHNA DURAN Ot E853.2 ACC POISN-BENZDIAZ TRANQ 05/11/2014 ABDULLAHI 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 Ot 465.9 ACUTE URI NOS 05/11/2014 ABDULLAHI 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 Ot 786.2 COUGH 05/11/2014 ABDULLAHI 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 Ot 787.01 NAUSEA WITH VOMITING 05/19/2014 DAMION MANSFIELD APRN 462 ACUTE PHARYNGITIS 05/19/2014 STAN CHAN MD 462 ACUTE PHARYNGITIS 05/19/2014 BRENDA TOVAR, PIETER Nelson 462 ACUTE PHARYNGITIS 05/19/2014 BRENDA TOVAR, PIETER Nelson 462 ACUTE PHARYNGITIS 05/19/2014 JESIKA HOWARD DO 462 ACUTE PHARYNGITIS 05/19/2014 JESIKA HOWARD DO K 462 ACUTE PHARYNGITIS 05/19/2014 PIETER GUTIERREZ RN 462 ACUTE PHARYNGITIS 05/19/2014 JESIKA HOWARD DO 462 ACUTE PHARYNGITIS 05/19/2014 PINA SMITH 462 ACUTE PHARYNGITIS 05/19/2014 JESIKA HOWARD DO 462 ACUTE PHARYNGITIS 05/19/2014 PIETER GUTIERREZ RN 462 ACUTE PHARYNGITIS 05/19/2014 PIETER GUTIERREZ RN 462 ACUTE PHARYNGITIS 05/19/2014 PINA SMITH 462 ACUTE PHARYNGITIS 05/19/2014 PIETER GUTIERREZ RN 462 ACUTE PHARYNGITIS 05/19/2014 PINA SMITH 462 ACUTE PHARYNGITIS 05/19/2014 PINA SMITH 462 ACUTE PHARYNGITIS 05/20/2014 TRACY YIN, MADELINE Albrecht Ot 288.60 LEUKOCYTOSIS, UNSPECIFIED 05/20/2014 MADELINE MOLINA MD Ot 490 BRONCHITIS NOS 05/20/2014 MADELINE MOLINA MD Ot 786.2 COUGH 06/12/2014 ABDULLAHI RECIO APRN Ot 461.0 AC MAXILLARY SINUSITIS 06/12/2014 ABDULLAHI RECIO APRN Ot 787.02 NAUSEA ALONE 06/25/2014 ABDULLAHI 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 Ot 842.00 SPRAIN OF WRIST NOS 06/25/2014 RECIO, PETER J DIGITAL FORENSICS EXAMINER Ot 959.3 ELB/FOREARM/WRST INJ NOS 06/25/2014 ABDULLAHI 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 Ot E000.8 OTHER EXTERNAL CAUSE STATUS 06/25/2014 ABDULLAHI 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 Ot E928.9 ACCIDENT NOS 07/04/2014 TRACY YIN, MADELINE Albrecht Ot 599.0 URIN TRACT INFECTION NOS 07/04/2014 TRACY YIN, MADELINE Albrecht Ot 788.20 RETENTION OF URINE NOS 07/09/2014 ROD CHARLTON DO Ot 599.0 URIN TRACT INFECTION NOS 07/09/2014 LATESHAROD CASTILLO DO Ot 724.2 LUMBAGO 07/09/2014 ROD CHARLTON DO Ot 780.60 FEVER, UNSPECIFIED 07/18/2014 CHARLOTTE YIN, REILLY Gordon Ot 724.2 LUMBAGO 07/20/2014 JESIKA HOWARD DO K 724.2 LUMBAGO 07/20/2014 RHETT HOWARD DOA K 724.2 LUMBAGO 07/20/2014 BRENDA TOVAR, PIETER E 724.2 LUMBAGO 07/20/2014 LEE WINTER JESIKA K 724.2 LUMBAGO 07/20/2014 PINA SMITH 724.2 LUMBAGO 07/20/2014 JESIKA HOWARD DO K 724.2 LUMBAGO 07/20/2014 PIETER GUTIERREZ RN E 724.2 LUMBAGO 07/20/2014 PIETER GUTIERREZ RN E 724.2 LUMBAGO 07/20/2014 PINA SMITH 724.2 LUMBAGO 07/20/2014 PIETER GUTIERREZ RN E 724.2 LUMBAGO 07/20/2014 PINA SMITH 724.2 LUMBAGO 07/20/2014 PINA SMITH 724.2 LUMBAGO 08/09/2014 LEE WINTER JESIKA K 720.2 SACROILIITIS NOT ELSEWHERE CLASSIFIED 08/09/2014 LEE WINTER JESIKA K 724.3 SCIATICA 08/09/2014 PINA SMITH 720.2 SACROILIITIS NOT ELSEWHERE CLASSIFIED 08/09/2014 PINA SMITH 724.3 SCIATICA 08/09/2014 LEE WINTER JESIKA K 720.2 SACROILIITIS NOT ELSEWHERE CLASSIFIED 08/09/2014 HOWARD DORHETTA K 724.3 SCIATICA 08/09/2014 BRENDA TOVAR, PIETER E 720.2 SACROILIITIS NOT ELSEWHERE CLASSIFIED 08/09/2014 PIETER GUTIERREZ RN E 724.3 SCIATICA 08/09/2014 BRENDA TOVAR, PIETER E 720.2 SACROILIITIS NOT ELSEWHERE CLASSIFIED 08/09/2014 PIETER GUTIERREZ RN E 724.3 SCIATICA 08/09/2014 PINA SMITH M 720.2 SACROILIITIS NOT ELSEWHERE CLASSIFIED 08/09/2014 PINA SMITH M 724.3 SCIATICA 08/09/2014 PIETER GUTIERREZ RN E 720.2 SACROILIITIS NOT ELSEWHERE CLASSIFIED 08/09/2014 PIETER GUTIERREZ RN E 724.3 SCIATICA 08/09/2014 PINA SMITH M 720.2 SACROILIITIS NOT ELSEWHERE CLASSIFIED 08/09/2014 PINA SMITH M 724.3 SCIATICA 08/09/2014 PINA SMITH M 720.2 SACROILIITIS NOT ELSEWHERE CLASSIFIED 08/09/2014 PINA SMITH M 724.3 SCIATICA 08/21/2014 RAMAKRISHNA DURAN Ot 724.2 LUMBAGO 08/22/2014 Ot 724.2 08/27/2014 ABDULLAHI RECIO APRN Ot 724.2 LUMBAGO 08/30/2014 MARLENE MITTAL BOTTLE ASSEMBLER Ot 174.9 08/30/2014 MARLENE MITTAL BOTTLE ASSEMBLER Ot 511.9 08/30/2014 MARLENE MITTAL BOTTLE ASSEMBLER Ot 786.09 08/30/2014 Ot 724.2 08/30/2014 MADELINE ZULETA Ot 724.3 09/05/2014 Ot 780.4 09/05/2014 Ot 787.02 09/12/2014 MADELINE ZULETA Ot 724.3 09/29/2014 ALINE ARCHER MD Ot 724.2 09/29/2014 ALINE ARCHER MD Ot V57.1 10/03/2014 ALINE ARCHER MD Ot 724.2 10/03/2014 ALINE ARCHER MD Ot V57.1 10/07/2014 ALINE ARCHER MD Ot 724.2 10/07/2014 ALINE ARCHER MD Ot V57.1 10/24/2014 ALINE ARCHER MD Ot 724.2 10/24/2014 ALINE ARCHER MD Ot V57.1 10/24/2014 ALINE ARCHER MD Ot 724.2 10/24/2014 ALINE ARCHER MD Ot V57.1 10/27/2014 ALINE ARCHER MD Ot 724.2 LUMBAGO 10/27/2014 ALINE ARCHER MD Ot V57.1 PHYSICAL THERAPY NEC 11/04/2014 Ot 461.0 AC MAXILLARY SINUSITIS 11/04/2014 Ot 786.2 COUGH 11/11/2014 PINA SMITH 300.02 AN GEN ANXIETY 11/11/2014 PINA SMITH 719.45 PAIN IN JOINT INVOLVING PELVIC REGION AND THIGH 11/11/2014 PIETER GUTIERREZ RN 300.02 AN GEN ANXIETY 11/11/2014 PIETER GUTIERREZ RN 719.45 PAIN IN JOINT INVOLVING PELVIC REGION AND THIGH 11/11/2014 PINA SMITH 300.02 AN GEN ANXIETY 11/11/2014 PINA SMITH 719.45 PAIN IN JOINT INVOLVING PELVIC REGION AND THIGH 11/11/2014 PINA SMITH 300.02 AN GEN ANXIETY 11/11/2014 PINA SMITH 719.45 PAIN IN JOINT INVOLVING PELVIC REGION AND THIGH 12/24/2014 GLENDA JIMENEZ DO Ot 382.9 OTITIS MEDIA NOS 12/24/2014 GLENDA JIMENEZ DO Ot 599.0 URIN TRACT INFECTION NOS 12/24/2014 GLENDA JIMENEZ DO Ot 787.01 NAUSEA WITH VOMITING 12/24/2014 GLENDA JIMENEZ DO Ot 787.03 VOMITING ALONE 02/07/2015 MARLENE MITTAL BOTTLE ASSEMBLER Ot 174.9 02/07/2015 MARLENE MITTAL BOTTLE ASSEMBLER Ot 511.9 02/07/2015 MARLENE MITTAL BOTTLE ASSEMBLER Ot 786.09 02/07/2015 Ot 724.2 02/07/2015 MADELINE ZULETA Ot 724.3 02/07/2015 RAMAKRISHNA DURAN Ot 305.20 CANNABIS ABUSE-UNSPEC 02/07/2015 RAMAKRISHNA DURAN Ot 346.90 MIGRAINE UNSPECIFIED W/O INTRACT MGRN W/ 02/07/2015 RAMAKRISHNA DURAN Ot 599.0 URIN TRACT INFECTION NOS 02/07/2015 RAMAKRISHNA DUARN Ot 724.2 LUMBAGO 02/07/2015 RAMAKRISHNA DURAN Ot 780.4 DIZZINESS AND GIDDINESS 02/11/2015 MARLENE MITTAL BOTTLE ASSEMBLER Ot 174.9 02/11/2015 MARLENE MITTAL BOTTLE ASSEMBLER Ot 511.9 02/11/2015 MARLENE MITTAL BOTTLE ASSEMBLER Ot 786.09 02/11/2015 Ot 724.2 02/11/2015 MADELINE ZULETA Ot 724.3 02/11/2015 ABDULLAHI RECIO APRN Ot 719.45 JOINT PAIN-PELVIS 03/01/2015 CHELSEA CAMPBELL MD Ot 296.80 BIPOLAR DISORDER, UNSPECIFIED 03/01/2015 CHELSEA CAMPBELL MD Ot 309.81 POSTTRAUMATIC STRESS DISORDER 03/01/2015 CHELSEA CAMPBELL MD Ot 564.1 IRRITABLE BOWEL SYNDROME 03/01/2015 CHELSEA CAMPBELL MD Ot 715.35 LOC OSTEOARTH NOS-PELVIS 03/01/2015 CHELSEA CAMPBELL MD Ot V58.69 OTH MED,LT,CURRENT USE 03/21/2015 RAMAKRISHNA DURAN Ot 682.2 CELLULITIS OF TRUNK 03/21/2015 RAMAKRISHNA DURAN Ot 911.4 INSECT BITE TRUNK 03/21/2015 RAMAKRISHNA DURAN Ot E906.4 NONVENOM ARTHROPOD BITE 03/21/2015 MARLENE MITTAL BOTTLE ASSEMBLER Ot 174.9 03/21/2015 MARLENE MITTAL BOTTLE ASSEMBLER Ot 511.9 03/21/2015 MARLENE MITTAL BOTTLE ASSEMBLER Ot 786.09 03/21/2015 Ot 724.2 03/21/2015 MADELINE ZULETA Ot 724.3 03/21/2015 CHELSEA CAMPBELL MD Ot 715.35 03/21/2015 CHELSEA CAMPBELL MD Ot V72.84 03/21/2015 CHELSEA CAMPBELL MD Ot V74.8 04/03/2015 Ot 780.4 04/03/2015 Ot 787.02 04/11/2015 Ot 780.4 04/11/2015 Ot 787.02 04/21/2015 MARLENE MITTAL BOTTLE ASSEMBLER Ot 174.9 04/21/2015 MARLENE MITTAL BOTTLE ASSEMBLER Ot 511.9 04/21/2015 MITTAL, HILSHANKAR Cinthya BOTTLE ASSEMBLER Ot 786.09 04/21/2015 Ot 724.2 04/21/2015 MADELINE ZULETA Ot 724.3 04/21/2015 ADRIAN YIN, CHELSEA Hamilton Ot 715.35 04/21/2015 ADRIAN YIN, CHELSEA Hamilton Ot V72.84 04/21/2015 CHELSEA CAMPBELL MD Ot V74.8 04/23/2015 ABDULLAHI 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 Ot 462 ACUTE PHARYNGITIS 04/23/2015 ABDULLAHI 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 Ot 466.0 ACUTE BRONCHITIS 04/23/2015 MARLENE MITTAL BOTTLE ASSEMBLER Ot 174.9 04/23/2015 MARLENE MITTAL BOTTLE ASSEMBLER Ot 511.9 04/23/2015 MARLENE MITTAL BOTTLE ASSEMBLER Ot 786.09 04/23/2015 Ot 724.2 04/23/2015 MADELINE ZULETA Ot 724.3 04/23/2015 ADRIAN YIN, CHELSEA [place] Ot 715.35 04/23/2015 ADRIAN YIN, CHELSEA P Ot V72.84 04/23/2015 CHELSEA CAMPBELL MD P Ot V74.8 05/03/2015 ADRIAN YIN, CHELSEA Hamilton Ot 296.80 BIPOLAR DISORDER, UNSPECIFIED 05/03/2015 ADRIAN YIN, CHELSEA Hamilton Ot 309.81 POSTTRAUMATIC STRESS DISORDER 05/03/2015 ADRIAN YIN, CHELSEA Hamilton Ot 564.1 IRRITABLE BOWEL SYNDROME 05/03/2015 CHELSEA CAMPBELL MD Ot 715.35 LOC OSTEOARTH NOS-PELVIS 06/16/2015 CHELSEA CAMPBELL MD Ot 715.35 08/20/2015 RAMAKRISHNA DURAN Ot G43.909 MIGRAINE, UNSP, NOT INTRACTABLE, WITHOUT 08/30/2015 CHARLOTTE YIN, REILLY Gordon Ot F17.211 NICOTINE DEPENDENCE, CIGARETTES, IN [place] 08/30/2015 CHARLOTTE YIN, REILLY Gordon Ot J06.9 ACUTE UPPER RESPIRATORY INFECTION, UNSPE 10/12/2015 JOSS ROQUE MD Ot A87.9 VIRAL MENINGITIS, UNSPECIFIED 10/12/2015 MYA YIN, JOSS Echevarria Ot F17.210 NICOTINE DEPENDENCE, CIGARETTES, UNCOMPL 10/12/2015 MYA YIN, JOSS Echevarria Ot F25.9 SCHIZOAFFECTIVE DISORDER, UNSPECIFIED 10/12/2015 JOSS ROQUE MD Ot F41.1 GENERALIZED ANXIETY DISORDER 10/12/2015 JOSS ROQUE MD Ot F43.10 POST-TRAUMATIC STRESS DISORDER, UNSPECIF 10/12/2015 MYA YIN, JOSS Echevarria Ot A87.9 10/12/2015 JOSS ROQUE MD Ot F17.210 10/12/2015 JOSS ROQUE MD Ot F25.9 10/12/2015 JOSS ROQUE MD Ot F41.1 10/12/2015 JOSS ROQUE MD Ot F43.10 11/05/2015 MARLENE MITTAL BOTTLE ASSEMBLER Ot 174.9 11/05/2015 MARLENE MITTAL BOTTLE ASSEMBLER Ot 511.9 11/05/2015 MARLENE MITTAL BOTTLE ASSEMBLER Ot 786.09 11/05/2015 Ot 724.2 11/05/2015 MADELINE ZULETA Ot 724.3 11/05/2015 ADRIAN YIN, CHELSEA Hamilton Ot 715.35 11/05/2015 ADRIAN YIN, CHELSEA P Ot V72.84 11/05/2015 ADRIAN YIN, CHELSEA P Ot V74.8 11/05/2015 ADRIAN YIN, CHELSEA P Ot 715.35 11/05/2015 ADRIAN YIN, CHELSEA P Ot V72.84 11/05/2015 ADRIAN YIN, CHELSEA P Ot 715.35 11/05/2015 ROD CHARLTON DO Ot R11.2 NAUSEA WITH VOMITING, UNSPECIFIED 11/05/2015 ROD CHARLTON DO Ot R42 DIZZINESS AND GIDDINESS 11/15/2015 MYA YIN, JOSS Echevarria Ot A87.9 11/15/2015 JOSS ROQUE MD Ot F17.210 11/15/2015 JOSS ROQUE MD Ot F25.9 11/15/2015 JOSS ROQUE MD Ot F41.1 11/15/2015 JOSS ROQUE MD Ot F43.10 11/15/2015 MYA YIN, JOSS A Ot A87.9 11/15/2015 MYA YIN, JOSS A Ot F17.210 11/15/2015 MYA YIN, JOSS A Ot F25.9 11/15/2015 MYA YIN, JOSS A Ot F41.1 11/15/2015 MYA YIN, JOSS Echevarria Ot F43.10 11/21/2015 OLIMPIA GREGORY DO Ot Z01.818 ENCOUNTER FOR OTHER PREPROCEDURAL EXAMIN 11/28/2015 OLIMPIA GREGORY DO Ot K58.0 IRRITABLE BOWEL SYNDROME WITH DIARRHEA 11/29/2015 OLIMPIA GREGORY DO Ot K58.0 02/07/2016 REILLY PORTER MD Ot R10.84 GENERALIZED ABDOMINAL PAIN 02/07/2016 REILLY PORTER MD Ot Z53.21 PROC/TRTMT NOT CRD OUT D/T PT LV BEF SEE 02/08/2016 REILLY PORTER MD Ot R10.84 GENERALIZED ABDOMINAL PAIN 02/08/2016 REILLY PORTER MD Ot Z53.21 PROC/TRTMT NOT CRD OUT D/T PT LV BEF SEE 02/09/2016 REILLY PORTER MD Ot R10.84 GENERALIZED ABDOMINAL PAIN 02/09/2016 REILLY PORTER MD Ot Z53.21 PROC/TRTMT NOT CRD OUT D/T PT LV BEF SEE 02/16/2016 REILLY PORTER MD Ot R10.84 GENERALIZED ABDOMINAL PAIN 02/16/2016 REILLY PORTER MD Ot Z53.21 PROC/TRTMT NOT CRD OUT D/T PT LV BEF SEE 03/27/2016 RAMAKRISHNA DURAN Ot K92.1 MELENA 03/27/2016 RAMAKRISHNA DURAN Ot R10.84 GENERALIZED ABDOMINAL PAIN 03/27/2016 RAMAKRISHNA DURAN Ot R11.2 NAUSEA WITH VOMITING, UNSPECIFIED 03/28/2016 RAMAKRISHNA DURAN Ot K92.1 MELENA 03/28/2016 RAMAKRISHNA DURAN Ot R10.84 GENERALIZED ABDOMINAL PAIN 03/28/2016 RAMAKRISHNA DURAN Ot R11.2 NAUSEA WITH VOMITING, UNSPECIFIED 04/01/2016 MADELINE MOLINA MD Ot F17.210 NICOTINE DEPENDENCE, CIGARETTES, UNCOMPL 04/01/2016 MADELINE MOLINA MD Ot K52.9 NONINFECTIVE GASTROENTERITIS AND COLITIS 04/01/2016 MADELINE MOLINA MD Ot K92.1 MELENA 04/01/2016 MADELINE MOLINA MD Ot N39.0 URINARY TRACT INFECTION, SITE NOT SPECIF 04/01/2016 MADELINE MOLINA MD Ot R10.84 GENERALIZED ABDOMINAL PAIN 04/02/2016 MARLENE MITTAL BOTTLE ASSEMBLER Ot 174.9 MALIGN NEOPL BREAST NOS 04/02/2016 MARLENE MITTAL BOTTLE ASSEMBLER Ot 511.9 PLEURAL EFFUSION NOS 04/02/2016 MARLENE MITTAL BOTTLE ASSEMBLER Ot 786.09 RESPIRATORY ABNORM NEC 04/02/2016 Ot 724.2 LUMBAGO 04/02/2016 MADELINE ZULETA Ot 724.3 SCIATICA 04/02/2016 ADRIAN YIN, CHELSEA P Ot 715.35 LOC OSTEOARTH NOS-PELVIS 04/02/2016 CHELSEA CAMPBELL MD Ot V72.84 EXAM PRE-OPERATIVE NOS 04/02/2016 ADRIAN YIN, CHELSEA Hamilton Ot V74.8 SCREEN-BACTERIAL DIS NEC 04/02/2016 CHELSEA CAPMBELL MD P Ot 715.35 LOC OSTEOARTH NOS-PELVIS 04/02/2016 CHELSEA CAMPBELL MD Ot V72.84 EXAM PRE-OPERATIVE NOS 04/02/2016 CHELSEA CAMPBELL MD Ot 715.35 LOC OSTEOARTH NOS-PELVIS 04/02/2016 MADELINE MOLINA MD Ot F17.210 NICOTINE DEPENDENCE, CIGARETTES, UNCOMPL 04/02/2016 MADELINE MOLINA MD Ot K52.9 NONINFECTIVE GASTROENTERITIS AND COLITIS 04/02/2016 MADELINE MOLINA MD Ot K92.1 MELENA 04/02/2016 MADELINE MOLINA MD Ot N39.0 URINARY TRACT INFECTION, SITE NOT SPECIF 04/02/2016 MADELINE MOLINA MD Ot R10.84 GENERALIZED ABDOMINAL PAIN 04/03/2016 MADELINE MOLINA MD Ot K92.1 MELENA 04/03/2016 TRACY YIN, MADELINE Albrecht Ot R10.9 UNSPECIFIED ABDOMINAL PAIN 04/08/2016 MARLENE MITTAL BOTTLE ASSEMBLER Ot 174.9 MALIGN NEOPL BREAST NOS 04/08/2016 MARLENE MITTAL BOTTLE ASSEMBLER Ot 511.9 PLEURAL EFFUSION NOS 04/08/2016 MARLENE MTITAL BOTTLE ASSEMBLER Ot 786.09 RESPIRATORY ABNORM NEC 04/08/2016 Ot 724.2 LUMBAGO 04/08/2016 MADELINE ZULETA Ot 724.3 SCIATICA 04/08/2016 CHELSEA CAMPBELL MD Ot 715.35 LOC OSTEOARTH NOS-PELVIS 04/08/2016 CHELSEA CAMPBELL MD Ot V72.84 EXAM PRE-OPERATIVE NOS 04/08/2016 CHELSEA CAMPBELL MD Ot V74.8 SCREEN-BACTERIAL DIS NEC 04/08/2016 CHELSEA CAMPBELL MD Ot 715.35 LOC OSTEOARTH NOS-PELVIS 04/08/2016 CHELSEA CAMPBELL MD Ot V72.84 EXAM PRE-OPERATIVE NOS 04/08/2016 CHELSEA CAMPBELL MD Ot 715.35 LOC OSTEOARTH NOS-PELVIS 04/08/2016 TRACY YIN, MADELINE Albrecht Ot K92.1 MELENA 04/08/2016 TRACY YIN, MADELINE Albrecht Ot R10.9 UNSPECIFIED ABDOMINAL PAIN 04/18/2016 TRACY YIN, MADELINE Albrecht Ot K92.1 MELENA 04/18/2016 TRACY YIN, MADELINE Albrecht Ot R10.9 UNSPECIFIED ABDOMINAL PAIN 04/18/2016 MARLENE MITTAL BOTTLE ASSEMBLER Ot 174.9 MALIGN NEOPL BREAST NOS 04/18/2016 MARLENE MITTAL BOTTLE ASSEMBLER Ot 511.9 PLEURAL EFFUSION NOS 04/18/2016 MARLENE MITTAL BOTTLE ASSEMBLER Ot 786.09 RESPIRATORY ABNORM NEC 04/18/2016 Ot 724.2 LUMBAGO 04/18/2016 MADELINE ZULETA Ot 724.3 SCIATICA 04/18/2016 CHELSEA CAMPBELL MD Ot 715.35 LOC OSTEOARTH NOS-PELVIS 04/18/2016 CHELSEA CAMPBELL MD Ot V72.84 EXAM PRE-OPERATIVE NOS 04/18/2016 CHELSEA CAMPBELL MD Ot V74.8 SCREEN-BACTERIAL DIS NEC 04/18/2016 CHELSEA CAMPBELL MD Ot 715.35 LOC OSTEOARTH NOS-PELVIS 04/18/2016 CHELSEA CAMPBELL MD Ot V72.84 EXAM PRE-OPERATIVE NOS 04/18/2016 CHELSEA CAMPBELL MD Ot 715.35 LOC OSTEOARTH NOS-PELVIS 04/18/2016 MADELINE MOLINA MD Ot K92.1 MELENA 04/18/2016 MADELINE MOLINA MD Ot R10.9 UNSPECIFIED ABDOMINAL PAIN 04/19/2016 RAMAKRISHNA DURAN Ot K92.1 MELENA 04/19/2016 RAMAKRISHNA DURAN Ot R10.84 GENERALIZED ABDOMINAL PAIN 04/19/2016 RAMAKRISHNA DURAN Ot R11.2 NAUSEA WITH VOMITING, UNSPECIFIED 04/25/2016 MADELINE MOLINA MD Ot F17.210 NICOTINE DEPENDENCE, CIGARETTES, UNCOMPL 04/25/2016 MADELINE MOLINA MD Ot K52.9 NONINFECTIVE GASTROENTERITIS AND COLITIS 04/25/2016 MADELINE MOLINA MD Ot K92.1 MELENA 04/25/2016 MADELINE MOLINA MD Ot N39.0 URINARY TRACT INFECTION, SITE NOT SPECIF 04/25/2016 MADELINE MOLINA MD Ot R10.84 GENERALIZED ABDOMINAL PAIN 05/14/2016 MARLENE MITTAL BOTTLE ASSEMBLER Ot 174.9 MALIGN NEOPL BREAST NOS 05/14/2016 MARLENE MITTAL BOTTLE ASSEMBLER Ot 511.9 PLEURAL EFFUSION NOS 05/14/2016 MARLENE MITTAL BOTTLE ASSEMBLER Ot 786.09 RESPIRATORY ABNORM NEC 05/14/2016 Ot 724.2 LUMBAGO 05/14/2016 MADELINE ZULETA Ot 724.3 SCIATICA 05/14/2016 CHELSEA CAMPBELL MD Ot 715.35 LOC OSTEOARTH NOS-PELVIS 05/14/2016 CHELSEA CAMPBELL MD Ot V72.84 EXAM PRE-OPERATIVE NOS 05/14/2016 CHELSEA CAMPBELL MD Ot V74.8 SCREEN-BACTERIAL DIS NEC 05/14/2016 CHELSEA CAMPBELL MD Ot 715.35 LOC OSTEOARTH NOS-PELVIS 05/14/2016 CHELSEA CAMPBELL MD Ot V72.84 EXAM PRE-OPERATIVE NOS 05/14/2016 ADRIAN YIN, CHELSEA Hamilton Ot 715.35 LOC OSTEOARTH NOS-PELVIS 05/14/2016 TRACY YIN, MADELINE Albrecht Ot K92.1 MELENA 05/14/2016 MADELINE MOLINA MD Ot R10.9 UNSPECIFIED ABDOMINAL PAIN 05/14/2016 MADELINE MOLINA MD Ot F17.210 NICOTINE DEPENDENCE, CIGARETTES, UNCOMPL 05/14/2016 TRACY YIN, MADELINE Albrecht Ot H10.32 UNSPECIFIED ACUTE CONJUNCTIVITIS, LEFT E 05/14/2016 TRACY YIN, MADELINE Albrecht Ot H57.9 UNSPECIFIED DISORDER OF EYE AND ADNEXA 05/15/2016 MADELINE MOLINA MD Ot H10.32 UNSPECIFIED ACUTE CONJUNCTIVITIS, LEFT E 05/15/2016 MADELINE MOLINA MD Ot H57.9 UNSPECIFIED DISORDER OF EYE AND ADNEXA 05/15/2016 MADELINE MOLINA MD Ot F17.210 NICOTINE DEPENDENCE, CIGARETTES, UNCOMPL 05/15/2016 TRACY YIN, MADELINE Albrecht Ot H10.32 UNSPECIFIED ACUTE CONJUNCTIVITIS, LEFT E 05/15/2016 MADELINE MOLINA MD Ot H57.9 UNSPECIFIED DISORDER OF EYE AND ADNEXA 08/12/2016 FELICITY BLAKELY MD Ot F17.210 NICOTINE DEPENDENCE, CIGARETTES, UNCOMPL 08/12/2016 FELICITY BLAKELY MD Ot J06.9 ACUTE UPPER RESPIRATORY INFECTION, UNSPE 08/12/2016 FELICITY BLAKELY MD Ot K52.9 NONINFECTIVE GASTROENTERITIS AND COLITIS 08/12/2016 FELICITY BLAKELY MD Ot R05 COUGH 08/17/2016 FELICITY BLAKELY MD Ot F17.210 NICOTINE DEPENDENCE, CIGARETTES, UNCOMPL 08/17/2016 FELICITY BLAKELY MD Ot J06.9 ACUTE UPPER RESPIRATORY INFECTION, UNSPE 08/17/2016 FELICITY BLAKELY MD Ot K52.9 NONINFECTIVE GASTROENTERITIS AND COLITIS 08/17/2016 FELICITY BLAKELY MD Ot R05 COUGH 08/18/2016 FELICITY BLAKELY MD Ot F17.210 NICOTINE DEPENDENCE, CIGARETTES, UNCOMPL 08/18/2016 FELICITY BLAKELY MD Ot J06.9 ACUTE UPPER RESPIRATORY INFECTION, UNSPE 08/18/2016 FELICITY BLAKELY MD Ot K52.9 NONINFECTIVE GASTROENTERITIS AND COLITIS 08/18/2016 FELICITY BLAKELY MD Ot R05 COUGH 01/02/2017 REILLY PORTER MD Ot F17.210 NICOTINE DEPENDENCE, CIGARETTES, UNCOMPL 01/02/2017 REILLY PORTER MD Ot R10.10 UPPER ABDOMINAL PAIN, UNSPECIFIED 01/02/2017 REILLY PORTER MD Ot R11.2 NAUSEA WITH VOMITING, UNSPECIFIED 01/03/2017 REILLY PORTER MD Ot F17.210 NICOTINE DEPENDENCE, CIGARETTES, UNCOMPL 01/03/2017 REILLY PORTER MD Ot R10.10 UPPER ABDOMINAL PAIN, UNSPECIFIED 01/03/2017 REILLY PORTER MD Ot R11.2 NAUSEA WITH VOMITING, UNSPECIFIED 01/09/2017 REILLY PORTER MD Ot F17.210 NICOTINE DEPENDENCE, CIGARETTES, UNCOMPL 01/09/2017 REILLY PORTER MD Ot R10.10 UPPER ABDOMINAL PAIN, UNSPECIFIED 01/09/2017 REILLY PORTER MD Ot R11.2 NAUSEA WITH VOMITING, UNSPECIFIED 01/17/2017 REILLY PORTER MD Ot F17.210 NICOTINE DEPENDENCE, CIGARETTES, UNCOMPL 01/17/2017 REILLY PORTER MD Ot R10.10 UPPER ABDOMINAL PAIN, UNSPECIFIED 01/17/2017 REILLY PORTER MD Ot R11.2 NAUSEA WITH VOMITING, UNSPECIFIED 02/04/2017 MARLENE MITTAL BOTTLE ASSEMBLER Ot 174.9 MALIGN NEOPL BREAST NOS 02/04/2017 MARLENE MITTAL BOTTLE ASSEMBLER Ot 511.9 PLEURAL EFFUSION NOS 02/04/2017 MARLENE MITTAL BOTTLE ASSEMBLER Ot 786.09 RESPIRATORY ABNORM NEC 02/04/2017 Ot 724.2 LUMBAGO 02/04/2017 MADELINE ZULETA Ot 724.3 SCIATICA 02/04/2017 ADRIAN YIN, CHELSEA Hamilton Ot 715.35 LOC OSTEOARTH NOS-PELVIS 02/04/2017 ADRIAN YIN, CHELSEA Hamilton Ot V72.84 EXAM PRE-OPERATIVE NOS 02/04/2017 CHELSEA CAMPBELL MD Ot V74.8 SCREEN-BACTERIAL DIS NEC 02/04/2017 CHELSEA CAMPBELL MD Ot 715.35 LOC OSTEOARTH NOS-PELVIS 02/04/2017 CHELSAE CAMPBELL MD Ot V72.84 EXAM PRE-OPERATIVE NOS 02/04/2017 CHELSEA CAMPBELL MD Ot 715.35 LOC OSTEOARTH NOS-PELVIS 02/04/2017 TRACY YIN, MADELINE Albrecht Ot K92.1 MELENA 02/04/2017 TRACY YIN, MADELINE Albrecht Ot R10.9 UNSPECIFIED ABDOMINAL PAIN 02/04/2017 CHARLOTTE YIN, REILLY Gordon Ot F17.210 NICOTINE DEPENDENCE, CIGARETTES, UNCOMPL 02/04/2017 CHARLOTTE YIN, REILLY Gordon Ot R10.10 UPPER ABDOMINAL PAIN, UNSPECIFIED 02/04/2017 REILLY PORTER MD Ot R11.2 NAUSEA WITH VOMITING, UNSPECIFIED 02/06/2017 JACE ANGLIN DIGITAL FORENSICS EXAMINER Ot N64.4 MASTODYNIA 02/11/2017 JACE ANGLIN [employer]ENS[employer] EXAMINER Ot N64.4 MASTODYNIA 02/14/2017 JACE ANGLIN [employer]ENS[employer] EXAMINER Ot N64.4 MASTODYNIA 02/14/2017 JACE ANGLIN [employer]ENS[employer] EXAMINER Ot N64.4 MASTODYNIA 02/14/2017 JACE ANGLIN [employer]ENS[employer] EXAMINER Ot N64.4 MASTODYNIA 02/20/2017 JACE ANGLIN [employer]ENS[employer] EXAMINER Ot N64.4 MASTODYNIA 03/30/2017 SALLIE MARCELO 848.8 OTHER SPECIFIED SITES OF SPRAINS AND STRAINS 03/30/2017 SALLIE MARCELO S29.011A STRAIN OF MUSCLE AND TENDON OF FRONT WALL OF THORAX, INIT 05/12/2017 OLIMPIA GREGORY DO Ot R07.9 CHEST PAIN, UNSPECIFIED 05/12/2017 OLIMPIA GREGORY DO Ot R11.2 NAUSEA WITH VOMITING, UNSPECIFIED 05/12/2017 OLIMPIA GREGORY DO Ot Z01.818 ENCOUNTER FOR OTHER PREPROCEDURAL EXAMIN 05/13/2017 OLIMPIA GREGORY DO Ot R07.9 CHEST PAIN, UNSPECIFIED 05/13/2017 OLIMPIA GREGORY DO Ot R11.2 NAUSEA WITH VOMITING, UNSPECIFIED 05/13/2017 OLIMPIA GREGORY DO Ot Z01.818 ENCOUNTER FOR OTHER PREPROCEDURAL EXAMIN 05/13/2017 OLIMPIA GREGORY DO Ot F17.210 NICOTINE DEPENDENCE, CIGARETTES, UNCOMPL 05/13/2017 OLIMPIA GREGORY DO D Ot F31.9 BIPOLAR DISORDER, UNSPECIFIED 05/13/2017 OLIMPIA GREGORY DO D Ot F41.9 ANXIETY DISORDER, UNSPECIFIED 05/13/2017 OLIMPIA GREGORY DO D Ot K21.0 GASTRO-ESOPHAGEAL REFLUX DISEASE WITH ES 05/13/2017 OLIMPIA GREGORY DO D Ot K29.70 GASTRITIS, UNSPECIFIED, WITHOUT BLEEDING 05/13/2017 OLIMPIA GREGORY DO D Ot K58.9 IRRITABLE BOWEL SYNDROME WITHOUT DIARRHE 05/13/2017 OLIMPIA GREGORY DO Ot Z79.899 OTHER LONG-TERM (CURRENT) DRUG THERAPY 05/20/2017 OLIMPIA GREGORY DO Ot F17.210 NICOTINE DEPENDENCE, CIGARETTES, UNCOMPL 05/20/2017 OLIMPIA GREGORY DO Ot F31.9 BIPOLAR DISORDER, UNSPECIFIED 05/20/2017 OLIMPIA GREGORY DO Ot F41.9 ANXIETY DISORDER, UNSPECIFIED 05/20/2017 OLIMPIA GREGORY DO D Ot K21.0 GASTRO-ESOPHAGEAL REFLUX DISEASE WITH ES 05/20/2017 OLIMPIA GREGORY DO Ot K29.70 GASTRITIS, UNSPECIFIED, WITHOUT BLEEDING 05/20/2017 OLIMPIA GREGORY DO Ot K58.9 IRRITABLE BOWEL SYNDROME WITHOUT DIARRHE 05/20/2017 OLIMPIA GREGORY DO Ot Z79.899 OTHER LONG-TERM (CURRENT) DRUG THERAPY 08/16/2017 Amado Santoyo 465.8 ACUTE UPPER RESPIRATORY INFECTIONS OF OTHER MULTIPLE SITES 08/16/2017 Amado Santoyo J06.9 ACUTE UPPER RESPIRATORY INFECTION, UNSPECIFIED 08/21/2017 OLIMPIA GREGORY DO Ot R11.2 NAUSEA WITH VOMITING, UNSPECIFIED 05/28/2018 OLIMPIA GREGORY DO Ot R11.2 NAUSEA WITH VOMITING, UNSPECIFIED Procedures Code Description [place] [address] PSYCH DIAG INTER EXAM 08/03/2012 03918 XRAY FOOT LEFT COMP MIN 3 VIEWS 10/08/2012 28307 URINE TEST (IN- HOUSE) 02/03/2013 94206 PAP SMEAR 02/05/2013 [id number] GYNECOLOGIC ADDENDUM REPORT (RESULT ONLY) 02/05/2013 39655 MAMMOGRAM DX, SREE 02/11/2013 MEDICAL O VIA [facility], 02/11/2013 Q0091 PAP SMEAR OBTAIN SMEAR 02/11/2013 54248 PSYCH DIAGNOSTIC EVALUATION 05/21/2013 04363 XRAY KNEE RIGHT 3 VIEWS 06/07/2013 98270 PSYTX PT&/FAMILY 45 MINUTES 06/16/2013 72077 PSYTX PT&/FAMILY 45 MINUTES 07/01/2013 86706 ROUTINE VENIPUNCTURE 09/30/2013 87662 OXIMETRY 09/30/2013 81667 CBC 09/30/2013 06406 MYCOPLASMA ANTIBODY 10/01/2013 64861 REMOVAL OF SKIN TAGS <W/15 12/07/2013 11714 STREP A (IN-HOUSE) 05/19/2014 99363 OXIMETRY 05/26/2014 S0280 HEALTH PROMOTION 06/13/2014 S0281 CARE COORDINATION 06/13/2014 S0280 HEALTH PROMOTION 07/05/2014 26589 UA W/MICROSCOPY 07/20/2014 76126 CULTURE URINE 07/20/[address] ABDOMEN & PELVIS W/O CONTRAST 07/26/2014 87274 INJECT SACROILIAC JOINT 08/09/2014 S0280 HEALTH PROMOTION 08/09/2014 S0281 CARE COORDINATION 08/09/2014 89522 MRI SPINE (LUMBAR) W & W/O CONTRAST 08/23/2014 S0280 HEALTH PROMOTION 09/29/2014 S0280 HEALTH PROMOTION 10/18/2014 S0280 HEALTH PROMOTION 12/13/2014 S0280 HEALTH PROMOTION 01/16/2015 Results Test Result Range Ova and parasites - 04/02/16 09:45 DATE OF REF LAB REPORT 04/17/16 11:15 NRG OTP NEGATIVE RESULT PARASITES NOT FOUND NRG Complete urinalysis with reflex to culture - 08/12/16 13:52 Urine color determination YELLOW NRG Urine clarity determination CLEAR NRG Urine pH measurement by test strip 6 5-9 Specific gravity of urine by test strip 1.015 1.016- 1.022 Urine protein assay by test strip, semi-quantitative NEGATIVE NEGATIVE Urine glucose detection by automated test strip NEGATIVE NEGATIVE Erythrocytes detection in urine sediment by light microscopy NEGATIVE NEGATIVE Urine ketones detection by automated test strip NEGATIVE NEGATIVE Urine nitrite detection by test strip NEGATIVE NEGATIVE Urine total bilirubin detection by test strip NEGATIVE NEGATIVE Urine urobilinogen measurement by automated test strip (mass/volume) NORMAL NORMAL Urine leukocyte esterase detection by dipstick 1+ NEGATIVE Automated urine sediment erythrocyte count by microscopy (number/high power field) NONE NRG Automated urine sediment leukocyte count by microscopy (number/high power field ) [HPF] NRG Bacteria detection in urine sediment by light microscopy TRACE NRG Squamous epithelial cells detection in urine sediment by light microscopy 2-5 NRG Crystals detection in urine sediment by light microscopy NONE NRG Casts detection in urine sediment by light microscopy PRESENT NRG Mucus detection in urine sediment by light microscopy SMALL NRG Complete urinalysis with reflex to culture NO NRG Hyaline casts detection in urine sediment by light microscopy 0-2 NRG Complete blood count (CBC) with automated white blood cell (WBC) differential - 08/12/16 14:00 Blood leukocytes automated count (number/volume) 11.3 10*3/uL 4.3-11.0 Blood erythrocytes automated count (number/volume) 4.95 10*6/uL 4.35-5.85 Venous blood hemoglobin measurement (mass/volume) 13.9 g/dL 11.5-16.0 Blood hematocrit (volume fraction) 40 % 35-52 Automated erythrocyte mean corpuscular volume 81 [foz_us] 80-99 Automated erythrocyte mean corpuscular hemoglobin (mass per erythrocyte) 28 pg 25-34 Automated erythrocyte mean corpuscular hemoglobin concentration measurement ( mass/volume) 35 g/dL 32-36 Automated erythrocyte distribution width ratio 13.5 % 10.0-14.5 Automated blood platelet count (count/volume) 292 10*3/uL 130-400 Automated blood platelet mean volume measurement 9.8 [foz_us] 7.4-10.4 Automated blood neutrophils/100 leukocytes 54 % 42-75 Automated blood lymphocytes/100 leukocytes 37 % 12-44 Blood monocytes/100 leukocytes 6 % 0-12 Automated blood eosinophils/100 leukocytes 3 % 0-10 Automated blood basophils/100 leukocytes 1 % 0-10 Blood neutrophils automated count (number/volume) 6.1 10*3 1.8-7.8 Blood lymphocytes automated count (number/volume) 4.2 10*3 1.0-4.0 Blood monocytes automated count (number/volume) 0.6 10*3 0.0-1.0 Automated eosinophil count 0.4 10*3/uL 0.0-0.3 Automated blood basophil count (count/volume) 0.1 10*3/uL 0.0-0.1 Comprehensive metabolic panel - 08/12/16 14:00 Serum or plasma sodium measurement (moles/volume) 138 mmol/L 135-145 Serum or plasma potassium measurement (moles/volume) 3.9 mmol/L 3.6-5.0 Serum or plasma chloride measurement (moles/volume) 104 mmol/L 98-107 Carbon dioxide 25 mmol/L 21-32 Serum or plasma anion gap determination (moles/volume) 9 mmol/L 5-14 Serum or plasma urea nitrogen measurement (mass/volume) 12 mg/dL 7-18 Serum or plasma creatinine measurement (mass/volume) 0.83 mg/dL 0.60-1.30 Serum or plasma urea nitrogen/creatinine mass ratio 14 NRG Serum or plasma creatinine measurement with calculation of estimated glomerular filtration rate > NRG Serum or plasma glucose measurement (mass/volume) 81 mg/dL 70-105 Serum or plasma calcium measurement (mass/volume) 9.7 mg/dL 8.5-10.1 Serum or plasma total bilirubin measurement (mass/volume) 0.3 mg/dL 0.1-1.0 Serum or plasma alkaline phosphatase measurement (enzymatic activity/volume) 72 U/L 40-136 Serum or plasma aspartate aminotransferase measurement (enzymatic activity/ volume) 26 U/L 5-34 Serum or plasma alanine aminotransferase measurement (enzymatic activity/volume ) 24 U/L 0-55 Serum or plasma protein measurement (mass/volume) 7.5 g/dL 6.4-8.2 Serum or plasma albumin measurement (mass/volume) 4.6 g/dL 3.2-4.5 Genital Culture, Routine - 10/17/16 10:05 Genital Culture, Routine Note Complete blood count (CBC) with automated white blood cell (WBC) differential - 01/01/17 05:15 Blood leukocytes automated count (number/volume) 9.1 10*3/uL 4.3-11.0 Blood erythrocytes automated count (number/volume) 4.99 10*6/uL 4.35-5.85 Venous blood hemoglobin measurement (mass/volume) 13.7 g/dL 11.5-16.0 Blood hematocrit (volume fraction) 41 % 35-52 Automated erythrocyte mean corpuscular volume 82 [foz_us] 80-99 Automated erythrocyte mean corpuscular hemoglobin (mass per erythrocyte) 28 pg 25-34 Automated erythrocyte mean corpuscular hemoglobin concentration measurement ( mass/volume) 34 g/dL 32-36 Automated erythrocyte distribution width ratio 13.8 % 10.0-14.5 Automated blood platelet count (count/volume) 245 10*3/uL 130-400 Automated blood platelet mean volume measurement 9.9 [foz_us] 7.4-10.4 Automated blood neutrophils/100 leukocytes 56 % 42-75 Automated blood lymphocytes/100 leukocytes 28 % 12-44 Blood monocytes/100 leukocytes 9 % 0-12 Automated blood eosinophils/100 leukocytes 7 % 0-10 Automated blood basophils/100 leukocytes 0 % 0-10 Blood neutrophils automated count (number/volume) 5.0 10*3 1.8-7.8 Blood lymphocytes automated count (number/volume) 2.6 10*3 1.0-4.0 Blood monocytes automated count (number/volume) 0.8 10*3 0.0-1.0 Automated eosinophil count 0.6 10*3/uL 0.0-0.3 Automated blood basophil count (count/volume) 0.0 10*3/uL 0.0-0.1 Comprehensive metabolic panel - 01/01/17 05:15 Serum or plasma sodium measurement (moles/volume) 139 mmol/L 135-145 Serum or plasma potassium measurement (moles/volume) 4.4 mmol/L 3.6-5.0 Serum or plasma chloride measurement (moles/volume) 107 mmol/L 98-107 Carbon dioxide 21 mmol/L 21-32 Serum or plasma anion gap determination (moles/volume) 11 mmol/L 5-14 Serum or plasma urea nitrogen measurement (mass/volume) 9 mg/dL 7-18 Serum or plasma creatinine measurement (mass/volume) 0.79 mg/dL 0.60-1.30 Serum or plasma urea nitrogen/creatinine mass ratio 11 NRG Serum or plasma creatinine measurement with calculation of estimated glomerular filtration rate > NRG Serum or plasma glucose measurement (mass/volume) 106 mg/dL 70-105 Serum or plasma calcium measurement (mass/volume) 9.2 mg/dL 8.5-10.1 Serum or plasma total bilirubin measurement (mass/volume) 0.4 mg/dL 0.1-1.0 Serum or plasma alkaline phosphatase measurement (enzymatic activity/volume) 69 U/L 40-136 Serum or plasma aspartate aminotransferase measurement (enzymatic activity/ volume) 21 U/L 5-34 Serum or plasma alanine aminotransferase measurement (enzymatic activity/volume ) 23 U/L 0-55 Serum or plasma protein measurement (mass/volume) 6.9 g/dL 6.4-8.2 Serum or plasma albumin measurement (mass/volume) 4.1 g/dL 3.2-4.5 Serum or plasma amylase measurement (enzymatic activity/volume) - 01/01/17 05: 15 Serum or plasma amylase measurement (enzymatic activity/volume) 26 U /L 25-125 Lipase - 01/01/17 05:15 Lipase 13 U/L 8-78 Complete urinalysis with reflex to culture - 01/01/17 06:38 Urine color determination YELLOW NRG Urine clarity determination CLEAR NRG Urine pH measurement by test strip 7 5-9 Specific gravity of urine by test strip 1.010 1.016- 1.022 Urine protein assay by test strip, semi-quantitative NEGATIVE NEGATIVE Urine glucose detection by automated test strip NEGATIVE NEGATIVE Erythrocytes detection in urine sediment by light microscopy 1+ NEGATIVE Urine ketones detection by automated test strip NEGATIVE NEGATIVE Urine nitrite detection by test strip NEGATIVE NEGATIVE Urine total bilirubin detection by test strip NEGATIVE NEGATIVE Urine urobilinogen measurement by automated test strip (mass/volume) NORMAL NORMAL Urine leukocyte esterase detection by dipstick 1+ NEGATIVE Automated urine sediment erythrocyte count by microscopy (number/high power field) RARE NRG Automated urine sediment leukocyte count by microscopy (number/high power field ) [HPF] NRG Bacteria detection in urine sediment by light microscopy TRACE NRG Squamous epithelial cells detection in urine sediment by light microscopy 5-10 NRG Crystals detection in urine sediment by light microscopy NONE NRG Casts detection in urine sediment by light microscopy NONE NRG Mucus detection in urine sediment by light microscopy SMALL NRG Complete urinalysis with reflex to culture NO NRG Urine drug screening test - 01/01/17 06:38 Urine phencyclidine detection by screening method NEGATIVE NEGATIVE Urine benzodiazepines detection by screening method POSITIVE NEGATIVE Urine cocaine detection NEGATIVE NEGATIVE Urine amphetamines detection by screening method NEGATIVE NEGATIVE Urine methamphetamine detection by screening method NEGATIVE NEGATIVE Urine cannabinoids detection by screening method NEGATIVE NEGATIVE Urine opiates detection by screening method NEGATIVE NEGATIVE Urine barbiturates detection NEGATIVE NEGATIVE Screening urine tricyclic antidepressants detection NEGATIVE NEGATIVE Urine methadone detection by screening method NEGATIVE NEGATIVE Urine oxycodone detection NEGATIVE NEGATIVE Urine propoxyphene detection NEGATIVE NEGATIVE Comprehensive Metabolic Panel - 04/28/17 17:07 Albumin 4.2 g/dL 3.6-5.1 ALP 76 U/L 35-130 ALT 43 U/L 6-45 Anion Gap 16 6-14 AST 29 U/L 2-40 BUN 10 mg/dL 5-25 Calcium 10.0 mg/dL 8.3-10.4 Chloride 105 mmol/L 95-114 CO2 24 mEq/L 22-33 Creat 0.89 mg/dL 0.50-1.50 eGFR 72 mL/min/1.73m2 >59 Globulin 4.2 g/dL 2.3-3.5 Glucose 76 mg/dL 70-110 Osmo 289 280-295 Potassium 3.5 mmol/L 3.5-5.3 Sodium 141 mmol/L 134-148 TBil 0.2 mg/dL 0.2-1.2 TP 7.2 g/dL 6.0-8.3 Mycoplasma - 04/28/17 17:54 Mycoplasma Negative Negative CBC With Differential/Platelet - 06/18/17 17:45 WBC 11.1 x10E3/uL 3.4-10.8 RBC 4.76 x10E6/uL 3.77-5.28 Hemoglobin 13.4 g/dL 11.1-15.9 Hematocrit 39.4 % 34.0-46.6 MCV 83 fL 79-97 MCH 28.2 pg 26.6-33.0 MCHC 34.0 g/dL 31.5-35.7 RDW 14.0 % 12.3-15.4 Platelets 291 x10E3/uL 150-379 Neutrophils 51 % Not Estab. Lymphs 41 % Not Estab. Monocytes 5 % Not Estab. Eos 3 % Not Estab. Basos 0 % Not Estab. Neutrophils (Absolute) 5.6 x10E3/uL 1.4-7.0 Lymphs (Absolute) 4.5 x10E3/uL 0.7-3.1 Monocytes(Absolute) 0.6 x10E3/uL 0.1-0.9 Eos (Absolute) 0.3 x10E3/uL 0.0-0.4 Baso (Absolute) 0.0 x10E3/uL 0.0-0.2 Immature Granulocytes 0 % Not Estab. Immature Grans (Abs) 0.0 x10E3/uL 0.0-0.1 Comp. Metabolic Panel (14) - 06/18/17 17:45 Glucose, Serum 82 mg/dL 65-99 BUN 13 mg/dL 6-20 Creatinine, Serum 0.77 mg/dL 0.57-1.00 eGFR If NonAfricn Am 101 mL/min/1.73 >59 eGFR If Africn Am 117 mL/min/1.73 >59 BUN/Creatinine Ratio 17 9-23 Sodium, Serum 139 mmol/L 134-144 Potassium, Serum 3.8 mmol/L 3.5-5.2 Chloride, Serum 97 mmol/L 96-106 Carbon Dioxide, Total 21 mmol/L 18-29 Calcium, Serum 10.1 mg/dL 8.7-10.2 Protein, Total, Serum 7.5 g/dL 6.0-8.5 Albumin, Serum 4.6 g/dL 3.5-5.5 Globulin, Total 2.9 g/dL 1.5-4.5 A/G Ratio 1.6 1.2-2.2 Bilirubin, Total 0.3 mg/dL 0.0-1.2 Alkaline Phosphatase, S 89 IU/L 39-117 AST (SGOT) 31 IU/L 0-40 ALT (SGPT) 34 IU/L 0-32 Lipid Panel - 06/18/17 17:45 Cholesterol, Total 221 mg/dL 100-199 Triglycerides 250 mg/dL 0-149 HDL Cholesterol 32 mg/dL >39 VLDL Cholesterol Aleksandr 50 mg/dL 5-40 LDL Cholesterol Calc 139 mg/dL 0-99 Hemoglobin A1c - 06/18/17 17:45 Hemoglobin A1c 5.3 % 4.8-5.6 Thyroid [place] Profile - 06/18/17 17:45 TSH 2.120 uIU/mL 0.450-4.500 Insulin - 06/18/17 17:45 Insulin 17.5 uIU/mL 2.6-24.9 CMP - 06/18/17 17:45 Glucose, Serum 82 mg/dL 65-99 BUN 13 mg/dL 6-20 Creatinine, Serum 0.77 mg/dL 0.57-1.00 eGFR If NonAfricn Am 101 mL/min/1.73 >59 eGFR If Africn Am 117 mL/min/1.73 >59 BUN/Creatinine Ratio 17 9-23 Sodium, Serum 139 mmol/L 134-144 Potassium, Serum 3.8 mmol/L 3.5-5.2 Chloride, Serum 97 mmol/L 96-106 Carbon Dioxide, Total 21 mmol/L 18-29 Calcium, Serum 10.1 mg/dL 8.7-10.2 Protein, Total, Serum 7.5 g/dL 6.0-8.5 Albumin, Serum 4.6 g/dL 3.5-5.5 Globulin, Total 2.9 g/dL 1.5-4.5 A/G Ratio 1.6 1.2-2.2 Bilirubin, Total 0.3 mg/dL 0.0-1.2 Alkaline Phosphatase, S 89 IU/L 39-117 AST (SGOT) 31 IU/L 0-40 ALT (SGPT) 34 IU/L 0-32 Influenza - 08/16/17 10:02 Influenza NEGATIVE FOR A and B 0.00-0.00 Encounters ACCT No. Visit Date/Time Discharge Status Pt. Type Provider Facility Loc./Unit Complaint [id number] 12/16/2014 14:40:00 12/16/2014 23:59:59 [facility] Outpatient PINA SMITH [id number] 12/16/2014 14:40:00 12/16/2014 23:59:59 [facility] Outpatient PINA SMITH [id number] 12/13/2014 14:15:00 12/13/2014 23:59:59 C[facility] Outpatient PIETER GUTIERREZ RN [id number] 11/11/2014 08:35:00 11/11/2014 23:59:59 [facility] Outpatient PINA SMITH [id number] 10/10/2014 11:30:00 10/10/2014 23:59:59 CLS Outpatient PIETER GUTIERREZ RN [id number] 09/02/2014 11:20:00 09/02/2014 23:59:59 CLS Outpatient PIETER GUTIERREZ RN [id number] 08/23/2014 08:44:00 08/23/2014 23:59:59 CLS Outpatient JESIKA HOWARD DO [id number] 08/09/2014 08:43:00 08/09/2014 23:59:59 CLS Outpatient JESIKA HOWARD DO [id number] 08/08/2014 10:42:00 08/08/2014 23:59:59 CLS Outpatient ERNESTINA SVETA, PINA M [id number] 07/28/2014 11:00:00 07/28/2014 23:59:59 CLS Outpatient PIETER GUTIERREZ RN [id number] 07/26/2014 11:34:00 07/26/2014 23:59:59 CLS Outpatient LEE WINTER JESIKA K [id number] 07/20/2014 09:42:00 07/20/2014 23:59:59 CLS Outpatient LEE WINTERJESIKA [id number] 06/02/2014 11:00:00 06/02/2014 23:59:59 CLS Outpatient PIETER GUTIERREZ RN [id number] 05/24/2014 14:59:00 05/24/2014 23:59:59 CLS Outpatient STAN CHAN MD [id number] 05/19/2014 12:37:00 05/19/2014 23:59:59 CLS Outpatient DAMION MANSFIELD APRN [id number] 04/25/2014 00:00:00 04/25/2014 23:59:59 CLS Outpatient PIETER GUTIERREZ RN [id number] 12/07/2013 16:17:00 12/07/2013 23:59:59 CLS Outpatient ROD ORONA APRN [id number] 11/25/2013 13:50:00 11/25/2013 23:59:59 CLS Outpatient HO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
[2018-07-11] MEDS ORDERED: DEXAMETHASONE 10 MG/ML (DECADRON) 1 ML VIAL IV ONE (15:30)
[2018-07-11] MEDS ORDERED: MECLIZINE 25 MG (ANTIVERT) TAB PO ONE (15:30)
[2018-07-11] MEDS ORDERED: NS IV 1000 ML 1,000 ML IV SCH (15:30)
[2018-07-11] MEDS ORDERED: IOHEXOL 350 MG/ML 100 ML (OMNIPAQUE 350) VIAL IV ONE (15:45)
[2018-07-11] MEDS ORDERED: NS 250 ML (IVPB) BAG IV ONE (15:45)
[2018-07-11] MEDS ORDERED: CATHETER FLUSH 10 ML SYR IV PRN (15:45)
[2018-07-11 15:48] LABS: BASOPHILS % (AUTO) 0 % (0-10); EOSINOPHILS # (AUTO) 0.3 10^3/uL (0.0-0.3); EOSINOPHILS % (AUTO) 3 % (0-10); HEMATOCRIT 39 % (35-52); HEMOGLOBIN 13.4 G/DL (11.5-16.0); LYMPHOCYTES # (AUTO) 4.6 X 10^3 (1.0-4.0); LYMPHOCYTES % (AUTO) 45 % (12-44); MEAN CORPUSCULAR HEMOGLOBIN 29 PG (25-34); MEAN CORPUSCULAR HGB CONC 35 G/DL (32-36); MEAN CORPUSCULAR VOLUME 82 FL (80-99); MEAN PLATELET VOLUME 10.2 FL (7.4-10.4); MONOCYTES # (AUTO) 0.5 X 10^3 (0.0-1.0); MONOCYTES % (AUTO) 5 % (0-12); NEUTROPHILS # (AUTO) 4.7 X 10^3 (1.8-7.8); NEUTROPHILS % (AUTO) 46 % (42-75); PLATELET COUNT 230 10^3/uL (130-400); RED BLOOD COUNT 4.71 10^6/uL (4.35-5.85); RED CELL DISTRIBUTION WIDTH 13.5 % (10.0-14.5); WHITE BLOOD COUNT 10.1 10^3/uL (4.3-11.0)
[2018-07-11 16:13] LABS: ALANINE AMINOTRANSFERASE 58 U/L (0-55); ALKALINE PHOSPHATASE 71 U/L (40-136); BILIRUBIN,TOTAL 0.3 MG/DL (0.1-1.0); BUN/CREATININE RATIO 20; CALCIUM 9.3 MG/DL (8.5-10.1); CARBON DIOXIDE 24 MMOL/L (21-32); CHLORIDE 105 MMOL/L (98-107); CREATININE SERUM 0.55 MG/DL (0.60-1.30); GFR ESTIMATED > 60; GLUCOSE 102 MG/DL (70-105); SODIUM 140 MMOL/L (135-145); TOTAL PROTEIN 7.1 GM/DL (6.4-8.2)
--- NOTE | 2018-07-11 16:14 | Diagnostic Imaging Report ---
EXAMINATION: Chest, PA view. INDICATION: Cough, dizziness and nausea. COMPARISON: Multiple priors, most recent performed on 05/20/2014. FINDINGS: The lungs are clear and the pulmonary vasculature is normal. No pleural effusion or pneumothorax. The cardiomediastinal silhouette is normal. No acute osseous abnormality. IMPRESSION: No acute chest disease. No significant change. Dictated by: Dictated on workstation # [id number]
[2018-07-11 16:44] LABS: BILIRUBIN,URINE NEGATIVE (NEGATIVE); CLARITY,URINE CLEAR; COLOR,URINE YELLOW; GLUCOSE, URINE (UA) NEGATIVE (NEGATIVE); KETONES,URINE NEGATIVE (NEGATIVE); LEUKOCYTE ESTERASE ,URINE NEGATIVE (NEGATIVE); NITRITE,URINE NEGATIVE (NEGATIVE); PH,URINE 8 (5-9); PROTEIN,URINE 1+ (NEGATIVE); UROBILINOGEN,URINE NORMAL (NORMAL)
[2018-07-11 16:55] LABS: AMORPHOUS SEDIMENT,UR LARGE AMOR PHOSPHATE /LPF; BACTERIA,URINE NEGATIVE /HPF; WBC,URINE 0-2 /HPF
--- NOTE | 2018-07-11 16:55 | Diagnostic Imaging Report ---
PROCEDURE: CT angiography of the head and CT angiography of the neck with and without contrast. TECHNIQUE: CT of the head was performed without intravenous contrast. Contiguous noncontrast images were obtained from the skull base through the vertex. After intravenous contrast administration, helical CT angiography of the neck was performed. Source data was reformatted into multiple 2D MIP projections. Delayed post contrast acquisition was also obtained. INDICATION: Dizziness and nausea. Coughing with posttussive emesis. COMPARISON: None. FINDINGS: CT HEAD: No parenchymal hemorrhage, midline shift, or mass effect. Collins-white matter differentiation is adequately preserved without evidence of acute infarct. No epidural or subdural collections. Ventricles, cisterns, and sulci are normal. No calvarial lesion or fracture. The visualized orbits and globes are normal. Extracranial soft tissues are unremarkable. An air-fluid level is demonstrated in the right maxillary sinus. The remaining visualized paranasal sinuses and mastoid air cells are otherwise clear. Incidental note is made of bilateral loeg bullosa. CTA NECK: Aorta: Aortic arch is normal, with standard three vessel branching pattern. Anterior Circulation: The origin of the bilateral common carotid arteries are patent. No stenosis of the common carotid arteries in the neck. No significant stenosis of the internal carotid arteries per NASCET criteria. The cervical segments of the bilateral ICAs are patent. The proximal external carotid arteries are patent and without significant stenosis. Posterior Circulation: Origins of the bilateral vertebral arteries are partially obscured by streak artifact. The left vertebral artery is dominant. The proximal extraosseous, intraosseous, and distal extraosseous segments of the vertebral arteries are patent without dissection or stenosis. Non-vascular: No cervical lymphadenopathy. The airway is patent. No evidence of mucosal-based mass lesion in the pharynx. Thyroid is normal. Salivary glands are normal. No concerning lesion in the cervical spine. CTA HEAD: Anterior Circulation: The distal internal carotid arteries are patent. The bilateral M1 and M2 segments of the middle cerebral arteries are patent and without stenosis. The bilateral M3 and M4 segments are symmetric in size and number. The anterior cerebral arteries are patent and without stenosis. Anterior communicating artery is patent. No saccular aneurysm in the anterior circulation. Posterior Circulation: The bilateral intracranial segments of the vertebral arteries are patent. The basilar artery is patent and without stenosis. The posterior cerebral arteries are patent. No saccular aneurysm in the posterior circulation. Post Contrast Head: No pathologic enhancement on delayed post-contrast enhancement. IMPRESSION: 1. No intra-cranial major arterial occlusion, significant stenosis or aneurysm. 2. No arterial occlusion or stenosis in the major neck arteries. The vertebral artery origins are partially obscured by streak artifact. 3. No acute intracranial pathology. Dictated by: Dictated on workstation # [id number]
[2018-07-11] MEDS ORDERED: PROM25TA14 PO (17:05)
[2018-07-11 17:11] VITALS: BP 141/96
== END 2018-07-11 17:16 | disposition home or self-care (01) ==
LOC: EDUNIT# 15:09 → ER 15:10
DX: R42 Dizziness and giddiness (principal); J06.9 Acute upper respiratory infection, unspecified; G43.909 Migraine, unspecified, not intractable, without status migrainosus; F41.9 Anxiety disorder, unspecified; F43.10 Post-traumatic stress disorder, unspecified; F31.9 Bipolar disorder, unspecified; K21.9 Gastro-esophageal reflux disease without esophagitis; Z87.19 Personal history of other diseases of the digestive system; Z87.440 Personal history of urinary (tract) infections; Z88.5 Allergy status to narcotic agent; Z88.4 Allergy status to anesthetic agent; Z88.8 Allergy status to other drugs, medicaments and biological substances; Z82.49 Family history of ischemic heart disease and other diseases of the circulatory system; Z90.89 Acquired absence of other organs; Z90.710 Acquired absence of both cervix and uterus; Z98.51 Tubal ligation status; Z87.09 Personal history of other diseases of the respiratory system
CPT/HCPCS: 36415; 70496; 70498; 71045; 80053; 81000; 85025

== ENCOUNTER 2018-07-13 14:40 | Emergency (ER) | payer SELFPAY ==
[~2018-07-13 14:40] MED LIST changes: +PROM25TA14 PO
--- OUTSIDE RECORDS SUMMARY | 2018-07-13 18:39 | XMS REPORT | Continuity of Care Document ---
Author Author [facility] of [facility] Address Unknown Phone Unavailable Allergies [...] hydrocodone Drug Allergy 10/02/2012 Yes ketorolac tromethamine [id number] Drug Allergy Unknown VOMITING 2013 Yes metformin [id number] Drug Allergy Moderate N/V 11/28/2015 Yes Ty Ty [id number] Drug Allergy Mild N/A 11/28/2015 Yes codeine [id number] Drug Allergy Unknown N/A 11/28/2015 Yes morphine [id number] Drug Allergy Unknown N/A 11/28/2015 Medications Medication [...] EPISODE (OR CURRENT) MIXED UNSPECIFIED 05/12/2008 JESUSITA RECREATION FACILITY MANAGER, BARBARA B 300.01 AN PANIC DIS W/O AGORA 05/12/2008 JESUSITA BROCK, BARBARA B 300.15 DS DISSOCIATIVE DIS NOS 05/12/2008 JESUSITA RECREATION FACILITY MANAGER, BARBARA B 307.47 SI DYSSOMNIA NOS 05/12/2008 [...] HOWARD DOA K 309.81 AN PTSD 05/12/2008 [facility], ARGELIA R 296.60 BIPOLAR I DISORDER MOST RECENT EPISODE (OR CURRENT) MIXED UNSPECIFIED 05/12/2008 [facility], ARGELIA R 300.01 AN PANIC DIS W/O AGORA 05/12/2008 [facility], ARGELIA R 300.15 DS DISSOCIATIVE DIS NOS 05/12/2008 [facility], ARGELIA R 307.47 SI DYSSOMNIA NOS 05/12/2008 [facility], ARGELIA R 309.81 AN PTSD 05/12/2008 [facility], ARGELIA R 296.60 BIPOLAR I DISORDER MOST RECENT EPISODE (OR CURRENT) MIXED UNSPECIFIED 05/12/2008 [facility], ARGELIA R 300.01 AN PANIC DIS W/O AGORA 05/12/2008 [facility], ARGELIA R 300.15 DS DISSOCIATIVE DIS NOS 05/12/2008 [facility], ARGELIA R 307.47 SI DYSSOMNIA NOS 05/12/2008 [facility], ARGELIA R 309.81 AN PTSD 05/12/2008 [...] MANSFIELD APRNRICIA R 309.81 AN PTSD 05/12/2008 STNA CHAN MD 296.60 BIPOLAR I DISORDER MOST [...] DO K 309.81 AN PTSD 05/12/2008 ERNESTINA WOOD FLOOR REFINISHERPINA M 296.60 BIPOLAR I DISORDER MOST RECENT EPISODE (OR CURRENT) MIXED UNSPECIFIED 05/12/2008 ERNESTINA WOOD FLOOR REFINISHERPINA M 300.01 AN PANIC DIS W/O AGORA 05/12/2008 ERNESTINA WOOD FLOOR REFINISHERPINA M 300.15 DS DISSOCIATIVE DIS NOS 05/12/2008 ERNESTINA WOOD FLOOR REFINISHERPINA M 307.47 SI DYSSOMNIA NOS 05/12/2008 ERNESTINA WOOD FLOOR REFINISHERPINA M 309.81 AN PTSD 05/12/2008 RHETT HOWARD [...] RECENT EPISODE (OR CURRENT) MIXED UNSPECIFIED 05/12/2008 BRENAD RN, PIETER E 300.01 AN PANIC DIS [...] 300.15 DS DISSOCIATIVE DIS NOS 05/12/2008 ERNESTINA WOOD FLOOR REFINISHER, PINA M 307.47 SI DYSSOMNIA NOS 05/12/2008 ERNESTINA WOOD FLOOR REFINISHER, PINA M 309.81 AN PTSD 05/12/2008 PIETER GUTIERREZ RN E 296.60 BIPOLAR I DISORDER MOST RECENT EPISODE (OR CURRENT) MIXED UNSPECIFIED 05/12/2008 PIETER GUTIERREZ RN E 300.01 AN PANIC DIS W/O AGORA 05/12/2008 BRENDA TOVAR, PIETER E 300.15 DS DISSOCIATIVE DIS NOS 05/12/2008 PIETER GUTIERREZ RN E 307.47 SI DYSSOMNIA NOS 05/12/2008 BRENDA TOVAR, PIETER E 309.81 AN PTSD 05/12/2008 ERNESTINA WOOD FLOOR REFINISHER, PINA M 296.60 BIPOLAR I DISORDER MOST RECENT EPISODE (OR CURRENT) MIXED UNSPECIFIED 05/12/2008 ERNESTINA WOOD FLOOR REFINISHER, PINA M 300.01 AN PANIC DIS W/O AGORA 05/12/2008 ERNESTINA WOOD FLOOR REFINISHER, PINA M 300.15 DS DISSOCIATIVE DIS NOS 05/12/2008 ERNESTINA WOOD FLOOR REFINISHER, PINA M 307.47 SI DYSSOMNIA NOS 05/12/2008 ERNESTINA WOOD FLOOR REFINISHER, PINA M 309.81 AN PTSD 05/12/2008 ERNESTINA WOOD FLOOR REFINISHER, PINA M 296.60 BIPOLAR I DISORDER MOST RECENT EPISODE (OR CURRENT) MIXED UNSPECIFIED 05/12/2008 ERNESTINA WOOD FLOOR REFINISHER, PINA M 300.01 AN PANIC DIS W/O AGORA 05/12/2008 ERNESTINA WOOD FLOOR REFINISHER, PINA M 300.15 DS DISSOCIATIVE DIS NOS 05/12/2008 ERNESTINA WOOD FLOOR REFINISHER, PINA M 307.47 SI DYSSOMNIA NOS 05/12/2008 ERNESTINA WOOD FLOOR REFINISHER, PINA M 309.81 AN PTSD 05/19/2008 BARBARA [...] ARGELIA DECKER 296.80 MO BIPOLAR NOS 05/19/2008 [facility], ARGELIA R 296.80 MO BIPOLAR NOS 05/19/2008 HO 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, PILLO NELSONH 296.80 MO BIPOLAR NOS 05/19/2008 LUDWIN RUDOLPH 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, KARIS N 296.80 MO BIPOLAR NOS 05/19/2008 LUDWIN RUDOLPH 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, KARIS N 296.80 MO BIPOLAR NOS 05/19/2008 HO 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, PILLO ZAPATA 296.80 MO BIPOLAR NOS 05/19/2008 HO 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, PILLO ZAPATA 296.80 MO BIPOLAR NOS 05/19/2008 YEYO 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, ROD Trena 296.80 MO BIPOLAR NOS 05/19/2008 DONAL 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, DAMION R 296.80 MO BIPOLAR NOS 05/19/2008 [...] 296.90 UNSPECIFIED EPISODIC MOOD DISORDER 06/17/2008 BRITTANY 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RONALDTEMO S 300.00 AN ANXIETY UNSPEC 06/17/2008 BRITTANY 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, TEMO S 301.9 PD PERS DIS NOS 06/17/2008 BRITTANY 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, TEMO S 296.90 UNSPECIFIED EPISODIC MOOD DISORDER 06/17/2008 BRITTANY 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RONALDTEMO S 300.00 AN ANXIETY UNSPEC 06/17/2008 BRITTANY 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, TEMO S 301.9 PD PERS DIS NOS [...] K 301.9 PD PERS DIS NOS 06/17/2008 [facility], AGRELIA R 296.90 UNSPECIFIED EPISODIC MOOD DISORDER 06/17/2008 [facility], ARGELIA R 300.00 AN ANXIETY UNSPEC 06/17/2008 [facility], ARGELIA R 301.9 PD PERS DIS NOS 06/17/2008 [facility], ARGELIA R 296.90 UNSPECIFIED EPISODIC MOOD DISORDER 06/17/2008 [facility], ARGELIA R 300.00 AN ANXIETY UNSPEC 06/17/2008 [facility], ARGELIA R 301.9 PD PERS DIS NOS 06/17/2008 PILLO TEAGUE APRN 296.90 UNSPECIFIED EPISODIC MOOD DISORDER 06/17/2008 PILLO TEAGUE APRN 300.00 AN ANXIETY UNSPEC 06/17/2008 PILLO TEAGUE APRN 301.9 PD PERS DIS NOS 06/17/2008 MASCORRO CASHERO 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, KARIS N 296.90 UNSPECIFIED EPISODIC MOOD DISORDER [...] 301.9 PD PERS DIS NOS 06/17/2008 YEYO 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ROD [address] T 296.90 UNSPECIFIED EPISODIC MOOD DISORDER 06/17/2008 YEYO 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, ROD T 300.00 AN ANXIETY UNSPEC 06/17/2008 YEYO 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, ROD T 301.9 PD PERS DIS NOS 06/17/2008 ROSALIE MANSFIELD APRNRICIA R 296.90 UNSPECIFIED EPISODIC MOOD DISORDER 06/17/2008 ROSALIE MANSFIELD APRNRICIA R 300.00 AN ANXIETY UNSPEC 06/17/2008 ROSALIE MANSFIELD APRNRICIA R 301.9 PD PERS DIS NOS 06/17/2008 STAN CHNA MD 296.90 UNSPECIFIED EPISODIC MOOD DISORDER 06/17/2008 [...] 301.9 PD PERS DIS NOS 06/17/2008 ERNESTINA WOOD FLOOR REFINISHER, PINA M 296.90 UNSPECIFIED EPISODIC MOOD DISORDER 06/17/2008 ERNESTINA WOOD FLOOR REFINISHER, PINA M 300.00 AN ANXIETY UNSPEC 06/17/2008 ERNESTINA WOOD FLOOR REFINISHER, PINA M 301.9 PD PERS DIS NOS 06/17/2008 ERNESTINA WOOD FLOOR REFINISHER, PINA M 296.90 UNSPECIFIED EPISODIC MOOD DISORDER 06/17/2008 ERNESTINA WOOD FLOOR REFINISHER, PINA M 300.00 AN ANXIETY UNSPEC 06/17/2008 ERNESTINA WOOD FLOOR REFINISHER, PINA M 301.9 PD PERS DIS NOS 12/07/2008 JESUSITA RECREATION FACILITY MANAGERBARBARA HENDRICKS 611.72 BREAST LUMP OR MASS 12/07/2008 TEMO SOTO APRN S 611.72 BREAST LUMP OR MASS 12/07/2008 TEMO SOTO APRN S 611.72 BREAST LUMP OR MASS 12/07/2008 611.72 BREAST LUMP OR MASS 12/07/2008 611.72 BREAST LUMP OR MASS 12/07/2008 611.72 BREAST LUMP OR MASS 12/07/2008 611.72 BREAST LUMP OR MASS 12/07/2008 JESIKA HOWARD DO 611.72 BREAST LUMP OR MASS 12/07/2008 [facility], ARGELIA R 611.72 BREAST LUMP OR MASS 12/07/2008 [facility], ARGELIA R 611.72 BREAST LUMP OR [...] FROM OTHER STAIRS OR STEPS 02/26/2010 [facility] 840.6 SPRAINS AND STRAINS OF SHOULDER AND UPPER ARM, SUPRASPINATUS (MUSCLE) ( TENDON) 02/26/2010 [facility] E849.[address] OF OCCURRENCE 02/26/2010 [facility], ARGELIA R E880.9 ACCIDENTAL FALL ON OR FROM OTHER STAIRS OR STEPS 02/26/2010 [facility], ARGELIA R 840.6 SPRAINS AND STRAINS [...] UNSPECIFIED PLACE OF OCCURRENCE 02/26/2010 MASCORRO KOBESARTHAK 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, KARIS N E880.9 ACCIDENTAL FALL ON OR [...] B 564.1 IRRITABLE BOWEL SYNDROME 04/10/2010 JESUSITA RECREATION FACILITY MANAGER, BARBARA B 782.0 DISTURBANCE OF SKIN SENSATION 04/10/2010 BRITTANY 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, TEMO S 564.1 IRRITABLE BOWEL SYNDROME 04/10/2010 BRITTANY 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, TEMO S 782.0 DISTURBANCE OF SKIN SENSATION 04/10/2010 BRITTANY 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, TEMO S 564.1 IRRITABLE BOWEL SYNDROME 04/10/2010 BRITTANY 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, TEMO S 782.0 DISTURBANCE OF SKIN SENSATION [...] K 782.0 DISTURBANCE OF SKIN SENSATION 04/10/2010 [facility], ARGELIA R 564.1 IRRITABLE BOWEL SYNDROME 04/10/2010 [facility], ARGELIA R 782.0 DISTURBANCE OF SKIN SENSATION 04/10/2010 [facility], ARGELIA R 564.1 IRRITABLE BOWEL SYNDROME 04/10/2010 [facility], ARGELIA R 782.0 DISTURBANCE OF SKIN [...] 782.0 DISTURBANCE OF SKIN SENSATION 04/10/2010 YEYO 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, ROD T 564.1 IRRITABLE BOWEL SYNDROME 04/10/2010 YEYO 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, ROD T 782.0 DISTURBANCE OF SKIN SENSATION 04/10/2010 DONAL BELLAMY, DAMION R 564.1 IRRITABLE BOWEL SYNDROME 04/10/2010 DONAL 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 DAMION R 782.0 DISTURBANCE OF SKIN SENSATION [...] 782.0 DISTURBANCE OF SKIN SENSATION 04/10/2010 ERNESTINA WOOD FLOOR REFINISHER, PINA M 564.1 IRRITABLE BOWEL SYNDROME 04/10/2010 ERNESTINA WOOD FLOOR REFINISHER, PINA M 782.0 DISTURBANCE OF SKIN SENSATION 04/10/2010 PIETER GUTIERREZ RN 564.1 IRRITABLE BOWEL SYNDROME 04/10/2010 PIETER GUTIERREZ RN E 782.0 DISTURBANCE OF SKIN SENSATION 04/10/2010 ERNESTINA WOOD FLOOR REFINISHER, PINA M 564.1 IRRITABLE BOWEL SYNDROME 04/10/2010 ERNESTINA WOOD FLOOR REFINISHER, PINA M 782.0 DISTURBANCE OF SKIN SENSATION 04/10/2010 ERNESTINA WOOD FLOOR REFINISHER, PINA M 564.1 IRRITABLE BOWEL SYNDROME 04/10/2010 ERNESTINA WOOD FLOOR REFINISHER, PINA M 782.0 DISTURBANCE OF SKIN SENSATION 05/05/2010 JESUSITA [facility], BARBARA B 112.1 CANDIDIASIS VAGINAL 05/05/2010 TEMO SOTO APRN S 112.1 CANDIDIASIS VAGINAL 05/05/2010 TEMO SOTO APRN S 112.1 CANDIDIASIS VAGINAL 05/05/2010 112.1 CANDIDIASIS VAGINAL 05/05/2010 112.1 CANDIDIASIS VAGINAL 05/05/2010 112.1 CANDIDIASIS VAGINAL 05/05/2010 112.1 CANDIDIASIS VAGINAL 05/05/2010 LEE WINTER JESIKA K 112.1 CANDIDIASIS VAGINAL 05/05/2010 [facility], ARGELIA R 112.1 CANDIDIASIS VAGINAL 05/05/2010 [facility], ARGELIA R 112.1 CANDIDIASIS VAGINAL 05/05/2010 PILLO TEAGUE APRN 112.1 CANDIDIASIS VAGINAL 05/05/2010 KARIS CHANCE APRN N 112.1 CANDIDIASIS VAGINAL 05/05/2010 KARIS CHANCE APRN N 112.1 CANDIDIASIS VAGINAL 05/05/2010 PILLO TEAGUE APRN 112.1 CANDIDIASIS VAGINAL 05/05/2010 HO BELLAMY PILLO ZAPATA 112.1 CANDIDIASIS VAGINAL 05/05/2010 YEYO 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, ROD Albrecht 112.1 CANDIDIASIS VAGINAL 05/05/2010 DONAL [...] 386.2 VERTIGO OF CENTRAL ORIGIN 05/28/2010 TEAGUE 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, PILLO JODI 386.2 VERTIGO OF CENTRAL ORIGIN 05/28/2010 MASCORRO CASHERO 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, KARIS N 386.2 VERTIGO OF CENTRAL ORIGIN 05/28/2010 MASCORRO CASHERO 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, KARIS N 386.2 VERTIGO OF CENTRAL ORIGIN 05/28/2010 TEAGUE 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, PILLO JODI 386.2 VERTIGO OF CENTRAL ORIGIN 05/28/2010 TEAGUE 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, PILLO JODI 386.2 VERTIGO OF CENTRAL ORIGIN 05/28/2010 YEYO 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, ROD Albrecht 386.2 VERTIGO OF CENTRAL ORIGIN 05/28/2010 DONAL 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, DAMION R 386.2 VERTIGO OF CENTRAL ORIGIN [...] 386.2 VERTIGO OF CENTRAL ORIGIN 05/28/2010 PIETER UGTIERREZ RN E 386.2 VERTIGO OF CENTRAL ORIGIN 05/28/2010 PIETER GUTIERREZ RN E 386.2 VERTIGO OF CENTRAL ORIGIN 05/28/2010 PINA SMITH M 386.2 VERTIGO OF CENTRAL ORIGIN 05/28/2010 PIETER GUTIERREZ RN E 386.2 VERTIGO OF CENTRAL ORIGIN 05/28/2010 PINA SMITH 386.2 VERTIGO OF CENTRAL ORIGIN 05/28/2010 PINA SMITH 386.2 VERTIGO OF CENTRAL ORIGIN 06/19/2010 JESUSITA BROCK, BARBARA B 784.0 HEADACHE 06/19/2010 BRITTANY 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, TEMO S 784.0 HEADACHE 06/19/2010 BRITTANY 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, TEMO S 784.0 HEADACHE 06/19/2010 784.0 HEADACHE 06/19/2010 784.0 HEADACHE 06/19/2010 784.0 HEADACHE 06/19/2010 784.0 HEADACHE 06/19/2010 HOWARD DO, JESIKA K 784.0 HEADACHE 06/19/2010 [facility], ARGELIA R 784.0 HEADACHE 06/19/2010 [facility], ARGELIA R 784.0 HEADACHE 06/19/2010 TEAGUE 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, PILLO NELSONH 784.0 HEADACHE 06/19/2010 MASCORRO CASHERO 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, KARIS N 784.0 HEADACHE 06/19/2010 MASCORRO CASHERO 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, KARIS N 784.0 HEADACHE 06/19/2010 TEAGUE 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, PILLO ZAPATA 784.0 HEADACHE 06/19/2010 TEAGUE 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, PILLO NELSONH 784.0 HEADACHE 06/19/2010 YEYO 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, ROD T 784.0 HEADACHE 06/19/2010 DONAL 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, DAMION R 784.0 HEADACHE 06/19/2010 STAN CHAN [...] BANGURA, PINA M 784.0 HEADACHE 06/19/2010 ERNESTINA WOOD FLOOR REFINISHER, PINA M 784.0 HEADACHE 06/30/2010 Ot 784.0 06/30/2010 Ot 787.03 07/07/2010 Ot 780.4 07/07/2010 Ot 784.2 07/07/2010 Ot 786.09 07/07/2010 Ot 995.7 07/07/2010 Ot V15.05 08/03/2010 JESUSITA BROCK, BARBARA B 919.0 ABRASION UNSPECIFIED 08/03/2010 JESUSITA RECREATION FACILITY MANAGER, BARBARA B E928.9 UNSPECIFIED ACCIDENT 08/03/2010 BRITTANY 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, TEMO S 919.0 ABRASION UNSPECIFIED 08/03/2010 BRITTANY 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, TEMO S E928.9 UNSPECIFIED ACCIDENT 08/03/2010 BRITTANY 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, TEMO S 919.0 ABRASION UNSPECIFIED 08/03/2010 BRITTANY 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, TEMO S E928.9 UNSPECIFIED ACCIDENT 08/03/2010 919.0 ABRASION UNSPECIFIED 08/03/2010 E928.9 UNSPECIFIED ACCIDENT 08/03/2010 919.0 ABRASION UNSPECIFIED 08/03/2010 E928.9 UNSPECIFIED ACCIDENT 08/03/2010 919.0 ABRASION UNSPECIFIED 08/03/2010 E928.9 UNSPECIFIED ACCIDENT 08/03/2010 919.0 ABRASION UNSPECIFIED 08/03/2010 E928.9 UNSPECIFIED ACCIDENT 08/03/2010 HOWARD DO, JESIKA K 919.0 ABRASION UNSPECIFIED 08/03/2010 HOWARD DO, JESIKA K E928.9 UNSPECIFIED ACCIDENT 08/03/2010 [facility], ARGELIA R 919.0 ABRASION UNSPECIFIED 08/03/2010 [facility], ARGELIA R E928.9 UNSPECIFIED ACCIDENT 08/03/2010 [facility], ARGELIA R 919.0 ABRASION UNSPECIFIED 08/03/2010 [facility], ARGELIA R E928.9 UNSPECIFIED ACCIDENT 08/03/2010 PILLO TEAGUE APRN 919.0 ABRASION UNSPECIFIED 08/03/2010 PILLO TEAGUE APRN E928.9 UNSPECIFIED ACCIDENT 08/03/2010 MASCORRO CASHERO 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, KARIS N 919.0 ABRASION UNSPECIFIED 08/03/2010 LUDWIN BULLOCKERO 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, KARIS N E928.9 UNSPECIFIED ACCIDENT 08/03/2010 LUDWIN CASHERO 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, KARIS N 919.0 ABRASION UNSPECIFIED 08/03/2010 LUDWIN BULLOCKERO 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, KARIS N E928.9 UNSPECIFIED ACCIDENT 08/03/2010 TEAGUE 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, PILLO ZAPATA 919.0 ABRASION UNSPECIFIED 08/03/2010 TEAGUE 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, PILLO JODI E928.9 UNSPECIFIED ACCIDENT 08/03/2010 TEAGUE 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, PILLO ZAPATA 919.0 ABRASION UNSPECIFIED 08/03/2010 TEAGUE 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, PILLO ZAPATA E928.9 UNSPECIFIED ACCIDENT 08/03/2010 YEYO 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, ROD T 919.0 ABRASION UNSPECIFIED 08/03/2010 YEYO 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, ROD T E928.9 UNSPECIFIED ACCIDENT 08/03/2010 DONAL 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, DAMION R 919.0 ABRASION UNSPECIFIED 08/03/2010 DONAL 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, DAMION R E928.9 UNSPECIFIED ACCIDENT 08/03/2010 STAN [...] E 919.0 ABRASION UNSPECIFIED 08/03/2010 BRENDA TOVAR, PIETRE E E928.9 UNSPECIFIED ACCIDENT 08/03/2010 ERNESTINA BANGURA, [...] ABDOMINAL PAIN LEFT UPPER QUADRANT 12/07/2010 TEAGUE 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, PILLO ZAPATA 789.02 ABDOMINAL PAIN LEFT UPPER QUADRANT 12/07/2010 LUDWIN RUDOLPH 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, KARIS N 789.02 ABDOMINAL PAIN LEFT UPPER QUADRANT 12/07/2010 LUDWIN RUDOLPH 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, KARIS N 789.02 ABDOMINAL PAIN LEFT UPPER [...] ABDOMINAL PAIN LEFT UPPER QUADRANT 12/07/2010 PIETER GUTIERREZ RN E 789.02 ABDOMINAL PAIN LEFT UPPER [...] DISORDERS OF FUNCTION OF STOMACH 01/10/2011 BRITTANY 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, TEMO S 536.8 DYSPEPSIA AND OTHER SPECIFIED DISORDERS OF FUNCTION OF STOMACH 01/10/2011 BRITTANY 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, TEMO S 536.8 DYSPEPSIA AND OTHER SPECIFIED [...] DISORDERS OF FUNCTION OF STOMACH 01/10/2011 [facility], ARGELIA R 536.8 DYSPEPSIA AND OTHER SPECIFIED DISORDERS OF FUNCTION OF STOMACH 01/10/2011 [facility], ARGELIA R 536.8 DYSPEPSIA AND OTHER SPECIFIED [...] SPECIFIED DISORDERS OF FUNCTION OF STOMACH 01/10/2011 PIAN SMITH 536.8 DYSPEPSIA AND OTHER SPECIFIED DISORDERS [...] K 535.00 ACUTE GASTRITIS (WITHOUT HEMORRHAGE) 01/19/2011 [facility], ARGELIA R 535.00 ACUTE GASTRITIS (WITHOUT HEMORRHAGE) 01/19/2011 [facility], ARGELIA R 535.00 ACUTE GASTRITIS (WITHOUT HEMORRHAGE) 01/19/2011 TEAGUE 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, PILLO NELSONH 535.00 ACUTE GASTRITIS (WITHOUT HEMORRHAGE) 01/19/2011 LUDWIN RUDOLPH 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, KARIS N 535.00 ACUTE GASTRITIS (WITHOUT HEMORRHAGE) 01/19/2011 LUDWIN BULLOCKERO 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, KARIS N 535.00 ACUTE GASTRITIS (WITHOUT HEMORRHAGE) 01/19/2011 TEAGUE 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, PILLO ZAPATA 535.00 ACUTE GASTRITIS (WITHOUT HEMORRHAGE) 01/19/2011 HO 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, PILLO ZAPATA 535.00 ACUTE GASTRITIS (WITHOUT HEMORRHAGE) 01/19/2011 YEYO 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, ROD Albrecht 535.00 ACUTE GASTRITIS (WITHOUT HEMORRHAGE) 01/19/2011 DONAL 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, DAMION R 535.00 ACUTE GASTRITIS (WITHOUT HEMORRHAGE) [...] 535.00 ACUTE GASTRITIS (WITHOUT HEMORRHAGE) 01/19/2011 ERNESTINA WOOD FLOOR REFINISHERPINA Cassy 535.00 ACUTE GASTRITIS (WITHOUT HEMORRHAGE) 04/18/2011 Ot 599.0 04/18/2011 Ot 789.09 11/15/2011 BARBARA MC LCPC B V65.45 STD COUNSELING 11/15/2011 BARBARA MC LCPC B V72.31 DIRECTOR ASSET EXAM, ROUTINE 11/15/2011 BARBARA MC LCPC B V74.5 STD SCREEN 11/15/2011 RONALD SOTO APRNNDA S V65.45 STD COUNSELING 11/15/2011 RONALD SOTO APRNNDA S V72.31 DIRECTOR ASSET EXAM, ROUTINE 11/15/2011 RONALD SOTO APRNNDA S V74.5 STD SCREEN 11/15/2011 RONALD SOTO APRNNDA S V65.45 STD COUNSELING 11/15/2011 RONALD SOTO APRNNDA S V72.31 DIRECTOR ASSET EXAM, ROUTINE 11/15/2011 RONALD SOTO APRNNDA S V74.5 STD SCREEN 11/15/2011 V65.45 STD COUNSELING 11/15/2011 V72.31 DIRECTOR ASSET EXAM, ROUTINE 11/15/2011 V74.5 STD SCREEN 11/15/2011 V65.45 STD COUNSELING 11/15/2011 V72.31 DIRECTOR ASSET EXAM, ROUTINE 11/15/2011 V74.5 STD SCREEN 11/15/2011 V65.45 STD COUNSELING 11/15/2011 V72.31 DIRECTOR ASSET EXAM, ROUTINE 11/15/2011 V74.5 STD SCREEN 11/15/2011 V65.45 STD COUNSELING 11/15/2011 V72.31 DIRECTOR ASSET EXAM, ROUTINE 11/15/2011 V74.5 STD SCREEN 11/15/2011 JESIKA HOWARD DO V65.45 STD COUNSELING 11/15/2011 JESIKA HOWARD DO V72.31 DIRECTOR ASSET EXAM, ROUTINE 11/15/2011 JESIKA HOWARD DO V74.5 STD SCREEN 11/15/2011 [facility] V65.45 [facility]D [facility]ING 11/15/2011 [facility], [place] R V72.31 DIRECTOR ASSET EXAM, ROUTINE 11/15/2011 [facility], ARGELIA R V74.5 STD SCREEN 11/15/2011 [facility], AR[place]ELIA R V65.45 STD COUNSELING 11/15/2011 [facility], [place]ELIA R V72.31 DIRECTOR ASSET EXAM, ROUTINE 11/15/2011 [facility], [place]ELIA R V74.5 STD SCREEN 11/15/2011 HO BELLAMY PILLO NELSONH V65.45 STD COUNSELING 11/15/2011 HO BELLAMY, PILLO NELSONH V72.31 DIRECTOR ASSET EXAM, ROUTINE 11/15/2011 HO BELLAMY PILLO NELSONH V74.5 STD SCREEN 11/15/2011 [facility] CHANCE APRN N V65.45 STD COUNSELING 11/15/2011 KARIS CHANCE APRN N V72.31 DIRECTOR ASSET EXAM, ROUTINE 11/15/2011 KARIS CHANCE APRN N V74.5 STD SCREEN 11/15/2011 KARIS CHANCE APRN N V65.45 STD COUNSELING 11/15/2011 KARIS CHANCE APRN N V72.31 DIRECTOR ASSET EXAM, ROUTINE 11/15/2011 KARIS CHANCE APRN N V74.5 STD SCREEN 11/15/2011 HO BELLAMY PILLO JODI V65.45 STD COUNSELING 11/15/2011 HO BELLAMY PILLO NELSONH V72.31 DIRECTOR ASSET EXAM, ROUTINE 11/15/2011 HO BELLAMY PILLO NELSONH V74.5 STD SCREEN 11/15/2011 HO BELLAMY PILLO JODI V65.45 STD COUNSELING 11/15/2011 HO BELLAMY PILLO NELSONH V72.31 DIRECTOR ASSET EXAM, ROUTINE 11/15/2011 HO BELLAMY PILLO JODI V74.5 STD SCREEN 11/15/2011 ROD ORONA APRN V65.45 STD COUNSELING 11/15/2011 ROD ORONA APRN V72.31 DIRECTOR ASSET EXAM, ROUTINE 11/15/2011 ROD ORONA APRN V74.5 STD SCREEN 11/15/2011 DAMION MANSFIELD APRN V65.45 STD COUNSELING 11/15/2011 DAMION MANSFIELD APRN V72.31 DIRECTOR ASSET EXAM, ROUTINE 11/15/2011 DAMION MANSFIELD APRN R V74.5 STD SCREEN 11/15/2011 ROCIO YIN, STAN V65.45 STD COUNSELING 11/15/2011 STAN CHAN MD V72.31 DIRECTOR ASSET EXAM, ROUTINE 11/15/2011 STAN CHAN MD V74.5 STD SCREEN 11/15/2011 BRENDA TOVAR, PIETER Nelson V65.45 STD COUNSELING 11/15/2011 BRENDA TOVAR, PIETER Nelson V72.31 DIRECTOR ASSET EXAM, ROUTINE 11/15/2011 BRENDA TOVAR, PIETER Nelson V74.5 STD SCREEN 11/15/2011 PIETER GUTIERREZ RN V65.45 STD COUNSELING 11/15/2011 PIETER GUTIERREZ RN V72.31 DIRECTOR ASSET EXAM, ROUTINE 11/15/2011 BRENDA TOVAR, PIETER Nelson V74.5 STD SCREEN 11/15/2011 JESIKA HOWARD DO V65.45 STD COUNSELING 11/15/2011 JESIKA HOWARD DO V72.31 DIRECTOR ASSET EXAM, ROUTINE 11/15/2011 JESIKA HOWARD DO V74.5 STD SCREEN 11/15/2011 JESIKA HOWARD DO V65.45 STD COUNSELING 11/15/2011 JESIKA HOWARD DO V72.31 DIRECTOR ASSET EXAM, ROUTINE 11/15/2011 JESIKA HOWARD DO V74.5 STD SCREEN 11/15/2011 BRENDA TOVAR, PIETER Nelson V65.45 STD COUNSELING 11/15/2011 BRENDA TOVAR, PIETER Nelson V72.31 DIRECTOR ASSET EXAM, ROUTINE 11/15/2011 PIETER GUTIERREZ RN V74.5 STD SCREEN 11/15/2011 JESIKA HOWARD DO V65.45 STD COUNSELING 11/15/2011 JESIKA HOWARD DO V72.31 DIRECTOR ASSET EXAM, ROUTINE 11/15/2011 RHETT HOWARD DOA K V74.5 STD SCREEN 11/15/2011 PINA SMITH V65.45 STD COUNSELING 11/15/2011 PINA SMITH V72.31 DIRECTOR ASSET EXAM, ROUTINE 11/15/2011 PINA SMITH V74.5 STD SCREEN 11/15/2011 JESIKA HOWARD DO V65.45 STD COUNSELING 11/15/2011 JESIKA HOWARD DO V72.31 DIRECTOR ASSET EXAM, ROUTINE 11/15/2011 JESIKA HOWARD DO V74.5 STD SCREEN 11/15/2011 PIETER GUTIERREZ RN V65.45 STD COUNSELING 11/15/2011 BRENDA TOVAR, PIETER Nelson V72.31 DIRECTOR ASSET EXAM, ROUTINE 11/15/2011 PIETER GUTIERREZ RN V74.5 STD SCREEN 11/15/2011 PIETER GUTIERREZ RN V65.45 STD COUNSELING 11/15/2011 PIETER GUTIERREZ RN V72.31 DIRECTOR ASSET EXAM, ROUTINE 11/15/2011 PIETER GUTIERREZ RN V74.5 STD SCREEN 11/15/2011 PINA SMITH V65.45 STD COUNSELING 11/15/2011 PINA SMITH V72.31 DIRECTOR ASSET EXAM, ROUTINE 11/15/2011 PINA SMITH V74.5 STD SCREEN 11/15/2011 PIETER GUTIERREZ RN V65.45 STD COUNSELING 11/15/2011 PIETER GUTIERREZ RN V72.31 DIRECTOR ASSET EXAM, ROUTINE 11/15/2011 PIETER GUTIERREZ RN V74.5 STD SCREEN 11/15/2011 PINA SMITH V65.45 STD COUNSELING 11/15/2011 PINA SMITH M V72.31 DIRECTOR ASSET EXAM, ROUTINE 11/15/2011 PINA SMITH M V74.5 STD SCREEN 11/15/2011 PINA SMITH V65.45 STD COUNSELING 11/15/2011 PINA SMITH M V72.31 DIRECTOR ASSET EXAM, ROUTINE 11/15/2011 PINA SMITH M V74.5 [...] JESIKA HOWARD DO 842.00 SPRAIN/STRAIN WRIST 03/09/2012 [facility], ARGELIA R 842.00 SPRAIN/STRAIN WRIST 03/09/2012 [facility], AR[place]ELIA R 842.00 SPRAIN/STRAIN WRIST 03/09/2012 [...] K 465.9 UPPER RESPIRATORY INFECTION 07/27/2012 [facility], [place]ELIA R 465.9 UPPER RESPIRATORY INFECTION 07/27/2012 [facility], ARGELIA R 465.9 UPPER RESPIRATORY INFECTION 07/27/2012 [...] K 465.9 UPPER RESPIRATORY INFECTION 07/27/2012 [employer] [employer], PINA M 465.9 UPPER RESPIRATORY INFECTION 07/27/2012 LEE WINTERRHETTA K 465.9 UPPER RESPIRATORY INFECTION 07/27/2012 BRENDA TOVAR, PIETER E 465.9 UPPER RESPIRATORY INFECTION 07/27/2012 BRENDA TOVAR, PIETER E 465.9 UPPER RESPIRATORY INFECTION 07/27/2012 ERNESTINA BANGURA, PINA M 465.9 UPPER RESPIRATORY INFECTION 07/27/2012 BRENDA TOVAR, PIETER E 465.9 UPPER RESPIRATORY INFECTION 07/27/2012 [employer]ST[facility] [employer], PINA M 465.9 UPPER RESPIRATORY INFECTION 07/27/2012 ERNESTINA [employer], PINA M 465.9 UPPER RESPIRATORY INFECTION 07/31/2012 [facility], BARBARA Byrne 296.52 MO BIPOLAR I [...] MO BIPOLAR I DEPRESSED MODERATE 07/31/2012 [facility], ARGELIA R 296.52 MO BIPOLAR I DEPRESSED MODERATE 07/31/2012 [facility], ARGELIA R 296.52 MO BIPOLAR I [...] 296.52 MO BIPOLAR I DEPRESSED MODERATE 07/31/2012 PNIA SMITH M 296.52 MO BIPOLAR I DEPRESSED MODERATE 07/31/2012 PINA MSITH M 296.52 MO BIPOLAR I DEPRESSED MODERATE [...] K 729.5 PAIN IN LIMB 10/05/2012 [facility] 729.5 PAIN IN LIMB 10/05/2012 [facility].5 [facility] IN LIMB 10/05/2012 [place] [...] K V76.47 VAGINAL PAP SMEAR SCREENING 02/03/2013 [facility], ARGELIA R 305.1 TOBACCO ABUSE 02/03/2013 [facility], ARGELIA R V16.3 FAMILY HISTORY OF MALIGNANT NEOPLASM OF BREAST 02/03/2013 [facility], ARGELIA R V73.81 HPV SCREENING 02/03/2013 [facility], ARGELIA R V76.47 VAGINAL PAP SMEAR SCREENING 02/03/2013 [facility], ARGELIA R 305.1 TOBACCO ABUSE 02/03/2013 [facility], ARGELIA R V16.3 FAMILY HISTORY OF MALIGNANT NEOPLASM OF BREAST 02/03/2013 [facility], ARGELIA R V73.81 HPV SCREENING 02/03/2013 [facility], ARGELIA R V76.47 VAGINAL PAP SMEAR [...] APRN 305.1 TOBACCO ABUSE 02/03/2013 HO BELLAMY, PILOL ZAPATA V16.3 FAMILY HISTORY OF MALIGNANT NEOPLASM OF BREAST 02/03/2013 HO BELLAMY PILLO ZAPATA V73.81 HPV SCREENING 02/03/2013 HO BELLAMY, PILLO ZAPATA V76.47 VAGINAL PAP SMEAR SCREENING 02/03/[address] [facility] T 305.1 TOBACCO ABUSE 02/03/2013 [facility] BELLAMY ROD T V16.3 FAMILY HISTORY OF MALIGNANT NEOPLASM OF BREAST 02/03/2013 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, ROD T V73.81 HPV SCREENING 02/03/2013 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, ROD T V76.47 VAGINAL PAP SMEAR SCREENING [...] 786.50 CHEST PAIN NOS 05/04/2013 ABDULLAHI RECIO 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 Ot 535.50 UNSP GASTRITIS GASTRODUODENITIS W/O ME 05/04/2013 ABDULLAHI RECIO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 [facility] ER TICK BITE [id number] 01/12/2014 10:13:00 01/12/2014 11:03:00 DIS Emergency TRACY YIN, MADELINE Albrecht [facility] ER LEFT EARACHE/JAW PAIN MIGRAINE N/V [id number] 09/24/2013 10:57:00 09/24/2013 13:25:00 DIS Emergency ABDULLAHI 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 [facility] ER COUGH [id number] 09/16/2013 18:06:00 09/16/2013 19:10:00 DIS Emergency TRACY YIN, MADELINE Albrecht [facility] ER COUGH, SORE THROAT, VOMITING [id number] 09/11/2013 14:10:00 09/11/2013 15:47:00 DIS Emergency ABDULLAHI RECIO APRN [facility] ER COUGH [id number] 07/03/2013 15:48:00 07/03/2013 16:25:00 DIS Emergency SIA ALEJANDRA MD [facility] ER POST OP KNEE SURGERY/ NAUSEA/FEVER [id number] 05/24/2013 21:22:00 05/24/2013 22:22:00 DIS Emergency RAMAKRISHNA DURAN [facility] ER FACIAL/DENTAL PAIN POST OP [id number] 05/04/2013 06:23:00 05/04/2013 09:13:00 DIS Emergency ABDULLAHI RECIO 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 [facility] ER V/N/F [id number] 05/01/2013 11:08:00 05/01/2013 23:59:59 CLS Outpatient [id number] 03/24/2013 21:51:00 03/24/2013 23:30:00 DIS Emergency GLENDA JIMENEZ DO [facility] ER CHEST PAIN [id number] 03/20/2013 14:31:00 03/20/2013 16:11:00 DIS Emergency FELICITY BLAKELY MD [facility] ER POISON NICOLE OR [place] [id number] 03/08/2013 12:04:00 03/08/2013 23:59:59 CLS Outpatient [id number] 03/08/2013 11:58:00 03/08/2013 23:59:59 CLS Outpatient MITTAL MARLENE S [employer]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 [facility] ONC [id number] 07/11/2018 15:49:00 Document Registration [id number] 11/04/2014 09:05:00 Document Registration [id number] 09/05/2014 11:46:00 Document Registration [id number] 09/05/2014 11:46:00 Document Registration [id number] 09/05/2014 11:46:00 Document Registration [id number] 09/05/2014 11:46:00 Document Registration [id number] 09/05/2014 11:46:00 Document Registration [id number] 08/30/2014 13:36:00 Document Registration [id number] 07/27/2014 11:48:00 Document Registration [id number] 12/21/2012 13:10:00 Document Registration [id number] 08/06/2012 19:27:00 Document Registration [id number] 06/08/2012 20:07:00 Document Registration [id number] 04/29/2012 16:55:00 Document Registration [id number] 02/21/2012 19:37:00 Document Registration [id number] 04/18/2011 18:12:00 Document Registration [id number] 12/05/2010 19:29:00 Document Registration [id number] 11/24/2010 12:37:00 Document Registration [id number] 08/28/2010 21:18:00 Document Registration [id number] 08/26/2010 17:39:00 Document Registration [id number] 07/07/2010 22:17:00 Document Registration [id number] 06/29/2010 22:02:00 Document Registration [id number] 05/30/2010 10:45:00 Document Registration [id number] 05/26/2010 20:19:00 Document Registration [id number] 05/19/2010 19:46:00 Document Registration [id number] 04/09/2010 18:50:00 Document Registration [id number] 02/26/2010 14:50:00 Document Registration
== END 2018-07-13 15:19 | disposition left against medical advice (07) ==
LOC: EDUNIT# 14:40 → ER 14:41
DX: R41.0 Disorientation, unspecified (principal)

== ENCOUNTER 2018-09-30 08:32 | Emergency (ER) | payer SELFPAY ==
[~2018-09-30] VITALS: Ht 172.7 cm; Wt 117.9 kg
[2018-09-30] MEDS ORDERED: KETOROLAC 30 MG/ML VIAL IVP STA (10:00)
[2018-09-30] MEDS ORDERED: ONDANSETRON 4 MG (ZOFRAN) ORAL DISSOLVE TAB SL STA (10:00)
[2018-09-30] MEDS ORDERED: NS IV 1000 ML 1,000 ML IV ONE (10:00)
[2018-09-30] MEDS ORDERED: ONDANSETRON 4 MG/2 ML (SDV) Z0FRAN ONE (10:12)
--- OUTSIDE RECORDS SUMMARY | 2018-09-30 10:12 | XMS REPORT ---
Author Author BRAYAN ELVIRA [facility] Address [address] [place] [address] Care Team Providers Care Memorial Marker Designer Name Role Phone ELVIRA SCHMIDT Unavailable PROBLEMS Type Condition ICD9-CM Code UYV19-EC Code Onset Dates Condition Status SNOMED Code Problem History of migraine Z86.69 Active 800895682 Problem Fibrocystic breast, right N60.11 Active 68823292 Problem Fibrocystic breast, left N60.12 Active 02892953 Problem Anxiety associated with depression F41.8 Active 259209574 Problem Chronic pain G89.29 Active 74297092 Problem Joint pain M25.50 Active 81128113 Problem Allergic rhinitis, unspecified seasonality, unspecified trigger J30.9 Active 71963213 Problem Obesity (BMI 30-39.9) E66.9 Active 923711392 Problem Irritable bowel syndrome with diarrhea K58.0 Active 807385994 Problem Hypercholesteremia E78.0 Active 35885680 Problem Hyperinsulinemia E16.1 Active 20257486 Problem Schizoaffective disorder, bipolar type F25.0 Active 60158437 ALLERGIES Substance Reaction Event Type Date Status MetFORMIN HCl ER nausea Drug Allergy Jun, Active Ketorolac Tromethamine nausea Drug Allergy Jun, Active Codeine Sulfate swelling, localized Drug Allergy Jun, Active Morphine rash Drug Allergy Jun, Active Strawberries Unknown Non Drug Allergy Jun, Active Viibryd 10 Mg Tablet "don't remember" Non Drug Allergy Jun, Active ENCOUNTERS Encounter Location Date Diagnosis [facility] [address] [facility] [id number] [address] Jun, Vertigo R42 [facility] [address] [facility] [id number], [place] [address] Jun, Vertigo R42 ; BMI 40.0-44.9, adult Z68.41 and Allergic rhinitis, unspecified seasonality, unspecified trigger J30.9 [facility] [address] [place] [address]40 -8047 Jun, Viral upper respiratory tract infection J06.9 ; Diarrhea, unspecified R19.7 ; Vomiting, unspecified R11.10 and Fever, unspecified fever cause R50.9 [facility] [address] [address] May, Dizziness R42 and Stomach cramps, generalized R10.84 [facility] [address] [place] [address] 79251 -2402 Mar, BMI 40.0-44.9, adult Z68.41 and Left wrist pain M25.532 [facility] [address] [place] [address] 76273 -9713 January, Strain of neck muscle, initial encounter S16.1XXA and BMI 40.0-44.9, adult Z68.41 [facility] [address] [place] [address]2008 Nov, Acute otitis externa of left ear, unspecified type H60.502 [facility] [address] [address] Oct, Intolerance of drug Z78.9 [facility] [address] [address] Oct, Acute non-recurrent maxillary sinusitis J01.00 [facility] [address] [place] [address]12 -1409 Jul, Bronchitis J40 [address] [address]- [address] Jul, [facility] [address] [place] [address] 94605 -7384 Jul, Bronchitis J40 [address] 84359- 8383 Jun, Fibrocystic breast, right N60.11 [place] [address] [id number] [place] [address] 16834- 4342 Jun, [place] [address] [id number] [place] [address] 52856- 2703 Jun, Hyperinsulinemia E16.1 ; Obesity (BMI 30-39.9) E66.9 and Hypercholesteremia E78.0 [place] [address] [place] [id number] [place] [address] 74704- 9948 Jun, Hyperinsulinemia E16.1 ; Visit for TB skin test Z11.1 ; Obesity (BMI 30-39.9) E66.9 ; Hypercholesteremia E78.0 ; Anxiety associated with depression F41.8 and Encounter for PPD test Z11.1 [place] [id number] [place] [address] 90601- 0754 Mar, Fibrocystic breast, right N60.11 [facility] [address] [place] [id number] [place] [address] 83813 -7825 Mar, Right hip pain M25.551 and Strain of muscle of right hip, initial encounter S76.011A [facility] [place] [id number] [place] [address] 36752 -0275 Feb, Allergic contact dermatitis due to plants, except food L23.7 [place] [id number] [place] [address] 12886- 8275 January, Breast pain in female N64.4 [facility] [address] [place] [id number] [place] [address] 06421 -2663 January, Breast pain in female N64.4 [facility] [place] [id number] [place] [address] 23414 -3264 Nov, Acute bacterial conjunctivitis of left eye H10.32 [place] [id number] [place] [address] 05264- 8738 Oct, Joint pain M25.50 [place] [address] [id number] [place] [address] 44153- 1711 16 Oct, 2016 Joint pain M25.50 and Chronic pain G89.29 [place] [address] [id number] [place] [address] 94245- 0975 02 Oct, 2016 Encounter for well woman exam with routine gynecological exam Z01.419 ; Encounter for screening breast examination Z12.39 and Screen for STD (sexually transmitted disease) Z11.3 [place] [address] [id number] [place] [address] 28171- 1504 Sep, [place] [address] [address]- 6242 Aug, Chronic pain G89.29 and Joint pain M25.50 [facility] [place] [address] [address] [id number] [place] [address] 78708 -6736 May, Acute maxillary sinusitis, recurrence not specified J01.00 [place] [address] [address] [id number] [place] [address] 03038- 9302 May, Schizoaffective disorder, bipolar type F25.0 and Generalized anxiety disorder F41.1 [place] [address] [id number] [place] [address] 31366- 9339 Apr, Schizoaffective disorder F25.9 ; Bipolar 1 disorder F31.9 and Anxiety associated with depression F41.8 [place] [address] [id number] [place] [address] 92632- 0848 Apr, Arthralgia of left temporomandibular joint M26.62 [place] [address] [id number] [place] [address] 63401- 9508 Apr, Chronic pain G89.29 [facility] [address] [address] [id number] [place] [address] 92980 -5933 Apr, Left-sided face pain R51 and Acute non-recurrent sinusitis , unspecified location J01.90 [place] [address] [id number] [place] [address] 26282- 1114 Mar, Epigastric pain R10.13 ; Nausea R11.0 and Diarrhea, unspecified type R19.7 [place] [address] [place] [id number] [place] [address] 34026- 9349 20 Feb, 2016 Bipolar 1 disorder F31.9 [facility] [address] [place] [address] 56673 -0781 14 Feb, 2016 Insect bite, initial encounter W57.XXXA and Encounter for immunization Z23 [address] 24457- 9917 13 Feb, 2016 Schizoaffective disorder F25.9 [place] [address] 95497- 5482 06 Feb, 2016 Schizoaffective disorder F25.9 [facility] [address] 53375 -9924 January, Viral syndrome B34.9 ; Diarrhea, unspecified R19.7 and Vomiting, unspecified R11.10 [facility] [address] 06036 -5396 Dec, Left otitis media H66.92 and TMJ (temporomandibular joint disorder) M26.60 [facility] [address] [id number] Dec, Dental examination Z01.20 [place] [address] [id number] [place] [address] 88312- 1913 24 Nov, 2015 Acute sinusitis J01.90 [facility] [address] 14658 -0772 Nov, Environmental allergies Z91.09 [place] [address] 68881- 7680 Nov, [place] [address] 11421- 2238 Nov, HSV (herpes simplex virus) infection B00.9 [place] [address] [id number] [place] [address] 10997- 3300 Oct, Schizoaffective disorder, unspecified F25.9 [place] [address] [id number] [place] [address] 36272- 3093 Oct, [place] [address] 35093- 1379 Oct, Insulin resistance E88.81 [place] [address] 51721- 5866 Oct, [place] [address] 00997- 9205 Oct, Vaginal lesion N89.8 [place] [address] 98050- 3551 Oct, Vaginal lesion N89.8 [place] [address] [id number] [place] [address] 24429- 4643 08 Oct, 2015 Well woman exam Z01.419 [...] bowel syndrome with constipation and diarrhea K58.0 [place] [address] [id number] [place] [address] 41162- 1389 08 Oct, 2015 [place] [address] [id number] [place] [address] 29844- 7630 03 Oct, 2015 General medical exam Z00.00 ; Joint pain M25.50 ; Family history of breast cancer Z80.3 ; Family history of heart disease Z82.49 and STD exposure Z20.2 [place] [address] 70485- 1636 02 Oct, 2015 General medical exam Z00.00 ; Joint pain M25.50 ; Bipolar 1 disorder F31.9 ; Schizoaffective disorder F25.9 ; Chronic pain G89.29 ; Hip pain M25.559 ; Anxiety associated with depression F41.8 ; Family history of breast cancer Z80.3 ; Family history of heart disease Z82.49 ; Family history of diabetes mellitus Z83.3 and STD exposure Z20.2 [place] [address] 01179- 1311 Oct, [place] [address] 40996- 1614 Sep, Schizoaffective disorder, unspecified type F25.9 [place] [address] 25857- 3646 Aug, Schizoaffective disorder, unspecified F25.9 [place] [address] [id number] [place] [address] 40542- 2655 Jul, Schizoaffective disorder, unspecified F25.9 [place] [address] [id number] [place] [address] 79842- 3447 Jul, [place] [address] 64619- 6629 Jul, Routine adult health maintenance Z00.00 ; Hip pain M25.559 and Right knee pain M25.561 [place] [address] 06100- 8807 Jul, Encounter for immunization Z23 [facility] [address] [place] [id number] [id number] Jun, Visit for dental examination Z01.20 [facility] [address] [place] [address] 46334- 4482 16 Jun, 2015 Bipolar disorder, unspecified F31.9 [facility] [address] [place] [address] 64404- 2057 24 May, 2015 Schizo-affective psychosis 295.70 [facility] [address] [place] [id number] [place] [address] 40188- 3935 14 May, 2015 Schizo-affective psychosis 295.70 ; Bipolar I disorder, most recent episode (or current) manic, moderate 296.42 and Generalized anxiety disorder 300.02 [facility] [address] [place] [address] 42204- 0801 May, Generalized anxiety disorder 300.02 [facility] [address] [place] [id number] [place] [address] 07161- 6950 Apr, Schizo-affective psychosis 295.70 [facility] [address] [place] [address] 15530- 8337 Apr, Bipolar affective disorder 296.80 and Posttraumatic stress disorder 309.81 [facility] [address] [place] [address] 91082- 6180 Mar, [facility] [address] [place] [address] 98391- 0857 Feb, Bipolar affective disorder 296.80 [facility] [address] [place] [address] 18224- 3537 Feb, [facility] [address] [place] [id number] [place] [address] 70853- 5120 Feb, [facility] [address], [place] [address]- 7721 Feb, Arthralgia 719.40 ; Elevated C-reactive protein (CRP) 790.95 ; Polydipsia 783.5 and Fatigue 780.79 [facility] [address] [place] [id number] [place] [address] 45236- 2421 January, [facility] [address] [id number] [place] [address] 63048- 4274 January, Abnormal C-reactive protein 790.99 [facility] [address] [place] [id number] [place] [address] 71558- 5585 January, Abnormal C-reactive protein 790.99 [facility] [address] [place] [id number] [place] [address] 95398- 9281 January, Schizoaffective disorder, unspecified 295.70 [facility] [address] [place] [id number] [place] [address] 02766- 7958 January, Hip dysplasia 755.63 [facility] [address] [place] [address] [id number] [place] [address] 50979- 7283 Dec, [facility] [id number] [place] [address] 00370- 5348 Dec, [facility] [id number] [place] [address] 19643- 6914 Nov, [facility] [id number] [place] [address] 04098- 8132 Nov, [facility] [address] [place] [address] 93744- 8769 Oct, [facility] [address] [place] [id number] [place] [address] 44000- 6094 Oct, [facility] [id number] [place] [address] 08593- 1503 Oct, [facility] [id number] [place] [address] 04185- 3978 Oct, [facility] [address] [id number] [place] [address] 02154- 0747 Oct, [facility] [address] [id number] [place] [address]- 2445 Oct, [facility] [place] [facility] [address] [id number] [place] [address]- 8611 Oct, [facility] [place] [facility] [address] [id number] [place] [address]- 8832 Oct, [facility] [place] [facility] [address] [id number] [place] [address]- 7073 Sep, [facility] [place] [facility] [address] [id number] [place] [address]- 1510 Sep, [facility] [place] [facility] [address] [id number] [place] [address]- 8466 Sep, [facility] [place] [facility] [address] [id number] [place] [address]- 1546 Sep, [facility] [place] [facility] [address] [id number] [place] [address]- 4587 Sep, [facility] [place] [facility] [address] [id number] [place] [address]- 0970 Aug, [facility] [place] [facility] [address] [id number] [place] [address]- 1595 Aug, [facility] [place] [facility] [address] [id number] [place] [address]- 9687 Aug, [facility] [place] [facility] [address] [id number] [place] [address]- 4739 Aug, [facility] [place] [facility] [address] [id number] [place] [address]- 0094 Aug, [facility] [place] [facility] [address] [id number] [place] [address]- 5992 Aug, [facility] [place] [facility] [address] [id number] [place] [address]- 7777 Aug, [facility] [place] [facility] [address] [id number] [place] [address]- 5103 Aug, [facility] [place] [facility] [address] [id number] [place] [address]- 5688 Aug, [facility] [place] [facility] [address] [id number] [place] [address]- 8131 Aug, [facility] [place] [facility] [address] [id number] [place] [address]- 4856 Jul, [facility] [place] [facility] [address] [id number] [place] [address]- 5675 Jul, [facility] [place] [facility] [address] [id number] [place] [address]- 2511 Jul, [facility] [place] [facility] [address] [id number] [place] [address]- 9102 Jul, [facility] [place] [facility] [address] [id number] [place] [address]- 9797 Jul, [facility] [place] [facility] [address] [id number] [place] [address]- 4348 Jul, [facility] [place] [facility] [address] [id number] [place] [address]- 0255 Jul, [facility] [place] [facility] [address] [id number] [place] [address]- 4433 Jul, [facility] [place] [facility] [address] [id number], [place] [address]- 8139 Jul, [facility] [place] [facility] [address] [id number], [place] [address]- 5109 Jul, [facility] [place] [facility] [address] [id number] [place] [address]- 5155 Jul, [facility] [place] [facility] [address] [id number] [place] [address]- 9765 Jul, [facility] [place] [facility] [address] [id number] [place] [address]- 9442 Jul, [facility] [place] [facility] [address] [id number] [place] [address]- 4425 11 Jul, 2014 [facility] [place] [facility] [address] [id number] [place] [address]- 0034 Jul, [facility] [place] [facility] [address] [id number] [place] [address]- 6930 Jul, [facility] [place] [facility] [address] [id number] [place] [address]- 4129 Jul, [facility] [place] [facility] [address] [id number] [place] [address]- 4676 Jul, [facility] [place] [facility] [address] [id number] [place] [address]- 5384 Jul, [facility] [place] [facility] [address] [id number] [place] [address]- 3058 Jul, [facility] [place] [facility] [address] [id number] [place] [address]- 3825 Jul, [facility] [place] [facility] [address] [id number] [place] [address]- 7408 Jul, [facility] [place] [facility] [address] [id number] [place] [address]- 3656 Jun, [facility] [place] [facility] [address] [id number] [place] [address]- 6788 17 Jun, 2014 [facility] [place] [facility] [address] [id number] [place] [address]- 1303 18 May, 2014 [facility] [place] [facility] [address] [id number] [place] [address]- 7835 18 May, 2014 [facility] [place] [facility] [address] [id number] [place] [address]- 7474 18 May, 2014 [facility] [place] [facility] [address] [id number] [place] [address]- 0728 18 May, 2014 [facility] [place] [facility] [address] [id number] [place] [address]- 0938 17 May, 2014 [facility] [place] [facility] [address] [id number] [place] [address]- 6244 May, 2013 [facility] [place] [facility] [address] [id number] [place] [address]- 1926 May, 2013 [facility] [place] [facility] [address] [id number] [place] [address]- 5160 May, 2013 [facility] [place] [facility] [address] [id number] [place] [address]- 0893 05 May, 2013 [facility] [place] [facility] [address] [id number] [place] [address]- 5141 May, 2013 [facility] [place] [facility] [address] [id number] [place] [address]- 9925 May, 2013 [facility] [place] [facility] [address] [id number] [place] [address]- 1504 May, 2013 [facility] [place] [facility] [address] [id number] [place] [address]- 9192 May, 2013 [facility] [place] [facility] [address] [id number] [place] [address]- 7317 Apr, [facility] [place] [facility] [address] [id number] [place] [address]- 0433 Apr, [facility] [place] [facility] [address] [id number] [place] [address]- 0898 Apr, [facility] [place] [facility] [address] [id number], [place] [address]- 1679 Apr, [facility] [place] [facility] [address] [id number] [place] [address]- 5868 Apr, [facility] [place] [facility] [address] [id number] [place] [address]- 2297 Apr, [facility] [place] [facility] [address] [id number] [place] [address]- 0477 Mar, [facility] [place] [facility] [address] [id number], [place] [address]- 6251 Feb, [facility] [place] [facility] [address] [id number] [place] [address]- 3045 Feb, [facility] [place] [facility] [address] [id number] [place] [address]- 8907 January, [facility] [place] [facility] [address] [id number] [place] [address]- 8946 January, [facility] [place] [facility] [address] [id number] [place] [address]- 1949 January, [facility] [place] [facility] [address] [id number] [place] [address]- 1421 January, [facility] [place] [facility] [address] [id number] [place] [address]- 2529 Dec, [facility] [place] [facility] [address] [id number] [place] [address]- 4728 Dec, [facility] [place] [facility] [address] [id number] [place] [address]- 6255 Nov, [facility] [place] [facility] [address] [id number] [place] [address]- 4759 Nov, [facility] [place] [facility] [address] [facility] [id number] [place] [address]- 3368 Nov, [facility] [place] [facility] [address] [id number] [place] [address]- 4763 Nov, [facility] [place] [facility] [address] [id number] [place] [address]- 9297 Nov, [facility] [place] [facility] [address] [id number] [place] [address]- 0247 Nov, [facility] [place] [facility] [address] [id number] [place] [address]- 9547 Oct, [facility] [place] [facility] [address] [id number] [place] [address]- 1146 Oct, [facility] [place] [facility] [address] [id number] [place] [address] Oct, [facility] [place] [facility] [address] [id number] [place] [address] Oct, [facility] [place] [facility] [address] [id number] [place] [address] Oct, [facility] [place] [facility] [address] [id number] [place] [address] Sep, [facility] [place] [facility] [address] [id number] [place] [address] Sep, [facility] [place] [facility] [address] [id number] [place] [address] Sep, [facility] [place] [facility] [address] [id number] [place] [address] Sep, [facility] [place] [facility] [address] [id number] [place] [address] Sep, [facility] [place] [facility] [address] [id number] [place] [address] Sep, [facility] [place] [facility] [address] [id number] [place] [address] Sep, [facility] [place] [facility] [address] [id number] [place] [address] Aug, [facility] [place] [facility] [address] [id number] [place] [address] Aug, [facility] [place] [facility] [address] [id number] [place] [address] Aug, [facility] [place] [facility] [address] [id number] [place] [address] Aug, [facility] [place] [facility] [address] [id number] [place] [address] Jul, [facility] [place] [facility] [address] [id number], [place] [address] Jul, [facility] [place] [facility] [address] [id number] [place] [address] Jul, [facility] [place] [facility] [address] [id number] [place] [address] Jul, [facility] [place] [facility] [address] [id number] [place] [address] Jul, [facility] [place] [facility] [address] [id number] [place] [address] 07 Jul, 2013 [facility] [place] [facility] [address] [id number] [place] [address] Jun, [facility] [place] [facility] [address] [id number] [place] [address] 17 Jun, 2013 [facility] [place] [facility] [address] [id number] [place] [address]- [address] 16 Jun, 2013 [facility] [place] [facility] [address] [id number] [place] [address]- [address] 16 Jun, 2013 [facility] [place] [facility] [address] [id number] [place] [address] Jun, [facility] [place] [facility] [address] [id number] [place] [address] Jun, [facility] [place] [facility] [address] [id number], [place] [address] Jun, [facility] [place] [facility] [address] [id number], [place] [address] 30 May, 2012 [facility] [place] [facility] [address] [id number] [place] [address] 26 May, 2012 [facility] [place] [facility] [address] [id number] [place] [address] [address] 23 May, 2012 [facility] [place] [facility] [address] [id number] [place] [address] [address] 06 Sep, 2012 [facility] [place] [facility] [address] [id number] [place] [address] Apr, [facility] [address] [id number] [place] [address] Apr, [facility] [address] [id number] [place] [address] Feb, [facility] [address] [id number] [place] [address] January, [facility] [address] [id number] [place] [address] January, [facility] [address] [id number] [place] [address] January, [facility] [address] [address] [id number] [place] [address] January, [facility] [address] [id number] [place] [address] January, [facility] [address] [id number] [place] [address] January, [facility] [address] [id number] [place] [address] Dec, [facility] [address] [id number] [place] [address] Dec, [facility] [address] [id number] [place] [address] Dec, [facility] [address] [id number] [place] [address] Nov, [facility] [address] [id number] [place] [address] Nov, [facility] [address] [id number] [place] [address] Oct, [facility] [address] [id number] [place] [address] Sep, [facility] [place] [facility] [address] [id number] [place] [address] Sep, [facility] [place] [facility] [address] [id number] [place] [address] 18 Sep, 2012 [facility] [place] [facility] [address] [id number] [place] [address] 16 Sep, 2012 [facility] [place] [facility] [address] [id number] [place] [address] 30 Jul, 2012 [facility] [place] [facility] [address] [id number] [place] [address] 30 Jul, 2012 [facility] [place] [facility] [address] [id number] [place] [address] Jul, [facility] [place] [facility] [address] [id number] [place] [address] Jul, [facility] [place] [facility] [address] [id number] [place] [address] 16 Jul, 2012 [facility] [place] [facility] [address] [id number] [place] [address] Jul, [facility] [place] [facility] [address] [id number] [place] [address] 16 Jul, 2012 [facility] [place] [facility] [address] [id number] [place] [address] 16 Jul, 2012 [facility] [place] [facility] [address] [id number], [place] [address] Jul, [facility] [place] [facility] [address] [id number] [place] [address] Jul, [facility] [place] [facility] [address] [id number] [place] [address] Feb, [facility] [place] [facility] [address] [id number] [place] [address] Nov, [facility] [place] [facility] [id number] [address] 13 Nov, 2011 [facility] [id number] [address] 12 Nov, 2011 [facility] [id number] [address] 08 Nov, 2011 [facility] [id number], [place] [address] Nov, [facility] [id number] [address] Nov, [facility] [id number] [place] [address] Nov, [facility] [id number] [place] [address] Apr, [facility] [id number] [place] [address] Jul, [facility] [id number], [place] [address] Jul, [facility] [address] [place] [address] Jul, [facility] [address] [place] [address] Jun, [facility] [address] [address] May, [facility] [address] [place] [address] Feb, [facility] [id number] [place] [address] Jun, IMMUNIZATIONS No Known Immunizations SOCIAL HISTORY Never Assessed REASON FOR VISIT Dizziness--tcuppettRN, Dizziness since Friday. Also, reports having confusion and feels like she constantly falling. Very fatigued and unable to stay awake PLAN OF CARE Activity Details Follow Up if not improving with PCP or reg follow up Reason:vertigo VITAL SIGNS Height 69 in 2018-07-15 Temperature 98.4 degrees Fahrenheit 2018-07-15 Heart Rate 110 bpm 2018-07-15 Respiratory Rate 20 2018-07-15 Blood pressure systolic 104 mmHg 2018-07-15 Blood pressure diastolic 78 mmHg 2018-07-15 MEDICATIONS Medication Instructions Dosage Frequency Start Date End Date Duration Status Flonase 50 mcg/act Nasally Once a day 1 spray in each nostril 24h Jun, 30 day(s) Active RESULTS No Results PROCEDURES [...]
--- OUTSIDE RECORDS SUMMARY | 2018-09-30 10:13 | XMS REPORT ---
Author Author SYLVESTER ELVIRA [facility] Address [address] [place] [address] Care Team Providers Care [employer] Name Role Phone ELVIRA SCHMIDT Unavailable PROBLEMS Type Condition ICD9-CM Code TDW80-LV Code Onset Dates Condition Status SNOMED Code Problem History of migraine Z86.69 Active 142588803 Problem Fibrocystic breast, right N60.11 Active 65047573 Problem Fibrocystic breast, left N60.12 Active 02910224 Problem Anxiety associated with depression F41.8 Active 226398088 Problem Chronic pain G89.29 Active 04226244 Problem Joint pain M25.50 Active 94585035 Problem Allergic rhinitis, unspecified seasonality, unspecified trigger J30.9 Active 50306902 Problem Obesity (BMI 30-39.9) E66.9 Active 207174758 Problem Irritable bowel syndrome with diarrhea K58.0 Active 147730767 Problem Hypercholesteremia E78.0 Active 20400165 Problem Hyperinsulinemia E16.1 Active 08283035 Problem Schizoaffective disorder, bipolar type F25.0 Active 28886996 ALLERGIES Substance Reaction Event Type Date Status MetFORMIN HCl ER nausea Drug Allergy Jun, Active Ketorolac Tromethamine nausea Drug Allergy Jun, Active Codeine Sulfate swelling, localized Drug Allergy Jun, Active Morphine rash Drug Allergy Jun, Active Viibryd 10 Mg Tablet "don't remember" Non Drug Allergy Jun, Active Strawberries Unknown Non Drug Allergy Jun, Active ENCOUNTERS Encounter Location Date Diagnosis [facility] [address] [facility] [id number] [address] Jun, Vertigo R42 [facility] [address] [facility] [id number] [address] Jun, Vertigo R42 ; BMI 40.0-44.9, adult Z68.41 and Allergic rhinitis, unspecified seasonality, unspecified trigger J30.9 [facility] [address] [place] [address]22 [address]1922 Jun, Viral upper respiratory tract infection J06.9 ; Diarrhea, unspecified R19.7 ; Vomiting, unspecified R11.10 and Fever, unspecified fever cause R50.9 [facility] [address] [address] May, Dizziness R42 and Stomach cramps, generalized R10.84 [facility] [address] [place] [address] 55563 -4989 Mar, BMI 40.0-44.9, adult Z68.41 and Left wrist pain M25.532 [facility] [address] [place] [address] 12603 -8492 January, Strain of neck muscle, initial encounter S16.1XXA and BMI 40.0-44.9, adult Z68.41 [facility] [address] [place] [address] 07629 -2779 Nov, Acute otitis externa of left ear, unspecified type H60.502 [facility] [address] [address] Oct, Intolerance of drug Z78.9 [facility] [address] 8[address] Oct, Acute non-recurrent maxillary sinusitis J01.00 [facility] [address] [place] [address] 50772 -4210 Jul, Bronchitis J40 [address] [address]- [address] Jul, [facility] [address] [place] [address] 15609 -9376 Jul, Bronchitis J40 [address] 48155- 1794 Jun, Fibrocystic breast, right N60.11 [place] [address] [place] [id number] [place] [address] 25701- 2894 Jun, [place] [address] [place] [id number] [place] [address] 41570- 0559 Jun, Hyperinsulinemia E16.1 ; Obesity (BMI 30-39.9) E66.9 and Hypercholesteremia E78.0 [place] [address] [place] [id number] [place] [address] 13945- 6880 Jun, Hyperinsulinemia E16.1 ; Visit for TB skin test Z11.1 ; Obesity (BMI 30-39.9) E66.9 ; Hypercholesteremia E78.0 ; Anxiety associated with depression F41.8 and Encounter for PPD test Z11.1 [place] [id number] [place] [address] 70665- 3221 Mar, Fibrocystic breast, right N60.11 [facility] [address] [address] [id number] [place] [address] 04636 -2617 Mar, Right hip pain M25.551 and Strain of muscle of right hip, initial encounter S76.011A [facility] [place] [id number] [place] [address] 92925 -4385 Feb, Allergic contact dermatitis due to plants, except food L23.7 [place] [id number] [place] [address] 12582- 5143 January, Breast pain in female N64.4 [facility] [address] [place] [id number] [place] [address] 68221 -0491 January, Breast pain in female N64.4 [facility] [place] [id number] [place] [address] 25181 -5995 Nov, Acute bacterial conjunctivitis of left eye H10.32 [place] [id number] [place] [address] 38077- 3302 Oct, Joint pain M25.50 [place] [address] [address] [id number] [place] [address] 40520- 9302 16 Oct, 2016 Joint pain M25.50 and Chronic pain G89.29 [place] [address] [address] [id number] [place] [address] 81104- 6652 02 Oct, 2016 Encounter for well woman exam with routine gynecological exam Z01.419 ; Encounter for screening breast examination Z12.39 and Screen for STD (sexually transmitted disease) Z11.3 [place] [address] [id number] [place] [address] 97437- 2222 Sep, [place] [address] 98120- 6364 Aug, Chronic pain G89.29 and Joint pain M25.50 [facility] [place] [id number] [place] [address] 41755 -4385 May, Acute maxillary sinusitis, recurrence not specified J01.00 [place] [address] [address] [id number] [place] [address] 06224- 5010 May, Schizoaffective disorder, bipolar type F25.0 and Generalized anxiety disorder F41.1 [place] [address] [address] [id number] [place] [address] 12738- 6359 Apr, Schizoaffective disorder F25.9 ; Bipolar 1 disorder F31.9 and Anxiety associated with depression F41.8 [place] [address] [place] [id number] [place] [address] 38905- 0526 Apr, Arthralgia of left temporomandibular joint M26.62 [place] [address] [id number] [place] [address] 81238- 1949 Apr, Chronic pain G89.29 [facility] [id number] [place] [address] 61269 -2251 Apr, Left-sided face pain R51 and Acute non-recurrent sinusitis , unspecified location J01.90 [place] [address] [id number] [place] [address] 20577- 4748 Mar, Epigastric pain R10.13 ; Nausea R11.0 and Diarrhea, unspecified type R19.7 [place] [address] [id number] [place] [address] 47281- 3315 20 Feb, 2016 Bipolar 1 disorder F31.9 [facility] [address] [place] [address] 58287 -7941 14 Feb, 2016 Insect bite, initial encounter W57.XXXA and Encounter for immunization Z23 [address] 20867- 4894 13 Feb, 2016 Schizoaffective disorder F25.9 [place] [address] 83645- 9071 06 Feb, 2016 Schizoaffective disorder F25.9 [facility] [address] 21067 -4759 January, Viral syndrome B34.9 ; Diarrhea, unspecified R19.7 and Vomiting, unspecified R11.10 [facility] [address] 37486 -4663 Dec, Left otitis media H66.92 and TMJ (temporomandibular joint disorder) M26.60 [facility] [address] [id number] Dec, Dental examination Z01.20 [place] [address] [place] [id number] [place] [address] 68793- 8942 24 Nov, 2015 Acute sinusitis J01.90 [facility] [address] 64301 -4504 Nov, Environmental allergies Z91.09 [place] [address] 10094- 4067 Nov, [place] [address] 72250- 7382 Nov, HSV (herpes simplex virus) infection B00.9 [place] [address] [id number] [place] [address] 55350- 9111 Oct, Schizoaffective disorder, unspecified F25.9 [place] [address] [id number] [place] [address] 23111- 9680 Oct, [place] [address] 46391- 2121 Oct, Insulin resistance E88.81 [place] [address] 90513- 0399 Oct, [place] [address] 81940- 3776 Oct, Vaginal lesion N89.8 [place] [address] 98563- 0478 Oct, Vaginal lesion N89.8 [place] [address] [address] [id number] [place] [address] 94442- 5148 08 Oct, 2015 Well woman exam Z01.419 [...] bowel syndrome with constipation and diarrhea K58.0 [place] [address] [id number] [place] [address] 72169- 9168 08 Oct, 2015 [place] [address] [id number] [place] [address] 85104- 9232 03 Oct, 2015 General medical exam Z00.00 ; Joint pain M25.50 ; Family history of breast cancer Z80.3 ; Family history of heart disease Z82.49 and STD exposure Z20.2 [place] [address] 04594- 6044 02 Oct, 2015 General medical exam Z00.00 ; Joint pain M25.50 ; Bipolar 1 disorder F31.9 ; Schizoaffective disorder F25.9 ; Chronic pain G89.29 ; Hip pain M25.559 ; Anxiety associated with depression F41.8 ; Family history of breast cancer Z80.3 ; Family history of heart disease Z82.49 ; Family history of diabetes mellitus Z83.3 and STD exposure Z20.2 [place] [address] 10520- 3589 Oct, [place] [address] 97308- 3392 Sep, Schizoaffective disorder, unspecified type F25.9 [place] [address] 99482- 2790 Aug, Schizoaffective disorder, unspecified F25.9 [place] [address] [id number] [place] [address] 54253- 1193 Jul, Schizoaffective disorder, unspecified F25.9 [place] [address] [id number] [place] [address] 37415- 9692 Jul, [place] [address] 14540- 4278 Jul, Routine adult health maintenance Z00.00 ; Hip pain M25.559 and Right knee pain M25.561 [place] [address] 53957- 4770 Jul, Encounter for immunization Z23 [facility] [address] [id number] [id number] Jun, Visit for dental examination Z01.20 [facility] [address] [place] [address] 64167- 3130 16 Jun, 2015 Bipolar disorder, unspecified F31.9 [facility] [address] [place] [address] 33133- 2827 24 May, 2015 Schizo-affective psychosis 295.70 [facility] [address] [id number] [place] [address] 86089- 5167 14 May, 2015 Schizo-affective psychosis 295.70 ; Bipolar I disorder, most recent episode (or current) manic, moderate 296.42 and Generalized anxiety disorder 300.02 [facility] [address] [place] [address] 45943- 5902 May, Generalized anxiety disorder 300.02 [facility] [address] [place] [id number] [place] [address] 78553- 8037 Apr, Schizo-affective psychosis 295.70 [facility] [address] [place] [address] 44228- 3656 Apr, Bipolar affective disorder 296.80 and Posttraumatic stress disorder 309.81 [facility] [address] [place] [address] 13632- 3483 Mar, [facility] [address] [place] [address] 79103- 8670 Feb, Bipolar affective disorder 296.80 [facility] [address] [place] [address] 34079- 0014 Feb, [facility] [address] [place] [id number] [place] [address] 55701- 1938 Feb, [facility] [address] [address] 6[address] Feb, Arthralgia 719.40 ; Elevated C-reactive protein (CRP) 790.95 ; Polydipsia 783.5 and Fatigue 780.79 [facility] [id number] [place] [address] 46189- 9551 January, [facility] [address] [id number] [place] [address] 08174- 4144 January, Abnormal C-reactive protein 790.99 [facility] [address] [id number] [place] [address] 39489- 0421 January, Abnormal C-reactive protein 790.99 [facility] [address] [address] [id number] [place] [address] 38547- 3847 January, Schizoaffective disorder, unspecified 295.70 [facility] [address] [address] [id number] [place] [address] 40774- 7380 January, Hip dysplasia 755.63 [facility] [address] [address] [id number] [place] [address] 00980- 8123 Dec, [facility] [id number] [place] [address] 17223- 9714 Dec, [facility] [id number] [place] [address] 08188- 3851 Nov, [facility] [id number] [place] [address] 72699- 8193 Nov, [facility] [address] [place] [address] 46126- 2706 Oct, [facility] [id number] [place] [address] 42458- 7769 Oct, [facility] [id number] [place] [address] 23094- 3801 Oct, [facility] [id number] [place] [address] 79421- 6645 Oct, [facility] [id number] [place] [address] 70889- 1359 Oct, [facility] [address] [id number] [place] [address]- 1699 Oct, [facility] [place] [facility] [address] [id number] [place] [address]- 6880 Oct, [facility] [place] [facility] [address] [id number] [place] [address]- 3027 Oct, [facility] [place] [facility] [address] [id number] [place] [address]- 1143 Sep, [facility] [place] [facility] [address] [id number] [place] [address]- 4241 Sep, [facility] [place] [facility] [address] [id number] [place] [address]- 7622 Sep, [facility] [place] [facility] [address] [id number] [place] [address]- 5983 Sep, [facility] [place] [facility] [address] [id number] [place] [address]- 8575 Sep, [facility] [place] [facility] [address] [id number] [place] [address]- 2308 Aug, [facility] [place] [facility] [address] [id number] [place] [address]- 2354 Aug, [facility] [place] [facility] [address] [id number] [place] [address]- 7938 Aug, [facility] [place] [facility] [address] [id number] [place] [address]- 4621 Aug, [facility] [place] [facility] [address] [id number] [place] [address]- 7689 Aug, [facility] [place] [facility] [address] [id number] [place] [address]- 5530 Aug, [facility] [place] [facility] [address] [id number] [place] [address]- 8218 Aug, [facility] [place] [facility] [address] [id number] [place] [address]- 3350 Aug, [facility] [place] [facility] [address] [id number] [place] [address]- 8137 Aug, [facility] [place] [facility] [address] [id number] [place] [address]- 5456 Aug, [facility] [place] [facility] [address] [id number] [place] [address]- 0955 Jul, [facility] [place] [facility] [address] [id number] [place] [address]- 4643 Jul, [facility] [place] [facility] [address] [id number] [place] [address]- 7776 Jul, [facility] [place] [facility] [address] [id number] [place] [address]- 8684 Jul, [facility] [place] [facility] [address] [id number] [place] [address]- 5584 Jul, [facility] [place] [facility] [address] [id number] [place] [address]- 4654 Jul, [facility] [place] [facility] [address] [id number] [place] [address]- 4868 Jul, [facility] [place] [facility] [address] [id number] [place] [address]- 4293 Jul, [facility] [place] [facility] [address] [id number], [place] [address]- 8852 Jul, [facility] [place] [facility] [address] [id number], [place] [address]- 1815 Jul, [facility] [place] [facility] [address] [id number] [place] [address]- 3827 Jul, [facility] [place] [facility] [address] [id number] [place] [address]- 3903 Jul, [facility] [place] [facility] [address] [id number] [place] [address]- 2794 Jul, [facility] [place] [facility] [address] [id number] [place] [address]- 7688 11 Jul, 2014 [facility] [place] [facility] [address] [id number] [place] [address]- 2744 Jul, [facility] [place] [facility] [address] [id number] [place] [address]- 1656 Jul, [facility] [place] [facility] [address] [id number] [place] [address]- 1218 Jul, [facility] [place] [facility] [address] [id number] [place] [address]- 1473 Jul, [facility] [place] [facility] [address] [id number] [place] [address]- 5509 Jul, [facility] [place] [facility] [address] [id number] [place] [address]- 3378 Jul, [facility] [place] [facility] [address] [id number] [place] [address]- 2378 Jul, [facility] [place] [facility] [address] [id number] [place] [address]- 7913 Jul, [facility] [place] [facility] [address] [id number] [place] [address]- 4212 Jun, [facility] [place] [facility] [address] [id number] [place] [address]- 6005 17 Jun, 2014 [facility] [place] [facility] [address] [id number] [place] [address]- 7300 18 May, 2014 [facility] [place] [facility] [address] [id number] [place] [address]- 9792 18 May, 2014 [facility] [place] [facility] [address] [id number] [place] [address]- 5285 18 May, 2014 [facility] [place] [facility] [address] [id number] [place] [address]- 5770 18 May, 2014 [facility] [place] [facility] [address] [id number] [place] [address]- 6691 17 May, 2014 [facility] [place] [facility] [address] [id number] [place] [address]- 5493 May, 2013 [facility] [place] [facility] [address] [id number] [place] [address]- 9181 May, 2013 [facility] [place] [facility] [address] [id number] [place] [address]- 6528 May, 2013 [facility] [place] [facility] [address] [id number] [place] [address]- 6535 05 May, 2013 [facility] [place] [facility] [address] [id number] [place] [address]- 3270 May, 2013 [facility] [place] [facility] [address] [id number] [place] [address]- 0581 May, 2013 [facility] [place] [facility] [address] [id number] [place] [address]- 2060 May, 2013 [facility] [place] [facility] [address] [id number] [place] [address]- 8303 May, 2013 [facility] [place] [facility] [address] [id number] [place] [address]- 8833 Apr, [facility] [place] [facility] [address] [id number] [place] [address]- 6586 Apr, [facility] [place] [facility] [address] [id number] [place] [address]- 9483 Apr, [facility] [place] [facility] [address] [id number], [place] [address]- 2226 Apr, [facility] [place] [facility] [address] [id number] [place] [address]- 8420 Apr, [facility] [place] [facility] [address] [id number] [place] [address]- 7511 Apr, [facility] [place] [facility] [address] [id number] [place] [address]- 7193 Mar, [facility] [place] [facility] [address] [id number], [place] [address]- 4765 Feb, [facility] [place] [facility] [address] [id number] [place] [address]- 3359 Feb, [facility] [place] [facility] [address] [id number] [place] [address]- 4204 January, [facility] [place] [facility] [address] [id number] [place] [address]- 9164 January, [facility] [place] [facility] [address] [id number] [place] [address]- 4364 January, [facility] [place] [facility] [address] [id number] [place] [address]- 0745 January, [facility] [place] [facility] [address] [id number] [place] [address]- 7400 Dec, [facility] [place] [facility] [address] [id number] [place] [address]- 0922 Dec, [facility] [place] [facility] [address] [id number] [place] [address]- 6628 Nov, [facility] [place] [facility] [address] [id number] [place] [address]- 2246 Nov, [facility] [place] [facility] [address] [facility] [id number] [place] [address]- 8241 Nov, [facility] [place] [facility] [address] [id number] [place] [address]- 7815 Nov, [facility] [place] [facility] [address] [id number] [place] [address]- 3108 Nov, [facility] [place] [facility] [address] [id number] [place] [address]- 3602 Nov, [facility] [place] [facility] [address] [id number] [place] [address]- 2013 Oct, [facility] [place] [facility] [address] [id number] [place] [address]- 2329 Oct, [facility] [place] [facility] [address] [id number] [place] [address] Oct, [facility] [place] [facility] [address] [id number] [place] [address] Oct, [facility] [place] [facility] [address] [id number] [place] [address] Oct, [facility] [place] [facility] [address] [id number] [place] [address] Sep, [facility] [place] [facility] [address] [id number] [place] [address] Sep, [facility] [place] [facility] [address] [id number] [place] [address] Sep, [facility] [place] [facility] [address] [id number] [place] [address] Sep, [facility] [place] [facility] [address] [id number] [place] [address] Sep, [facility] [place] [facility] [address] [id number] [place] [address] Sep, [facility] [place] [facility] [address] [id number] [place] [address] Sep, [facility] [place] [facility] [address] [id number] [place] [address] Aug, [facility] [place] [facility] [address] [id number] [place] [address] Aug, [facility] [place] [facility] [address] [id number] [place] [address] Aug, [facility] [place] [facility] [address] [id number] [place] [address] Aug, [facility] [place] [facility] [address] [id number] [place] [address] Jul, [facility] [place] [facility] [address] [id number], [place] [address] Jul, [facility] [place] [facility] [address] [id number] [place] [address] Jul, [facility] [place] [facility] [address] [id number] [place] [address] Jul, [facility] [place] [facility] [address] [id number] [place] [address] Jul, [facility] [place] [facility] [address] [id number] [place] [address] 07 Jul, 2013 [facility] [place] [facility] [address] [id number] [place] [address] Jun, [facility] [place] [facility] [address] [id number] [place] [address] 17 Jun, 2013 [facility] [place] [facility] [address] [id number] [place] [address]- [address] 16 Jun, 2013 [facility] [place] [facility] [address] [id number] [place] [address] 16 Jun, 2013 [facility] [place] [facility] [address] [id number] [place] [address]- [address] Jun, [facility] [place] [facility] [address] [id number] [place] [address] Jun, [facility] [place] [facility] [address] [id number], [place] [address] Jun, [facility] [place] [facility] [address] [id number], [place] [address] 30 May, 2012 [facility] [place] [facility] [address] [id number] [place] [address] 26 May, 2012 [facility] [place] [facility] [address] [id number] [place] [address] 23 May, 2012 [facility] [place] [facility] [address] [id number] [place] [address] 06 Sep, 2012 [facility] [place] [facility] [address] [id number] [place] [address] Apr, [facility] [address] [id number] [place] [address] Apr, [facility] [address] [id number] [place] [address] Feb, [facility] [address] [id number] [place] [address] January, [facility] [address] [id number] [place] [address] January, [facility] [address] [id number] [place] [address] January, [facility] [address] [id number] [place] [address] January, [facility] [address] [id number] [place] [address] January, [facility] [address] [id number] [place] [address] January, [facility] [address] [id number] [place] [address] Dec, [facility] [address] [id number] [place] [address] Dec, [facility] [address] [id number] [place] [address] Dec, [facility] [address] [id number] [place] [address] Nov, [facility] [address] [id number] [place] [address] Nov, [facility] [address] [id number] [place] [address] Oct, [facility] [address] [id number] [place] [address] Sep, [facility] [place] [facility] [address] [id number] [place] [address] Sep, [facility] [place] [facility] [address] [id number] [place] [address] 18 Sep, 2012 [facility] [place] [facility] [address] [id number] [place] [address] 16 Sep, 2012 [facility] [place] [facility] [address] [id number] [place] [address] 30 Jul, 2012 [facility] [place] [facility] [address] [id number] [place] [address] 30 Jul, 2012 [facility] [place] [facility] [address] [id number] [place] [address] Jul, [facility] [place] [facility] [address] [id number] [place] [address] Jul, [facility] [place] [facility] [address] [id number] [place] [address] 16 Jul, 2012 [facility] [place] [facility] [address] [id number] [place] [address] Jul, [facility] [place] [facility] [address] [id number] [place] [address] 16 Jul, 2012 [facility] [place] [facility] [address] [id number] [place] [address] 16 Jul, 2012 [facility] [place] [facility] [address] [id number], [place] [address] Jul, [facility] [place] [facility] [address] [id number] [place] [address] Jul, [facility] [place] [facility] [address] [id number] [place] [address] Feb, [facility] [place] [facility] [address] [id number] [place] [address] Nov, [facility] [place] [facility] [id number] [address] 13 Nov, 2011 [facility] [id number] [address] 12 Nov, 2011 [facility] [id number] [address] 08 Nov, 2011 [facility] [id number] [address] Nov, [facility] [id number] [address] Nov, [facility] [id number] [place] [address] Nov, [facility] [id number], [place] [address] Apr, [facility] [id number] [place] [address] Jul, [facility] [id number] [address] Jul, [facility] [id number] [address] [address] Jul, [facility] [id number] [place] [address] Jun, [facility] [id number] [place] [address] May, [facility] [id number] [address] Feb, [facility] [id number] [address] [address] Jun, IMMUNIZATIONS No Known Immunizations SOCIAL HISTORY Never Assessed REASON FOR VISIT ER f/u, has been severely dizzy since Friday, when she lays down it feels like she is falling, has been disoriented Fausto Reed MA, ER prescribed a motion sickness medicationbut it is not working. PLAN OF CARE Activity Details Follow Up 2 days if not better Reason:dizziness VITAL SIGNS Height 69 in 2018-07-14 Weight 271.2 lbs 2018-07-14 Temperature 97.6 degrees Fahrenheit 2018-07-14 Heart Rate 78 bpm 2018-07-14 Respiratory Rate 18 2018-07-14 Oximetry 95 % 2018-07-14 BMI 40.04 kg/m2 2018-07-14 Blood pressure systolic 118 mmHg 2018-07-14 Blood pressure diastolic 62 mmHg 2018-07-14 MEDICATIONS Medication Instructions Dosage Frequency Start Date End Date Duration Status Flonase 50 mcg/act Nasally Once a day 1 spray in each nostril 24h Jun, 30 day(s) Active Valium 5 mg Orally Twice a day PRN 1 tablet as needed Jun, Active RESULTS No Results PROCEDURES No Known [...]
[2018-09-30 10:17] LABS: BASOPHILS # (AUTO) 0.1 10^3/uL (0.0-0.1); BASOPHILS % (AUTO) 1 % (0-10); EOSINOPHILS # (AUTO) 0.4 10^3/uL (0.0-0.3); EOSINOPHILS % (AUTO) 3 % (0-10); HEMATOCRIT 37 % (35-52); HEMOGLOBIN 12.8 G/DL (11.5-16.0); LYMPHOCYTES # (AUTO) 4.2 X 10^3 (1.0-4.0); LYMPHOCYTES % (AUTO) 33 % (12-44); MEAN CORPUSCULAR HEMOGLOBIN 29 PG (25-34); MEAN CORPUSCULAR HGB CONC 35 G/DL (32-36); MEAN CORPUSCULAR VOLUME 83 FL (80-99); MEAN PLATELET VOLUME 9.7 FL (7.4-10.4); MONOCYTES # (AUTO) 0.7 X 10^3 (0.0-1.0); MONOCYTES % (AUTO) 6 % (0-12); NEUTROPHILS # (AUTO) 7.2 X 10^3 (1.8-7.8); NEUTROPHILS % (AUTO) 57 % (42-75); PLATELET COUNT 264 10^3/uL (130-400); RED CELL DISTRIBUTION WIDTH 13.8 % (10.0-14.5); WHITE BLOOD COUNT 12.5 10^3/uL (4.3-11.0)
--- OUTSIDE RECORDS SUMMARY | 2018-09-30 10:23 | XMS REPORT | Continuity of Care Document ---
Author Author [facility] of [facility] Address Unknown Phone Unavailable Allergies Active Description [...] hydrocodone Drug Allergy 10/02/2012 Yes ketorolac tromethamine [id number] Drug Allergy Unknown VOMITING 2013 Yes metformin [id number] Drug Allergy Moderate N/V 11/28/2015 Yes Prescott [id number] Drug Allergy Mild N/A 11/28/2015 Yes codeine [id number] Drug Allergy Unknown N/A 11/28/2015 Yes morphine [id number] Drug Allergy Unknown N/A 11/28/2015 Medications Medication [...] EPISODE (OR CURRENT) MIXED UNSPECIFIED 05/12/2008 JESUSITA CURB MACHINE OPERATOR, BARBARA B 300.01 AN PANIC DIS W/O AGORA 05/12/2008 JESUSITA BROCK, BARBARA B 300.15 DS DISSOCIATIVE DIS NOS 05/12/2008 JESUSITA CURB MACHINE OPERATOR, BARBARA B 307.47 SI DYSSOMNIA NOS 05/12/2008 [...] HOWARD DOA K 309.81 AN PTSD 05/12/2008 [facility], ARGELIA R 296.60 BIPOLAR I DISORDER MOST RECENT EPISODE (OR CURRENT) MIXED UNSPECIFIED 05/12/2008 [facility], ARGELIA R 300.01 AN PANIC DIS W/O AGORA 05/12/2008 [facility], ARGELIA R 300.15 DS DISSOCIATIVE DIS NOS 05/12/2008 [facility], ARGELIA R 307.47 SI DYSSOMNIA NOS 05/12/2008 [facility], ARGELIA R 309.81 AN PTSD 05/12/2008 [facility], ARGELIA R 296.60 BIPOLAR I DISORDER MOST RECENT EPISODE (OR CURRENT) MIXED UNSPECIFIED 05/12/2008 [facility], ARGELIA R 300.01 AN PANIC DIS W/O AGORA 05/12/2008 [facility], ARGELIA R 300.15 DS DISSOCIATIVE DIS NOS 05/12/2008 [facility], ARGELIA R 307.47 SI DYSSOMNIA NOS 05/12/2008 [facility], ARGELIA R 309.81 AN PTSD 05/12/2008 PILLO TEAGUE APRN 296.60 BIPOLAR I DISORDER MOST RECENT EPISODE (OR CURRENT) MIXED UNSPECIFIED 05/12/2008 PILLO TEAGUE APRN 300.01 AN PANIC DIS W/O AGORA 05/12/2008 TEAGUE PILLO BELLAMYH 300.15 DS DISSOCIATIVE DIS NOS 05/12/2008 TEAGUE PILLO BELLAMYH 307.47 SI DYSSOMNIA NOS 05/12/2008 TEAGUE PILLO BLELAMYH 309.81 AN PTSD 05/12/2008 KARIS CHANCE APRN [...] DO K 309.81 AN PTSD 05/12/2008 [place] [facility] M 296.60 BIPOLAR I DISORDER MOST RECENT EPISODE (OR CURRENT) MIXED UNSPECIFIED 05/12/2008 [place] [facility] M 300.01 AN PANIC DIS W/O AGORA 05/12/2008 [place] [facility] M 300.15 DS DISSOCIATIVE DIS NOS 05/12/2008 [place] [facility] M 307.47 SI DYSSOMNIA NOS 05/12/2008 [place] [facility] M 309.81 AN PTSD 05/12/2008 RHETT HOWARD [...] 300.15 DS DISSOCIATIVE DIS NOS 05/12/2008 [place] COUNCILMAN, PINA M 307.47 SI DYSSOMNIA NOS 05/12/2008 [place] COUNCILMAN, PINA M 309.81 AN PTSD 05/12/2008 PIETER GUTIERREZ RN E 296.60 BIPOLAR I DISORDER MOST RECENT EPISODE (OR CURRENT) MIXED UNSPECIFIED 05/12/2008 PIETER GUTIERREZ RN E 300.01 AN PANIC DIS W/O AGORA 05/12/2008 BRENDA TOVAR, PIETER E 300.15 DS DISSOCIATIVE DIS NOS 05/12/2008 PIETER GUTIERREZ RN E 307.47 SI DYSSOMNIA NOS 05/12/2008 BRENDA TOVAR, PIETER E 309.81 AN PTSD 05/12/2008 [place] COUNCILMAN, PINA M 296.60 BIPOLAR I DISORDER MOST RECENT EPISODE (OR CURRENT) MIXED UNSPECIFIED 05/12/2008 [place] COUNCILMAN, PINA M 300.01 AN PANIC DIS W/O AGORA 05/12/2008 [place] COUNCILMAN, PINA M 300.15 DS DISSOCIATIVE DIS NOS 05/12/2008 [place] COUNCILMAN, PINA M 307.47 SI DYSSOMNIA NOS 05/12/2008 [place] COUNCILMAN, PINA M 309.81 AN PTSD 05/12/2008 [place] COUNCILMAN, PINA M 296.60 BIPOLAR I DISORDER MOST RECENT EPISODE (OR CURRENT) MIXED UNSPECIFIED 05/12/2008 [place] COUNCILMAN, PINA M 300.01 AN PANIC DIS W/O AGORA 05/12/2008 [place] COUNCILMAN, PINA M 300.15 DS DISSOCIATIVE DIS NOS 05/12/2008 [place] COUNCILMAN, PINA M 307.47 SI DYSSOMNIA NOS 05/12/2008 [place] COUNCILMAN, PINA M 309.81 AN PTSD 05/19/2008 BARBARA [...] ARGELIA DECKER 296.80 MO BIPOLAR NOS 05/19/2008 [facility], ARGELIA R 296.80 MO BIPOLAR NOS 05/19/2008 HO CHAIRMAN & CHIEF EXECUTIVE OFFICER, PILLO NELSONH 296.80 MO BIPOLAR NOS 05/19/2008 LUDWIN RUDOLPH CHAIRMAN & CHIEF EXECUTIVE OFFICER, KARIS N 296.80 MO BIPOLAR NOS 05/19/2008 LUD[place] RUDOLPH CHAIRMAN & CHIEF EXECUTIVE OFFICER, KARIS N 296.80 MO BIPOLAR NOS 05/19/2008 HO CHAIRMAN & CHIEF EXECUTIVE OFFICER, PILLO ZAPATA 296.80 MO BIPOLAR NOS 05/19/2008 HO CHAIRMAN & CHIEF EXECUTIVE OFFICER, PILLO ZAPATA 296.80 MO BIPOLAR NOS 05/19/2008 YEYO CHAIRMAN & CHIEF EXECUTIVE OFFICER, ROD Trena 296.80 MO BIPOLAR NOS 05/19/2008 DONAL CHAIRMAN & CHIEF EXECUTIVE OFFICER, DAMION R 296.80 MO BIPOLAR NOS 05/19/2008 ROCIO YIN, STAN 296.80 MO BIPOLAR NOS 05/19/2008 BRENDA TOVAR, PIETER E 296.80 MO BIPOLAR NOS 05/19/2008 BRENDA TOVAR, PIETER E 296.80 MO BIPOLAR NOS 05/19/2008 HWOARD DO JESIKA K 296.80 MO BIPOLAR NOS 05/19/2008 HOWARD DO JESIKA K 296.80 MO BIPOLAR NOS 05/19/2008 BRENDA TOVAR, PIETER E 296.80 MO BIPOLAR NOS 05/19/2008 HOWARD DO, JESIKA K 296.80 MO BIPOLAR NOS 05/19/2008 PINA SMITH M 296.80 MO BIPOLAR NOS 05/19/2008 HOWARD DO JESIKA K 296.80 MO BIPOLAR NOS 05/19/2008 BRENDA TOAVR, PIETER E 296.80 MO BIPOLAR NOS 05/19/2008 [...] 296.90 UNSPECIFIED EPISODIC MOOD DISORDER 06/17/2008 BRITTANY CHAIRMAN & CHIEF EXECUTIVE OFFICERRONALDTEMO S 300.00 AN ANXIETY UNSPEC 06/17/2008 BRITTANY CHAIRMAN & CHIEF EXECUTIVE OFFICER, TEMO S 301.9 PD PERS DIS NOS 06/17/2008 BRITTANY CHAIRMAN & CHIEF EXECUTIVE OFFICER, TEMO S 296.90 UNSPECIFIED EPISODIC MOOD DISORDER 06/17/2008 BRITTANY CHAIRMAN & CHIEF EXECUTIVE OFFICERRONALDTEMO S 300.00 AN ANXIETY UNSPEC 06/17/2008 BRITTANY CHAIRMAN & CHIEF EXECUTIVE OFFICER, TEMO S 301.9 PD PERS DIS NOS [...] K 301.9 PD PERS DIS NOS 06/17/2008 [facility], ARGELIA R 296.90 UNSPECIFIED EPISODIC MOOD DISORDER 06/17/2008 [facility], ARGELIA R 300.00 AN ANXIETY UNSPEC 06/17/2008 [facility], ARGELIA R 301.9 PD PERS DIS NOS 06/17/2008 [facility], ARGELIA R 296.90 UNSPECIFIED EPISODIC MOOD DISORDER 06/17/2008 [facility], ARGELIA R 300.00 AN ANXIETY UNSPEC 06/17/2008 [facility], ARGELIA R 301.9 PD PERS DIS NOS 06/17/2008 PILLO TEAGUE APRN 296.90 UNSPECIFIED EPISODIC MOOD DISORDER 06/17/2008 PILLO TEAGUE APRN 300.00 AN ANXIETY UNSPEC 06/17/2008 PILLO TEAGUE APRN 301.9 PD PERS DIS NOS 06/17/2008 MASCORRO CASHERO CHAIRMAN & CHIEF EXECUTIVE OFFICER, KARIS N 296.90 UNSPECIFIED EPISODIC MOOD DISORDER [...] APRN 300.00 AN ANXIETY UNSPEC 06/17/2008 PILLO TEAUGE APRN 301.9 PD PERS DIS NOS 06/17/2008 YEYO CHAIRMAN & CHIEF EXECUTIVE OFFICERROD Main T 296.90 UNSPECIFIED EPISODIC MOOD DISORDER 06/17/2008 YEYO CHAIRMAN & CHIEF EXECUTIVE OFFICER, ROD T 300.00 AN ANXIETY UNSPEC 06/17/2008 YEYO CHAIRMAN & CHIEF EXECUTIVE OFFICER, ROD T 301.9 PD PERS DIS NOS [...] E 300.00 AN ANXIETY UNSPEC 06/17/2008 BRENDA TVOAR, PIETER E 301.9 PD PERS DIS NOS [...] M 300.00 AN ANXIETY UNSPEC 06/17/2008 PINA SIMTH M 301.9 PD PERS DIS NOS 06/17/2008 [...] 301.9 PD PERS DIS NOS 06/17/2008 [place] COUNCILMAN, PINA M 296.90 UNSPECIFIED EPISODIC MOOD DISORDER 06/17/2008 [place] COUNCILMAN, PINA M 300.00 AN ANXIETY UNSPEC 06/17/2008 [place] COUNCILMAN, PINA M 301.9 PD PERS DIS NOS 06/17/2008 [place] COUNCILMAN, PINA M 296.90 UNSPECIFIED EPISODIC MOOD DISORDER 06/17/2008 [place] COUNCILMAN, PINA M 300.00 AN ANXIETY UNSPEC 06/17/2008 [place] COUNCILMAN, PINA M 301.9 PD PERS DIS NOS 12/07/2008 JESUSITA CURB MACHINE OPERATORBARBARA HENDRICKS 611.72 BREAST LUMP OR MASS 12/07/2008 TEMO SOTO APRN S 611.72 BREAST LUMP OR MASS 12/07/2008 TEMO SOTO APRN S 611.72 BREAST LUMP OR MASS 12/07/2008 611.72 BREAST LUMP OR MASS 12/07/2008 611.72 BREAST LUMP OR MASS 12/07/2008 611.72 BREAST LUMP OR MASS 12/07/2008 611.72 BREAST LUMP OR MASS 12/07/2008 JESIKA HOWARD DO 611.72 BREAST LUMP OR MASS 12/07/2008 [facility], ARGELIA R 611.72 BREAST LUMP OR MASS 12/07/2008 [facility], ARGELIA R 611.72 BREAST LUMP OR MASS [...] M 611.72 BREAST LUMP OR MASS 12/07/2008 OHWARD DO, JESKIA K 611.72 BREAST LUMP OR MASS 12/07/2008 [...] FROM OTHER STAIRS OR STEPS 02/26/2010 [facility] 840.6 SPRAINS AND STRAINS OF SHOULDER AND UPPER ARM, SUPRASPINATUS (MUSCLE) ( TENDON) 02/26/2010 [facility] E849.[address] OF OCCURRENCE 02/26/2010 [facility], ARGELIA R E880.9 ACCIDENTAL FALL ON OR FROM OTHER STAIRS OR STEPS 02/26/2010 [facility], ARGELIA R 840.6 SPRAINS AND STRAINS OF [...] UNSPECIFIED PLACE OF OCCURRENCE 02/26/2010 MASCORRO KOBESARTHAK CHAIRMAN & CHIEF EXECUTIVE OFFICER, KARIS N E880.9 ACCIDENTAL FALL ON OR [...] B 564.1 IRRITABLE BOWEL SYNDROME 04/10/2010 JESUSITA CURB MACHINE OPERATOR, BARBARA B 782.0 DISTURBANCE OF SKIN SENSATION 04/10/2010 BRITTANY CHAIRMAN & CHIEF EXECUTIVE OFFICER, TEMO S 564.1 IRRITABLE BOWEL SYNDROME 04/10/2010 BRITTANY CHAIRMAN & CHIEF EXECUTIVE OFFICER, TEMO S 782.0 DISTURBANCE OF SKIN SENSATION 04/10/2010 BRITTANY CHAIRMAN & CHIEF EXECUTIVE OFFICER, TEMO S 564.1 IRRITABLE BOWEL SYNDROME 04/10/2010 BRITTANY CHAIRMAN & CHIEF EXECUTIVE OFFICER, TEMO S 782.0 DISTURBANCE OF SKIN SENSATION [...] K 782.0 DISTURBANCE OF SKIN SENSATION 04/10/2010 [facility], ARGELIA R 564.1 IRRITABLE BOWEL SYNDROME 04/10/2010 [facility], ARGELIA R 782.0 DISTURBANCE OF SKIN SENSATION 04/10/2010 [facility], ARGELIA R 564.1 IRRITABLE BOWEL SYNDROME 04/10/2010 [facility], ARGELIA R 782.0 DISTURBANCE OF SKIN SENSATION [...] 782.0 DISTURBANCE OF SKIN SENSATION 04/10/2010 YEYO CHAIRMAN & CHIEF EXECUTIVE OFFICER, ROD T 564.1 IRRITABLE BOWEL SYNDROME 04/10/2010 YEYO CHAIRMAN & CHIEF EXECUTIVE OFFICER, ROD T 782.0 DISTURBANCE OF SKIN SENSATION 04/10/2010 DONAL BELLAMY, DAMION R 564.1 IRRITABLE BOWEL SYNDROME 04/10/2010 DONAL CHAIRMAN & CHIEF EXECUTIVE OFFICER DAMION R 782.0 DISTURBANCE OF SKIN SENSATION [...] 782.0 DISTURBANCE OF SKIN SENSATION 04/10/2010 [place] COUNCILMAN, PINA M 564.1 IRRITABLE BOWEL SYNDROME 04/10/2010 [place] COUNCILMAN, PINA M 782.0 DISTURBANCE OF SKIN SENSATION 04/10/2010 PIETER GUTIERREZ RN 564.1 IRRITABLE BOWEL SYNDROME 04/10/2010 PIETER GUTIERREZ RN E 782.0 DISTURBANCE OF SKIN SENSATION 04/10/2010 [place] COUNCILMAN, PINA M 564.1 IRRITABLE BOWEL SYNDROME 04/10/2010 [place] COUNCILMAN, PINA M 782.0 DISTURBANCE OF SKIN SENSATION 04/10/2010 [place] COUNCILMAN, PINA M 564.1 IRRITABLE BOWEL SYNDROME 04/10/2010 [place] COUNCILMAN, PINA M 782.0 DISTURBANCE OF SKIN SENSATION 05/05/2010 JESUSITA [facility], BARBARA B 112.1 CANDIDIASIS VAGINAL 05/05/2010 TEMO SOTO APRN S 112.1 CANDIDIASIS VAGINAL 05/05/2010 TEMO SOTO APRN S 112.1 CANDIDIASIS VAGINAL 05/05/2010 112.1 CANDIDIASIS VAGINAL 05/05/2010 112.1 CANDIDIASIS VAGINAL 05/05/2010 112.1 CANDIDIASIS VAGINAL 05/05/2010 112.1 CANDIDIASIS VAGINAL 05/05/2010 LEE WINTER JESIKA K 112.1 CANDIDIASIS VAGINAL 05/05/2010 [facility], ARGELIA R 112.1 CANDIDIASIS VAGINAL 05/05/2010 [facility], ARGELIA R 112.1 CANDIDIASIS VAGINAL 05/05/2010 PILLO TEAGUE APRN 112.1 CANDIDIASIS VAGINAL 05/05/2010 KARIS CHANCE APRN N 112.1 CANDIDIASIS VAGINAL 05/05/2010 KARIS CHANCE APRN N 112.1 CANDIDIASIS VAGINAL 05/05/2010 PILLO TEAGUE APRN 112.1 CANDIDIASIS VAGINAL 05/05/2010 HO BELLAMY PILLO ZAPATA 112.1 CANDIDIASIS VAGINAL 05/05/2010 YEYO CHAIRMAN & CHIEF EXECUTIVE OFFICER, ROD Albrecht 112.1 CANDIDIASIS VAGINAL 05/05/2010 DONAL [...] 386.2 VERTIGO OF CENTRAL ORIGIN 05/28/2010 TEAGUE CHAIRMAN & CHIEF EXECUTIVE OFFICER, PILLO JODI 386.2 VERTIGO OF CENTRAL ORIGIN 05/28/2010 MASCORRO CASHERO CHAIRMAN & CHIEF EXECUTIVE OFFICER, KARIS N 386.2 VERTIGO OF CENTRAL ORIGIN 05/28/2010 MASCORRO CASHERO CHAIRMAN & CHIEF EXECUTIVE OFFICER, KARIS N 386.2 VERTIGO OF CENTRAL ORIGIN 05/28/2010 TEAGUE CHAIRMAN & CHIEF EXECUTIVE OFFICER, PILLO JODI 386.2 VERTIGO OF CENTRAL ORIGIN 05/28/2010 TEAGUE CHAIRMAN & CHIEF EXECUTIVE OFFICER, PILLO JODI 386.2 VERTIGO OF CENTRAL ORIGIN 05/28/2010 YEYO CHAIRMAN & CHIEF EXECUTIVE OFFICER, ROD Albrecht 386.2 VERTIGO OF CENTRAL ORIGIN 05/28/2010 DONAL CHAIRMAN & CHIEF EXECUTIVE OFFICER, DAMION R 386.2 VERTIGO OF CENTRAL ORIGIN [...] BROCK, BARBARA B 784.0 HEADACHE 06/19/2010 BRITTANY CHAIRMAN & CHIEF EXECUTIVE OFFICER, TEMO S 784.0 HEADACHE 06/19/2010 BRITTANY CHAIRMAN & CHIEF EXECUTIVE OFFICER, TEMO S 784.0 HEADACHE 06/19/2010 784.0 HEADACHE 06/19/2010 784.0 HEADACHE 06/19/2010 784.0 HEADACHE 06/19/2010 784.0 HEADACHE 06/19/2010 HOWARD DO, JESIKA K 784.0 HEADACHE 06/19/2010 OS[facility]DO [facility], AR[place]ELIA R 784.0 HEADACHE 06/19/2010 [facility], [place] R 784.0 HEADACHE 06/19/2010 TEAGUE CHAIRMAN & CHIEF EXECUTIVE OFFICER, PILLO NELSONH 784.0 HEADACHE 06/19/2010 MASCORRO CASHERO CHAIRMAN & CHIEF EXECUTIVE OFFICER, KARIS N 784.0 HEADACHE 06/19/2010 MASCRORO CASHERO CHAIRMAN & CHIEF EXECUTIVE OFFICER, KARIS N 784.0 HEADACHE 06/19/2010 TEAGUE CHAIRMAN & CHIEF EXECUTIVE OFFICER, PILLO ZAPATA 784.0 HEADACHE 06/19/2010 TEAGUE CHAIRMAN & CHIEF EXECUTIVE OFFICER, PILLO NELSONH 784.0 HEADACHE 06/19/2010 YEYO CHAIRMAN & CHIEF EXECUTIVE OFFICER, ROD T 784.0 HEADACHE 06/19/2010 DONAL CHAIRMAN & CHIEF EXECUTIVE OFFICER, DAMION R 784.0 HEADACHE 06/19/2010 STAN CHAN [...] BANGURA, PINA M 784.0 HEADACHE 06/19/2010 [place] COUNCILMAN, PINA M 784.0 HEADACHE 06/30/2010 Ot 784.0 06/30/2010 Ot 787.03 07/07/2010 Ot 780.4 07/07/2010 Ot 784.2 07/07/2010 Ot 786.09 07/07/2010 Ot 995.7 07/07/2010 Ot V15.05 08/03/2010 JESUSITA BROCK, BARBARA B 919.0 ABRASION UNSPECIFIED 08/03/2010 JESUSITA CURB MACHINE OPERATOR, BARBARA B E928.9 UNSPECIFIED ACCIDENT 08/03/2010 BRITTANY CHAIRMAN & CHIEF EXECUTIVE OFFICER, TEMO S 919.0 ABRASION UNSPECIFIED 08/03/2010 BRITTANY CHAIRMAN & CHIEF EXECUTIVE OFFICER, TEMO S E928.9 UNSPECIFIED ACCIDENT 08/03/2010 BRITTANY CHAIRMAN & CHIEF EXECUTIVE OFFICER, TEMO S 919.0 ABRASION UNSPECIFIED 08/03/2010 BRITTANY CHAIRMAN & CHIEF EXECUTIVE OFFICER, TEMO S E928.9 UNSPECIFIED ACCIDENT 08/03/2010 919.0 ABRASION UNSPECIFIED 08/03/2010 E928.9 UNSPECIFIED ACCIDENT 08/03/2010 919.0 ABRASION UNSPECIFIED 08/03/2010 E928.9 UNSPECIFIED ACCIDENT 08/03/2010 919.0 ABRASION UNSPECIFIED 08/03/2010 E928.9 UNSPECIFIED ACCIDENT 08/03/2010 919.0 ABRASION UNSPECIFIED 08/03/2010 E928.9 UNSPECIFIED ACCIDENT 08/03/2010 HOWARD DO, JESIKA K 919.0 ABRASION UNSPECIFIED 08/03/2010 HOWARD DO, JESIKA K E928.9 UNSPECIFIED ACCIDENT 08/03/2010 [facility], ARGELIA R 919.0 ABRASION UNSPECIFIED 08/03/2010 [facility], [place] R E928.9 UNSPECIFIED ACCIDENT 08/03/2010 [facility], [place]ELIA R 919.0 ABRASION UNSPECIFIED 08/03/2010 [facility], [place] R E928.9 UNSPECIFIED ACCIDENT 08/03/2010 PILLO TEAGUE APRN 919.0 ABRASION UNSPECIFIED 08/03/2010 PILLO TEAGUE APRN E928.9 UNSPECIFIED ACCIDENT 08/03/2010 MASCORRO CASHERO CHAIRMAN & CHIEF EXECUTIVE OFFICER, KARIS N 919.0 ABRASION UNSPECIFIED 08/03/2010 LUDWIN BULLOCKERO CHAIRMAN & CHIEF EXECUTIVE OFFICER, KARIS N E928.9 UNSPECIFIED ACCIDENT 08/03/2010 LUDWIN CASHERO CHAIRMAN & CHIEF EXECUTIVE OFFICER, KARIS N 919.0 ABRASION UNSPECIFIED 08/03/2010 LUDWIN BULLOCKERO CHAIRMAN & CHIEF EXECUTIVE OFFICER, KARIS N E928.9 UNSPECIFIED ACCIDENT 08/03/2010 TEAGUE CHAIRMAN & CHIEF EXECUTIVE OFFICER, PILLO ZAPATA 919.0 ABRASION UNSPECIFIED 08/03/2010 TEAGUE CHAIRMAN & CHIEF EXECUTIVE OFFICER, PILLO JODI E928.9 UNSPECIFIED ACCIDENT 08/03/2010 TEAGUE CHAIRMAN & CHIEF EXECUTIVE OFFICER, PILLO ZAPATA 919.0 ABRASION UNSPECIFIED 08/03/2010 TEAGUE CHAIRMAN & CHIEF EXECUTIVE OFFICER, PILLO ZAPATA E928.9 UNSPECIFIED ACCIDENT 08/03/2010 YEYO CHAIRMAN & CHIEF EXECUTIVE OFFICER, ROD T 919.0 ABRASION UNSPECIFIED 08/03/2010 YEYO CHAIRMAN & CHIEF EXECUTIVE OFFICER, ROD T E928.9 UNSPECIFIED ACCIDENT 08/03/2010 DONAL CHAIRMAN & CHIEF EXECUTIVE OFFICER, DAMION R 919.0 ABRASION UNSPECIFIED 08/03/2010 DONAL CHAIRMAN & CHIEF EXECUTIVE OFFICER, DAMION R E928.9 UNSPECIFIED ACCIDENT 08/03/2010 STAN [...] ABDOMINAL PAIN LEFT UPPER QUADRANT 12/07/2010 TEAGUE CHAIRMAN & CHIEF EXECUTIVE OFFICER, PILLO ZAPATA 789.02 ABDOMINAL PAIN LEFT UPPER QUADRANT 12/07/2010 LUDWIN RUDOLPH CHAIRMAN & CHIEF EXECUTIVE OFFICER, KARIS N 789.02 ABDOMINAL PAIN LEFT UPPER QUADRANT 12/07/2010 LUDWIN RUDOLPH CHAIRMAN & CHIEF EXECUTIVE OFFICER, KARIS N 789.02 ABDOMINAL PAIN LEFT UPPER [...] DISORDERS OF FUNCTION OF STOMACH 01/10/2011 BRITTANY CHAIRMAN & CHIEF EXECUTIVE OFFICER, TEMO S 536.8 DYSPEPSIA AND OTHER SPECIFIED DISORDERS OF FUNCTION OF STOMACH 01/10/2011 BRITTANY CHAIRMAN & CHIEF EXECUTIVE OFFICER, TEMO S 536.8 DYSPEPSIA AND OTHER SPECIFIED [...] DISORDERS OF FUNCTION OF STOMACH 01/10/2011 [facility], [place] R 536.8 DYSPEPSIA AND OTHER SPECIFIED DISORDERS OF FUNCTION OF STOMACH 01/10/2011 [facility], [place] R 536.8 DYSPEPSIA AND OTHER [...] K 535.00 ACUTE GASTRITIS (WITHOUT HEMORRHAGE) 01/19/2011 [facility], ARGELIA R 535.00 ACUTE GASTRITIS (WITHOUT HEMORRHAGE) 01/19/2011 [facility], [place] R 535.00 ACUTE GASTRITIS (WITHOUT HEMORRHAGE) 01/19/2011 TEAGUE CHAIRMAN & CHIEF EXECUTIVE OFFICER, PILLO NELSONH 535.00 ACUTE GASTRITIS (WITHOUT HEMORRHAGE) 01/19/2011 LUDWIN RUDOLPH CHAIRMAN & CHIEF EXECUTIVE OFFICER, KARIS N 535.00 ACUTE GASTRITIS (WITHOUT HEMORRHAGE) 01/19/2011 LUDWIN BULLOCKERO CHAIRMAN & CHIEF EXECUTIVE OFFICER, KARIS N 535.00 ACUTE GASTRITIS (WITHOUT HEMORRHAGE) 01/19/2011 TEAGUE CHAIRMAN & CHIEF EXECUTIVE OFFICER, PILLO ZAPATA 535.00 ACUTE GASTRITIS (WITHOUT HEMORRHAGE) 01/19/2011 HO CHAIRMAN & CHIEF EXECUTIVE OFFICER, PILLO ZAPATA 535.00 ACUTE GASTRITIS (WITHOUT HEMORRHAGE) 01/19/2011 YEYO CHAIRMAN & CHIEF EXECUTIVE OFFICER, ROD Albrecht 535.00 ACUTE GASTRITIS (WITHOUT HEMORRHAGE) 01/19/2011 DONAL CHAIRMAN & CHIEF EXECUTIVE OFFICER, DAMION R 535.00 ACUTE GASTRITIS (WITHOUT HEMORRHAGE) [...] 535.00 ACUTE GASTRITIS (WITHOUT HEMORRHAGE) 01/19/2011 [place] COUNCILMAN[place]A Cassy 535.00 ACUTE GASTRITIS (WITHOUT HEMORRHAGE) 04/18/2011 Ot 599.0 04/18/2011 Ot 789.09 11/15/2011 BARBARA MC LCPC B V65.45 STD COUNSELING 11/15/2011 BARBARA MC LCPC B 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, 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 11/15/2011 BARBARA MC LCPC B V74.5 STD SCREEN 11/15/2011 RONALD SOTO APRNNDA S V65.45 STD COUNSELING 11/15/2011 RONALD SOTO APRNNDA S 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, ROUTINE 11/15/2011 RONALD SOTO APRNNDA S V74.5 STD SCREEN 11/15/2011 RONALD SOTO APRNNDA S V65.45 STD COUNSELING 11/15/2011 RONALD SOTO APRNNDA S 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, ROUTINE 11/15/2011 RONALD SOTO APRNNDA S V74.5 STD SCREEN 11/15/2011 V65.45 STD COUNSELING 11/15/2011 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, ROUTINE 11/15/2011 V74.5 STD SCREEN 11/15/2011 V65.45 STD COUNSELING 11/15/2011 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, ROUTINE 11/15/2011 V74.5 STD SCREEN 11/15/2011 V65.45 STD COUNSELING 11/15/2011 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, ROUTINE 11/15/2011 V74.5 STD SCREEN 11/15/2011 V65.45 STD COUNSELING 11/15/2011 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, ROUTINE 11/15/2011 V74.5 STD SCREEN 11/15/2011 JESIKA HOWARD DO V65.45 STD COUNSELING 11/15/2011 JESIKA HOWARD DO 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, ROUTINE 11/15/2011 JESIKA HOWARD DO V74.5 STD SCREEN 11/15/2011 [facility] V65.45 STD COUNSELING 11/15/2011 [facility], ARGELIA R 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, ROUTINE 11/15/2011 [facility], ARGELIA R V74.5 STD SCREEN 11/15/2011 [facility], ARGELIA R V65.45 STD COUNSELING 11/15/2011 [facility], ARGELIA R 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, ROUTINE 11/15/2011 [facility], ARGELIA R V74.5 STD SCREEN 11/15/2011 HO BELLAMY PILLO NELSONH V65.45 STD COUNSELING 11/15/2011 HO BELLAMY, PILLO NELSONH 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, ROUTINE 11/15/2011 HO BELLAMY PILLO NELSONH V74.5 STD SCREEN 11/15/2011 KARIS CHANCE APRN N V65.45 STD COUNSELING 11/15/2011 KARIS CHANCE APRN N 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, ROUTINE 11/15/2011 KARIS CHANCE APRN N V74.5 STD SCREEN 11/15/2011 KARIS CHANCE APRN N V65.45 STD COUNSELING 11/15/2011 KARIS CHANCE APRN N 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, ROUTINE 11/15/2011 KARIS CHANCE APRN N V74.5 STD SCREEN 11/15/2011 HO BELLAMY PILLO JODI V65.45 STD COUNSELING 11/15/2011 HO BELLAMY PILLO NELSONH 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, ROUTINE 11/15/2011 HO BELLAMY PILLO NELSONH V74.5 STD SCREEN 11/15/2011 HO BELLAMY PILLO JODI V65.45 STD COUNSELING 11/15/2011 HO BELLAMY PILLO NELSONH 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, ROUTINE 11/15/2011 HO BELLAMY PILLO JODI V74.5 STD SCREEN 11/15/2011 ROD ORONA APRN V65.45 STD COUNSELING 11/15/2011 ROD ORONA APRN 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, ROUTINE 11/15/2011 ROD ORONA APRN V74.5 STD SCREEN 11/15/2011 DAMION MANSFIELD APRN V65.45 STD COUNSELING 11/15/2011 DAMION MANSFIELD APRN 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, ROUTINE 11/15/2011 DAMION MANSFIELD APRN R V74.5 STD SCREEN 11/15/2011 ROCIO IYN, STAN V65.45 STD COUNSELING 11/15/2011 TSAN CHAN MD 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, ROUTINE 11/15/2011 STAN CHAN MD V74.5 STD SCREEN 11/15/2011 BRENDA TOVAR, PIETER Nelson V65.45 STD COUNSELING 11/15/2011 BRENDA TOVAR, PIETER Nelson 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, ROUTINE 11/15/2011 BRENDA TOVAR, PIETER Nelson V74.5 STD SCREEN 11/15/2011 PIETER GUTIERREZ RN V65.45 STD COUNSELING 11/15/2011 PIETER GUTIERREZ RN 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, ROUTINE 11/15/2011 BRENDA TOVAR, PIETER Nelson V74.5 STD SCREEN 11/15/2011 JESIKA HOWARD DO V65.45 STD COUNSELING 11/15/2011 JESIKA HOWARD DO 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, ROUTINE 11/15/2011 JESIKA HOWARD DO V74.5 STD SCREEN 11/15/2011 JESIKA HOWARD DO V65.45 STD COUNSELING 11/15/2011 JESIKA HOWARD DO 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, ROUTINE 11/15/2011 JESIKA HOWARD DO V74.5 STD SCREEN 11/15/2011 BRENDA TOVAR, PIETER Nelson V65.45 STD COUNSELING 11/15/2011 BRENDA TOVAR, PIETER Nelson 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, ROUTINE 11/15/2011 PIETER GUTIERREZ RN V74.5 STD SCREEN 11/15/2011 JESIKA HOWARD DO V65.45 STD COUNSELING 11/15/2011 JESIKA HOWARD DO 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, ROUTINE 11/15/2011 RHETT HOWARD DOA K V74.5 STD SCREEN 11/15/2011 PINA SMITH V65.45 STD COUNSELING 11/15/2011 PINA SMITH 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, ROUTINE 11/15/2011 PINA SMITH V74.5 STD SCREEN 11/15/2011 JESIKA HOWARD DO V65.45 STD COUNSELING 11/15/2011 JESIKA HOWARD DO 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, ROUTINE 11/15/2011 JESIKA HOWARD DO V74.5 STD SCREEN 11/15/2011 PIETER GUTIERREZ RN V65.45 STD COUNSELING 11/15/2011 BRENDA TOVAR, PIETER Nelson 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, ROUTINE 11/15/2011 PIETER GUTIERREZ RN V74.5 STD SCREEN 11/15/2011 PIETER GUTIERREZ RN V65.45 STD COUNSELING 11/15/2011 PIETER GUTIERREZ RN 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45 STD COUNSELING 11/15/2011 PINA SMITH M 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, ROUTINE 11/15/2011 PINA SMITH M V74.5 [...] JESIKA HOWARD DO 842.00 SPRAIN/STRAIN WRIST 03/09/2012 [facility], ARGELIA R 842.00 SPRAIN/STRAIN WRIST 03/09/2012 [facility], ARGELIA R 842.00 SPRAIN/STRAIN WRIST 03/09/2012 HO [...] K 465.9 UPPER RESPIRATORY INFECTION 07/27/2012 [facility], ARGELIA R 465.9 UPPER RESPIRATORY INFECTION 07/27/2012 [facility], [place]EL[place] R 465.9 UPPER RESPIRATORY INFECTION [...] K 465.9 UPPER RESPIRATORY INFECTION 07/27/2012 [place] COUNCIL[facility], PINA M 465.9 UPPER RESPIRATORY INFECTION 07/27/2012 LEE WINTERRHETTA K 465.9 UPPER RESPIRATORY INFECTION 07/27/2012 BRENDA TOVAR, PIETER E 465.9 UPPER RESPIRATORY INFECTION 07/27/2012 BRENDA TOVAR, PIETER E 465.9 UPPER RESPIRATORY INFECTION 07/27/2012 ERNESTINA BANGURA, PINA M 465.9 UPPER RESPIRATORY INFECTION 07/27/2012 BRENDA TOVAR, PIETER E 465.9 UPPER RESPIRATORY INFECTION 07/27/2012 [place] COUNCIL[facility], PINA M 465.9 UPPER RESPIRATORY INFECTION 07/27/2012 [place] [facility]NCIL[facility], PINA M 465.9 UPPER RESPIRATORY INFECTION 07/31/2012 [facility], BARBARA Byrne 296.52 MO BIPOLAR I DEPRESSED [...] MO BIPOLAR I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 03/08/2013 12:04:00 03/08/2013 23:59:59 CLS Outpatient [id number] 03/08/2013 11:58:00 03/08/2013 23:59:59 CLS Outpatient MARLENE MITTAL [facility] ONC [id number] 09/30/2018 08:34:00 ACT Emergency REILLY PORTER MD [facility] ER CHEST/BACK/LEFT ARM PAIN NAUSEA [id number] 11/04/2014 09:05:00 Document Registration [id number] 09/05/2014 11:46:00 Document Registration [id number] 09/05/2014 11:46:00 Document Registration [id number] 09/05/2014 11:46:00 Document Registration [id number] 09/05/2014 11:46:00 Document Registration [id number] 09/05/2014 11:46:00 Document Registration [id number] 08/30/2014 13:36:00 Document Registration [id number] 07/27/2014 11:48:00 Document Registration [id number] 12/21/2012 13:10:00 Document Registration [id number] 08/06/2012 19:27:00 Document Registration [id number] 06/08/2012 20:07:00 Document Registration [id number] 04/29/2012 16:55:00 Document Registration [id number] 02/21/2012 19:37:00 Document Registration [id number] 04/18/2011 18:12:00 Document Registration [id number] 12/05/2010 19:29:00 Document Registration [id number] 11/24/2010 12:37:00 Document Registration [id number] 08/28/2010 21:18:00 Document Registration [id number] 08/26/2010 17:39:00 Document Registration [id number] 07/07/2010 22:17:00 Document Registration [id number] 06/29/2010 22:02:00 Document Registration [id number] 05/30/2010 10:45:00 Document Registration [id number] 05/26/2010 20:19:00 Document Registration [id number] 05/19/2010 19:46:00 Document Registration [id number] 04/09/2010 18:50:00 Document Registration [id number] 02/26/2010 14:50:00 Document Registration
--- NOTE | 2018-09-30 10:31 | Diagnostic Imaging Report ---
INDICATION: Chest and neck pain COMPARISON: 07/11/2018 FINDINGS: Frontal and lateral views the chest demonstrate clear lungs bilaterally. The heart size is normal. There is no pneumothorax. Osseous structures are normal. IMPRESSION: No acute findings. Normal chest. Dictated by: Dictated on workstation # [id number]
[2018-09-30 10:35] LABS: ALANINE AMINOTRANSFERASE 21 U/L (0-55); ALBUMIN 3.7 GM/DL (3.2-4.5); ALKALINE PHOSPHATASE 66 U/L (40-136); BILIRUBIN,TOTAL 0.2 MG/DL (0.1-1.0); BUN/CREATININE RATIO 16; CALCIUM 9.1 MG/DL (8.5-10.1); CARBON DIOXIDE 21 MMOL/L (21-32); CHLORIDE 108 MMOL/L (98-107); CREATININE SERUM 0.73 MG/DL (0.60-1.30); GFR ESTIMATED > 60; GLUCOSE 84 MG/DL (70-105); POTASSIUM 4.7 MMOL/L (3.6-5.0); SODIUM 139 MMOL/L (135-145); TOTAL PROTEIN 6.9 GM/DL (6.4-8.2)
[2018-09-30 10:54] LABS: TSH (THYROID ANALYZER) 1.64 UIU/ML (0.35-4.94)
--- NOTE | 2018-09-30 11:05 | ED General ---
General Chief Complaint: General Problems/Pain Stated Complaint: CHEST/BACK/LEFT ARM PAIN NAUSEA Nursing Triage Note: PT CO OF CHEST PAIN, NECK PAIN AND BILATERAL ARM PAIN SINCE FRIDAY, RATES /. DENIES CHANGES IN MEDS OR ALLERGIES. DENIES FEVER Nursing Sepsis Screen: No Definite Risk Source of Information: Patient Exam Limitations: No Limitations History of Present Illness Date Seen by Provider: Sep 30, 2018 Time Seen by Provider: 09:58 Initial Comments Here with report of several days of chest congestion, cough, chest tightness, muscle aches and pain across the chest and neck and overall just not feeling well. Not getting better. Denies that she's had fever. Does have runny nose. Does report nausea but no vomiting. Timing/Duration: 3-4 Days Severity: Moderate Associated Systoms: Chest Pain, Cough; No Fever/Chills; Headaches, Malaise, Nausea/Vomiting; No Shortness of Air, No Weakness Allergies and Home Medications Allergies Coded Allergies: metformin (Verified Allergy, Intermediate, N/V, 11/21/15) strawberry (Verified Allergy, Mild, 11/28/15) codeine (Verified Allergy, Unknown, 12/24/05) morphine (Verified Allergy, Unknown, 01/12/14) tramadol (Verified Allergy, Unknown, 09/30/18) Home Medications Hydrocodone Bit/Acetaminophen 1 Tab Tab, 1 EACH PO Q4-6HR PRN for PAIN-MODERATE Prescribed by: REILLY PORTER on 09/30/18 1144 Promethazine HCl 25 Mg Tablet, 25 MG PO Q8H PRN for NAUSEA/VOMITING Prescribed by: ABDULLAHI RECIO on 07/11/18 1705 Patient Home Medication List Home Medication List Reviewed: Yes Review of Systems Review of Systems Constitutional: see HPI, dizziness; No fever EENTM: nose congestion, throat pain; No ear pain Respiratory: No short of breath, No wheezing Cardiovascular: see HPI; No edema, No palpitations Gastrointestinal: No abdominal pain; nausea; No vomiting Genitourinary: no symptoms reported Musculoskeletal: muscle pain Skin: No change in color, No lesions Psychiatric/Neurological: No Symptoms Reported All Other Systems Reviewed Negative Unless Noted: Yes Past Rfhekaj-Dleldb-Yxceut Hx Past Med/Social Hx: Reviewed Nursing Past Med/Soc Hx Patient Social History Alcohol Use: Denies Use Recreational Drug Use: No Smoking Status: Never a Smoker Type Used: Cigarettes 2nd Hand Smoke Exposure: No Recent Foreign Travel: No Contact w/Someone Who Travel: No Recent Infectious Disease Expo: No Recent Hopitalizations: No Physical Abuse: No Sexual Abuse: No Immunizations Up To Date Tetanus Booster (TDap): Less than 5yrs Date of Pneumonia Vaccine: May 16, 2011 Date of Influenza Vaccine: Jun 27, 2015 Seasonal Allergies Seasonal Allergies: Yes Past Medical History Surgeries: Yes Adenoidectomy, Appendectomy, Gallbladder, Hysterectomy, Oophorectomy, Orthopedic , Tonsillectomy, Tubal Ligation Respiratory: Yes Chronic Bronchitis Currently Using CPAP: No Currently Using BIPAP: No Cardiac: No Neurological: Yes (SON DANLOS) Headaches /Migraines, Neuropathy 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 Sexually Transmitted Disease: No HIV/AIDS: No Genitourinary: No UTI-Chronic Gastrointestinal: Yes Gastroesophageal Reflux, Chronic Diarrhea, Gall Bladder Disease, Irritable Bowel Musculoskeletal: Yes (OSTEOARTHRITIS, INFLAMATORY JOINT DISEASE, FIBROMYALGIA) Arthritis, Fibromyalgia, Chronic Back Pain Endocrine: No Loss of Vision: Denies Hearing Impairment: Denies Cancer: No Psychosocial: Yes Sleep Difficulties, Anxiety, PTSD, Bipolar, Personality Disorder, Depression Integumentary: No (bumps on both arms) Blood Disorders: No Adverse Reaction/Blood Tranf: No Family Medical History Reviewed Nursing Family Hx Alcoholism 19 FATHER Arthritis 19 FATHER 19 MOTHER Cardiovascular disease grandmother Cataracts G8 BROTHER grandmother Completed stroke grandmother Congenital disease Congenital heart disease grandmother Deafness or hearing loss 19 MOTHER G8 BROTHER Diabetes mellitus 19 MOTHER Gastroenteritis grandmother Glaucoma grandmother Headache disorder 19 MOTHER grandmother Hypercholesterolemia 19 MOTHER grandmother Hypertension 19 MOTHER grandmother Myocardial infarction 19 MOTHER Parkinson's disease grandmother Respiratory disorder 19 FATHER GI Disease Physical Exam Vital Signs Vital Signs - First Documented 09/30/18 08:45 Temp 98.6 Pulse 85 Resp 15 B/P (MAP) 114/79 (91) Capillary Refill : Less Than 3 Seconds Height, Weight, BMI Height: 5'8.00" Weight: 260lbs. 0.0oz. 117.495833qj; 35.27 BMI Method:Stated General Appearance: No Apparent Distress, WD/WN HEENT: PERRL/EOMI, Pharyngeal Erythema; No Tonsillar Exudate; Other (moderate bilateral nasal congestion with erythema and clear rhinorrhea) Neck: Full Range of Motion, Supple; No Lymphadenopathy (L), No Lymphadenopathy (R) Respiratory: Lungs Clear; No Respiratory Distress; Other (coarse cough) Cardiovascular: Regular Rate, Rhythm, No Murmur Gastrointestinal: Non Tender, Soft Back: Normal Inspection, No CVA Tenderness, No Vertebral Tenderness Extremity: Normal Range of Motion, Non Tender Neurologic/Psychiatric: Alert, Oriented x3 Skin: Normal Color, Warm/Dry Progress/Results/Core Measures Suspected Sepsis Recent Fever Within 48 Hours: No Infection Criteria Present: None New/Unexplained Altered Menta: No Sepsis Screen: No Definite Risk SIRS Temperature:98.6 Pulse: 85 Respiratory Rate: 15 Laboratory Tests 09/30/18 10:05: White Blood Count 12.5H Blood Pressure 114 /79 Mean: 91 Laboratory Tests 09/30/18 10:05: Creatinine 0.73, Platelet Count 264, Total Bilirubin 0.2 Results/Orders Lab Results Laboratory Tests Test 09/30/18 10:05 Range/Units White Blood Count 12.5 H 4.3-11.0 10^3/uL Red Blood Count 4.40 4.35-5.85 10^6/uL Hemoglobin 12.8 11.5-16.0 G/DL Hematocrit 37 35-52 % Mean Corpuscular Volume 83 80-99 FL Mean Corpuscular Hemoglobin 29 25-34 PG Mean Corpuscular Hemoglobin Concent 35 32-36 G/DL Red Cell Distribution Width 13.8 10.0-14.5 % Platelet Count 264 130-400 10^3/uL Mean Platelet Volume 9.7 7.4-10.4 FL Neutrophils (%) (Auto) 57 42-75 % Lymphocytes (%) (Auto) 33 12-44 % Monocytes (%) (Auto) 6 0-12 % Eosinophils (%) (Auto) 3 0-10 % Basophils (%) (Auto) 1 0-10 % Neutrophils # (Auto) 7.2 1.8-7.8 X 10^3 Lymphocytes # (Auto) 4.2 H 1.0-4.0 X 10^3 Monocytes # (Auto) 0.7 0.0-1.0 X 10^3 Eosinophils # (Auto) 0.4 H 0.0-0.3 10^3/uL Basophils # (Auto) 0.1 0.0-0.1 10^3/uL D-Dimer 0.41 0.00-0.49 UG/ML Sodium Level 139 135-145 MMOL/L Potassium Level 4.7 3.6-5.0 MMOL/L Chloride Level 108 H 98-107 MMOL/L Carbon Dioxide Level 21 21-32 MMOL/L Anion Gap 10 5-14 MMOL/L Blood Urea Nitrogen 12 7-18 MG/DL Creatinine 0.73 0.60-1.30 MG/DL Estimat Glomerular Filtration Rate > 60 BUN/Creatinine Ratio 16 Glucose Level 84 70-105 MG/DL Calcium Level 9.1 8.5-10.1 MG/DL Corrected Calcium 9.3 8.5-10.1 MG/DL Total Bilirubin 0.2 0.1-1.0 MG/DL Aspartate Amino Transf (AST/SGOT) 25 5-34 U/L Alanine Aminotransferase (ALT/SGPT) 21 0-55 U/L Alkaline Phosphatase 66 40-136 U/L Troponin I < 0.028 <0.028 NG/ML C-Reactive Protein High Sensitivity 2.07 H 0.00-0.50 MG/DL Total Protein 6.9 6.4-8.2 GM/DL Albumin 3.7 3.2-4.5 GM/DL TSH [place] Testing 1.64 0.35-4.94 UIU/ML Micro Results Microbiology 09/30/18 Influenza Types A,B Antigen (KENDRA) - Final, Complete My Orders Orders - REILLY PORTER MD Cbc With Automated Diff (09/30/18 10:00) Comprehensive Metabolic Panel (09/30/18 10:00) Hs C Reactive Protein (09/30/18 10:00) Fibrin Degradation Products (09/30/18 10:00) Thyroid Analyzer (09/30/18 10:00) Troponin I (09/30/18 10:00) Ua Culture If Indicated (09/30/18 10:00) Influenza A And B Antigens (09/30/18 10:00) Chest Pa/Lat (2 View) (09/30/18 10:00) Ketorolac Injection (Toradol Injection) (09/30/18 10:00) Saline Lock/Iv-Start (09/30/18 10:00) Ns Iv 1000 Ml (Sodium Chloride 0.9%) (09/30/18 10:00) Ondansetron Oral Dissolve Tab (Zofran (09/30/18 10:00) Ondansetron Injection (Zofran Injectio (09/30/18 10:12) Medications Given in ED Current Medications Medications Dose Ordered Sig/Nabil Route Start Time Stop Time Status Last Admin Dose Admin Ondansetron HCl 4 mg STK-MED ONCE .ROUTE 09/30/18 10:12 09/30/18 10:16 DC 09/30/18 10:20 4 MG Sodium Chloride 1,000 ml @ 0 mls/hr Q0M ONCE IV 09/30/18 10:00 09/30/18 10:04 DC 09/30/18 10:19 1,000 MLS/HR Vital Signs/I&O 09/30/18 08:45 Temp 98.6 Pulse 85 Resp 15 B/P (MAP) 114/79 (91) Capillary Refill : Less Than 3 Seconds Blood Pressure Mean: 91 Progress Note : Progress Note Seen and evaluated. IV, labs, EKG and chest x-ray ordered. Normal saline 1 L bolus. Toradol 30 mg IV. Monitor patient. 1140: Overall improved and feels a little bit better. No significant findings or abnormalities. Discharged home with return precautions. Patient verbalize understanding instructions and agreement with plan. ECG Initial ECG Impression Date: Sep 30, 2018 Initial ECG Impression Time: 08:55 Initial ECG Rate: 76 Initial ECG Rhythm: Normal Sinus Initial ECG Comparisson: Unchanged Comment Sinus rhythm with normal axis. No evidence of ST elevation OK. Unchanged from previous of 21 April 2014. Interpreted by me. Diagnostic Imaging Diagonstic Imaging: Xray Plain Films/CT/US/NM/MRI: chest Comments NAME: EBONI SCHMIDT [facility] REC#: [id number] PT STATUS: REG ER : 1980 PHYSICIAN: REILYL PORTER MD ADMIT DATE: 09/30/18/ER Signed Date of Exam: 09/30/18 CHEST PA/LAT (2 VIEW) INDICATION: Chest and neck pain COMPARISON: 07/11/2018 FINDINGS: Frontal and lateral views the chest demonstrate clear lungs bilaterally. The heart size is normal. There is no pneumothorax. Osseous structures are normal. IMPRESSION: No acute findings. Normal chest. Dictated by: Dictated on workstation # [id number] Dict: 09/30/18 1028 Trans: 09/30/18 1029 Interpreted by: MECHELLE HINES Electronically signed by: MECHELLE HINES 09/30/18 1029 Departure Impression Primary Impression: Influenza-like illness Disposition: HOME, SELF-CARE Condition: Improved Departure-Patient Inst. Decision time for Depature: 11:42 Referrals: [facility] (PCP/Family) Primary Care Physician Patient Instructions: Flu, Adult (DC) Add. Discharge Instructions: All discharge instructions reviewed with patient and/or family. Voiced understanding. Drink plenty of fluids. You may continue ibuprofen 800 mg every 8 hours as needed for fever or pain. Take other medications as directed. You need to get plenty or rest. Follow-up with your DrAlyce in a few days for recheck. Return for worsening, fever, vomiting, weakness, breathing problems or other concerns as needed. Scripts Hydrocodone Bit/Acetaminophen (Hydrocodone/Acetaminophen 5/325mg Tablet) 1 Tab Tab 1 EACH PO Q4-6HR PRN for PAIN-MODERATE MDD 10, #6 TAB 0 Refills Prov: REILLY PORTER MD 09/30/18 Work/School Note: Work Release Form Date Seen in the Emergency Department: Sep 30, 2018 Return to Work: Oct 02, 2018 Restrictions: No Restrictions REILLY PORTER MD Sep 30, 2018 11:05
[2018-09-30] MEDS ORDERED: ACHD5005 PO (11:44)
[2018-09-30 12:12] VITALS: BP 114/79
== END 2018-09-30 12:12 | disposition home or self-care (01) ==
LOC: EDUNIT# 08:32 → ER 08:34
DX: J10.1 Influenza due to other identified influenza virus with other respiratory manifestations (principal); G43.909 Migraine, unspecified, not intractable, without status migrainosus; K21.9 Gastro-esophageal reflux disease without esophagitis; K58.9 Irritable bowel syndrome, unspecified; F41.9 Anxiety disorder, unspecified; F43.10 Post-traumatic stress disorder, unspecified; F31.9 Bipolar disorder, unspecified; Z87.19 Personal history of other diseases of the digestive system; Z87.440 Personal history of urinary (tract) infections; Z87.09 Personal history of other diseases of the respiratory system; Z82.49 Family history of ischemic heart disease and other diseases of the circulatory system; Z79.84 Long term (current) use of oral hypoglycemic drugs; Z88.5 Allergy status to narcotic agent; Z88.6 Allergy status to analgesic agent; Z90.710 Acquired absence of both cervix and uterus; Z90.49 Acquired absence of other specified parts of digestive tract; Z90.89 Acquired absence of other organs; Z98.51 Tubal ligation status
CPT/HCPCS: 36415; 71046; 80053; 84443; 84484; 85025; 85379; 86141; 87804

== ENCOUNTER 2019-02-15 10:50 | Emergency (ER) | payer SELFPAY ==
[~2019-02-15] VITALS: Ht 172.7 cm; Wt 117.9 kg
--- NOTE | 2019-02-15 12:20 | Diagnostic Imaging Report ---
Indication: Cough. Time of exam: 11:21 AM Correlation is made with prior study from 09/30/2018. The heart size is normal. The pulmonary vascularity is unremarkable. The lungs are clear. No infiltrate, effusion or pneumothorax is detected. Impression: No acute cardiopulmonary process is detected. Dictated by: Dictated on workstation # [id number]
[2019-02-15] MEDS ORDERED: ALBU2.5V4 INH (12:56)
[2019-02-15] MEDS ORDERED: PRD20T PO (12:56)
[2019-02-15] MEDS ORDERED: RT-ALBUINH IH (12:56)
--- NOTE | 2019-02-15 12:57 | ED Respiratory ---
General Chief Complaint: Respiratory Problems Stated Complaint: COUGH;SWEATING Nursing Triage Note: Pt to ED with report of, "I feel like I'm not getting enough O2." Pt reports having cough for approximately 1 week. Pt reports fever the first couple of days. Pt reports productive cough that sometimes produces yellow or green sputum. Pt reports taking lindsey seltzer severe sinus at approximately 0900. Source: patient Exam Limitations: no limitations History of Present Illness Date Seen by Provider: Feb 15, 2019 Time Seen by Provider: 10:55 Initial Comments This 38-year-old woman presents to the emergency room with complaints of shortness of air and cough 1 week. She had a fever the first couple of days. She is producing yellow and green sputum with her cough. She has had some hot and cold chills. She took Lindsey-Prospect severe sinus for her symptoms earlier. She has nausea without vomiting or diarrhea. She continues to smoke. Allergies and Home Medications Allergies Coded Allergies: metformin (Verified Allergy, Intermediate, N/V, 11/21/15) strawberry (Verified Allergy, Mild, 11/28/15) codeine (Verified Allergy, Unknown, 12/24/05) morphine (Verified Allergy, Unknown, 01/12/14) tramadol (Verified Allergy, Unknown, 09/30/18) Home Medications Albuterol Sulfate 2.5 Mg/3 Ml Vial.neb, 2.5 MG INH Q4H PRN for WHEEZING Prescribed by: MADELINE OAKES on 02/15/19 1256 Albuterol Sulfate 1 Puff Puff, 2 PUFF IH Q4H PRN for WHEEZING 1 PUFF = 90 MCG Prescribed by: MADELINE OAKES on 02/15/19 1256 Hydrocodone Bit/Acetaminophen 1 Tab Tab, 1 EACH PO Q4-6HR PRN for PAIN-MODERATE Prescribed by: REILLY PORTER on 09/30/18 1144 Prednisone 20 Mg Tab, 40 MG PO DAILY Prescribed by: MADELINE OAKES on 02/15/19 1256 Promethazine HCl 25 Mg Tablet, 25 MG PO Q8H PRN for NAUSEA/VOMITING Prescribed by: ABDULLAHI RECIO on 07/11/18 1705 Patient Home Medication List Home Medication List Reviewed: Yes Review of Systems Review of Systems Constitutional: see HPI EENTM: no symptoms reported Respiratory: see HPI Cardiovascular: no symptoms reported Gastrointestinal: no symptoms reported Genitourinary: no symptoms reported : No Musculoskeletal: no symptoms reported Skin: no symptoms reported Psychiatric/Neurological: No Symptoms Reported Hematologic/Lymphatic: No Symptoms Reported Immunological/Allergic: no symptoms reported Past Xljgqfh-Zqrtsd-Dzcips Hx Past Med/Social Hx: Reviewed Nursing Past Med/Soc Hx Patient Social History Alcohol Use: Denies Use Recreational Drug Use: No Smoking Status: Current Everyday Smoker Type Used: Cigarettes 2nd Hand Smoke Exposure: No Recent Foreign Travel: No Contact w/Someone Who Travel: No Recent Infectious Disease Expo: No Recent Hopitalizations: No Immunizations Up To Date Tetanus Booster (TDap): Less than 5yrs Date of Pneumonia Vaccine: May 16, 2011 Date of Influenza Vaccine: Jun 27, 2015 Seasonal Allergies Seasonal Allergies: Yes Past Medical History 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 Sexually Transmitted Disease: No HIV/AIDS: No Genitourinary: No UTI-Chronic Gastrointestinal: Yes Gastroesophageal Reflux, Chronic Diarrhea, Gall Bladder Disease, Irritable Bowel Musculoskeletal: Yes (OSTEOARTHRITIS, INFLAMATORY JOINT DISEASE, FIBROMYALGIA, Caron-Danlos) Arthritis, Fibromyalgia, Chronic Back Pain Endocrine: No Loss of Vision: Denies Hearing Impairment: Denies Cancer: No Psychosocial: Yes Sleep Difficulties, Anxiety, PTSD, Bipolar, Personality Disorder, Depression Integumentary: No (bumps on both arms) Blood Disorders: No Adverse Reaction/Blood Tranf: No Family Medical History Alcoholism 19 FATHER Arthritis 19 FATHER 19 MOTHER Cardiovascular disease grandmother Cataracts G8 BROTHER grandmother Completed stroke grandmother Congenital disease Congenital heart disease grandmother Deafness or hearing loss 19 MOTHER G8 BROTHER Diabetes mellitus 19 MOTHER Gastroenteritis grandmother Glaucoma grandmother Headache disorder 19 MOTHER grandmother Hypercholesterolemia 19 MOTHER grandmother Hypertension 19 MOTHER grandmother Myocardial infarction 19 MOTHER Parkinson's disease grandmother Respiratory disorder 19 FATHER GI Disease Physical Exam Vital Signs - First Documented 02/15/19 10:56 Temp 97.0 Pulse 77 Resp 18 B/P (MAP) 114/79 (91) Pulse Ox 96 O2 Delivery Room Air Capillary Refill : Less Than 3 Seconds Height: 5'8.00" Weight: 260lbs. 0.0oz. 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, no motor/sensory deficits, alert, normal mood/affect, oriented x 3 Skin: normal color, warm/dry Progress/Results/Core Measures Suspected Sepsis Recent Fever Within 48 Hours: No Infection Criteria Present: None New/Unexplained Altered Menta: No Sepsis Screen: No Definite Risk SIRS Temperature:97.0 Pulse: 77 Respiratory Rate: 18 Blood Pressure 114 /79 Mean: 91 Results/Orders My Orders Orders - MADELINE MOLINA MD Chest Pa/Lat (2 View) (02/15/19 11:06) Vital Signs/I&O 02/15/19 02/15/19 10:56 13:03 Temp 97.0 97.0 Pulse 77 77 Resp 18 18 B/P (MAP) 114/79 (91) 114/79 (91) Pulse Ox 96 96 O2 Delivery Room Air Room Air Capillary Refill : Less Than 3 Seconds Blood Pressure Mean: 91 Progress Note : Progress Note Chest x-ray showed no evidence of pneumonia. Patient was strongly encouraged to quit smoking. She was given a card for the smoking cessation class. Prescriptions for nebulizer medication, an inhaler, and prednisone were provided. Departure Impression Primary Impression: Acute bronchitis Qualified Codes: J20.9 - Acute bronchitis, unspecified Disposition: 01 HOME, SELF-CARE Condition: Stable Departure-Patient Inst. Decision time for Depature: 12:54 Referrals: [facility] (PCP/Family) Primary Care Physician Patient Instructions: Acute Bronchitis, Adult (DC), SMOKING CESSATION Add. Discharge Instructions: Use your inhaler and nebulizer as prescribed. You should use them for wheezing, shortness of breath, or uncontrolled cough. Steroids have been prescribed to help with your wheezing and shortness of breath. Please take them early in the day with food or milk. Follow-up with your primary care provider in 1 to 2 weeks. Work toward quitting smoking immediately. Reduce your smoking while you're trying to quit. If you're unable to quit smoking on your own, please seek assistance from your primary care provider. Do not replace nicotine with inhaled vapor products. Return to care if you have worsening symptoms. All discharge instructions reviewed with patient and/or family. Voiced understanding. Scripts Albuterol Sulfate (PROAIR HFA) 1 Puff Puff 2 PUFF IH Q4H PRN for WHEEZING, #1 PUFF 1 PUFF = 90 MCG Prov: MADELINE MOLINA MD 02/15/19 Prednisone (Prednisone) 20 Mg Tab 40 MG PO DAILY, #6 TAB 0 Refills Prov: MADELINE MOLINA MD 02/15/19 Albuterol Sulfate (Albuterol Sulfate) 2.5 Mg/3 Ml Vial.neb 2.5 MG INH Q4H PRN for WHEEZING, #50 EA 1 Refill Prov: MADELINE MOLINA MD 02/15/19 Copy Copies To 1: JESIKA HOWARD JOSHUA T MD Feb 15, 2019 12:57
[2019-02-15 13:03] VITALS: BP 114/79
== END 2019-02-15 13:03 | disposition home or self-care (01) ==
LOC: EDUNIT# 10:50 → ER 10:52
DX: J20.9 Acute bronchitis, unspecified (principal); G43.909 Migraine, unspecified, not intractable, without status migrainosus; K21.9 Gastro-esophageal reflux disease without esophagitis; K58.9 Irritable bowel syndrome, unspecified; M79.7 Fibromyalgia; F41.9 Anxiety disorder, unspecified; F43.10 Post-traumatic stress disorder, unspecified; Q79.6 Ehlers-Danlos syndromes; F31.9 Bipolar disorder, unspecified; F60.9 Personality disorder, unspecified; G62.9 Polyneuropathy, unspecified; F17.210 Nicotine dependence, cigarettes, uncomplicated; Z82.49 Family history of ischemic heart disease and other diseases of the circulatory system; Z90.89 Acquired absence of other organs; Z87.19 Personal history of other diseases of the digestive system; Z87.440 Personal history of urinary (tract) infections; Z90.710 Acquired absence of both cervix and uterus; Z98.51 Tubal ligation status; Z90.49 Acquired absence of other specified parts of digestive tract; Z88.5 Allergy status to narcotic agent; Z88.6 Allergy status to analgesic agent; Z88.8 Allergy status to other drugs, medicaments and biological substances; Z79.52 Long term (current) use of systemic steroids
CPT/HCPCS: 71046

== ENCOUNTER 2019-04-13 11:16 | Emergency (ER) | payer SELFPAY ==
[~2019-04-13] VITALS: Ht 172.7 cm; Wt 117.9 kg
[~2019-04-13 11:16] MED LIST changes: +ALBU2.5V4 INH; +RT-ALBUINH IH
--- NOTE | 2019-04-13 12:10 | ED Lower Extremity ---
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 PT DENIES INJURY. PT STATES LEFT KNEE PAIN AND NUMBNESS IN LEFT HEEL. PT STATES TAKING IBUPROFEN FOR THE PAIN. PT STATES SOMETIMES SHE LOSES BALANCE DUE TO THE HYPERMOBILITY OF JOINTS. Nursing Sepsis Screen: No Definite Risk Source: patient Exam Limitations: no limitations History of Present Illness Date Seen by Provider: Apr 13, 2019 Time Seen by Provider: 12:08 Initial Comments Left knee pain and grinding sensation, no known injury. History of Caron Danlos. No fevers or chills no swelling Onset: just prior to arrival Severity: moderate Pain/Injury Location: left knee Method of Injury: unknown Modifying Factors: Worse With Movement Allergies and Home Medications Allergies Coded Allergies: metformin (Verified Allergy, Intermediate, N/V, 11/21/15) strawberry (Verified Allergy, Mild, 11/28/15) codeine (Verified Allergy, Unknown, 12/24/05) morphine (Verified Allergy, Unknown, 01/12/14) tramadol (Verified Allergy, Unknown, 09/30/18) Home Medications Albuterol Sulfate 2.5 Mg/3 Ml Vial.neb, 2.5 MG INH Q4H PRN for WHEEZING Prescribed by: MADELINE OAKES on 02/15/19 1256 Albuterol Sulfate 1 Puff Puff, 2 PUFF IH Q4H PRN for WHEEZING 1 PUFF = 90 MCG Prescribed by: MADELINE OAKES on 02/15/19 1256 Hydrocodone Bit/Acetaminophen 1 Tab Tab, 1 EACH PO Q4-6HR PRN for PAIN-MODERATE Prescribed by: REILLY PORTER on 09/30/18 1144 Prednisone 20 Mg Tab, 40 MG PO DAILY Prescribed by: MADELINE OAKES on 02/15/19 1256 Promethazine HCl 25 Mg Tablet, 25 MG PO Q8H PRN for NAUSEA/VOMITING Prescribed by: ABDULLAHI RECIO on 07/11/18 1705 Patient Home Medication List Home Medication List Reviewed: Yes Review of Systems Constitutional: see HPI EENTM: see HPI Respiratory: no symptoms reported Cardiovascular: no symptoms reported Genitourinary: no symptoms reported Musculoskeletal: see HPI Skin: no symptoms reported Psychiatric/Neurological: No Symptoms Reported Past Yufngkm-Phvdyk-Rowoyv Hx Patient Social History Alcohol Use: Denies Use Recreational Drug Use: No Type Used: Cigarettes 2nd Hand Smoke Exposure: No Recent Foreign Travel: No Contact w/Someone Who Travel: No Recent Infectious Disease Expo: No Recent Hopitalizations: No Physical Abuse: No Sexual Abuse: No Mistreated: No Fear: No Immunizations Up To Date Tetanus Booster (TDap): Less than 5yrs Date of Pneumonia Vaccine: May 16, 2011 Date of Influenza Vaccine: Jun 27, 2015 Seasonal Allergies Seasonal Allergies: Yes Past Medical History 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 Sexually Transmitted Disease: No HIV/AIDS: No Genitourinary: No UTI-Chronic Gastrointestinal: Yes Gastroesophageal Reflux, Chronic Diarrhea, Gall Bladder Disease, Irritable Bowel Musculoskeletal: Yes (OSTEOARTHRITIS, INFLAMATORY JOINT DISEASE, FIBROMYALGIA, Caron-Danlos) Arthritis, Fibromyalgia, Chronic Back Pain Endocrine: No Loss of Vision: Denies Hearing Impairment: Denies Cancer: No Psychosocial: Yes Sleep Difficulties, Anxiety, PTSD, Bipolar, Personality Disorder, Depression Integumentary: No (bumps on both arms) Blood Disorders: No Adverse Reaction/Blood Tranf: No Family Medical History Alcoholism 19 FATHER Arthritis 19 FATHER 19 MOTHER Cardiovascular disease grandmother Cataracts G8 BROTHER grandmother Completed stroke grandmother Congenital disease Congenital heart disease grandmother Deafness or hearing loss 19 MOTHER G8 BROTHER Diabetes mellitus 19 MOTHER Gastroenteritis grandmother Glaucoma grandmother Headache disorder 19 MOTHER grandmother Hypercholesterolemia 19 MOTHER grandmother Hypertension 19 MOTHER grandmother Myocardial infarction 19 MOTHER Parkinson's disease grandmother Respiratory disorder 19 FATHER GI Disease Physical Exam Vital Signs Vital Signs - First Documented 04/13/19 11:36 Temp 97.2 Pulse 95 Resp 18 B/P (MAP) 133/92 (106) Pulse Ox 97 O2 Delivery Room Air Capillary Refill : Less Than 3 Seconds Height, Weight, BMI Height: 5'8.00" Weight: 260lbs. 0.0oz. [id number]; 35.27 BMI Method:Stated General Appearance: WD/WN, no apparent distress HEENT: PERRL/EOMI, normal ENT inspection Respiratory: no respiratory distress, no accessory muscle use Hips: bilateral hip non-tender, bilateral hip normal inspection, bilateral hip normal range of motion Legs: bilateral leg non-tender, bilateral leg normal inspection, bilateral leg normal range of motion Knees: left knee pain, left knee soft tissue tenderness, left knee other (no swelling no effusion no abrasion or ecchymosis or deformity. No erythema) Ankles: bilateral ankle non-tender, bilateral ankle normal inspection, bilateral ankle normal range of motion Feet: bilateral foot non-tender, bilateral foot normal inspection, bilateral foot normal range of motion Neurologic/Psychiatric: alert, normal mood/affect, oriented x 3 Skin: normal color, warm/dry Progress/Results/Core Measures Results/Orders My Orders Orders - ABDULLAHI RECIO APRN Knee, Left, 3 Views (04/13/19 11:55) Vital Signs/I&O 04/13/19 11:36 Temp 97.2 Pulse 95 Resp 18 B/P (MAP) 133/92 (106) Pulse Ox 97 O2 Delivery Room Air Blood Pressure Mean: 106 Departure Impression Primary Impression: Left knee pain Qualified Codes: M25.562 - Pain in left knee Disposition: 01 HOME, SELF-CARE Condition: Stable Departure-Patient Inst. Decision time for Depature: 12:36 Referrals: [facility] [place] Primary Care Physician Patient Instructions: Knee Pain Add. Discharge Instructions: 1. Return to ER for any concerns 2. Follow-up with your doctor later this week for recheck. All discharge instructions reviewed with patient and/or family. Voiced understanding. Scripts Prednisone (Prednisone) 20 Mg Tab 40 MG PO DAILY, #6 TAB 0 Refills Prov: ABDULLAHI RECIO APRN 04/13/19 ABDULLAHI RECIO APRN Apr 13, 2019 12:10
--- NOTE | 2019-04-13 12:31 | Diagnostic Imaging Report ---
Indication: Hypermobility of the joints. Patient's clinical left knee pain laterally. Time of exam 12:21 PM 3 views of the left knee were obtained. Alignment is normal. Joint spaces are well maintained. The articular surfaces are smooth. No fracture, dislocation or effusion is seen. IMPRESSION: No acute bony abnormality is detected. Dictated by: Dictated on workstation # [id number]
[2019-04-13] MEDS ORDERED: PRD20T PO (12:37)
[2019-04-13] MEDS ORDERED: HYDROcodone/APAP 5 MG/325 MG (LORTAB) TAB PO ONE (12:45)
[2019-04-13] MEDS ORDERED: KETOROLAC 30 MG/ML VIAL IM ONE (13:00)
[2019-04-13 13:15] VITALS: BP 133/92
== END 2019-04-13 13:00 | disposition home or self-care (01) ==
LOC: EDUNIT# 11:16 → ER 11:18
DX: M25.562 Pain in left knee (principal); G43.909 Migraine, unspecified, not intractable, without status migrainosus; F41.9 Anxiety disorder, unspecified; F43.10 Post-traumatic stress disorder, unspecified; F31.9 Bipolar disorder, unspecified; G62.9 Polyneuropathy, unspecified; F60.9 Personality disorder, unspecified; K21.9 Gastro-esophageal reflux disease without esophagitis; K58.9 Irritable bowel syndrome, unspecified; M79.7 Fibromyalgia; Z88.8 Allergy status to other drugs, medicaments and biological substances; Z88.5 Allergy status to narcotic agent; Z79.52 Long term (current) use of systemic steroids; Z90.89 Acquired absence of other organs; Z90.49 Acquired absence of other specified parts of digestive tract; Z90.710 Acquired absence of both cervix and uterus; Z98.51 Tubal ligation status; Z82.49 Family history of ischemic heart disease and other diseases of the circulatory system
CPT/HCPCS: 73562; 96372

== ENCOUNTER → 2019-06-02 | Outpatient (REF) ==
--- NOTE | 2019-06-02 15:33 | Diagnostic Imaging Report ---
INDICATION: Twisted right knee. TIME OF EXAM: 01:37 p.m. FINDINGS: Three views of right knee demonstrate the joint spaces to be well maintained. The articular surfaces are smooth. No fracture, dislocation, or effusion is seen. IMPRESSION: No acute bony abnormality is detected. Dictated by: Dictated on workstation # [id number]
== END | disposition home or self-care (01) ==
LOC: MERGE 13:23 → OCC 13:23
PROVIDERS: ATTEND Family Medicine
CPT/HCPCS: 73562

== ENCOUNTER 2019-10-11 19:42 | Emergency (ER) | payer SELFPAY ==
[~2019-10-11] VITALS: Ht 172 cm; Wt 110.0 kg
--- NOTE | 2019-10-11 20:02 | NUR ---
NOTIFIED LA ROGEL PT COMPLAINING OF L ARM TINGLING/PAIN WHILE WAITING.
[2019-10-11] MEDS ORDERED: FAMOTIDINE 20 MG (PEPCID) TABLET PO STA (20:59)
[2019-10-11] MEDS ORDERED: LIDOCAINE 2% VISCOUS 15 ML UDC PO ONE (21:00)
[2019-10-11] MEDS ORDERED: ANTACID SUSP 30 ML UDC (MYLANTA) PO ONE (21:00)
[2019-10-11] MEDS ORDERED: NITROGLYCERIN 0.4 MG SL TABS BTL 25'S SL PRN (21:00)
[2019-10-11] MEDS ORDERED: ASPIRIN 81 MG CHEW (CHILDREN'S ASA) PO ONE (21:00)
--- NOTE | 2019-10-11 21:06 | ED Chest Pain ---
General Chief Complaint: Chest Pain Stated Complaint: HR 110-118/CHEST TIGHTNESS/NAUSEA Source: patient Exam Limitations: no limitations History of Present Illness Date Seen by Provider: Oct 11, 2019 Time Seen by Provider: 20:46 Initial Comments Patient resents to ER by private conveyance with chief complaint that since about 2:00 this afternoon, 7 hours prior to arrival she started feeling tightness across her chest. She's been having this for the past 2-3 weeks that started about 2 weeks after starting her Lipitor. She has a history of hyperlipidemia, diabetes, smoking and obesity. She is being worked up outpatient by Dung Rowe. 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 She has been trying to get set up for a stress test but has not done it yet. She has no history of lung disorder. She feels mildly short of breath. No fevers or chills. She does have a history of anxiety as well as acid reflux. She has not taken anything for her symptoms yet. She takes Ativan regularly for her anxiety. She does not take aspirin because she says it makes her nauseated and upsets her acid reflux. Allergies and Home Medications Allergies Coded Allergies: metformin (Verified Allergy, Intermediate, N/V, 11/21/15) strawberry (Verified Allergy, Mild, 11/28/15) codeine (Verified Allergy, Unknown, 12/24/05) morphine (Verified Allergy, Unknown, 01/12/14) tramadol (Verified Allergy, Unknown, 09/30/18) Home Medications Albuterol Sulfate 2.5 Mg/3 Ml Vial.neb, 2.5 MG INH Q4H PRN for WHEEZING Prescribed by: MADELINE OAKES on 02/15/19 1256 Albuterol Sulfate 1 Puff Puff, 2 PUFF IH Q4H PRN for WHEEZING 1 PUFF = 90 MCG Prescribed by: MADELINE OAKES on 02/15/19 1256 Hydrocodone Bit/Acetaminophen 1 Tab Tab, 1 EACH PO Q4-6HR PRN for PAIN-MODERATE Prescribed by: REILLY PORTER on 09/30/18 1144 Prednisone 20 Mg Tab, 40 MG PO DAILY Prescribed by: MADELINE OAKES on 02/15/19 1256 Prednisone 20 Mg Tab, 40 MG PO DAILY Prescribed by: ABDULLAHI RECIO on 04/13/19 1237 Promethazine HCl 25 Mg Tablet, 25 MG PO Q8H PRN for NAUSEA/VOMITING Prescribed by: ABDULLAHI RECIO on 07/11/18 3356 Patient Home Medication List Home Medication List Reviewed: Yes Review of Systems Review of Systems Constitutional: No chills, No diaphoresis, No fever, No malaise EENTM: No Blurred Vision, No Eye Pain Respiratory: Denies Cough; Shortness of Air; Denies Wheezing Cardiovascular: See HPI (chest tightness no pain); Denies Chest Pain, Denies E evelio Gastrointestinal: Denies Abdominal Pain, Denies Nausea, Denies Vomiting Genitourinary: Denies Discharge, Denies Drainage Past Livcttw-Psmqip-Njxmxv Hx Patient Social History Alcohol Use: Denies Use Recreational Drug Use: No Smoking Status: Current Everyday Smoker Type Used: Cigarettes 2nd Hand Smoke Exposure: No Recent Foreign Travel: No Contact w/Someone Who Travel: No Recent Hopitalizations: No Immunizations Up To Date Tetanus Booster (TDap): Less than 5yrs Date of Pneumonia Vaccine: May 16, 2011 Date of Influenza Vaccine: Jun 27, 2015 Seasonal Allergies Seasonal Allergies: Yes Past Medical History 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 Sexually Transmitted Disease: No HIV/AIDS: No Genitourinary: No UTI-Chronic Gastrointestinal: Yes Gastroesophageal Reflux, Chronic Diarrhea, Gall Bladder Disease, Irritable Bowel Musculoskeletal: Yes (OSTEOARTHRITIS, INFLAMATORY JOINT DISEASE, FIBROMYALGIA, Caron-Danlos) Arthritis, Fibromyalgia, Chronic Back Pain Endocrine: No Loss of Vision: Denies Hearing Impairment: Denies Cancer: No Psychosocial: Yes Sleep Difficulties, Anxiety, PTSD, Bipolar, Personality Disorder, Depression Integumentary: No (bumps on both arms) Blood Disorders: No Adverse Reaction/Blood Tranf: No Family Medical History Alcoholism 19 FATHER Arthritis 19 FATHER 19 MOTHER Cardiovascular disease grandmother Cataracts G8 BROTHER grandmother Completed stroke grandmother Congenital disease Congenital heart disease grandmother Deafness or hearing loss 19 MOTHER G8 BROTHER Diabetes mellitus 19 MOTHER Gastroenteritis grandmother Glaucoma grandmother Headache disorder 19 MOTHER grandmother Hypercholesterolemia 19 MOTHER grandmother Hypertension 19 MOTHER grandmother Myocardial infarction 19 MOTHER Parkinson's disease grandmother Respiratory disorder 19 FATHER GI Disease Physical Exam Vital Signs Capillary Refill : Height, Weight, BMI Height: 5'8.00" Weight: 260lbs. 0.0oz. 117.933684ez; 35.27 BMI Method:Stated General Appearance: Anxious, Obese HEENT: PERRL/EOMI, Pharynx Normal, Moist Mucous Membranes Neck: Full Range of Motion, Normal Inspection Respiratory: Chest Non Tender, Lungs Clear, Normal Breath Sounds, No Accessory Muscle Use, No Respiratory Distress Cardiovascular: Regular Rate, Rhythm, No Edema, Normal Peripheral Pulses Gastrointestinal: Normal Bowel Sounds, Non Tender, Soft Extremity: Normal Capillary Refill, Normal Inspection, Normal Range of Motion, Non Tender Neurologic/Psychiatric: Alert, Oriented x3 Skin: Normal Color, Warm/Dry Progress/Results/Core Measures Results/Orders Lab Results Laboratory Tests Test 10/11/19 21:06 10/11/19 23:22 Range/Units White Blood Count 18.0 H 4.3-11.0 10^3/uL Red Blood Count 5.03 4.35-5.85 10^6/uL Hemoglobin 14.0 11.5-16.0 G/DL Hematocrit 42 35-52 % Mean Corpuscular Volume 83 80-99 FL Mean Corpuscular Hemoglobin 28 25-34 PG Mean Corpuscular Hemoglobin Concent 34 32-36 G/DL Red Cell Distribution Width 14.0 10.0-14.5 % Platelet Count 303 130-400 10^3/uL Mean Platelet Volume 9.6 7.4-10.4 FL Neutrophils (%) (Auto) 60 42-75 % Lymphocytes (%) (Auto) 31 12-44 % Monocytes (%) (Auto) 7 0-12 % Eosinophils (%) (Auto) 2 0-10 % Basophils (%) (Auto) 0 0-10 % Neutrophils # (Auto) 10.7 H 1.8-7.8 X 10^3 Lymphocytes # (Auto) 5.7 H 1.0-4.0 X 10^3 Monocytes # (Auto) 1.2 H 0.0-1.0 X 10^3 Eosinophils # (Auto) 0.3 0.0-0.3 10^3/uL Basophils # (Auto) 0.1 0.0-0.1 10^3/uL Neutrophils % (Manual) 59 % Lymphocytes % (Manual) 26 % Monocytes % (Manual) 7 % Eosinophils % (Manual) 1 % Basophils % (Manual) 0 % Band Neutrophils 0 % Reactive Lymphocytes 7 % Blood Morphology Comment NORMAL Prothrombin Time 12.5 12.2-14.7 SEC INR Comment 0.9 0.8-1.4 Activated Partial Thromboplast Time 28 24-35 SEC D-Dimer 0.29 0.00-0.49 UG/ML Sodium Level 138 135-145 MMOL/L Potassium Level 3.9 3.6-5.0 MMOL/L Chloride Level 102 98-107 MMOL/L Carbon Dioxide Level 22 21-32 MMOL/L Anion Gap 14 5-14 MMOL/L Blood Urea Nitrogen 12 7-18 MG/DL Creatinine 0.80 0.60-1.30 MG/DL Estimat Glomerular Filtration Rate > 60 BUN/Creatinine Ratio 15 Glucose Level 96 70-105 MG/DL Calcium Level 10.0 8.5-10.1 MG/DL Corrected Calcium 9.7 8.5-10.1 MG/DL Magnesium Level 2.2 1.6-2.4 MG/DL Total Bilirubin 0.3 0.1-1.0 MG/DL Aspartate Amino Transf (AST/SGOT) 22 5-34 U/L Alanine Aminotransferase (ALT/SGPT) 34 0-55 U/L Alkaline Phosphatase 78 40-136 U/L Myoglobin 22.4 10.0-92.0 NG/ML Troponin I < 0.028 < 0.028 <0.028 NG/ML B-Type Natriuretic Peptide < 10.0 <100.0 PG/ML Total Protein 7.8 6.4-8.2 GM/DL Albumin 4.4 3.2-4.5 GM/DL My Orders Orders - PETAR CHAPPELL Continuous Ekg Monitoring (10/11/19 20:01) Ekg Tracing (10/11/19 20:01) Nitroglycerin 0.4 Mg Btl 25's (Nitrostat (10/11/19 21:00) Lidocaine 2% Viscous 15 Ml (Xylocaine Vi (10/11/19 21:00) Famotidine Tablet (Pepcid Tablet) (10/11/19 20:59) Antacid Suspension (Mylanta Suspension (10/11/19 21:00) Ed Iv/Invasive Line Start (10/11/19 21:16) Ns Iv 1000 Ml (Sodium Chloride 0.9%) (10/11/19 21:16) Troponin I (10/11/19 23:00) Lorazepam Tablet (Ativan Tablet) (10/11/19 23:01) Medications Given in ED Current Medications Medications Dose Ordered Sig/Nabil Route Start Time Stop Time Status Last Admin Dose Admin Al Hydrox/Mg Hydrox/Simethicone 30 ml ONCE ONCE PO 10/11/19 21:00 10/11/19 21:01 DC 10/11/19 21:12 30 ML Lidocaine HCl 15 ml ONCE ONCE PO 10/11/19 21:00 10/11/19 21:01 DC 10/11/19 21:12 15 ML Progress Progress Note #1: Time: 21:03 Progress Note No evidence of hypoxia. She does endorse subjective dyspnea, mild. Her heart rate is regular at 100. She has not had any recent surgeries or reasons to have a pulmonary embolism. She does however live a sedentary lifestyle. Her symptoms started up after taking Lipitor and she just stopped taking it 3 days prior to today. Anxiety certainly plays a part in this. We'll start with a dose of nitroglycerin and if this does not help then we'll try GI cocktail and Pepcid. If this does not help and a d-dimer does not rule out a PE then we will consider this. EKG is unremarkable. Progress Note #2: Time: 22:30 Progress Note The patient received mild improvement from the GI cocktail but still feeling some tightness across her chest and anxiety. She usually takes a milligram of Ativan at night so were going to give her one of those now. We'll do a delta troponin here at 2300 and if this is okay we'll let her follow up with primary care. Initial ECG Impression Date: Oct 11, 2019 Initial ECG Impression Time: 20:45 Initial ECG Rate: 100 Initial ECG Rhythm: S.Tach Initial ECG Intervals: Normal Initial ECG Impression: Normal Initial ECG Comparisson: Unchanged Comment Sinus tachycardia without ST elevation or depression. Diagnostic Imaging Diagonstic Imaging: Xray Plain Films/CT/US/NM/MRI: chest (1v) Comments NAME: EBONI SCHMIDT [facility] REC#: [id number] PT STATUS: REG ER : 1980 PHYSICIAN: ABDULLAHI RECIO APRN ADMIT DATE: 10/11/19/ER Draft Date of Exam:10/11/19 CHEST 1 VIEW, AP/PA ONLY INDICATION: Chest pain, left arm numbness EXAMINATION: Chest dated 10/11/2019 Comparison made to 02/15/2019 FINDINGS: The cardiomediastinal silhouette is unremarkable. The pulmonary vasculature is within normal limits. The lungs and pleural spaces are clear. IMPRESSION: No evidence of an acute cardiopulmonary process. Dictated on workstation # [id number] Dict: 10/11/192199 Trans: 10/11/192201 [facility] [id number] Interpreted by: CLIFF ST MD Electronically signed by: Reviewed: Reviewed by Me Departure Impression Primary Impression: Chest tightness Additional Impression: Anxiety Disposition: HOME, SELF-CARE Condition: Stable Departure-Patient Inst. Decision time for Depature: 00:02 [address]errals: [facility] [place] ([place]/Family) Primary Care Physician Cassy MORRIS MD Patient Instructions: Chest Pain Add. Discharge Instructions: During business hours called Dr. Morris, cardiology and request follow-up appointment. Follow-up with your primary care doctor and set up a stress test. You may take one additional milligram dose of Ativan tonight if you need to for anxiety. Return to the ER if you are having chest pain, shortness of breath or other worrisome symptoms. All discharge instructions reviewed with patient and/or family. Voiced understanding. Copy Copies To 1: Cassy MORRIS MD, TITUS J Oct 11, 2019 21:06
[2019-10-11 21:12] LABS: BASOPHILS # (AUTO) 0.1 10^3/uL (0.0-0.1); BASOPHILS % (AUTO) 0 % (0-10); EOSINOPHILS # (AUTO) 0.3 10^3/uL (0.0-0.3); EOSINOPHILS % (AUTO) 2 % (0-10); HEMATOCRIT 42 % (35-52); LYMPHOCYTES # (AUTO) 5.7 X 10^3 (1.0-4.0); LYMPHOCYTES % (AUTO) 31 % (12-44); MEAN CORPUSCULAR HEMOGLOBIN 28 PG (25-34); MEAN CORPUSCULAR HGB CONC 34 G/DL (32-36); MEAN CORPUSCULAR VOLUME 83 FL (80-99); MEAN PLATELET VOLUME 9.6 FL (7.4-10.4); MONOCYTES # (AUTO) 1.2 X 10^3 (0.0-1.0); MONOCYTES % (AUTO) 7 % (0-12); NEUTROPHILS # (AUTO) 10.7 X 10^3 (1.8-7.8); NEUTROPHILS % (AUTO) 60 % (42-75); PLATELET COUNT 303 10^3/uL (130-400)
[2019-10-11] MEDS ORDERED: NS IV 1000 ML 1,000 ML IV SCH (21:16)
[2019-10-11 21:23] LABS: INR 0.9 (0.8-1.4); PROTHROMBIN TIME PATIENT 12.5 SEC (12.2-14.7)
[2019-10-11 21:29] LABS: ALANINE AMINOTRANSFERASE 34 U/L (0-55); ALBUMIN 4.4 GM/DL (3.2-4.5); ALKALINE PHOSPHATASE 78 U/L (40-136); BILIRUBIN,TOTAL 0.3 MG/DL (0.1-1.0); BUN/CREATININE RATIO 15; CARBON DIOXIDE 22 MMOL/L (21-32); CHLORIDE 102 MMOL/L (98-107); GFR ESTIMATED > 60; GLUCOSE 96 MG/DL (70-105); MAGNESIUM 2.2 MG/DL (1.6-2.4); POTASSIUM 3.9 MMOL/L (3.6-5.0); SODIUM 138 MMOL/L (135-145); TOTAL PROTEIN 7.8 GM/DL (6.4-8.2)
[2019-10-11 21:30] LABS: BAND NEUTROPHILS 0 %; BASOPHILS % (MANUAL) 0 %; EOSINOPHILS % (MANUAL) 1 %; LYMPHOCYTES % (MANUAL) 26 %; MONOCYTES % (MANUAL) 7 %; NEUTROPHILS % (MANUAL) 59 %; RBC MORPH NORMAL; REACTIVE LYMPHOCYTES 7 %
--- NOTE | 2019-10-11 22:03 | Diagnostic Imaging Report ---
INDICATION: Chest pain, left arm numbness EXAMINATION: Chest dated 10/11/2019 Comparison made to 02/15/2019 FINDINGS: The cardiomediastinal silhouette is unremarkable. The pulmonary vasculature is within normal limits. The lungs and pleural spaces are clear. IMPRESSION: No evidence of an acute cardiopulmonary process. Dictated by: Dictated on workstation # [id number]
[2019-10-11] MEDS ORDERED: LORazepam 0.5 MG (ATIVAN) TABLET PO STA (23:01)
[2019-10-12 00:30] VITALS: BP 119/68
== END 2019-10-12 00:30 | disposition home or self-care (01) ==
LOC: EDUNIT# 19:42 → ER 19:43
DX: R07.89 Other chest pain (principal); F41.9 Anxiety disorder, unspecified; E11.9 Type 2 diabetes mellitus without complications; E66.9 Obesity, unspecified; F17.210 Nicotine dependence, cigarettes, uncomplicated; Z90.49 Acquired absence of other specified parts of digestive tract; Z90.89 Acquired absence of other organs; Z90.710 Acquired absence of both cervix and uterus; Z98.51 Tubal ligation status; Z88.6 Allergy status to analgesic agent; Z88.5 Allergy status to narcotic agent; Z88.8 Allergy status to other drugs, medicaments and biological substances; Z79.52 Long term (current) use of systemic steroids; Z87.440 Personal history of urinary (tract) infections; Z82.49 Family history of ischemic heart disease and other diseases of the circulatory system; Z68.37 Body mass index [BMI] 37.0-37.9, adult
CPT/HCPCS: 36415; 71045; 80053; 83735; 83874; 83880; 84484; 85007; 85027; 85379; 85610; 85730; 93005; 93041

== ENCOUNTER 2021-04-16 17:23 | Emergency (ER) | payer MEDICAID ==
[~2021-04-16] VITALS: Ht 172.7 cm; Wt 137.8 kg
[2021-04-16] MEDS ORDERED: ACETAMINOPHEN 500 MG TAB (TYLENOL) PO STA (18:06)
[2021-04-16] MEDS ORDERED: ONDANSETRON 4 MG/2 ML (SDV) Z0FRAN IVP ONE (18:15)
[2021-04-16 18:24] LABS: BASOPHILS # (AUTO) 0.1 10^3/uL (0.0-0.1); BASOPHILS % (AUTO) 1 % (0-10); EOSINOPHILS # (AUTO) 0.3 10^3/uL (0.0-0.3); EOSINOPHILS % (AUTO) 4 % (0-10); HEMATOCRIT 40 % (35-52); HEMOGLOBIN 13.1 g/dL (11.5-16.0); LYMPHOCYTES # (AUTO) 1.8 10^3/uL (1.0-4.0); LYMPHOCYTES % (AUTO) 20 % (12-44); MEAN CORPUSCULAR HEMOGLOBIN 28 pg (25-34); MEAN CORPUSCULAR HGB CONC 33 g/dL (32-36); MEAN CORPUSCULAR VOLUME 83 fL (80-99); MEAN PLATELET VOLUME 9.6 fL (9.0-12.2); MONOCYTES # (AUTO) 1.1 10^3/uL (0.0-1.0); MONOCYTES % (AUTO) 12 % (0-12); NEUTROPHILS # (AUTO) 5.7 10^3/uL (1.8-7.8); NEUTROPHILS % (AUTO) 63 % (42-75); PLATELET COUNT 232 10^3/uL (130-400); WHITE BLOOD COUNT 9.1 10^3/uL (4.3-11.0)
[2021-04-16 18:29] LABS: ALBUMIN 4.2 GM/DL (3.2-4.5); POTASSIUM 3.9 MMOL/L (3.6-5.0)
[2021-04-16 18:30] LABS: CALCIUM 9.4 MG/DL (8.5-10.1)
[2021-04-16] MEDS ORDERED: KETOROLAC 30 MG/ML VIAL IVP ONE (18:30)
[2021-04-16] MEDS ORDERED: LACTATED RINGERS 1,000 ML IV ONE (18:30)
[2021-04-16 18:32] LABS: TOTAL PROTEIN 7.6 GM/DL (6.4-8.2)
[2021-04-16 18:33] LABS: BILIRUBIN,TOTAL 0.2 MG/DL (0.1-1.0)
[2021-04-16 18:35] LABS: CREATININE SERUM 1.03 MG/DL (0.60-1.30)
[2021-04-16 18:38] LABS: MAGNESIUM 2.1 MG/DL (1.6-2.4)
--- NOTE | 2021-04-16 18:38 | ED General ---
General Chief Complaint: Abdominal/GI Problems Stated Complaint: HEADACHE/BODY ACHES/N/V Nursing Triage Note: Pt c/o headache, body aches, vomiting, cough, congestion that began this morning. Pt reports son was recently COVID +. Source of Information: Patient Exam Limitations: No Limitations History of Present Illness Date Seen by Provider: Apr 16, 2021 Time Seen by Provider: 18:07 Initial Comments This 40-year-old young lady presents to the emergency room with complaints of fever, nausea, vomiting, headache, myalgia, cough, and congestion since this morning. Her son recently finished the quarantine for COVID-19. She did not get vaccinated because she does not believe there has been enough research on the vaccinations and she knew a vaccinated individual who of Covid. Allergies and Home Medications Allergies Coded Allergies: metformin (Verified Allergy, Intermediate, N/V, 11/21/15) strawberry (Verified Allergy, Mild, 11/28/15) codeine (Verified Allergy, Unknown, 12/24/05) meperidine (Verified Allergy, Unknown, 04/16/21) morphine (Verified Allergy, Unknown, 01/12/14) Home Medications Albuterol Sulfate 2.5 Mg/3 Ml Vial.neb, 2.5 MG INH Q4H PRN for WHEEZING Prescribed by: MADELINE OAKES on 02/15/19 1256 Albuterol Sulfate 1 Puff Puff, 2 PUFF IH Q4H PRN for WHEEZING 1 PUFF = 90 MCG Prescribed by: MADELINE OAKES on 02/15/19 1256 Hydrocodone Bit/Acetaminophen 1 Tab Tab, 1 EACH PO Q4-6HR PRN for PAIN-MODERATE Prescribed by: REILLY PORTER on 09/30/18 1144 Ondansetron 4 Mg Tab.rapdis, 4 MG SL Q4H PRN for NAUSEA/VOMITING Prescribed by: MADELINE OAKES on 04/16/21 1854 Prednisone 20 Mg Tab, 40 MG PO DAILY Prescribed by: MADELINE OAKES on 02/15/19 1256 Prednisone 20 Mg Tab, 40 MG PO DAILY Prescribed by: ABDULLAHI RECIO on 04/13/19 1237 Promethazine HCl 25 Mg Tablet, 25 MG PO Q8H PRN for NAUSEA/VOMITING Prescribed by: ABDULLAHI RECIO on 07/11/18 1705 Patient Home Medication List Home Medication List Reviewed: Yes Review of Systems Review of Systems Constitutional: see HPI EENTM: see HPI Respiratory: see HPI Cardiovascular: no symptoms reported Gastrointestinal: see HPI Genitourinary: no symptoms reported : No Musculoskeletal: see HPI Skin: no symptoms reported Psychiatric/Neurological: See HPI Hematologic/Lymphatic: No Symptoms Reported Immunological/Allergic: no symptoms reported Past Tbjhdnk-Oybmfw-Yexclq Hx Patient Social History Smoking Status: Former Smoker Substance use?: No Alcohol Use?: Yes Alcohol Frequency: Couple times a week Pt feels they are or have been: No Immunizations Up To Date Tetanus Booster (TDap): Less than 5yrs Seasonal Allergies Seasonal Allergies: Yes Past Medical History 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 Disorders: 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 Sexually Transmitted Disease: No HIV/AIDS: No Genitourinary: No UTI-Chronic Gastrointestinal: Yes Gastroesophageal Reflux, Chronic Diarrhea, Gall Bladder Disease, Irritable Bowel Musculoskeletal: Yes (OSTEOARTHRITIS, INFLAMATORY JOINT DISEASE, FIBROMYALGIA, Caron-Danlos) Arthritis, Fibromyalgia, Chronic Back Pain Endocrine: No Loss of Vision: Denies Hearing Impairment: Denies Cancer: No Psychosocial: Yes Sleep Difficulties, Anxiety, PTSD, Bipolar, Personality Disorder, Depression Integumentary: No (bumps on both arms) Blood Disorders: No Adverse Reaction/Blood Tranf: No Family Medical History Alcoholism 19 FATHER Arthritis 19 FATHER 19 MOTHER Cardiovascular disease grandmother Cataracts G8 BROTHER grandmother Completed stroke grandmother Congenital disease Congenital heart disease grandmother Deafness or hearing loss 19 MOTHER G8 BROTHER Diabetes mellitus 19 MOTHER Gastroenteritis grandmother Glaucoma grandmother Headache disorder 19 MOTHER grandmother Hypercholesterolemia 19 MOTHER grandmother Hypertension 19 MOTHER grandmother Myocardial infarction 19 MOTHER Parkinson's disease grandmother Respiratory disorder 19 FATHER GI Disease Physical Exam Vital Signs Vital Signs - First Documented 04/16/21 17:45 Temp 38.8 Pulse 117 Resp 22 B/P (MAP) 116/83 (94) Pulse Ox 97 O2 Delivery Room Air Capillary Refill : Less Than 3 Seconds Height, Weight, BMI Height: 5'8.00" Weight: 260lbs. 0.0oz. 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 Skin: Normal Color, Warm/Dry Progress/Results/Core Measures Suspected Sepsis SIRS Temperature: Pulse: 117 Respiratory Rate: 22 Laboratory Tests 04/16/21 18:00: White Blood Count 9.1 Blood Pressure 116 /83 Mean: 94 Laboratory Tests 04/16/21 18:00: Creatinine 1.03, Platelet Count 232, Total Bilirubin 0.2 Results/Orders Lab Results Laboratory Tests Test 04/16/21 17:54 04/16/21 18:00 Range/Units Influenza Type A (RT-PCR) Not Detected Not Detecte Influenza Type B (RT-PCR) Not Detected Not Detecte SARS-CoV-2 RNA (RT-PCR) Detected H Not Detecte White Blood Count 9.1 4.3-11.0 10^3/uL Red Blood Count 4.77 3.80-5.11 10^6/uL Hemoglobin 13.1 11.5-16.0 g/dL Hematocrit 40 35-52 % Mean Corpuscular Volume 83 80-99 fL Mean Corpuscular Hemoglobin 28 25-34 pg Mean Corpuscular Hemoglobin Concent 33 32-36 g/dL Red Cell Distribution Width 14.6 H 10.0-14.5 % Platelet Count 232 130-400 10^3/uL Mean Platelet Volume 9.6 9.0-12.2 fL Immature Granulocyte % (Auto) 1 % Neutrophils (%) (Auto) 63 42-75 % Lymphocytes (%) (Auto) 20 12-44 % Monocytes (%) (Auto) 12 0-12 % Eosinophils (%) (Auto) 4 0-10 % Basophils (%) (Auto) 1 0-10 % Neutrophils # (Auto) 5.7 1.8-7.8 10^3/uL Lymphocytes # (Auto) 1.8 1.0-4.0 10^3/uL Monocytes # (Auto) 1.1 H 0.0-1.0 10^3/uL Eosinophils # (Auto) 0.3 0.0-0.3 10^3/uL Basophils # (Auto) 0.1 0.0-0.1 10^3/uL Immature Granulocyte # (Auto) 0.1 0.0-0.1 10^3/uL Sodium Level 139 135-145 MMOL/L Potassium Level 3.9 3.6-5.0 MMOL/L Chloride Level 102 98-107 MMOL/L Carbon Dioxide Level 24 21-32 MMOL/L Anion Gap 13 5-14 MMOL/L Blood Urea Nitrogen 10 7-18 MG/DL Creatinine 1.03 0.60-1.30 MG/DL Estimat Glomerular Filtration Rate 60 BUN/Creatinine Ratio 10 Glucose Level 89 70-105 MG/DL Calcium Level 9.4 8.5-10.1 MG/DL Corrected Calcium 9.2 8.5-10.1 MG/DL Magnesium Level 2.1 1.6-2.4 MG/DL Total Bilirubin 0.2 0.1-1.0 MG/DL Aspartate Amino Transf (AST/SGOT) 45 H 5-34 U/L Alanine Aminotransferase (ALT/SGPT) 44 0-55 U/L Alkaline Phosphatase 62 40-136 U/L C-Reactive Protein High Sensitivity 2.55 H 0.00-0.50 MG/DL Total Protein 7.6 6.4-8.2 GM/DL Albumin 4.2 3.2-4.5 GM/DL Procalcitonin 0.11 H <0.10 NG/ML My Orders Orders - MADELINE MOLINA MD Cbc With Automated Diff (04/16/21 18:17) Comprehensive Metabolic Panel (04/16/21 18:17) Magnesium (04/16/21 18:17) Ed Iv/Invasive Line Start (04/16/21 18:17) Lactated Ringers (Lr 1000 Ml Iv Solution (04/16/21 18:30) Ketorolac Injection (Toradol Injection) (04/16/21 18:30) Procalcitonin (Pct) (04/16/21 18:17) Hs C Reactive Protein (04/16/21 18:17) Chest 1 View, Ap/Pa Only (04/16/21 18:17) Covid 19 Inhouse Test (04/16/21 18:17) Influenza A And B By Pcr (04/16/21 18:17) Medications Given in ED Current Medications Medications Dose Ordered Sig/Nabil Route Start Time Stop Time Status Last Admin Dose Admin Ketorolac Tromethamine 15 mg ONCE ONCE IVP 04/16/21 18:30 04/16/21 18:31 DC 04/16/21 18:27 15 MG Lactated Ringer's 1,000 ml @ 0 mls/hr Q0M ONCE IV 04/16/21 18:30 04/16/21 18:31 DC 04/16/21 18:25 1,000 MLS/HR Ondansetron HCl 4 mg ONCE ONCE IVP 04/16/21 18:15 04/16/21 18:16 DC 04/16/21 18:16 4 MG Vital Signs/I&O 04/16/21 04/16/21 17:45 18:21 Temp 38.8 38.8 Pulse 117 Resp 22 B/P (MAP) 116/83 (94) Pulse Ox 97 O2 Delivery Room Air Capillary Refill : Less Than 3 Seconds Blood Pressure Mean: 94 Progress Note : Time: 18:37 Progress Note Patient seen and examined. Labs, x-ray, and nasal swab are pending. Zofran, Tylenol, Toradol, and IV fluids have been ordered as initial therapy. Departure Impression Primary Impression: COVID-19 Additional Impression: Nausea and vomiting Qualified Codes: R11.2 - Nausea with vomiting, unspecified Disposition: 01 HOME, SELF-CARE Condition: Stable Departure-Patient Inst. Decision time for Depature: 20:47 Referrals: [facility] (PCP/Family) Primary Care Physician Patient Instructions: COVID-19 ED, REGEN-COV (casirivimab and imdevimab) FDA Fact Sheet Add. Discharge Instructions: Drink plenty of clear liquids to stay well-hydrated. If possible obtain a pulse oximeter and measure your pulse frequently, especially if you are short of breath. If you are recurrently under 92% or ever under 90%, return to the ER for reevaluation. Use the Zofran as prescribed to control nausea and vomiting. Remain in quarantine for 10 days from onset of symptoms and until your symptoms have resolved. Those in close contact with you also need to quarantine for 10 days after their last exposure to you. Supplements such as multivitamin, zinc, vitamin C, vitamin D, elderberry, etc. may be beneficial. You may take these as long as you do not exceed recommended doses. Call with questions or concerns The pharmacy may call you regarding monoclonal antibody therapy. Please review the provided factor sheet and to consider whether or not you would like to receive this treatment. Return to the ER if you have worsening symptoms. All discharge instructions reviewed with patient and/or family. Voiced understanding. Scripts Ondansetron (Ondansetron Odt) 4 Mg Tab.rapdis 4 MG SL Q4H PRN for NAUSEA/VOMITING, #10 TAB 1 Refill Prov: MADELINE MOLINA MD 04/16/21 MADELINE MOLINA MD Apr 16, 2021 18:38
[2021-04-16] MEDS ORDERED: ONDA4TAB11 SL (18:54)
--- NOTE | 2021-04-16 20:14 | Diagnostic Imaging Report ---
INDICATION: Cough, fever. Covid positive. TECHNIQUE: Single view chest 8:06 PM. CORRELATION STUDY: 10/11/2019 FINDINGS: The heart size, mediastinal configuration and pulmonary vascularity are within normal limits. The lungs are clear with no consolidating infiltrate. There is no significant effusion or pneumothorax. IMPRESSION: 1. No definitive consolidating infiltrate suggested at this time. Follow-up imaging if symptoms persist. Dictated by: Dictated on workstation # [id number]
[2021-04-16 21:18] VITALS: BP 108/89
== END 2021-04-16 21:18 | disposition home or self-care (01) ==
LOC: EDUNIT# 17:23 → ER 17:24
DX: U07.1 COVID-19 (principal); R11.2 Nausea with vomiting, unspecified; E66.9 Obesity, unspecified; G89.29 Other chronic pain; M54.9 Dorsalgia, unspecified; Z68.42 Body mass index [BMI] 45.0-49.9, adult; Z87.891 Personal history of nicotine dependence; Z79.52 Long term (current) use of systemic steroids; Z79.891 Long term (current) use of opiate analgesic; Z79.899 Other long term (current) drug therapy
CPT/HCPCS: 36415; 71045; 80053; 83735; 84145; 85025; 86141; 87636

== ENCOUNTER → 2021-04-23 | Outpatient (CLI) | payer MEDICAID ==
[~2021-04-23] VITALS: Ht 172 cm; Wt 134.5 kg
[~2021-04-23] MED LIST changes: +CASIRIVIMAB/IMDEVIMAB 1,200 MG in NS (IVPB) 250 ML IV ONE; +EPINEPHrine INJECTION 1 MG/ML AMP IM PRN; +ONDA4TAB11 SL; +diphenhydrAMINE 50 MG/ML INJ (BENADRYL) IV PRN
[2021-04-23 11:54] VITALS: BP 123/101
[2021-04-23 12:44] VITALS: BP 111/64
== END ==
LOC: INFUSION 11:40
PROVIDERS: ATTEND Family Medicine
DX: Z23 Encounter for immunization (principal); U07.1 COVID-19

== ENCOUNTER 2021-04-26 15:49 | Emergency (ER) | payer MEDICAID ==
[~2021-04-26] VITALS: Ht 172 cm; Wt 137.0 kg
[~2021-04-26 15:49] MED LIST changes: -CASIRIVIMAB/IMDEVIMAB 1,200 MG in NS (IVPB) 250 ML IV ONE; -EPINEPHrine INJECTION 1 MG/ML AMP IM PRN; -diphenhydrAMINE 50 MG/ML INJ (BENADRYL) IV PRN
[2021-04-26] MEDS ORDERED: LACTATED RINGERS 1,000 ML IV SCH (17:00)
[2021-04-26] MEDS ORDERED: PROMETHAZINE INJ 25 MG/ML (PHENERGAN) AMP IVP ONE (17:00)
[2021-04-26] MEDS ORDERED: D5 NS 1000 ML IV SOLUTION 1,000 ML IV ONE (17:00)
[2021-04-26 17:01] LABS: BASOPHILS % (AUTO) 0 % (0-10); EOSINOPHILS # (AUTO) 0.3 10^3/uL (0.0-0.3); EOSINOPHILS % (AUTO) 2 % (0-10); HEMATOCRIT 46 % (35-52); HEMOGLOBIN 15.4 g/dL (11.5-16.0); LYMPHOCYTES # (AUTO) 4.9 10^3/uL (1.0-4.0); LYMPHOCYTES % (AUTO) 42 % (12-44); MEAN CORPUSCULAR HEMOGLOBIN 28 pg (25-34); MEAN CORPUSCULAR HGB CONC 34 g/dL (32-36); MEAN CORPUSCULAR VOLUME 82 fL (80-99); MONOCYTES # (AUTO) 0.7 10^3/uL (0.0-1.0); MONOCYTES % (AUTO) 6 % (0-12); NEUTROPHILS # (AUTO) 5.7 10^3/uL (1.8-7.8); NEUTROPHILS % (AUTO) 49 % (42-75); PLATELET COUNT 304 10^3/uL (130-400); WHITE BLOOD COUNT 11.6 10^3/uL (4.3-11.0)
--- NOTE | 2021-04-26 17:03 | ED GI ---
General Chief Complaint: Abdominal/GI Problems Stated Complaint: TESTED POS 10 D AGO / COVID RELATED SYMP / N/V/D Nursing Triage Note: Pt reports to ED for N/V/D and weaknes since 04/16/21 when she was diagnosed with covid. Per pt she has abdominal pain after vomiting. Pt states she has also not been able to urinate for the last two days. Pt amb. to room 09 without difficulty. Source of Information: Patient Exam Limitations: No Limitations History of Present Illness Date Seen by Provider: Apr 26, 2021 Time Seen by Provider: 16:45 Initial Comments 40-year-old female that is Covid positive roughly 10 days ago with symptoms of nausea, vomiting, and nonbloody diarrhea that has been ongoing. She has never had any cough or shortness of breath associated with Covid. Is consistently just been vomiting and diarrhea. She states she is unable to really keep up with fluids and has not urinated in several days. No fever that she knows of. Trying Zofran and it is not helping for her nausea. She says the nausea is severe, constant, and nothing seems to make it better or worse. No abdominal pain. Allergies and Home Medications Allergies Coded Allergies: metformin (Verified Allergy, Intermediate, N/V, 11/21/15) strawberry (Verified Allergy, Mild, 11/28/15) codeine (Verified Allergy, Unknown, 12/24/05) meperidine (Verified Allergy, Unknown, 04/16/21) morphine (Verified Allergy, Unknown, 01/12/14) Home Medications Albuterol Sulfate 2.5 Mg/3 Ml Vial.neb, 2.5 MG INH Q4H PRN for WHEEZING Prescribed by: MADELINE OAKES on 02/15/19 1256 Albuterol Sulfate 1 Puff Puff, 2 PUFF IH Q4H PRN for WHEEZING 1 PUFF = 90 MCG Prescribed by: MADELINE OAKES on 02/15/19 1256 Hydrocodone Bit/Acetaminophen 1 Tab Tab, 1 EACH PO Q4-6HR PRN for PAIN-MODERATE Prescribed by: REILLY PORTER on 09/30/18 1144 Ondansetron 4 Mg Tab.rapdis, 4 MG SL Q4H PRN for NAUSEA/VOMITING Prescribed by: MADELINE OAKES on 04/16/21 1854 Prednisone 20 Mg Tab, 40 MG PO DAILY Prescribed by: MADELINE OAKES on 02/15/19 1256 Prednisone 20 Mg Tab, 40 MG PO DAILY Prescribed by: ABDULLAHI RECIO on 04/13/19 1237 Promethazine HCl 25 Mg Tablet, 25 MG PO Q8H PRN for NAUSEA/VOMITING Prescribed by: ABDULLAHI RECIO on 07/11/18 1705 Patient Home Medication List Home Medication List Reviewed: Yes Review of Systems Review of Systems Constitutional: No fever EENTM: No Blurred Vision Respiratory: Denies Cough, Denies Shortness of Air Cardiovascular: Denies Chest Pain Gastrointestinal: Denies Abdominal Pain; Diarrhea, Vomiting Genitourinary: Denies Frequency Musculoskeletal: No back pain Skin: No rash Psychiatric/Neurological: Denies Anxiety, Denies Depressed Endocrine: No Symptoms Reported Hematologic/Lymphatic: No Symptoms Reported All Other Systems Reviewed Negative Unless Noted: Yes Past Lsniygv-Vnzorj-Mujqbv Hx Patient Social History Tobacco Use?: No Smoking Status: Former Smoker Substance use?: No Alcohol Use?: Yes Alcohol type: Beer Alcohol Frequency: Once in a while Pt feels they are or have been: No Immunizations Up To Date Tetanus Booster (TDap): Less than 5yrs Seasonal Allergies Seasonal Allergies: Yes Past Medical History Surgery/Hospitalization HX: Pt denies. 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 Sexually Transmitted Disease: No HIV/AIDS: No Genitourinary: No UTI-Chronic Gastrointestinal: Yes Gastroesophageal Reflux, Chronic Diarrhea, Gall Bladder Disease, Irritable Bowel Musculoskeletal: Yes (OSTEOARTHRITIS, INFLAMATORY JOINT DISEASE, FIBROMYALGIA, Caron-Danlos) Arthritis, Fibromyalgia, Chronic Back Pain Endocrine: No Loss of Vision: Denies Hearing Impairment: Denies Cancer: No Psychosocial: Yes Sleep Difficulties, Anxiety, PTSD, Bipolar, Personality Disorder, Depression Integumentary: No (bumps on both arms) Blood Disorders: No Adverse Reaction/Blood Tranf: No Family Medical History Alcoholism 19 FATHER Arthritis 19 FATHER 19 MOTHER Cardiovascular disease grandmother Cataracts G8 BROTHER grandmother Completed stroke grandmother Congenital disease Congenital heart disease grandmother Deafness or hearing loss 19 MOTHER G8 BROTHER Diabetes mellitus 19 MOTHER Gastroenteritis grandmother Glaucoma grandmother Headache disorder 19 MOTHER grandmother Hypercholesterolemia 19 MOTHER grandmother Hypertension 19 MOTHER grandmother Myocardial infarction 19 MOTHER Parkinson's disease grandmother Respiratory disorder 19 FATHER GI Disease Physical Exam Vital Signs Vital Signs - First Documented 04/26/21 16:30 Temp 36.5 Pulse 108 Resp 20 B/P (MAP) 132/92 (105) O2 Delivery Room Air Capillary Refill : Less Than 3 Seconds Height/Weight/BMI Height: 5'8.00" Weight: 260lbs. 0.0oz. 117.005401zi; 46.00 BMI Method:Stated General Appearance: WD/WN, mild distress, other (Leaning over a bucket with active vomiting) HEENT: PERRL/EOMI, normal ENT inspection, pharynx normal Neck: non-tender, full range of motion, supple, normal inspection Respiratory: chest non-tender, lungs clear, normal breath sounds, no respiratory distress, no accessory muscle use Cardiovascular: regular rate, rhythm, no murmur Gastrointestinal: normal bowel sounds, non tender, soft; No distended, No guarding, No rebound Extremities: normal range of motion, non-tender, normal inspection, no pedal edema, no calf tenderness Back: normal inspection, no CVA tenderness Neurologic/Psychiatric: no motor/sensory deficits, alert, normal mood/affect Skin: normal color, warm/dry Lymphatic: no adenopathy Progress/Results/Core Measures Results/Orders Lab Results Laboratory Tests Test 04/26/21 16:34 Range/Units White Blood Count 11.6 H 4.3-11.0 10^3/uL Red Blood Count 5.56 H 3.80-5.11 10^6/uL Hemoglobin 15.4 11.5-16.0 g/dL Hematocrit 46 35-52 % Mean Corpuscular Volume 82 80-99 fL Mean Corpuscular Hemoglobin 28 25-34 pg Mean Corpuscular Hemoglobin Concent 34 32-36 g/dL Red Cell Distribution Width 14.5 10.0-14.5 % Platelet Count 304 130-400 10^3/uL Mean Platelet Volume 10.0 9.0-12.2 fL Immature Granulocyte % (Auto) 0 % Neutrophils (%) (Auto) 49 42-75 % Lymphocytes (%) (Auto) 42 12-44 % Monocytes (%) (Auto) 6 0-12 % Eosinophils (%) (Auto) 2 0-10 % Basophils (%) (Auto) 0 0-10 % Neutrophils # (Auto) 5.7 1.8-7.8 10^3/uL Lymphocytes # (Auto) 4.9 H 1.0-4.0 10^3/uL Monocytes # (Auto) 0.7 0.0-1.0 10^3/uL Eosinophils # (Auto) 0.3 0.0-0.3 10^3/uL Basophils # (Auto) 0.0 0.0-0.1 10^3/uL Immature Granulocyte # (Auto) 0.1 0.0-0.1 10^3/uL Sodium Level 145 135-145 MMOL/L Potassium Level 3.8 3.6-5.0 MMOL/L Chloride Level 107 98-107 MMOL/L Carbon Dioxide Level 23 21-32 MMOL/L Anion Gap 15 H 5-14 MMOL/L Blood Urea Nitrogen 11 7-18 MG/DL Creatinine 0.91 0.60-1.30 MG/DL Estimat Glomerular Filtration Rate 69 BUN/Creatinine Ratio 12 Glucose Level 92 70-105 MG/DL Calcium Level 9.8 8.5-10.1 MG/DL Corrected Calcium 9.4 8.5-10.1 MG/DL Magnesium Level 2.2 1.6-2.4 MG/DL Total Bilirubin 0.5 0.1-1.0 MG/DL Aspartate Amino Transf (AST/SGOT) 77 H 5-34 U/L Alanine Aminotransferase (ALT/SGPT) 120 H 0-55 U/L Alkaline Phosphatase 76 40-136 U/L Total Protein 8.2 6.4-8.2 GM/DL Albumin 4.5 3.2-4.5 GM/DL My Orders Orders - EMERY ABRAMS MD Cbc With Automated Diff (04/26/21 16:55) Comprehensive Metabolic Panel (04/26/21 16:55) Magnesium (04/26/21 16:55) Ed Iv/Invasive Line Start (04/26/21 16:55) D5 Ns 1000 Ml Iv Solution (Dextrose 5%/0 (04/26/21 17:00) Lactated Ringers (Lr 1000 Ml Iv Solution (04/26/21 17:00) Promethazine Injection (Phenergan Injec (04/26/21 17:00) Medications Given in ED Current Medications Medications Dose Ordered Sig/Nabil Route Start Time Stop Time Status Last Admin Dose Admin Dextrose/Sodium Chloride 1,000 ml @ 0 mls/hr Q0M ONCE IV 04/26/21 17:00 04/26/21 17:01 DC 04/26/21 17:21 1,000 MLS/HR Promethazine HCl 25 mg ONCE ONCE IVP 04/26/21 17:00 04/26/21 17:01 DC 04/26/21 17:08 25 MG Vital Signs/I&O 04/26/21 16:30 Temp 36.5 Pulse 108 Resp 20 B/P (MAP) 132/92 (105) O2 Delivery Room Air Blood Pressure Mean: 105 Progress Progress Note : Progress Note 40-year-old female with above history coming in due to continued vomiting and diarrhea in the setting of being Covid positive. ABCs were intact and vitals were stable on presentation although she is mildly tachycardic. Clinically she does look a little dehydrated. An IV was placed and she was given 2 L of IV fluids. Basic labs sent including electrolytes. From a respiratory standpoint she is doing very well satting 98% on room air. She was given IV Phenergan for nausea. White blood count is 11.6. She has a very mild transaminitis which is nonspecific. Electrolytes otherwise normal. Her tachycardia resolved with IV fluids. Tolerating p.o. after Phenergan. Overall, I believe she is stable for discharge with outpatient follow-up. She was sent home with strict return precautions. Departure Impression Primary Impression: COVID-19 Additional Impression: Nausea and vomiting Qualified Codes: R11.2 - Nausea with vomiting, unspecified Disposition: 01 HOME, SELF-CARE Condition: Stable Departure-Patient Inst. Decision time for Depature: 17:43 Referrals: [facility] [place]/Family) Primary Care Physician Patient Instructions: COVID-19 ED, Nausea and Vomiting, Adult Add. Discharge Instructions: He was seen in the emergency department for nausea and vomiting with diarrhea in the setting of being positive for Covid. We gave you some IV fluids. Your electrolytes and labs look okay otherwise. Your liver enzymes are slightly elevated which is likely related to you being sick right now. Please have your AST and ALT drawn in the next few months to be sure they go back down. [facility]. If you have any concerns please come back to the emergency department. All discharge instructions reviewed with patient and/or family. Voiced understanding. EMERY ABRAMS MD Apr 26, 2021 17:02
[2021-04-26 17:21] LABS: ALBUMIN 4.5 GM/DL (3.2-4.5); POTASSIUM 3.8 MMOL/L (3.6-5.0)
[2021-04-26 17:22] LABS: CALCIUM 9.8 MG/DL (8.5-10.1)
[2021-04-26 17:24] LABS: TOTAL PROTEIN 8.2 GM/DL (6.4-8.2)
[2021-04-26 17:25] LABS: BILIRUBIN,TOTAL 0.5 MG/DL (0.1-1.0)
[2021-04-26 17:27] LABS: CREATININE SERUM 0.91 MG/DL (0.60-1.30)
[2021-04-26 17:30] LABS: MAGNESIUM 2.2 MG/DL (1.6-2.4)
[2021-04-26] MEDS ORDERED: PROM25TA14 PO (17:58)
[2021-04-26 19:15] VITALS: BP 120/82
== END 2021-04-26 19:16 | disposition home or self-care (01) ==
LOC: EDUNIT# 15:49 → ER 15:52
DX: U07.1 COVID-19 (principal); R11.2 Nausea with vomiting, unspecified; G89.29 Other chronic pain; M54.9 Dorsalgia, unspecified; Z87.891 Personal history of nicotine dependence; Z79.52 Long term (current) use of systemic steroids; Z79.891 Long term (current) use of opiate analgesic; Z79.899 Other long term (current) drug therapy
CPT/HCPCS: 36415; 80053; 83735; 85025

== ENCOUNTER 2021-05-21 18:18 | Emergency (ER) | payer MEDICAID ==
[~2021-05-21] VITALS: Ht 172 cm; Wt 134.0 kg
--- NOTE | 2021-05-21 18:59 | ED Lower Extremity ---
General Chief Complaint: Lower Extremity Stated Complaint: FALL/L KNEE INJ Nursing Triage Note: ARRIVED VIA AMB TO ROOM 06 WITH COMPLAINTS OF LEFT KNEE PAIN AFTER BEING PULLED DOWN BY HER DOG. PT STATES SHE HAD SURGERY ON THIS KNEE IN FEBRUARY BY [facility]RIAN. Source: patient Exam Limitations: no limitations History of Present Illness Date Seen by Provider: May 21, 2021 Time Seen by Provider: 18:46 Initial Comments This is a well-appearing 40-year-old female presents to the ER with complaints of left knee pain after falling on the cement ground. States that her large dog pulled on the leash and caused her to fall down the last stair landing directly on her left knee. States that she had a pop sound and had immediate pain on the outer part of her knee. She recently had a scope done by Dr. Crum in February. Applied ice prior to arrival. Allergies and Home Medications Allergies Coded Allergies: metformin (Verified Allergy, Intermediate, N/V, 11/21/15) strawberry (Verified Allergy, Mild, 11/28/15) codeine (Verified Allergy, Unknown, 12/24/05) meperidine (Verified Allergy, Unknown, 04/16/21) morphine (Verified Allergy, Unknown, 01/12/14) Patient Home Medication List Home Medication List Reviewed: Yes Albuterol Sulfate (Albuterol Sulfate) 2.5 Mg/3 Ml Vial.neb, 2.5 MG INH Q4H PRN for WHEEZING Prescribed by: MADELINE OAKES on 02/15/19 1256 Albuterol Sulfate (Proair Hfa) 1 Puff Puff, 2 PUFF IH Q4H PRN for WHEEZING Prescribed by: MADELINE OAKES on 02/15/19 1256 Hydrocodone Bit/Acetaminophen (Lortab 5 Mg Tablet) 1 Tab Tab, 1 EACH PO Q4-6HR PRN for PAIN-MODERATE Prescribed by: REILLY PORTER on 09/30/18 1144 Ondansetron (Ondansetron Odt) 4 Mg Tab.rapdis, 4 MG SL Q4H PRN for NAUSEA/VOMITING Prescribed by: MADELINE OAKES on 04/16/21 1854 Prednisone (Prednisone) 20 Mg Tab, 40 MG PO DAILY Prescribed by: MADELIEN OAKES on 02/15/19 1256 Prednisone (Prednisone) 20 Mg Tab, 40 MG PO DAILY Prescribed by: ABDULLAHI RECIO on 04/13/19 1237 Promethazine HCl (Promethazine Tablet) 25 Mg Tablet, 25 MG PO Q8H PRN for NAUSEA/VOMITING Prescribed by: ABDULLAHI RECIO on 07/11/18 1705 Promethazine HCl (Promethazine Tablet) 25 Mg Tablet, 25 MG PO Q6H PRN for NAUSEA/VOMITING Prescribed by: EMERY ABRAMS on 04/26/21 9098 Review of Systems Constitutional: no symptoms reported EENTM: no symptoms reported Respiratory: no symptoms reported Cardiovascular: no symptoms reported Gastrointestinal: no symptoms reported Genitourinary: no symptoms reported Musculoskeletal: see HPI Skin: no symptoms reported Past Cgwwrzu-Wukubq-Vriuzn Hx Patient Social History Smoking Status: Never a Smoker Substance use?: No Alcohol Use?: No Immunizations Up To Date Tetanus Booster (TDap): Less than 5yrs Seasonal Allergies Seasonal Allergies: Yes Past Medical History Surgery/Hospitalization HX: Pt denies. 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 Sexually Transmitted Disease: No HIV/AIDS: No Genitourinary: No UTI-Chronic Gastrointestinal: Yes Gastroesophageal Reflux, Chronic Diarrhea, Gall Bladder Disease, Irritable Bowel Musculoskeletal: Yes (OSTEOARTHRITIS, INFLAMATORY JOINT DISEASE, FIBROMYALGIA, Caron-Danlos) Arthritis, Fibromyalgia, Chronic Back Pain Endocrine: No Loss of Vision: Denies Hearing Impairment: Denies Cancer: No Psychosocial: Yes Sleep Difficulties, Anxiety, PTSD, Bipolar, Personality Disorder, Depression Integumentary: No (bumps on both arms) Blood Disorders: No Adverse Reaction/Blood Tranf: No Family Medical History Alcoholism 19 FATHER Arthritis 19 FATHER 19 MOTHER Cardiovascular disease grandmother Cataracts G8 BROTHER grandmother Completed stroke grandmother Congenital disease Congenital heart disease grandmother Deafness or hearing loss 19 MOTHER G8 BROTHER Diabetes mellitus 19 MOTHER Gastroenteritis grandmother Glaucoma grandmother Headache disorder 19 MOTHER grandmother Hypercholesterolemia 19 MOTHER grandmother Hypertension 19 MOTHER grandmother Myocardial infarction 19 MOTHER Parkinson's disease grandmother Respiratory disorder 19 FATHER GI Disease Physical Exam Vital Signs Vital Signs - First Documented 05/21/21 18:25 Temp 36.3 Pulse 115 Resp 16 B/P (MAP) 142/91 (108) Pulse Ox 96 O2 Delivery Room Air Capillary Refill : Less Than 3 Seconds Height, Weight, BMI Height: 5'8.00" Weight: 260lbs. 0.0oz. [id number]; 45.00 BMI Method:Stated General Appearance: WD/WN, no apparent distress HEENT: normal ENT inspection Neck: full range of motion, normal inspection Cardiovascular: regular rate, rhythm, no murmur Respiratory: lungs clear, normal breath sounds, no respiratory distress, no accessory muscle use Gastrointestinal: soft Back: normal inspection, no vertebral tenderness Hips: bilateral hip non-tender, bilateral hip normal inspection, bilateral hip normal range of motion Legs: bilateral leg non-tender, bilateral leg normal inspection, bilateral leg normal range of motion Knees: right knee non-tender; left knee normal inspection; right knee normal range of motion, right knee no evidence of injury; left knee soft tissue tenderness (lateral knee ), left knee other (pain with extension, no laxity ) Ankles: bilateral ankle non-tender, bilateral ankle normal inspection, bilateral ankle normal range of motion Feet: bilateral foot non-tender, bilateral foot normal inspection, bilateral foot normal range of motion Neurologic/Tendon: normal sensation, normal motor functions, normal tendon functions Neurologic/Psychiatric: no motor/sensory deficits, alert, normal mood/affect, oriented x 3 Skin: normal color, warm/dry Progress/Results/Core Measures Results/Orders My Orders Orders - MAGNUS LOVING APRN Knee, Left, 3 Views (05/21/21 18:50) Tramadol Tablet (Ultram Tablet) (05/21/21 19:45) Vital Signs/I&O 05/21/21 05/21/21 18:25 19:52 Temp 36.3 36.3 Pulse 115 95 Resp 16 16 B/P (MAP) 142/91 (108) 135/95 Pulse Ox 96 96 O2 Delivery Room Air Room Air Blood Pressure Mean: 108 Diagnostic Imaging Diagonstic Imaging: Xray Plain Films/CT/US/NM/MRI: knee Comments [facility], [place] NAME: EBONI SCHMIDT [facility] REC#: [id number] PT STATUS: DEP ER : 1980 PHYSICIAN: MAGNUS LOVING APRN ADMIT DATE: 05/21/21/ER Signed Date of Exam:05/21/21 KNEE, LEFT, 3 VIEWS INDICATION: Fall with knee pain. COMPARISON: Left knee radiographs of 04/13/2019 TECHNIQUE: 3 views of the left knee. FINDINGS: Small knee joint effusion. No fracture. No mineralized intra-articular bodies. Joint spaces are preserved. IMPRESSION: No acute fracture. Dictated by: Dictated on workstation # [id number] Dict: 05/21/211907 Trans: 05/21/212001 [facility] [id number] Interpreted by: MEREDITH PATEL MD Electronically signed by: MEREDITH PATEL MD 05/21/212001 Reviewed: Reviewed by Me Departure Impression Primary Impression: Contusion of knee Disposition: 01 HOME, SELF-CARE Condition: Stable Departure-Patient Inst. Decision time for Depature: 19:36 Referrals: [facility] (PCP/Family) Primary Care Physician Patient Instructions: Contusion (DC) Add. Discharge Instructions: Plan: 1. Rest. Ice 20 minutes at a time 4-6x per day. 2. May take Tylenol or Ibuprofen as needed for pain. 3. Use dominique bandage for swelling, pain. 4. Follow up with Dr. Crum for persistent symptoms. 5. Return for any new, concerning, or worsening symptoms. All discharge instructions reviewed with patient and/or family. Voiced understanding. MAGNUS LOVING APRN May 21, 2021 18:59
--- NOTE | 2021-05-21 19:16 | Diagnostic Imaging Report ---
INDICATION: Fall with knee pain. COMPARISON: Left knee radiographs of 04/13/2019 TECHNIQUE: 3 views of the left knee. FINDINGS: Small knee joint effusion. No fracture. No mineralized intra-articular bodies. Joint spaces are preserved. IMPRESSION: No acute fracture. Dictated by: Dictated on workstation # [id number]
[2021-05-21 19:52] VITALS: BP 135/95
== END 2021-05-21 19:54 | disposition home or self-care (01) ==
LOC: EDUNIT# 18:18 → ER 18:19
DX: S80.02XA Contusion of left knee, initial encounter (principal); G89.29 Other chronic pain; M54.9 Dorsalgia, unspecified; Z79.52 Long term (current) use of systemic steroids; Z79.891 Long term (current) use of opiate analgesic; Z79.899 Other long term (current) drug therapy; W10.8XXA Fall (on) (from) other stairs and steps, initial encounter
CPT/HCPCS: 73562

== ENCOUNTER 2022-03-22 11:14 | Emergency (ER) | payer MEDICAID ==
[~2022-03-22] VITALS: Ht 172.7 cm; Wt 44.5 kg
[2022-03-22] MEDS ORDERED: LACTATED RINGERS 1,000 ML IV ONE (11:30)
[2022-03-22] MEDS ORDERED: ONDA8TAB13 PO (11:59)
--- NOTE | 2022-03-22 11:59 | ED General ---
General Stated Complaint: DEHYDRATION,DIZZINESS Source of Information: Patient Exam Limitations: No Limitations (ABDULLAHI RECIO APRN) History of Present Illness Date Seen by Provider: Mar 22, 2022 Time Seen by Provider: 11:57 Initial Comments To ER with concerns of dehydration as she feels weak and shaky. She has had some ongoing issues with vomiting after eating for several months. She has a history of cholecystectomy. She has been referred to gastroenterology and they are in the process of working this up. She denies any new diarrhea, has chronic diarrhea from her Topamax she states. Reports mild diffuse abdominal discomfort. No fevers or chills. She has nauseated currently but her biggest concern is that she is dehydrated as she has been unable to keep anything down. Timing/Duration: Constant Severity: Moderate Associated Systoms: Nausea/Vomiting (ABDULLAHI RECIO APRN) Allergies and Home Medications Allergies Coded Allergies: metformin (Verified Allergy, Intermediate, N/V, 11/21/15) strawberry (Verified Allergy, Mild, 11/28/15) codeine (Verified Allergy, Unknown, 12/24/05) meperidine (Verified Allergy, Unknown, 04/16/21) morphine (Verified Allergy, Unknown, 01/12/14) Patient Home Medication List Home Medication List Reviewed: Yes (ABDULLAHI RECIO APRN) Albuterol Sulfate (Albuterol Sulfate) 2.5 Mg/3 Ml Vial.neb, 2.5 MG INH Q4H PRN for WHEEZING Prescribed by: MADELINE OAKES on 02/15/19 1256 Albuterol Sulfate (Proair Hfa) 1 Puff Puff, 2 PUFF IH Q4H PRN for WHEEZING Prescribed by: MADELINE OAKES on 02/15/19 1256 Hydrocodone Bit/Acetaminophen (Lortab 5 Mg Tablet) 1 Tab Tab, 1 EACH PO Q4-6HR PRN for PAIN-MODERATE Prescribed by: REILLY PORTER on 09/30/18 1144 Ondansetron (Ondansetron Odt) 4 Mg Tab.rapdis, 4 MG SL Q4H PRN for NAUSEA/VOMITING Prescribed by: MADELINE OAKES on 04/16/21 1854 Ondansetron (Ondansetron Odt) 8 Mg Tab.rapdis, 8 MG PO Q6H PRN for NAUSEA/VOMITING Prescribed by: ABDULLAHI RECIO on 03/22/22 1159 Prednisone (Prednisone) 20 Mg Tab, 40 MG PO DAILY Prescribed by: MADELINE OAKES on 02/15/19 1256 Prednisone (Prednisone) 20 Mg Tab, 40 MG PO DAILY Prescribed by: ABDULLAHI RECIO on 04/13/19 1237 Promethazine HCl (Promethazine Tablet) 25 Mg Tablet, 25 MG PO Q8H PRN for NAUSEA/VOMITING Prescribed by: ABDULLAHI RECIO on 07/11/18 1705 Promethazine HCl (Promethazine Tablet) 25 Mg Tablet, 25 MG PO Q6H PRN for NAUSEA/VOMITING Prescribed by: EMERY ABRAMS on 04/26/21 1758 Review of Systems Review of Systems Constitutional: see HPI EENTM: see HPI Respiratory: no symptoms reported Cardiovascular: no symptoms reported Gastrointestinal: nausea, vomiting Genitourinary: no symptoms reported Musculoskeletal: no symptoms reported Skin: no symptoms reported Psychiatric/Neurological: No Symptoms Reported Hematologic/Lymphatic: No Symptoms Reported (ABDULLAHI RECIO APRN) Past Igjbkhe-Cokusq-Pxtzuq Hx Immunizations Up To Date Tetanus Booster (TDap): Less than 5yrs (ABDULLAHI RCEIO APRN) Seasonal Allergies Seasonal Allergies: Yes (ABDULLAHI RECIO APRN) Past Medical History Surgery/Hospitalization HX: Pt denies. 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 Sexually Transmitted Disease: No HIV/AIDS: No Genitourinary: No UTI-Chronic Gastrointestinal: Yes Gastroesophageal Reflux, Chronic Diarrhea, Gall Bladder Disease, Irritable Bowel Musculoskeletal: Yes (OSTEOARTHRITIS, INFLAMATORY JOINT DISEASE, FIBROMYALGIA, Caron-Danlos) Arthritis, Fibromyalgia, Chronic Back Pain Endocrine: No Loss of Vision: Denies Hearing Impairment: Denies Cancer: No Psychosocial: Yes Sleep Difficulties, Anxiety, PTSD, Bipolar, Personality Disorder, Depression Integumentary: No (bumps on both arms) Blood Disorders: No Adverse Reaction/Blood Tranf: No (ABDULLAHI RECIO APRN) Family Medical History Alcoholism 19 FATHER Arthritis 19 FATHER 19 MOTHER Cardiovascular disease grandmother Cataracts G8 BROTHER grandmother Completed stroke grandmother Congenital disease Congenital heart disease grandmother Deafness or hearing loss 19 MOTHER G8 BROTHER Diabetes mellitus 19 MOTHER Gastroenteritis grandmother Glaucoma grandmother Headache disorder 19 MOTHER grandmother Hypercholesterolemia 19 MOTHER grandmother Hypertension 19 MOTHER grandmother Myocardial infarction 19 MOTHER Parkinson's disease grandmother Respiratory disorder 19 FATHER GI Disease (ABDULLAHI RECIO APRN) Physical Exam Vital Signs Vital Signs - First Documented 03/22/22 03/22/22 11:48 13:13 Temp 37.0 Pulse 118 Resp 17 B/P (MAP) 131/101 (111) Pulse Ox 98 O2 Delivery Room Air (MADELINE MOLINA MD) Vital Signs Capillary Refill : (ABDULLAHI RECIO APRN) Height, Weight, BMI Height: 5'8.00" Weight: 260lbs. 0.0oz. [id number]; 45.00 BMI Method:Stated General Appearance: No Apparent Distress, WD/WN, Other (No distress alert and oriented very pleasant) HEENT: PERRL/EOMI, TMs Normal Neck: Full Range of Motion, Normal Inspection Respiratory: No Accessory Muscle Use, No Respiratory Distress Cardiovascular: Normal Peripheral Pulses, Tachycardia (Rate of 110) Gastrointestinal: Normal Bowel Sounds, Non Tender, Soft Extremity: Normal Capillary Refill, Normal Inspection Neurologic/Psychiatric: Alert, Oriented x3 Skin: Normal Color, Warm/Dry (ABDULLAHI RECIO APRN) Progress/Results/Core Measures Suspected Sepsis SIRS Temperature: Pulse: Respiratory Rate: Laboratory Tests 03/22/22 11:58: White Blood Count 12.5H Blood Pressure / Mean: Laboratory Tests 03/22/22 11:58: Creatinine 0.90, Platelet Count 297 (ABDULLAHI RECIO APRN) Results/Orders Lab Results Laboratory Tests Test 03/22/22 11:48 03/22/22 11:58 Range/Units Urine Color YELLOW Urine Clarity SL CLOUDY Urine pH 6.0 5-9 Urine Specific [place] 1.025 H 1.016-1.022 Urine Protein TRACE H NEGATIVE Urine Glucose (UA) NEGATIVE NEGATIVE Urine Ketones NEGATIVE NEGATIVE Urine Nitrite NEGATIVE NEGATIVE Urine Bilirubin NEGATIVE NEGATIVE Urine Urobilinogen 0.2 < = 1.0 MG/DL Urine Leukocyte Esterase NEGATIVE NEGATIVE Urine RBC (Auto) NEGATIVE NEGATIVE Urine RBC 0-2 /HPF Urine WBC 0-2 /HPF Urine Squamous Epithelial Cells 5-10 /HPF Urine Crystals PRESENT H /LPF Urine Amorphous Sediment MOD YVETTE URATES H /LPF Urine Bacteria LARGE H /HPF Urine Casts NONE /LPF Urine Mucus LARGE H /LPF Urine Culture Indicated YES White Blood Count 12.5 H 4.3-11.0 10^3/uL Red Blood Count 5.15 H 3.80-5.11 10^6/uL Hemoglobin 14.1 11.5-16.0 g/dL Hematocrit 43 35-52 % Mean Corpuscular Volume 84 80-99 fL Mean Corpuscular Hemoglobin 27 25-34 pg Mean Corpuscular Hemoglobin Concent 33 32-36 g/dL Red Cell Distribution Width 14.1 10.0-14.5 % Platelet Count 297 130-400 10^3/uL Mean Platelet Volume 9.3 9.0-12.2 fL Immature Granulocyte % (Auto) 1 % Neutrophils (%) (Auto) 57 42-75 % Lymphocytes (%) (Auto) 35 12-44 % Monocytes (%) (Auto) 5 0-12 % Eosinophils (%) (Auto) 2 0-10 % Basophils (%) (Auto) 1 0-10 % Neutrophils # (Auto) 7.2 1.8-7.8 10^3/uL Lymphocytes # (Auto) 4.4 H 1.0-4.0 10^3/uL Monocytes # (Auto) 0.6 0.0-1.0 10^3/uL Eosinophils # (Auto) 0.3 0.0-0.3 10^3/uL Basophils # (Auto) 0.1 0.0-0.1 10^3/uL Immature Granulocyte # (Auto) 0.1 0.0-0.1 10^3/uL Sodium Level 139 135-145 MMOL/L Potassium Level 4.0 3.6-5.0 MMOL/L Chloride Level 107 98-107 MMOL/L Carbon Dioxide Level 22 21-32 MMOL/L Anion Gap 10 5-14 MMOL/L Blood Urea Nitrogen 12 7-18 MG/DL Creatinine 0.90 0.60-1.30 MG/DL Estimat Glomerular Filtration Rate 83 BUN/Creatinine Ratio 13 Glucose Level 105 70-105 MG/DL Calcium Level 9.6 8.5-10.1 MG/DL Serum Test, Qualitative NEGATIVE NEGATIVE (MADELINE MOLINA MD) My Orders Orders - MADELINE MOLINA MD Basic Metabolic Panel (03/22/22 11:30) Cbc With Automated Diff (03/22/22 11:30) Ua Culture If Indicated (03/22/22 11:30) Ed Iv/Invasive Line Start (03/22/22 11:30) Orthostatic Vital Signs (Adult (03/22/22 11:30) Lactated Ringers (Lr 1000 Ml Iv Solution (03/22/22 11:30) Urine Culture (03/22/22 11:48) (MADELINE MOLINA MD) Medications Given in ED Current Medications Medications Dose Ordered Sig/Nabil Route Start Time Stop Time Status Last Admin Dose Admin Lactated Ringer's 1,000 ml @ 0 mls/hr Q0M ONCE IV 03/22/22 11:30 03/22/22 11:33 DC 03/22/22 12:04 999 MLS/HR Ondansetron HCl 8 mg ONCE ONCE IVP 03/22/22 12:00 03/22/22 12:01 DC 03/22/22 12:04 8 MG (MADELINE MOLINA MD) Vital Signs/I&O 03/22/22 03/22/22 03/22/22 11:48 12:08 13:13 Temp 37.0 Pulse 118 105 89 104 120 Resp 17 17 B/P (MAP) 131/101 (111) 115/84 (94) 134/76 122/83 (96) 114/75 (88) Pulse Ox 98 O2 Delivery Room Air Room Air (MADELINE MOLINA MD) Vital Signs/I&O Capillary Refill : (ABDULLAHI RECIO APRN) Departure Impression Primary Impression: Dehydration Additional Impression: N&V (nausea and vomiting) Disposition: 01 HOME, SELF-CARE Condition: Stable Departure-Patient Inst. Decision time for Depature: 11:58 (ABDULLAHI RECIO APRN) Referrals: [facility] (PCP) Primary Care Physician STAN SOW (Family) Primary Care Physician Patient Instructions: Dehydration, Adult ED Scripts Ondansetron (Ondansetron Odt) 8 Mg Tab.rapdis 8 MG PO Q6H PRN for NAUSEA/VOMITING, #30 TAB Prov: ABDULLAHI RECIO APRN 03/22/22 ATTENDING PHYSICIAN NOTE: I was physically present as attending physician in the emergency department during the care of this patient. I placed initial orders after reviewing triage notes and chief complaint, but I was otherwise not directly involved in the decision making or delivery of care for this patient. (MADELINE MOLINA MD) ABDULLAHI RECIO APRN Mar 22, 2022 11:59 MADELINE MOLINA MD Mar 22, 2022 18:29
[2022-03-22] MEDS ORDERED: ONDANSETRON 4 MG/2 ML (SDV) Z0FRAN IVP ONE (12:00)
[2022-03-22 12:08] VITALS: BP_SYST 114; BP_SYST 115; BP_SYST 122; BP_DIAS 75; BP_DIAS 83; BP_DIAS 84
[2022-03-22 12:10] LABS: BASOPHILS # (AUTO) 0.1 10^3/uL (0.0-0.1); BASOPHILS % (AUTO) 1 % (0-10); EOSINOPHILS # (AUTO) 0.3 10^3/uL (0.0-0.3); EOSINOPHILS % (AUTO) 2 % (0-10); HEMATOCRIT 43 % (35-52); HEMOGLOBIN 14.1 g/dL (11.5-16.0); LYMPHOCYTES # (AUTO) 4.4 10^3/uL (1.0-4.0); LYMPHOCYTES % (AUTO) 35 % (12-44); MEAN CORPUSCULAR HEMOGLOBIN 27 pg (25-34); MEAN CORPUSCULAR HGB CONC 33 g/dL (32-36); MEAN CORPUSCULAR VOLUME 84 fL (80-99); MEAN PLATELET VOLUME 9.3 fL (9.0-12.2); MONOCYTES # (AUTO) 0.6 10^3/uL (0.0-1.0); MONOCYTES % (AUTO) 5 % (0-12); NEUTROPHILS # (AUTO) 7.2 10^3/uL (1.8-7.8); NEUTROPHILS % (AUTO) 57 % (42-75); PLATELET COUNT 297 10^3/uL (130-400); WHITE BLOOD COUNT 12.5 10^3/uL (4.3-11.0)
[2022-03-22 12:11] LABS: BILIRUBIN,URINE NEGATIVE (NEGATIVE); CLARITY,URINE SL CLOUDY; COLOR,URINE YELLOW; GLUCOSE, URINE (UA) NEGATIVE (NEGATIVE); KETONES,URINE NEGATIVE (NEGATIVE); LEUKOCYTE ESTERASE ,URINE NEGATIVE (NEGATIVE); NITRITE,URINE NEGATIVE (NEGATIVE); PROTEIN,URINE TRACE (NEGATIVE)
[2022-03-22 12:19] LABS: AMORPHOUS SEDIMENT,UR MOD AMOR URATES /LPF; BACTERIA,URINE LARGE /HPF; RBC,URINE 0-2 /HPF; WBC,URINE 0-2 /HPF
[2022-03-22 12:21] LABS: CALCIUM 9.6 MG/DL (8.5-10.1)
[2022-03-22 12:25] LABS: CREATININE SERUM 0.9 MG/DL (0.60-1.30)
[2022-03-22 13:13] VITALS: BP 134/76
== END 2022-03-22 13:13 | disposition home or self-care (01) ==
LOC: EDUNIT# 11:14 → ER 11:16
DX: E86.0 Dehydration (principal); R11.2 Nausea with vomiting, unspecified
CPT/HCPCS: 36415; 80048; 81000; 84703; 85025; 87088

== ENCOUNTER 2022-11-17 08:52 | Emergency (ER) | payer MEDICARE, MEDICAID ==
[~2022-11-17] VITALS: Ht 172.7 cm; Wt 142.8 kg
[~2022-11-17 08:52] MED LIST changes: +ALBU8.5H6 IH; -RT-ALBUINH IH
--- NOTE | 2022-11-17 09:21 | ED GI ---
General Chief Complaint: Abdominal/GI Problems Stated Complaint: NAUSEA| VOMITING| DIARRHEA| DEHYDRATION Nursing Triage Note: PT AMB TO [facility] WITH COMPLAINT OF ABD PAIN, VOMITING, AND DIARRHEA. STATES SHE SEES A GI SPECIALIST AND WAS DIAGNOSED WITH GASTROPARESIS. STATES THE MEDS SHE NORMALLY TAKES, ARE NOT HELPING SYMPTOMS. HAS APPT WITH SPECIALIST ON THE . Source of Information: Patient, Family () Exam Limitations: No Limitations History of Present Illness Date Seen by Provider: Nov 17, 2022 Time Seen by Provider: 09:05 Initial Comments 42-year-old female presents to the emergency department today for dry heaving. Symptoms present for several months now. She saw a GI specialist, Dr. Le in [facility] and was diagnosed with gastroparesis and esophageal dysmotility. She states the medication she typically uses are not working. She does not know the names of them specifically and does not have them with her. All the med icines that she is taken orally. She has diffuse abdominal cramping without any focal abdominal pain. All of her symptoms have been present for at least 6 months to a year and relatively unchanged though she does sometimes get some relief with the uflq-mcn-eyqhxth medications. No fevers or chills. She does frequently have loose stools with these episodes and has had for the last couple of days. No urinary symptoms. No vaginal symptoms. All other systems reviewed and negative except documented per HPI. Voice recognition software was used to help create this chart Allergies and Home Medications Allergies Coded Allergies: metformin (Verified Allergy, Intermediate, N/V, 11/21/15) strawberry (Verified Allergy, Mild, 11/28/15) codeine (Verified Allergy, Unknown, 12/24/05) meperidine (Verified Allergy, Unknown, 04/16/21) morphine (Verified Allergy, Unknown, 01/12/14) Patient Home Medication List Home Medication List Reviewed: Yes Albuterol Sulfate (Albuterol Sulfate) 2.5 Mg/3 Ml Vial.neb, 2.5 MG INH Q4H PRN for WHEEZING Prescribed by: MADELINE OAKES on 02/15/19 1256 Albuterol Sulfate (Ventolin Hfa) 1 Puff Puff, 2 PUFF IH Q4H PRN for WHEEZING Prescribed by: MADELINE OAKES on 02/15/19 1256 Hydrocodone Bit/Acetaminophen (Lortab 5 Mg Tablet) 1 Tab Tab, 1 EACH PO Q4-6HR PRN for PAIN-MODERATE Prescribed by: REILLY PORTER on 09/30/18 1144 Ondansetron (Ondansetron Odt) 4 Mg Tab.rapdis, 4 MG SL Q4H PRN for N AUSEA/VOMITING Prescribed by: MADELINE OAKES on 04/16/21 1854 Ondansetron (Ondansetron Odt) 8 Mg Tab.rapdis, 8 MG PO Q6H PRN for NAUSEA/VOMITING Prescribed by: ABDULLAHI RECIO on 03/22/22 1159 Prednisone (Prednisone) 20 Mg Tab, 40 MG PO DAILY Prescribed by: MADELINE OAKES on 02/15/19 1256 Prednisone (Prednisone) 20 Mg Tab, 40 MG PO DAILY Prescribed by: ABDULLAHI RECIO on 04/13/19 1237 Promethazine HCl (Promethazine Tablet) 25 Mg Tablet, 25 MG PO Q8H PRN for NAUSEA/VOMITING Prescribed by: ABDULLAHI RECIO on 07/11/18 1705 Promethazine HCl (Promethazine Tablet) 25 Mg Tablet, 25 MG PO Q6H PRN for NA USEA/VOMITING Prescribed by: EMERY ABRAMS on 04/26/21 1758 Review of Systems Review of Systems Constitutional: no symptoms reported Past Cruvzfe-Wtokpn-Pipicx Hx Patient Social History Tobacco Use?: No Use of E-Cig and/or Vaping dev: No Substance use?: Yes Substance type: Marijuana Alcohol Use?: No Pt feels they are or have been: No Immunizations Up To Date Tetanus Booster (TDap): Less than 5yrs Seasonal Allergies Seasonal Allergies: Yes Past Medical History Surgery/Hospitalization HX: Pt denies. 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 Sexually Transmitted Disease: No HIV/AIDS: No Genitourinary: No UTI-Chronic Gastrointestinal: Yes Gastroesophageal Reflux, Chronic Diarrhea, Gall Bladder Disease, Irritable Bowel Musculoskeletal: Yes (OSTEOARTHRITIS, INFLAMATORY JOINT DISEASE, FIBROMYALGIA, Caron-Danlos) Arthritis, Fibromyalgia, Chronic Back Pain Endocrine: No Loss of Vision: Denies Hearing Impairment: Denies Cancer: No Psychosocial: Yes Sleep Difficulties, Anxiety, PTSD, Bipolar, Personality Disorder, Depression Integumentary: No (bumps on both arms) Blood Disorders: No Adverse Reaction/Blood Tranf: No Family Medical History Reviewed Nursing Family Hx Alcoholism 19 FATHER Arthritis 19 FATHER 19 MOTHER Cardiovascular disease grandmother Cataracts G8 BROTHER grandmother Completed stroke grandmother Congenital disease Congenital heart disease grandmother Deafness or hearing loss 19 MOTHER G8 BROTHER Diabetes mellitus 19 MOTHER Gastroenteritis grandmother Glaucoma grandmother Headache disorder 19 MOTHER grandmother Hypercholesterolemia 19 MOTHER grandmother Hypertension 19 MOTHER grandmother Myocardial infarction 19 MOTHER Parkinson's disease grandmother Respiratory disorder 19 FATHER GI Disease Physical Exam Vital Signs Vital Signs - First Documented 11/17/22 09:07 Temp 35.0 Pulse 94 Resp 16 B/P (MAP) 110/78 (89) Pulse Ox 96 O2 Delivery Room Air Capillary Refill : Less Than 3 Seconds Height/Weight/BMI Height: 5'8.00" Weight: 260lbs. 0.0oz. [id number]; 47.00 BMI Method:Stated General Appearance: no apparent distress HEENT: normal ENT inspection, pharynx normal Neck: non-tender, supple, normal inspection Respiratory: chest non-tender, lungs clear, normal breath sounds, no respiratory distress, no accessory muscle use Cardiovascular: regular rate, rhythm, no murmur Gastrointestinal: normal bowel sounds, non tender, soft, no organomegaly Extremities: normal range of motion, non-tender, normal inspection, no pedal edema, no calf tenderness Back: normal inspection, no CVA tenderness, no vertebral tenderness Neurologic/Psychiatric: alert, normal mood/affect, oriented x 3 Skin: normal color, warm/dry Progress/Results/Core Measures Results/Orders My Orders Orders - CHECO RICK DO Promethazine Injection (Phenergan Injec (11/17/22 09:30) Diphenhydramine Injection (Benadryl Inje (11/17/22 09:30) Vital Signs/I&O 11/17/22 09:07 Temp 35.0 Pulse 94 Resp 16 B/P (MAP) 110/78 (89) Pulse Ox 96 O2 Delivery Room Air Blood Pressure Mean: 89 Departure Communication (Admissions) Patient is hemodynamically stable. For healing, retching has improved with the provided medications, nearly resolved at this time. She is tolerating p.o. She is discharged home. I will recommend Phenergan suppositories in case she is not tolerating p.o. which should help some. She is discharged in stable condition with supportive care and close GI follow-up. Impression Primary Impression: Gastroparesis Disposition: HOME, SELF-CARE Condition: Stable Departure-Patient Inst. Referrals: [facility] [place] ([place]) Primary Care Physician Patient Instructions: Gastroparesis (Delayed Gastric Emptying) Add. Discharge Instructions: I have sent promethazine suppositories to your pharmacy. If your dry heaving, retching or vomiting this may help more with your symptoms. Follow-up with your GI specialist by calling to schedule an appointment. Continue to use all other home medications as previously prescribed. Return to the emergency department for any severe concerns. All discharge instructions reviewed with patient and/or family. Voiced understanding. Scripts Promethazine HCl (Promethazine Suppository) 25 Mg Supp.rect 25 MG RC BID for Nausea for 10 Days, #10 SUPP.RECT Prov: CHECO RICK DO 11/17/22 CHECO RICK DO Nov 17, 2022 09:21
[2022-11-17] MEDS ORDERED: PROMETHAZINE INJ 25 MG/ML (PHENERGAN) AMP IM ONE (09:30)
[2022-11-17] MEDS ORDERED: diphenhydrAMINE 50 MG/ML INJ (BENADRYL) IM ONE (09:30)
[2022-11-17] MEDS ORDERED: PROM25SU44 RC (10:00)
[2022-11-17 10:31] VITALS: BP 115/88
== END 2022-11-17 10:31 | disposition home or self-care (01) ==
LOC: EDUNIT# 08:52 → ER 08:53
DX: K31.84 Gastroparesis (principal); Z90.49 Acquired absence of other specified parts of digestive tract
CPT/HCPCS: 99284

== ENCOUNTER 2023-04-16 05:32 | Outpatient (CLI) | payer MEDICARE, MEDICAID ==
[~2023-04-16] VITALS: Ht 172.7 cm; Wt 145.5 kg
[~2023-04-16 05:32] MED LIST changes: +PROM25SU44 RC
[2023-04-16] MEDS ORDERED: DIPH25CA79 PO (13:00)
[2023-04-16] MEDS ORDERED: 0.9126SP NS (13:00)
[2023-04-16] MEDS ORDERED: PRAZ2CAP2 PO (13:00)
[2023-04-16] MEDS ORDERED: MULT-141 PO (13:00)
[2023-04-16] MEDS ORDERED: PANT40TA52 PO (13:00)
[2023-04-16] MEDS ORDERED: LORA-407 PO (13:00)
[2023-04-16] MEDS ORDERED: CETI-458 PO (13:00)
[2023-04-16] MEDS ORDERED: CARI4.5C PO (13:00)
[2023-04-16] MEDS ORDERED: CHOL500050 PO (13:00)
== END 2023-04-16 13:24 | disposition home or self-care (01) ==
LOC: PREOP 05:32
PROVIDERS: ATTEND Orthopaedic Surgery
DX: Z01.818 Encounter for other preprocedural examination (principal)

== ENCOUNTER 2023-04-23 06:30 | Day surgery (SDC) | payer MEDICARE, OTHER, MEDICAID ==
--- NOTE | 2023-04-15 16:36 | HISTORY AND PHYSICAL ---
DATE OF SERVICE: 04/23/2023 This will be for outpatient surgery on 04/23/2023 for left knee arthroscopy. HISTORY: The patient is a 42-year-old female with left anterior and medial knee pain. She underwent an MRI, which reveals diffuse chondral changes in all 3 compartments. She reports swelling, locking and catching in her knee. She reports activity limitations because the knee. She understands an arthroscopy can help with her mechanical symptoms, but would not alleviate her arthritic symptoms due to functional impairment and failure to improve with conservative measures. The patient has elected to proceed with surgical intervention. REVIEW OF SYSTEMS: No chest pain, no shortness of breath. No dysuria. PAST MEDICAL HISTORY: Bipolar, PTSD, irritable bowel syndrome, tension headaches, Caron-Danlos syndrome, back pain, fibromyalgia, hyperlipidemia, osteoarthritis, vertigo. PAST SURGICAL HISTORY: Knee arthroscopy bilaterally, appendectomy, right carpal tunnel release, cholecystectomy, tubal ligation, tonsillectomy, hysterectomy, D and C. FAMILY HISTORY: Significant for coronary artery disease, hypertension, pancreatic cancer, breast cancer. PRIMARY CARE PROVIDER: Billy Ny MD MEDICATIONS: Vraylar, Prazosin, pantoprazole, lorazepam, vitamin D3, Farxiga, Ozempic. ALLERGIES: TRAMADOL, STRAWBERRIES, VIIBRYD, CODEINE, MORPHINE, KETOROLAC, AND METFORMIN. SOCIAL HISTORY: The patient is a former smoker. She drinks alcohol socially. PHYSICAL EXAMINATION: GENERAL: The patient is well-developed, well-nourished, in no acute distress. HEENT: Normocephalic, atraumatic. Pupils equal, round and reactive to light. Oropharynx is clear. NECK: Supple. No lymphadenopathy. LUNGS: Clear to auscultation bilaterally. HEART: Regular rate and rhythm. ABDOMEN: Soft, nontender, nondistended. EXTREMITIES: The left knee demonstrates patellofemoral crepitus and pain with patellar loading. She is tender along her medial femoral epicondyle. She has pain medially with Nicole's. There is no varus or valgus laxity. Negative anterior and posterior drawer. Moderate effusions noted. IMPRESSION: Left knee chondromalacia. PLAN: Left knee arthroscopy with chondroplasty. The risks, benefits, options, ramifications and recovery have been discussed at length with the patient. She understands and wishes to proceed. Job ID: [id number] DocumentID: [id number] Dictated Date: 04/15/2023 13:32:51 Mechanical Systems Design Engineer Date: 04/15/2023 16:34:00 Dictated By: CHELSEA CAMPBELL MD
[2023-04-23] VITALS (11 sets, daily range): BP systolic 93–121; BP diastolic 66–92
[~2023-04-23] VITALS: Ht 172.7 cm; Wt 145.5 kg
[~2023-04-23 06:30] MED LIST changes: +0.9126SP NS; +CARI4.5C PO; +CETI-458 PO; +CHOL500050 PO; +DIPH25CA79 PO; +LORA-407 PO; +MULT-141 PO; +PANT40TA52 PO; +PRAZ2CAP2 PO
--- NOTE | 2023-04-23 07:29 | Progress Note-Pre Operative ---
Pre-Operative Progress Note Date of Available H&P: Apr 15, 2023 Date H&P Reviewed: Apr 23, 2023 Time H&P Reviewed: 07:28 Changes from last HP none Pre-Operative Diagnosis: left knee chondromalacia CHELSEA CAMPBELL MD Apr 23, 2023 07:29
--- NOTE | 2023-04-23 07:29 | Progress Note-Post Operative ---
Post-Operative Progess Note Surgeon (s)/Intermediate School Teacher (s) Surgeon CHELSEA CAMPBELL MD Intermediate School Teacher: Glenn Mcgrath Pre-Operative Diagnosis left knee chondromalacia Post-Operative Diagnosis left knee lateral meniscus tear chondromalacia of the medial and lateral tibial plateau, medial femoral condyle and trochlea and anterior tibia osteophyte Procedure & Operative Findings Date of Procedure 04/23/23 Procedure Performed/Findings left knee arthroscopic partial lateral meniscectomy, chondroplasty of the medial and lateral tibial plateau, medial femoral condyle and trochlea and anterior tibia osteophyte excision Anesthesia Type GETA Estimated Blood Loss Estimated blood loss (mL): minimal Specimens/Packing Specimens Removed none Packing: none CHELSEA CAMPBELL MD Apr 23, 2023 07:29
[2023-04-23] MEDS ORDERED: LACTATED RINGERS 1,000 ML IV PRN (07:45)
[2023-04-23] MEDS ORDERED: ONDANSETRON 4 MG/2 ML (SDV) Z0FRAN IVP ONE (07:45)
[2023-04-23] MEDS ORDERED: FAMOTIDINE INJ 20MG/2ML VIAL IVP ONE (07:45)
[2023-04-23] MEDS ORDERED: ceFAZolin INJECTION 2,000 MG in NS (IVPB) 50 ML 50 ML IV ONE (07:45)
[2023-04-23] MEDS ORDERED: BUPIVACAINE 0.25% 30 ML VIAL ONE (08:11)
[2023-04-23] MEDS ORDERED: dexAMETHasone INJ 10 MG/ML 1 ML VIAL ONE (08:33)
[2023-04-23] MEDS ORDERED: fentaNYL INJECTION 100 MCG/2 ML VIAL ONE ×2 (08:33→09:55)
[2023-04-23] MEDS ORDERED: LIDOCAINE PF 2% 5 ML VIAL ONE (08:33)
[2023-04-23] MEDS ORDERED: MIDAZOLAM INJ 2 MG/2 ML VIAL ONE (08:33)
[2023-04-23] MEDS ORDERED: proPOfol 200 MG/20 ML (DIPRIVAN) VIAL IV ONE (08:33)
[2023-04-23] MEDS ORDERED: ONDANSETRON 4 MG/2 ML (SDV) Z0FRAN ONE (08:33)
[2023-04-23] MEDS ORDERED: HYDROcodone/ACETAMINOPHEN 7.5 MG/325 MG TABLET PO PRN (09:30)
[2023-04-23] MEDS ORDERED: SEVOFLURANE (ULTANE) 15 ML INHAL SOLN ONE (09:48)
[2023-04-23] MEDS ORDERED: PROMETHAZINE INJ 25 MG/ML (PHENERGAN) AMP IVP ONE (10:00)
[2023-04-23] MEDS ORDERED: ONDANSETRON 4 MG/2 ML (SDV) Z0FRAN IVP PRN (10:00)
[2023-04-23] MEDS ORDERED: fentaNYL INJECTION 100 MCG/2 ML VIAL IVP ONE (10:00)
[2023-04-23] MEDS ORDERED: HYDROcodone/ACETAMINOPHEN 7.5 MG/325 MG TABLET PO ONE (10:49)
--- NOTE | 2023-04-23 15:37 | OPERATIVE REPORT ---
DATE OF SERVICE: 04/23/2023 PREOPERATIVE DIAGNOSES: 1. Left knee chondromalacia of the medial femoral condyle. 2. Left knee chondromalacia of the patella. 3. Left knee chondromalacia of the lateral femoral condyle. POSTOPERATIVE DIAGNOSES: 1. Left knee lateral meniscus tear. 2. Left knee chondromalacia of lateral tibial plateau. 3. Left knee chondromalacia of medial femoral condyle. 4. Left knee chondromalacia of the medial tibial plateau. 5. Left knee chondromalacia of the trochlea. 6. Left knee anterior tibial osteophyte. PROCEDURE: 1. Left knee arthroscopic partial lateral meniscectomy. 2. Left knee arthroscopic chondroplasty of lateral tibial plateau. 3. Left knee arthroscopic chondroplasty of medial femoral condyle. 4. Left knee arthroscopic chondroplasty of medial tibial plateau. 5. Left knee arthroscopic chondroplasty of trochlea. 6. Left knee arthroscopic anterior tibial osteophyte excision. SURGEON: Gonzalo Crum MD ARCHITECTURAL MANAGER: Glenn Mcgrath, who assisted throughout the procedure and closed the incisions. ANESTHESIA: General endotracheal by Terrance Rob CRNA. TOURNIQUET TIME: Not applicable. ESTIMATED BLOOD LOSS: Minimal. DRAINS: None. COMPLICATIONS: None. POSTOPERATIVE PLAN: Routine arthroscopy protocol. The patient was transferred to recovery room awake and stable condition. STATEMENT OF MEDICAL NECESSITY: The patient is a 42-year-old female with known chondromalacia of her left knee. She had undergone treatment with rest, activity modifications, anti-inflammatories, but reports catching, locking and mechanical symptoms in her knee. Because of this, the patient elected to proceed with surgical intervention to proceed with surgical intervention. The patient understood that an arthroscopy could help with her mechanical symptoms, but would not alleviate her arthritic symptoms. Examination under anesthesia revealed range of motion 0-130 with negative Actalina, negative anterior and posterior drawer. No varus or valgus laxity, negative pivot shift. Arthroscopic findings demonstrated a grade 4 chondral loss of the inferior aspect of the patella in a 10 x 10 area with a large osteophyte inferiorly. The trochlea demonstrated grade 3 chondral flap centrally in a 10 x 10 area with a central grade 4 chondral loss. The medial and lateral gutters were clear. The ACL and PCL were intact. There was a large anterior tibial osteophyte which impinged in the intercondylar notch and extension. The ACL and PCL were intact. The lateral compartment demonstrated a tear of the body lateral meniscus involving approximately 20% of the body. In addition, there were grade 2-3 chondral flaps of the central portion of the tibial plateau laterally and a 12 x 12 area. The medial compartment demonstrated grade 3 chondral flap centrally and inferiorly on the femoral epicondyle in 20 x 20 area and central portion of the tibial plateau in a 10 x 10 area. DESCRIPTION OF PROCEDURE: After risks and benefits of the procedure were discussed and questions were answered and informed consent was signed and placed on chart. The operative site was confirmed in the preoperative holding area initialed by surgeon. The patient was then transferred to the operating room. After adequate levels of general endotracheal anesthetic were obtained, timeout was called, confirming the operative site. Examination under anesthesia was performed. The left lower extremity was prepped and draped in the usual sterile fashion. Knee joint was injected with 60 mL fluid and standard inferolateral portal was placed for the arthroscope and direct visualization and inferior medial portal was created. The menisci cruciates carefully probed with above findings noted. The unstable chondral flaps in the trochlea were debrided with a shaver back to a stable edge. Scope was then redirected into the lateral compartment where the lateral meniscus tear was debrided with a shaver back to a stable edge and the unstable chondral flaps on the lateral tibial plateau were debrided with a shaver back to a stable edge. Scope was then redirected into the medial compartment and unstable chondral flaps on the medial femoral condyle and medial tibial plateau were debrided with a shaver back to a stable edge. A bur was then used to resect the anterior tibial osteophyte and then under visualization with the arthroscope. There was no impingement noted. The knee joint was copiously irrigated. The portal sites were closed with 4-0 nylon in simple interrupted fashion. Knee was injected with Duramorph. The port sites were infiltrated with plain Marcaine. A soft dressing was applied. The patient was transferred to the recovery room awake and stable condition. Job ID: [id number] DocumentID: [id number] Dictated Date: 04/23/2023 09:54:17 Shoemaking Cutter Date: 04/23/2023 15:36:00 Dictated By: GONZALO CRUM MD
--- NOTE | 2023-04-23 16:03 | Physical Therapy Ortho Eval ---
PT Orthopedic Evaluation Type of Surgery Knee Scope Prior Level of Function Current Living Status: Significant Other Locomotion (Upon Admit): Independent Established Durable Medical Eq: Crutches Subjective Subjective Patient lying supine in bed upon PT arrival, agreeable to treatment. Rates pain currently at 4/10. Nurse requests exercises only. Motor Control Motor Control: Motor Control WNL ROM ROM: WFL, except focal deficit Strength Strength: Gen Weak,No Focal Deficit Transfer SCALE: Activities may be completed with or without assistive devices. 3-Xgtsplsdes-emfbsqc completes the activity by him/herself with no assistance from a helper. 5-Set-up or Clean-up Assistance-helper sets up or cleans up; patient completes activity. [place] assists only prior to or following the activity. 4-Supervision or Touching Assistance-helper provides verbal cues and/or touching/steadying and/or contact guard assistance as patient completes activity. Assistance may be provided throughout the activity or intermittently. 3-Partial/Moderate Assistance-helper does LESS THAN HALF the effort. [place] lifts, holds or supports trunk or limbs, but provides less than half the effort. 2-Substantial/Maximal Assistance-helper does MORE THAN HALF the effort. [place] lifts or holds trunk or limbs and provides more than half the effort. 0-Veckmacit-kuvxwx does ALL the effort. Patient does none of the effort to complete the activity. Or, the assistance of 2 or more helpers is required for the patient to complete the activity. If activity was not attempted, code reason: 7-Patient Refused. 9-Not Applicable-not attempted and the patient did not perform the activity before the current illness, exacerbation or injury. 10-Not Attempted due to Environmental Limitations-(lack of equipment, weather restraints, etc.). 88-Not Attempted due to Medical Conditions or Safety Concerns. Treatment Rendered Treatment: Therapeutic Exercises Exercise Instruction: Quad Sets, Straight Leg Raise, Heel Slides Assessment/Goals Goal Time Frame: 1 Visit Plan Treatment Plan: Discharge Time Time In: 1140 Time Out: 1145 Total Billed Treatment Time: 5 Billed Treatment Time Visit, No Charge ANICETO STEVENS PT Apr 23, 2023 16:03
== END 2023-04-23 12:03 | disposition home or self-care (01) ==
LOC: SDC 06:30
PROVIDERS: ATTEND Orthopaedic Surgery
DX: S83.282A Other tear of lateral meniscus, current injury, left knee, initial encounter (principal); M94.262 Chondromalacia, left knee; M25.762 Osteophyte, left knee; K21.9 Gastro-esophageal reflux disease without esophagitis; G47.33 Obstructive sleep apnea (adult) (pediatric); E66.9 Obesity, unspecified; Z68.42 Body mass index [BMI] 45.0-49.9, adult; Z99.81 Dependence on supplemental oxygen; Z87.891 Personal history of nicotine dependence; Z28.310 Unvaccinated for COVID-19; Z79.899 Other long term (current) drug therapy
CPT/HCPCS: 82947; 87081

== ENCOUNTER 2023-05-16 19:20 | Outpatient (CLI) | payer MEDICARE, MEDICAID | END 2023-05-17 05:45 | LOC: SLEEP 19:20 | PROVIDERS: ATTEND Pediatrics | DX: G47.33 Obstructive sleep apnea (adult) (pediatric) (principal) | CPT/HCPCS: 95811 ==